=== PATIENT | female | born 1935 | race Caucasian/White ===

== ENCOUNTER 2019-05-20 05:32 | Outpatient (RCR) | payer MEDICARE, SELFPAY | END 2019-05-25 00:01 | LOC: ONCMED 05:32 | PROVIDERS: Family Provider Family Medicine; Visit Provider Nurse Practitioner | DX: Z51.12 Encounter for antineoplastic immunotherapy (principal); C50.411 Malignant neoplasm of upper-outer quadrant of right female breast; C77.3 Secondary and unspecified malignant neoplasm of axilla and upper limb lymph nodes; Z23 Encounter for immunization; I10 Essential (primary) hypertension; E78.5 Hyperlipidemia, unspecified; K21.9 Gastro-esophageal reflux disease without esophagitis; M45.9 Ankylosing spondylitis of unspecified sites in spine; M19.90 Unspecified osteoarthritis, unspecified site; M81.0 Age-related osteoporosis without current pathological fracture; M10.9 Gout, unspecified; F41.8 Other specified anxiety disorders; Z79.01 Long term (current) use of anticoagulants; Z79.891 Long term (current) use of opiate analgesic; Z79.899 Other long term (current) drug therapy; Z87.01 Personal history of pneumonia (recurrent); Z92.3 Personal history of irradiation; Z87.11 Personal history of peptic ulcer disease; Z92.23 Personal history of estrogen therapy; Z92.21 Personal history of antineoplastic chemotherapy | CPT/HCPCS: 99214 ==

== ENCOUNTER → 2019-05-31 09:45 | Outpatient (BNVA) | payer MEDICARE, SELFPAY | PROVIDERS: Family Provider Family Medicine; PCP Family Medicine; Visit Provider Internal Medicine Cardiovascular Disease | DX: E87.6 Hypokalemia (principal); I10 Essential (primary) hypertension; I48.20 Chronic atrial fibrillation, unspecified; E78.2 Mixed hyperlipidemia; R00.2 Palpitations | CPT/HCPCS: 80048 ==

== ENCOUNTER 2019-06-09 13:50 | Emergency (ER) | payer MEDICARE, SELFPAY ==
[2019-06-09 14:19] VITALS: BP 155/95; PULSE 90; RESP 16; TEMP 36.4; O2SAT 95; BMI 26.9
--- NOTE | 2019-06-09 14:28 | XRR_ITS ---
PROCEDURE INFORMATION: Exam: XR Right Shoulder Exam date and time: 06/09/2019 3:18 PM Age: 83 years old Clinical indication: Pain and injury or trauma; Fall; Initial encounter; Blunt trauma (contusions or hematomas; Shoulder; Right; Additional info: Fall, R shoulder pain TECHNIQUE: Imaging protocol: XR Right shoulder. Views: 2 or more views. COMPARISON: No relevant prior studies available. FINDINGS: Bones/joints: There is a transverse displaced retracted fracture of the proximal shaft of the right humerus. The glenohumeral joint is in place. Soft tissues: Widening of the acromial humeral space is seen corresponding to joint fluid collection. XR/XR shoulder RT min 2V* [id number] IMPRESSION: Displaced retracted fracture proximal shaft of the right humerus. Negative for right glenohumeral joint dislocation. Joint space effusion
--- NOTE | 2019-06-09 15:35 | ED_ITS ---
Entered by El Gallagher, acting as scribe for Jonathan Ritter DO Jun 09, 2019 13:50 HPI - Extremity Problem General: Chief complaint: Extremity Injury, Upper Stated complaint: Fell hurt R arm Time Seen by Provider: 06/09/19 16:00 History of Present Illness: HPI Narrative: 83 yo female presents with right shoulder pain. Pt states that she slipped in the shower and hit her shoulder. Pt states that she has swelling of her shoulder. Pt denies hitting her head. MD Complaint: extremity pain and extremity swelling Pain Consistency: constant Location: right and upper extremity Quality: sharp and constant Associated symptoms: Deny chest pain, fever(s) or rash Review of Systems Const: Denies: fever, chills, body aches, fatigue, malaise or night sweats Eyes: Denies: change in vision or blurry vision ENMT: Denies: enlarged tonsils Card: Denies: chest pain, palpitations, irregular heart rhythm, edema, syncope, shortness of breath on exertion, shortness of breath when lying down or leg pain with exertion Resp: Denies: shortness of breath, productive cough, non-productive cough or wheezing GI: Denies: abdominal pain, nausea, vomiting, vomiting blood, coffee grounds in vomit, difficulty swallowing, heartburn/indigestion, diarrhea, constipation, cramping, blood in stool or black tarry stool : Denies: flank pain, painful urination, urinary frequency, urinary urgency, urinary incontinence or blood in urine Musc: Reports: extremity pain, extremity swelling and deformity; Denies: neck pain, back pain, joint pain or joint swelling Skin/Breast: Denies: rash, itching or redness Neuro: Denies: headache, numbness in extremities, weakness in extremities, changes in sensation, lack of coordination, difficulty walking, frequent falls, dizziness, vertigo or confusion Psych: Denies: anxiety, depression, loss of interest, visual hallucinations, auditory hallucinations, suicidal ideation or homicidal ideation Endo: Denies: excessive urination, excessive thirst, tired all the time or cold intolerance Cresencio/Lymph: Denies: easy bruising, easy bleeding, petechiae, enlarged lymph nodes or tender lymph nodes PFSH ED PFSH: Statuses (acute, chronic, etc) shown below reflect problem list status as previously entered and may not be historically accurate Medical History Ankylosing spondylitis of cervicothoracic region (Acute) Atrial fibrillation (Acute) Breast cancer, right (Acute) Chest pain (Acute) Essential hypertension (Acute) Gout (Acute) Hypothyroidism (Acute) Mixed hyperlipidemia (Acute) Osteoarthritis (Acute) Osteopenia (Acute) Palpitation (Acute) Peptic ulcer (Acute) Sinus bradycardia (Acute) SVT (supraventricular tachycardia) (Acute) Vitamin D deficiency (Acute) Surgical History H/O mastectomy (Acute) History of abdominal surgery (Acute) History of parathyroidectomy (Acute) Family History Family/Other Hypertension Mother Stroke Father Stroke Other CAD (coronary artery disease) Cancer Diabetes Hyperlipidemia Social History Smoking and tobacco status: never smoked Alcohol intake: never Marital status: / History of recent travel: No Physical Exam Const: COMMON NORMALS: average body habitus, oriented x3 and alert GENERAL APPEARANCE: cooperative, comfortable, well kempt and well developed NUTRITIONAL APPEARANCE: obese ORIENTATION/CONSCIOUSNESS: Yes awake, Yes oriented to person and Yes oriented to place HENMT: COMMON NORMALS: normocephalic, head/scalp atraumatic, EAC's normal, TM's normal bilaterally, external nose normal, moist oral mucous membranes and oropharynx normal HEAD & SCALP: normocephalic and atraumatic NOSE: external nose normal EXTERNAL AUDITORY CANAL: EAC's normal TYMPANIC MEMBRANE: TM's normal bilaterally MOUTH: oral and palatal mucosa normal, lip normal and tongue normal THROAT: posterior oropharynx normal and tonsils normal Eye: COMMON NORMALS: PERRL, EOMs intact bilaterally, conjunctivae normal and no scleral icterus CONJUNCTIVA: Yes conjunctivae normal PUPIL: Yes PERRL Neck/C-Spine: COMMON NORMALS: full ROM, no lymphadenopathy, supple, no meningeal signs and thyroid normal THYROID: thyroid normal and asymmetrical Lymph: LYMPHATIC: no lymphadenopathy noted Resp: COMMON NORMALS: normal respiratory effort, no retractions, no use of accessory muscles and clear to auscultation bilaterally AUSCULTATION: clear to auscultation bilaterally Cardio: COMMON NORMALS: regular rate and regular rhythm RATE: regular rate RHYTHM: regular rhythm HEART SOUNDS: no murmurs GI: COMMON NORMALS: normal to inspection, nondistended, normoactive bowel sounds, soft to palpation and no hepatosplenomegaly PALPATION: Yes soft and Yes no hepatosplenomegaly : COMMON NORMALS: Yes no CVA tenderness BLADDER/KIDNEY EXAM: Yes no CVA tenderness Back/Pelvis: COMMON NORMALS: no CVA tenderness LUMBAR SPINE/LOWER BACK: Yes normal to inspection Extremity: RIGHT UPPER EXTREMITY: Yes shoulder joint and Yes upper arm Neuro: COMMON NORMALS: oriented x3 SENSORIUM/ORIENTATION: Yes alert, Yes oriented to person and Yes oriented to place MENINGEAL SIGNS: Yes no meningeal signs Psych: APPEARANCE: Yes well kempt Skin: COMMON NORMALS: no rashes or lesions noted and skin turgor normal GENERAL SKIN EXAM: no rashes or lesions noted and turgor normal Course ED course: On the plain film she appears to have a dislocated shoulder in addition to the fracture. CT done to confirm CT does not show dislocation I discussed Dr. Harris she reviewed the films as well she concurred. We will treat as a proximal humerus fracture with shoulder immobilizer and pain medications early orthopedic follow-up. Pain medications given. Consultations: Time: 16:00 Consultation #2: Called Dr. Mckeon, she was in with a pt. Dr. Mckeon's nurse stated that she would call us back after she was finished with the pt. Time: 16:41 Consultation #3: Called Dr. Mckeon back. Consulted her about pt. Vital Signs: Vital signs: Vital Signs Temperature 97.5 F L 06/09/19 14:19 Pulse Rate 89 06/09/19 18:39 Respiratory Rate 131 H 06/09/19 18:39 Blood Pressure 131/89 06/09/19 18:39 Pulse Oximetry 96 06/09/19 18:39 MDM - Extremity (Nontraumatic) Imaging Data^: shoulder xray: My impression: Patient: Alyson Sandoval Unit #: [id number] : 1935 Age/Sex: 83 / F ADM Date: 06/09/19 Loc: ER Room/Bed: Attending Dr: Ordering Provider/Ordering MD: Jonathan Ritter DO Date of Service: 06/09/19 Procedure(s): XR shoulder RT min 2V* [id number] Accession Number(s): [id number] Report Number: [id number] PROCEDURE INFORMATION: Exam: XR Right Shoulder Exam date and time: 06/09/2019 3:18 PM Age: 83 years old Clinical indication: Pain and injury or trauma; Fall; Initial encounter; Blunt trauma (contusions or hematomas; Shoulder; Right; Additional info: Fall, R shoulder pain TECHNIQUE: Imaging protocol: XR Right shoulder. Views: 2 or more views. COMPARISON: No relevant prior studies available. FINDINGS: Bones/joints: There is a transverse displaced retracted fracture of the proximal shaft of the right humerus. The glenohumeral joint is in place. Soft tissues: Widening of the acromial humeral space is seen corresponding to joint fluid collection. XR/XR shoulder RT min 2V* [id number] IMPRESSION: Displaced retracted fracture proximal shaft of the right humerus. Negative for right glenohumeral joint dislocation. Joint space effusion Dictated By: Philip Spann Signed By: Philip Spann Signed Date/Time: 06/09/191627 DD/ 27 Discharge Plan Discharge Patient Disposition: Home, Self-Care Clinical Impression: Fracture of proximal end of humerus Qualifiers: Encounter type: initial encounter Fracture type: closed Fracture alignment: displaced Laterality: right Condition: Stable Prescriptions: No Action potassium chloride 20 mEq tablet extended release 20 meq PO BID RF: 0 pravastatin 20 mg tablet 20 mg PO DAILY RF: 0 carvedilol 3.125 mg tablet 3.125 mg PO BID RF: 0 flecainide 50 mg tablet 50 mg PO Q12H RF: 0 folic acid 1 mg tablet 1 mg PO DAILY RF: 0 nitroglycerin [Nitrostat] 0.4 mg tablet, sublingual 0.4 mg SUBLINGUAL Q5M PRNRF: 0 hydrocodone-acetaminophen 5-325 mg tablet 1 tab PO Q8H PRNRF: 0 Adult Probiotic 3 billion cell capsule 3,000 mmu cells PO DAILY RF: 0 oxybutynin chloride 5 mg tablet 5 mg PO DAILY RF: 0 pantoprazole 40 mg tablet,delayed release (DR/EC) 40 mg PO QAM RF: 0 sertraline 25 mg tablet 25 mg PO DAILY RF: 0 lorazepam 0.5 mg tablet 0.5 mg PO BID PRNRF: 0 diphenoxylate-atropine [Lomotil] 2.5-0.025 mg tablet 2 tab PO BID PRNRF: 0 ondansetron HCl [Zofran] 4 mg tablet 4 mg PO Q8H PRN (Reason: nausea and vomiting) RF: 0 loratadine [Claritin] 10 mg tablet 10 mg PO DAILY PRNRF: 0 furosemide 20 mg tablet 20 mg PO QAM PRNRF: 0 Eliquis 5 mg tablet 5 mg PO BID RF: 0 metronidazole [Flagyl] 500 mg tablet 500 mg PO DAILY RF: 0 Discharge Orders: Discharge Order (Routine); Ordered 06/09/19 Ordered By: Jonathan Ritter Referrals: Sung Buckley MD [Primary Care Provider] - Activity Restrictions/Additional Instructions: This management will call for referral to orthopedics for your right proximal humerus fracture (upper arm). Use pain medicine previously prescribed for pain wear shoulder immobilizer until released by Ortho Discharge Date/Time: 06/09/19 18:41 Coding Level of Care Code ED Automatic Lathe Setter for Chg Fwd Exam Problem Focused The documentation recorded by the Elliott kessler Kialy, accurately reflects the service I personally performed and the decisions made by Riya lloyd Curtis L, DO Jun 09, 2019 13:50
--- NOTE | 2019-06-09 16:01 | CTR_ITS ---
PROCEDURE INFORMATION: Exam: CT Right Upper Extremity Without Contrast, Shoulder Exam date and time: 06/09/2019 4:45 PM Age: 83 years old Clinical indication: Injury or trauma; Fall; Initial encounter; Blunt trauma (contusions or hematomas; Shoulder; Right; Injury details: Prox RT humerus FX; Additional info: Prox humerus FX, dislocation TECHNIQUE: Imaging protocol: CT of the Right upper extremity without contrast was performed. Exam focused on the shoulder. Total DLP: 1038.92 mGy-cm Radiation optimization: All CT scans at this facility use at least one of these dose optimization techniques: automated exposure control; mA and/or kV adjustment per patient size (includes targeted exams where dose is matched to clinical indication); or iterative reconstruction. COMPARISON: CR XR shoulder RT min 2V* [id number] 06/09/2019 3:05 PM FINDINGS: Bones/joints: There is a fracture of the surgical neck of the humerus with over riding of the fracture fragments. There is rotation of the humeral head. The fracture does not involve the articular surface of the humeral head. Multiple bone fragments are noted adjacent to the fracture. The fracture also involves the greater tuberosity humerus. Coronal images best demonstrate that there is also a thin fracture fragment directly beneath the lateral acromion that appears to be arising from the greater tuberosity humerus. This is concerning for avulsion of the insertion site of the rotator cuff with medial retraction measuring up to 2 cm. Smaller bone fragment is also noted along the posterior greater tuberosity probably involving the infraspinatus with less medial retraction measuring about 5 mm. No dislocation. No acute fracture of the glenoid articular surface or remainder of the scapula. The acromioclavicular joint has an appropriate appearance. Soft tissues: Partially included on this exam is a 3.6 by 2.9 cm fluid density cyst along the right lower lateral chest wall image 76 series 4 that may reflect a hematoma or seroma along the lateral aspect of the pectoralis muscle. Pleural space: There is a small right pleural effusion. Focal airspace opacity and air bronchograms are noted in the right upper lobe concerning for infiltrate or contusion. CT/CT shoulder RT wo con* [id number] IMPRESSION: 1. Comminuted fracture of the surgical neck of the humerus with foreshortening of the bone and fracture of the greater tuberosity humerus. 2. Medial displacement of greater tuberosity fracture fragments are concerning for involvement the rotator cuff insertion and medial retraction. 3. Right pleural effusion and airspace opacity right upper lobe concerning for pneumonitis and volume loss. 4. Partially included on this exam is a 3.6 by 2.9 cm fluid density cyst along the right lower lateral chest wall image 76 series 4 that may reflect a hematoma or seroma along the lateral aspect of the pectoralis muscle. Radiation Dose CTDIVOL = (mGy): DLP = 1038.92 (mGy-cm)
[2019-06-09] MEDS: ondansetron 2 mg/ML SDV 2 mL 4 MG IVP (16:44)
[2019-06-09 16:45] VITALS: RESP 16
[2019-06-09] MEDS: morphine 4 mg/mL SDV 1 mL IVP (16:45)
--- NOTE | 2019-06-09 17:37 | XR_ITS ---
WS: [id number] PORTABLE CHEST HISTORY: incidental abnormal lung finding on CT shoulder COMPARISON: 08/24/2018, PET/CT 06/09/2019 LEFT subclavian Port-A-Cath with tip in distal SVC. Hyperexpanded lungs with emphysema and prior granulomatous disease. Soft tissue mass at the RIGHT ape x measures 5.9 x 3.5 cm. PET/CT performed on 06/09/2019 was negative for recurrence of neoplastic dise ase. On the CT this is probably a combination of atelectasis and bronchiectasis and pleural thickenin g. No pleural effusion or pneumothorax. Cardiac size: Mildly enlarged cardiac silhouette. Mediastinum/Aorta: Normal mediastinum. Comminuted fracture involving the RIGHT humeral head and neck. XR/XR chest 1V portable [id number] IMPRESSION: 1. Chronic emphysema. 2. RIGHT apical mass was recently described as PET/CT negative on 06/09/2019. T hought to be related to postsurgical radiation.
[2019-06-09 18:39] VITALS: BP 131/89; PULSE 89; RESP 131; O2SAT 96
--- NOTE | 2019-06-11 09:24 | DCPLANNER ---
self storage manager had message to schedule a follow up appointment for patient with ortho. self storage manager called the ortho clinic, spoke with Renea, gave clinic patients information. self storage manager was told that patients information would be printed and reviewed. Clinic will call lead case manager and patient with appointment information.
--- NOTE | 2019-06-15 12:09 | DCPLANNER ---
Patient has a follow up appointment scheduled for Tuesday, June 18, 2019 at 12:[address] Aguilera. Clinic will call patient with appointment information.
--- NOTE | 2019-06-23 15:41 | DCPLANNER ---
Patient did attend appointment scheduled for 06.18.19 with ortho.
== END 2019-06-09 18:41 | disposition home or self-care (01) ==
PROVIDERS: Emergency Provider Family Medicine; Family Provider Family Medicine; PCP Family Medicine
DX: S42.201A Unspecified fracture of upper end of right humerus, initial encounter for closed fracture (principal); W18.2XXA Fall in (into) shower or empty bathtub, initial encounter; Z79.01 Long term (current) use of anticoagulants; I48.91 Unspecified atrial fibrillation; Z85.3 Personal history of malignant neoplasm of breast; I10 Essential (primary) hypertension; E78.2 Mixed hyperlipidemia
CPT/HCPCS: 71045; 73030; 73200; 96374; 99281; J2270; J2405

== ENCOUNTER → 2019-06-22 13:48 | Outpatient (BNVA) | payer MEDICARE, SELFPAY | PROVIDERS: Family Provider Family Medicine; PCP Family Medicine; Visit Provider Orthopaedic Surgery | DX: S42.401A Unspecified fracture of lower end of right humerus, initial encounter for closed fracture (principal); X58.XXXA Exposure to other specified factors, initial encounter | CPT/HCPCS: 73030; 73080 ==

== ENCOUNTER 2019-06-24 10:15 | Outpatient (RCR) | payer MEDICARE, SELFPAY ==
[2019-06-10] MEDS: sodium chloride 0.9% 500 ML 999 ML IV (16:00)
[2019-06-10 17:03] LABS: Basophils % 0.1 %; Hematocrit 32.1 % (37.0-47.0); Lymphocytes # 0.5 10^3/uL (0.8-4.8); Lymphocytes % 6.4 %; Mean Corpuscular HGB Conc 31.2 g/dL (30.0-36.0); Mean Platelet Volume 9.4 fL (7.4-10.4); Monocytes # 0.6 10^3/uL (0.2-0.9); Monocytes % 8.2 %; Neutrophils # 6.6 10^3/uL (1.8-7.7); Nucleated Red Blood Cells % 0 %; Platelet Count 191 10^3/cmm (130-400); Red Blood Count 3.45 10^6/uL (4.1-5.3); Red Cell Distribution Width 15.5 % (12.1-15.1); White Blood Count 7.8 10^3/uL (4.0-10.0)
[2019-06-10 17:09] LABS: Alanine Aminotransferase 6 U/L (0-33); Alkaline Phosphatase 60 IU/L (35-105); Anion Gap 17.3 (5-19); Aspartate Amino Transferase 15 U/L (0-32); Blood Urea Nitrogen 22 mg/dL (8-23); Calcium 9.5 mg/Dl (8.8-10.2); Carbon Dioxide 24 mmol/L (22-29); Chloride 101 mmol/L (98-107); Glucose 166 mg/dL (74-106); Potassium 5.3 mmol/L (3.5-5.1); Sodium 137 mmol/L (136-145); Total Bilirubin 0.6 mg/dL (0.15-1.2)
--- NOTE | 2019-06-14 06:18 | ONC FU_ITS ---
Dr. Esquivel Patient Follow-Up Note Patient: Alyson Sandoval Unit #: [id number]: 1935 Dicatated By: Francisco Esquivel M.D.Date of Visit:Jun 10, 2019 Onc Med Follow-up/Prog Note Chief Complaint: Breast cancer. History of Present Illness: This is an 83 year-old woman with grade 2 infiltrating ductal carcinoma of the right breast, by clinical evaluation stage IIB (T2, N1, M0), ER/CT positive and HER-2/he positive. She had presented with a palpable mass in the right breast. Diagnostic mammogram and right breast ultrasound at [facility] on 03/26/2018 was BI-RADS 5, highly suggestive of malignancy. The mammogram showed a nodular density in the upper outer right breast at the 10:00 position with interval enlargement of some lymph nodes in the right axilla. Ultrasound showed a lobulated mass measuring 2.6 x 1.7 x 2.1 cm. The appearance was highly suspicious for malignancy. It also showed enlarged lymph nodes measuring up to 2.6 cm, suspicious for metastatic disease. She was referred to Dr. Ruiz. Ultrasound-guided biopsy of the breast mass on 04/24/2018 showed grade 2 infiltrating ductal carcinoma involving virtually 100% of 5 of 5 core fragments submitted. The breast prognostic profile showed ER positive at 98% and CT positive at 75%. HER-2/he was positive, 3+ by IHC and amplification ratio by FISH of 1.0 with 5.6 HER-2 copies/cell. The Ki-67 was unfavorable at 40%. I had seen her initially on 05/22/2018. As her disease appeared to be at least locally advanced, I had recommended a staging PET/CT. That study was done on 05/30/2018. It showed a primary right breast lesion measuring 2.7 x 2.1 cm with SUV 12.8. Multiple right axillary and retropectoral lymph nodes were FDG positive, indicative of metastatic disease. An index right axillary lymph node measured 2.7 x 1.9 cm with SUV 8.1. There were no other areas of abnormal uptake on that study. A multinodular goiter appear to be most likely physiologic. Given those findings, I recommended that she undergo neoadjuvant chemotherapy with paclitaxel in combination with Herceptin, as I felt that she would not tolerate a Taxotere/carboplatin regimen. Her other medical illnesses include hypertension, hyperlipidemia, and GERD. She has a history of pericarditis and history of cardiac arrhythmia. Her other medical illnesses include ankylosing spondylitis, degenerative arthritis, osteoporosis, and gout. She has a history of Clostridium difficile colitis and she has anxiety/depression. She is a nonsmoker. INTERIM HISTORY: She began neoadjuvant chemotherapy with weekly paclitaxel in combination with Herceptin beginning 06/22/2018. She tolerated the initial treatment without significant toxicity, and she was able to continue with week 2 treatment on 06/29/2018. Her week 3 treatment was delayed 1 week due to neutropenia, and with subsequent treatment she has been getting Neupogen prophylactically for 2 days. As of 08/17/2018 she received her 8th infusion of paclitaxel/Herceptin. Restaging mammogram/ultrasound of the right breast on 08/20/2018 showed improvement in the upper outer quadrant breast mass. A right axillary lymph node which was incompletely included appeared similar to the prior study. Other enlarged right axillary lymph nodes on the prior exam are no longer evident. A benign-appearing intramammary lymph node in the right axillary tail appeared stable. She became very weak following the chemotherapy treatment on 08/17/2017. Despite several days of IV hydration, she ended being admitted to the hospital on 08/23/2018. Her main complaint was weakness, but she also was having diarrhea. She was found to have evidence of right lower lobe pneumonia. Her management included IV antibiotic coverage and supportive measures. She was discharged to the assisted on 08/27/2018 for rehabilitation. I opted not to attempt any further chemotherapy, but I did have her continue Herceptin infusions at the 3-week interval dosing. On 09/17/2017 she underwent right breast lumpectomy and right axillary lymph node dissection. Pathology showed residual grade 2 infiltrating ductal carcinoma measuring 1.0 cm in combined aggregate dimension. There were tumor nests noted within 0.3 cm of inked superior and inferior margins. There was metastatic tumor in 7/11 axillary lymph nodes. She developed seroma postoperatively, but she otherwise tolerated the procedure well. She then continued single agent Herceptin at 3-week intervals. As of her follow-up visit on 09/30/2017, she began adjuvant hormonal therapy with anastrozole 1 mg daily. It was subsequently discontinued, though, due to side effects, mainly nausea. She then underwent radiation to the right breast. She completed treatment on 02/03/2019 to a total dose of 6000 cGy. Restaging PET/CT on 03/27/2019 showed post radiation therapy edema in the right breast with an FDG negative right axillary seroma. Mildly FDG positive right upper lobe lung infiltrate appear to be most consistent with postradiation therapy sequelae. New right middle lobe scarring was FDG negative. As of 05/20/2019 she received cycle 13 of single agent Herceptin. She is seen for a scheduled visit. Yesterday she was seen in the emergency room after she had fallen in the shower and injured her right arm. X-ray showed a displaced retracted fracture involving the proximal shaft of the right humerus. CT confirmed a comminuted fracture of the surgical neck of the humerus with foreshortening of the bone and fracture of the greater tuberosity humerus. There was also possible involvement of the rotator cuff insertion. A 3.6 x 2.9 cm fluid density cyst along the right lower lateral chest wall was partially included and was thought to be suspicious for hematoma or seroma along the lateral aspect of the pectoralis muscle. It is being managed by Dr. Mckeon. She had been feeling pretty good prior to that injury. Her activity now is very limited. She says she has not had much appetite, but her weight is stable. She has not had fever or night sweats. She has no shortness of breath, cough, or chest pain. She still has nausea occasionally. She also has occasional heartburn, which she manages with Tums. Bowel function has been okay. She has been having urinary frequency and urgency. In addition to the right shoulder and arm pain, she continues to have pain in her knees and she also has some back pain. She has no focal neurologic symptoms. Medications: Acetaminophen 2 Tablet (of 500 mg) Oral four times a day PRN, Ambien 1 Tablet (of 5 mg) Oral at bedtime, Carvedilol 1 Tablet (of 3.125 mg) Oral b.i.d., Claritin 1 Tablet (of 10 mg) Oral daily PRN, Culturelle 1 Capsule Oral daily, Ditropan XL 1 Tablet (of 5 mg) Tablet SR 24 HR Oral at bedtime, Eliquis 1 Tablet (of 5 mg) Oral b.i.d., Flecainide Acetate 0.5 Tablet (of 100 mg) Oral b.i.d., Fleet Enema 1 (7-19 gm/118mL) Enema Rectal PRN, Folic Acid 1 Tablet (of 1 mg) Oral daily, HYDROcodone-Acetaminophen 1 - 2 Tablet (of 5-325 mg) Oral q 6 hours PRN, Imdur 1 Tablet (of 30 mg) Tablet SR 24 HR Oral daily, Lasix 1 Tablet (of 20 mg) Oral daily on Every Other Day, Lidocaine-Prilocaine Cream Topical PRN, Lomotil 1 Tablet (of 2.5-0.025 mg) Oral four times a day PRN, LORazepam 1 - 2 Tablet (of 0.5 mg) Oral q 4 hours PRN, Magnesium Hydroxide 400 (400 mg/5mL) Suspension Oral PRN, metroNIDAZOLE 1 Tablet (of 500 mg) Oral daily for 10 days, Nitroglycerin 1 Tablet (of 0.4 mg) Tablet, sublingual Sublingual PRN, Phenylephrine-Acetaminophen 1 - 2 Tablet (of 5-325 mg) Oral q 4 hours, Potassium Chloride ER 1 Tablet (of 20 meq) Capsule, controlled release Oral b.i.d., Pravachol 1 Tablet (of 20 mg) Oral at bedtime, Protonix 1 Tablet (of 40 mg) Tablet, enteric coated Oral daily, Zofran 1 - 2 Tablet (of 4 mg) Oral q 8 hours, Zoloft 1 Tablet (of 25 mg) Oral daily Allergies: No Known Allergies. Review of Systems: Constitutional - Her energy had been pretty good, but her activity has been limited following her recent injury. She does not have much appetite, but her weight is stable. No fever, or night sweats. ECOG score is 3, ENMT - Her sinus drainage is somewhat better. No mouth sores. No sore throat or difficulty swallowing, Hematologic/Lymphatic - She bruises easily, Respiratory - No shortness of breath. No cough. No pleuritic pain or hemoptysis, Cardiovascular - No angina pain. No palpitations, Gastrointestinal - No nausea or vomiting. She has occasional heartburn which she manages with Tums. No diarrhea or constipation. No blood in the stool or black stools, Genitourinary (F) - No dysuria or hematuria. She has urinary frequency and urgency. She has some bladder incontinence, Musculoskeletal - She has pain in her right shoulder and arm. She also has pain in her knees and back, Integumentary - No skin complications, Neurologic - No headache or dizziness. No numbness/paresthesias or other focal neurologic symptoms, Psychiatric - No anxiety or depression. She has been sleeping better at night. Vital Signs: Performed on Jun 10, 2019 16:16 Height - 65.00 in Temperature - 97.7 F (LOW) Pulse - 98 /min Respiration - 18 /min BP - 109/57 mm(hg) O2 Sat - 98 % Pain - 0 Fatigue - 0 Performed on Jun 10, 2019 15:20 Height - 65.00 in Weight - 155.0 lbs (HIGH) BSA - 1.78 sq.m BMI - 25.79 Temperature - 97.5 F (LOW) Pulse - 84 /min Respiration - 24 /min BP - 106/63 mm(hg) O2 Sat - 95 % (LOW) Pain - 4 Physical Examination: Constitutional - She appears somewhat weak generally, Eyes - Sclerae nonicteric. Conjunctivae clear, ENMT - There are no lesions noted in the oral cavity, Hematologic/Lymphatic - No cervical or clavicular adenopathy, Respiratory - Lungs are clear, Cardiovascular - Heart rhythm is irregular. There is a I/ systolic murmur. There is no gallop or rub noted, Breasts - There is induration in the right breast. There is no mass palpalbe. There is no axillary adenopathy noted, Abdomen - Soft. Liver and spleen are not enlarged. There is no abdominal mass or ascites noted and there is no inguinal adenopathy, Extremities - There is soft tissue swelling and there is associated ecchymosis in the right shoulder and upper arm. There is no lower extremity edema, Neurologic - No focal neurologic deficits noted. Lab/Imaging: Test performed on Jun 10, 2019 15:55 Glucose 166 mg/dL BUN 22 mg/dL Creatinine 1.9 mg/dL Cr Clearance (Est) 26.31 mL/min Sodium 137 mmol/L Potassium 5.3 mmol/L Chloride 101 mmol/L CO2 24 mmol/L Calcium 9.5 mg/dL Protein, Total 7.0 g/dL Albumin 4.0 g/dL Bilirubin, Total 0.6 mg/dL Alkaline Phosphatase 60 IU/L AST (SGOT) 15 IU/L ALT (SGPT) 6 IU/L WBC 7.8 10^9/L RBC 3.45 10^12/L HGB 10.0 g/dL HCT 32.1 % MCV 93.0 fl MCH 29.0 pg MCHC 31.2 g/dL RDW 15.5 % Platelet Count 191 10^9/L MPV 9.4 fL Neutrophils (Gran) 6.6 10^9/L Lymphocytes 0.5 10^9/L Monocytes 0.6 10^9/L Eosinophils 0.0 10^9/L Basophils 0.0 10^9/L Manual Lymphocytes 6.4 % Manual Monocytes 8.2 % Manual Eosinophils 0.0 % Manual Basophils 0.1 % NRBCs 0.0 /100 WBC Impression: 1. Patient with grade 2 infiltrating ductal carcinoma of the right breast, by clinical evaluation stage IIB (T2, N1, M0), ER/CT positive and HER-2/he positive. 2. She underwent ultrasound-guided needle biopsy of the right breast on 04/24/2018. Her other medical illnesses include: 3. Hypertension. 4. Hyperlipidemia. 5. She has a history of cardiac arrhythmia and history of pericarditis. 6. Hiatal hernia/GERD. 7. Ankylosing spondylitis. 8. Degenerative arthritis. 9. Osteoporosis. 10. History of gout. 11. She has a history of Clostridium difficile colitis. 12. Anxiety/depression. She began neoadjuvant chemotherapy with weekly paclitaxel/Herceptin on 06/22/2018. Her treatment had been complicated by neutropenia, requiring growth factor support with Neupogen. Other side effects had included moderately severe fatigue, anorexia/weight loss. As of 08/17/2018 she completed her 8th weekly infusion of paclitaxel/Herceptin. That treatment was complicated by increased weakness and by diarrhea. On 08/23/2018 she was admitted to the hospital with pneumonia. She was discharged to the assisted on 08/27/2018. She is beginning to show some recovery now, but she still has very limited activity. She also has low potassium. Her restaging mammogram/ultrasound of the right breast on 08/20/2018 did show significant response, but there was residual disease. On 09/17/2017 showed underwent right breast lumpectomy and right axillary lymph node dissection. Pathology showed only a small residual tumor in the right breast, measuring 1.0 cm in combined aggregate. There was involvement, though, in 7/11 lymph nodes. Postoperatively she had developed seromas at the lumpectomy site and the axillary incision site, but those have gradually resolved. She continued treatment with Herceptin at the 3-week dosing interval. Following her visit on 09/30/2018 she began adjuvant hormonal therapy with anastrozole 1 mg daily. It was discontinued, though, due to side effects, mainly nausea. She had improvement in the nausea since stopping the anastrozole, and she had been showing gradual improvement in her energy and activity tolerance following completion of the chemotherapy. She underwent radiation to the right breast, which she completed on 02/03/2019 to a total dose of 6000 cGy. During this time she also continued single agent Herceptin at a 3-week dosing schedule. Restaging PET/CT on 03/27/2019 showed post radiation therapy edema in the right breast with an FDG negative right axillary seroma. Mildly FDG positive right upper lobe lung infiltrate appear to be most consistent with postradiation therapy sequelae. As of 05/20/2019 she completed her 13th cycle of treatment . At that point she continued to have some weakness/fatigue, but it had been gradually improving. Yesterday she suffered a traumatic fracture of the proximal right humerus. Following that injury, she has been feeling somewhat weak generally, and she has been having some nausea. Her blood pressure is on the low side. Plan: Due to the recent injury she will be given IV hydration today and her treatment will be delayed. She will then return in 1 week for her final dose of single agent Herceptin at 6 mg/kg by IV infusion. In the meantime, as she does appear to have significant hematoma, I also will put her a apixaban on temporary hold. Following completion of her Herceptin therapy, she will need to restart adjuvant hormonal therapy, but with something other than anastrozole. Signed By: Francisco Esquivel M.D. <<Signature on File>>
== END 2019-06-25 23:59 | disposition home or self-care (01) ==
LOC: RAD 10:15
PROVIDERS: Family Provider Family Medicine; PCP Family Medicine; Visit Provider Internal Medicine Medical Oncology
DX: C50.411 Malignant neoplasm of upper-outer quadrant of right female breast (principal); C77.3 Secondary and unspecified malignant neoplasm of axilla and upper limb lymph nodes; Z17.0 Estrogen receptor positive status [ER+]; E04.2 Nontoxic multinodular goiter; I10 Essential (primary) hypertension; E78.5 Hyperlipidemia, unspecified; K21.9 Gastro-esophageal reflux disease without esophagitis; M45.9 Ankylosing spondylitis of unspecified sites in spine; M19.90 Unspecified osteoarthritis, unspecified site; M81.0 Age-related osteoporosis without current pathological fracture; M10.9 Gout, unspecified; F41.8 Other specified anxiety disorders; K44.9 Diaphragmatic hernia without obstruction or gangrene; S42.211A Unspecified displaced fracture of surgical neck of right humerus, initial encounter for closed fracture; W18.2XXA Fall in (into) shower or empty bathtub, initial encounter; Z79.891 Long term (current) use of opiate analgesic; Z87.01 Personal history of pneumonia (recurrent); Z92.21 Personal history of antineoplastic chemotherapy; Z92.3 Personal history of irradiation
CPT/HCPCS: 80053; 85025; 96360; 99214; J7040

== ENCOUNTER 2019-07-12 05:57 | Outpatient (RCR) | payer MEDICARE, SELFPAY ==
--- NOTE | 2019-07-12 13:40 | US_ITS ---
WS: [id number] ULTRASOUND RIGHT BREAST HISTORY: Abnormal physical findings. Prior RIGHT lumpectomy, radiation chemotherapy. Recent trauma. COMPARISON: 10/02/2018 TECHNIQUE: 2-D and Doppler. Complex fluid collection is well-rounded measuring 3.9 x 3.4 x 2.4 cm near the junction of the RIGHT axillary tail with the axilla. No soft tissue mass or lymph nodes identified. Beneath the surface of the scar is an infiltrating area of decreased echogenicity which is probably edema. No increased vasc ularity. US/US breast RT limited* [id number] IMPRESSION: BI-RADS: 3-Probably Benign FOLLOW-UP: 3 Month Follow-up Recommend 3 month follow-up of the RIGHT breast ultrasound findings. Favor all of these changes noted in the RIGHT breast are related to post surgery and radi ation and trauma.
== END 2019-07-24 23:59 | disposition home or self-care (01) ==
LOC: RAD 05:57
PROVIDERS: Family Provider Family Medicine; PCP Family Medicine; Visit Provider Internal Medicine Medical Oncology
DX: C77.3 Secondary and unspecified malignant neoplasm of axilla and upper limb lymph nodes (principal); C50.411 Malignant neoplasm of upper-outer quadrant of right female breast
CPT/HCPCS: 76642

== ENCOUNTER → 2019-07-22 13:19 | Outpatient (BNVA) | payer MEDICARE, SELFPAY | PROVIDERS: Family Provider Family Medicine; PCP Family Medicine; Visit Provider Orthopaedic Surgery | DX: S42.201A Unspecified fracture of upper end of right humerus, initial encounter for closed fracture (principal); X58.XXXA Exposure to other specified factors, initial encounter; M25.521 Pain in right elbow | CPT/HCPCS: 73030 ==

== ENCOUNTER 2019-08-09 13:25 | Outpatient (CLI) | payer MEDICARE, SELFPAY ==
--- NOTE | 2019-08-09 | XR_ITS ---
WS: [id number] KNEE LEFT TECHNIQUE: 3 views of the left knee CLINICAL INFORMATION: knee pain left COMPARISON: March 30, 2018 FINDINGS: Osteopenia. Moderate to advanced degenerative arthritis left knee worse in the lateral joint compartm ent. Hypertrophic changes along the joint line. Hypertrophic patella. Soft tissue edema. Small suprap atellar effusion. XR/XR knee LT 3V* [id number] IMPRESSION: 1. Moderate tricompartmental arthritis. 2. Soft tissue edema with Small suprapatellar effusion.
== END 2019-08-09 13:26 | disposition home or self-care (01) ==
LOC: RADOUTREAD 08-10 08:21
PROVIDERS: Family Provider Family Medicine; PCP Family Medicine; Visit Provider Nurse Practitioner Family
DX: Z76.89 Persons encountering health services in other specified circumstances (principal)

== ENCOUNTER 2019-08-16 16:36 | Outpatient (CLI) | payer MEDICARE, SELFPAY ==
--- NOTE | 2019-08-16 | USCV_ITS ---
Jaime Alyson Age: 84 Gender: F : 1935 Exam Date: 08/16/2019 16:34 Ordering Phys: Pablito Bacon DO Technologist: Andreia Garcia Exam Location[place] [facility] [place] Indication: EDEMA HISTORY: Lower extremity edema. PROCEDURES: Venous duplex imaging was performed in only the left lower extremity. The following venous structures were evaluated: common femoral vein, profunda vein, proximal portion of the greater saphenous vein, superficial femoral vein, and the popliteal vein. In addition, the posterior tibial and peroneal trunk were evaluated. Serial compression, augmentation maneuvers, and spectral Doppler flow evaluation were performed. FINDINGS: No evidence of DVT seen in any vessel visualized at this time. There does appear to be a large hematoma located in the left popliteal fossa, No communication with the deep system is seen at this time. At 2.8 x 1.4 cm hypoechoic area in the popliteal region CONCLUSIONS No evidence of DVT in the above-mentioned identifiable veins. A 2.8 x 1.0 cm hypoechoic area in the left popliteal fossa may suggest resolving hematoma versus other soft tissue mass Dr Yosvany Solares MD FAC (Electronically Signed) Final Date: 16 August 2019 17:39 S
== END 2019-08-16 16:37 | disposition home or self-care (01) ==
LOC: RAD 16:41
PROVIDERS: Family Provider Family Medicine; PCP Family Medicine; Visit Provider Electrodiagnostic Medicine
DX: R60.0 Localized edema (principal); M79.605 Pain in left leg; M25.562 Pain in left knee
CPT/HCPCS: 93971

== ENCOUNTER → 2019-10-28 09:04 | Outpatient (BNVA) | payer MEDICARE, SELFPAY | PROVIDERS: Family Provider Family Medicine; PCP Family Medicine; Visit Provider Internal Medicine Rheumatology | DX: M12.80 Other specific arthropathies, not elsewhere classified, unspecified site (principal); C50.911 Malignant neoplasm of unspecified site of right female breast; Z17.0 Estrogen receptor positive status [ER+]; S42.294 Other nondisplaced fracture of upper end of right humerus; M80.00XK Age-related osteoporosis with current pathological fracture, unspecified site, subsequent encounter for fracture with nonunion; Z79.899 Other long term (current) drug therapy; X58.XXXD Exposure to other specified factors, subsequent encounter | CPT/HCPCS: G0463 ==

== ENCOUNTER 2019-12-11 13:37 | Emergency (ER) | payer MEDICARE, SELFPAY ==
[2019-12-11 13:38] VITALS: BMI 24.7
[2019-12-11 13:42] VITALS: BP 171/98; PULSE 73; RESP 20; TEMP 37.1; O2SAT 96
--- NOTE | 2019-12-11 13:44 | ED_ITS ---
HPI - Extremity Problem General: Chief complaint: Extremity Problem,Nontraumatic Stated complaint: RIGHT ARM PAIN Time Seen by Provider: 12/11/19 13:44 History of Present Illness: HPI Narrative: Patient is a 4-year-old female comes to the ED with chronic right shoulder pain with erythema around shoulder. Patient fell back in May and fractured humerus. She was then put in a sling for several months and followed by Dr. Schmid. Patient's right shoulder did not heal up correctly and it was decided due to 2 other health risks to not perform surgery to fix shoulder. Patient has chronic right shoulder pain and limited mobility in the right arm. She has no acute change in pain or mobility in right arm. Patient denies any acute injury, fall or accident. She was sent here to the ED because the med tech noticed some redness on skin the right shoulder and wanted to get it evaluated. Associated symptoms: Deny chest pain, fever(s) or rash Review of Systems Const: Denies: fever(s), chills or fatigue Eyes: Denies: change in vision or eye discomfort ENMT: Denies: throat pain, odynophagia, nasal discharge or nasal congestion Card: Denies: chest pain, palpitations, edema, swelling of feet/ankles, dyspnea on exertion or orthopnea Resp: Denies: dyspnea, productive cough or non-productive cough GI: Denies: abdominal pain, nausea, vomiting, diarrhea, constipation or hematochezia : Denies: flank pain, dysuria or hematuria Musc: Reports: extremity pain (right shoulder) and joint pain (right shoulder); Denies: neck pain, back pain or extremity swelling Skin/Breast: Denies: rash or new lesions Neuro: Denies: headache(s), numbness in extremities or weakness in extremities PFS ED PFSH: Medical History Atrial fibrillation Breast cancer Breast cancer, right Chest pain Essential hypertension Gout HLA-B27 positive arthropathy Humerus fracture Hypothyroidism Immunization counseling Mixed hyperlipidemia Osteoarthritis Osteopenia Osteoporosis Palpitation Peptic ulcer Sinus bradycardia SVT (supraventricular tachycardia) Vitamin D deficiency Surgical History H/O mastectomy History of abdominal surgery History of parathyroidectomy Family History Family/Other Hypertension Mother Stroke Father Stroke Other CAD (coronary artery disease) Cancer Diabetes Hyperlipidemia Rheumatoid arthritis Denies family history of Lupus Social History Smoking and tobacco status: never smoked Alcohol intake: never Marital status: / History of recent travel: No Physical Exam Const: COMMON NORMALS: no acute distress, patient oriented x3 and alert GENERAL APPEARANCE: cooperative and comfortable HENMT: COMMON NORMALS: normocephalic HEAD & SCALP: normocephalic MOUTH: Normal oral and palatal mucosa present THROAT: posterior oropharynx normal and uvula midline Neck/C-Spine: COMMON NORMALS: supple GENERAL: Yes normal visual inspection Resp: COMMON NORMALS: normal respiratory effort, No retractions, No use of accessory muscles and clear to auscultation bilaterally AUSCULTATION: clear to auscultation bilaterally Cardio: COMMON NORMALS: regular rate, regular rhythm, S1 normal heart sound present, S2 normal heart sound present, No gallops present (Cardio), No clicks present (Cardio), No murmurs present (Cardio) and Peripheral pulses 2+ throughout RATE: regular rate RHYTHM: regular rhythm HEART SOUNDS: S1 normal heart sound present and S2 normal heart sound present PERIPHERAL PULSES: Peripheral pulses 2+ throughout GI: COMMON NORMALS: Normal to inspection, nondistended, normoactive bowel sounds present, Soft to palpation, non-tender and no masses PALPATION: Yes Soft to palpation : COMMON NORMALS: Yes no CVA tenderness BLADDER/KIDNEY EXAM: Yes no CVA tenderness Back/Pelvis: COMMON NORMALS: no CVA tenderness Extremity: NARRATIVE EXTREMITY EXAM: Patient appears to have some mild ecchymosis around right shoulder. No erythema or warmth and no tenderness. GENERAL: Yes normal exam except as noted Neuro: COMMON NORMALS: patient oriented x3 and moves all extremities SENSORIUM/ORIENTATION: Yes alert Skin: GENERAL SKIN EXAM: ecchymosis (On right shoulder.) Course Vital Signs: Vital signs: Vital Signs Temperature 98.8 F 12/11/19 13:42 Pulse Rate 67 12/11/19 14:25 Respiratory Rate 18 12/11/19 14:25 Blood Pressure 124/66 12/11/19 14:25 Pulse Oximetry 96 12/11/19 14:25 MDM - Extremity (Nontraumatic) MDM Narrative: Medical decision making narrative: Patient is an 84-year-old female who comes to the ED via ambulance for erythema and pain on right shoulder. Patient has chronic right shoulder pain due to proximal humerus fracture that did not heal properly. Patient denies any re-injury, fall or trauma. She was sent over here by [facility] to be evaluated for possible cellulitis. Physical exam showed some mild ecchymosis on right shoulder but no erythema, warmth or tenderness. Patient diagnosed with ecchymosis right shoulder and told to follow-up with PCP in 7 to 10 days for reevaluation. Patient understood and agreed with plan. Discharge Plan Discharge Patient Disposition: Home, Self-Care Clinical Impression: Ecchymosis Condition: Stable Prescriptions: No Action potassium chloride 20 mEq tablet extended release 20 meq PO BID RF: 0 pravastatin 20 mg tablet 20 mg PO DAILY RF: 0 carvedilol 3.125 mg tablet 3.125 mg PO BID RF: 0 flecainide 50 mg tablet 50 mg PO Q12H RF: 0 folic acid 1 mg tablet 1 mg PO DAILY RF: 0 nitroglycerin [Nitrostat] 0.4 mg tablet, sublingual 0.4 mg SUBLINGUAL Q5M PRN (Reason: Chest Pain) RF: 0 Adult Probiotic 3 billion cell capsule 3,000 mmu cells PO DAILY RF: 0 pantoprazole 40 mg tablet,delayed release (DR/EC) 40 mg PO QAM RF: 0 sertraline 25 mg tablet 25 mg PO DAILY RF: 0 lorazepam 0.5 mg tablet 0.5 mg PO Q4H PRN (Reason: Anxiety) RF: 0 ondansetron HCl [Zofran] 4 mg tablet 4 mg PO Q8H PRN (Reason: nausea and vomiting) RF: 0 loratadine [Claritin] 10 mg tablet 10 mg PO DAILY PRN (Reason: Allergy Symptoms) RF: 0 furosemide 20 mg tablet 20 mg PO QAM RF: 0 acetaminophen 500 mg tablet 500 mg PO Q6H PRN (Reason: Pain) RF: 0 aspirin 325 mg Tablet 325 mg PO DAILY RF: 0 isosorbide mononitrate 30 mg Tablet Extended Release 24 Hr 30 mg PO DAILY RF: 0 Lomotil 2.5-0.025 mg Tablet 1 tab PO QID PRN (Reason: Diarrhea) RF: 0 lidocaine-prilocaine 2.5-2.5 % Cream 1 applic topical DAILY PRN (Reason: Port/Catheter Care) RF: 0 Milk of Magnesia 400 mg/5 mL Suspension 30 ml PO DAILY PRN (Reason: Constipation) RF: 0 hydrocodone-acetaminophen 7.5-325 mg Tablet 0.5 tab PO QID PRN (Reason: Pain) RF: 0 Fleet Enema 19-7 gram/118 mL Enema 118 ml ID DAILY PRN (Reason: Constipation) RF: 0 Ditropan XL 5 mg Tablet Extended Release 24hr 5 mg PO DAILY RF: 0 Ambien 5 mg Tablet 5 mg PO BEDTIME RF: 0 Vitamin D3 125 mcg (5,000 unit) Tablet 125 mcg PO DAILY RF: 0 Discharge Orders: Discharge Order (Routine); Ordered 12/11/19 Ordered By: Pablo Hendricks Referrals: Sung Buckley MD [Primary Care Provider] - Discharge Diet: Regular Discharge Activity: Increase activity as tolerated Activity Restrictions/Additional Instructions: Follow-up with medical provider as directed. Continue taking all home medications as prescribed. Return to the ER or your medical provider if condition worsens. Please read and understand discharge instructions. If any questions, please ask. Discharge Date/Time: 12/11/19 14:25 Coding Level of Care Code ED [employer] for [place] [employer] Exam Comprehensive
[2019-12-11 14:25] VITALS: BP 124/66; PULSE 67; RESP 18; O2SAT 96
== END 2019-12-11 14:25 | disposition home or self-care (01) ==
PROVIDERS: Emergency Provider Physician Assistant; PCP Family Medicine
DX: R58 Hemorrhage, not elsewhere classified (principal); Z79.82 Long term (current) use of aspirin; I48.91 Unspecified atrial fibrillation; Z85.3 Personal history of malignant neoplasm of breast; I10 Essential (primary) hypertension
CPT/HCPCS: 12345; 99281; 99282

== ENCOUNTER → 2020-02-01 13:47 | Outpatient (BNVA) | payer MEDICARE, SELFPAY | PROVIDERS: PCP Family Medicine; Visit Provider Internal Medicine Rheumatology | DX: M80.021 Age-related osteoporosis with current pathological fracture, right humerus (principal); Z15.89 Genetic susceptibility to other disease; Z79.899 Other long term (current) drug therapy; E78.5 Hyperlipidemia, unspecified; M17.0 Bilateral primary osteoarthritis of knee | CPT/HCPCS: 36415; 80076; 82565; 85025; 85651; 86140; 99214 ==

== ENCOUNTER 2020-02-07 10:33 | Outpatient (CLI) | payer MEDICARE, SELFPAY ==
[2020-02-07 12:11] LABS: Basophils % 1.2 %; Eosinophils # 0.1 10^3/uL (0.0-0.8); Hematocrit 38.6 % (37.0-47.0); Hemoglobin 11.9 g/dL (11.5-15.3); Lymphocytes # 0.7 10^3/uL (0.8-4.8); Lymphocytes % 21.4 %; Mean Corpuscular HGB Conc 30.8 g/dL (30.0-36.0); Mean Corpuscular Hemoglobin 28.4 pg (28.0-34.0); Mean Corpuscular Volume 92.1 fL (81-99); Mean Platelet Volume 9.4 fL (7.4-10.4); Monocytes # 0.4 10^3/uL (0.2-0.9); Monocytes % 11.3 %; Neutrophils # 2.18 10^3/uL (1.8-7.7); Neutrophils % 62.9 %; Nucleated Red Blood Cells % 0 %; Platelet Count 149 10^3/cmm (130-400); Red Blood Count 4.19 10^6/uL (4.1-5.3); Red Cell Distribution Width 15.4 % (12.1-15.1); White Blood Count 3.5 10^3/uL (4.0-10.0)
[2020-02-07 14:21] LABS: Alanine Aminotransferase < 5 U/L (0-33); Albumin Level 4.1 g/dL (3.5-5.2); Alkaline Phosphatase 79 IU/L (35-105); Anion Gap 15.5 (5-19); Aspartate Amino Transferase 15 U/L (0-32); Blood Urea Nitrogen 11 mg/dL (8-23); Carbon Dioxide 25 mmol/L (22-29); Chloride 102 mmol/L (98-107); Glucose 106 mg/dL (65-115); Osmolality Calculated 282 mOsm/kg (285-295); Potassium 4.5 mmol/L (3.5-5.1); Sodium 138 mmol/L (136-145); Total Bilirubin 0.6 mg/dL (0.15-1.2); Total Protein 7.1 g/dL (6.6-8.7)
--- NOTE | 2020-02-12 21:42 | ONC FU_ITS ---
[facility] Patient Note Patient: Alyson Sandoval Unit #: [id number]: [id number] Dictated By: Roslyn EastmanDate of Visit: Feb 07, 2020 Onc MED Follow-Up/Prog Note Chief Complaint: Breast cancer. History of Present Illness: Ms Sandoval is an 83 year-old woman with grade 2 infiltrating ductal carcinoma of the right breast, by clinical evaluation stage IIB (T2, N1, M0), ER/AK positive and HER-2/he positive. She had presented with a palpable mass in the right breast. Diagnostic mammogram and right breast ultrasound at [facility] on 03/26/2018 was BI-RADS 5, highly suggestive of malignancy. The mammogram showed a nodular density in the upper outer right breast at the 10:00 position with interval enlargement of some lymph nodes in the right axilla. Ultrasound showed a lobulated mass measuring 2.6 x 1.7 x 2.1 cm. The appearance was highly suspicious for malignancy. It also showed enlarged lymph nodes measuring up to 2.6 cm, suspicious for metastatic disease. She was referred to Dr. Ruiz. Ultrasound-guided biopsy of the breast mass on 04/24/2018 showed grade 2 infiltrating ductal carcinoma involving virtually 100% of 5 of 5 core fragments submitted. The breast prognostic profile showed ER positive at 98% and AK positive at 75%. HER-2/he was positive, 3+ by IHC and amplification ratio by FISH of 1.0 with 5.6 HER-2 copies/cell. The Ki-67 was unfavorable at 40%. Dr Esquivel had seen her initially on 05/22/2018. As her disease appeared to be at least locally advanced, Dr Esquivel recommended a staging PET/CT. That study was done on 05/30/2018. It showed a primary right breast lesion measuring 2.7 x 2.1 cm with SUV 12.8. Multiple right axillary and retropectoral lymph nodes were FDG positive, indicative of metastatic disease. An index right axillary lymph node measured 2.7 x 1.9 cm with SUV 8.1. There were no other areas of abnormal uptake on that study. A multinodular goiter appear to be most likely physiologic. Given those findings, Dr Esquivel recommended that she undergo neoadjuvant chemotherapy with paclitaxel in combination with Herceptin, as it was felt that she would not tolerate a Taxotere/carboplatin regimen. Her other medical illnesses include hypertension, hyperlipidemia, and GERD. She has a history of pericarditis and history of cardiac arrhythmia. Her other medical illnesses include ankylosing spondylitis, degenerative arthritis, osteoporosis, and gout. She has a history of Clostridium difficile colitis and she has anxiety/depression. She is a nonsmoker. INTERIM HISTORY: She began neoadjuvant chemotherapy with weekly paclitaxel in combination with Herceptin beginning 06/22/2018. She tolerated the initial treatment without significant toxicity, and she was able to continue with week 2 treatment on 06/29/2018. Her week 3 treatment was delayed 1 week due to neutropenia, and with subsequent treatment she has been getting Neupogen prophylactically for 2 days. As of 08/17/2018 she received her 8th infusion of paclitaxel/Herceptin. Restaging mammogram/ultrasound of the right breast on 08/20/2018 showed improvement in the upper outer quadrant breast mass. A right axillary lymph node which was incompletely included appeared similar to the prior study. Other enlarged right axillary lymph nodes on the prior exam are no longer evident. A benign-appearing intramammary lymph node in the right axillary tail appeared stable. She became very weak following the chemotherapy treatment on 08/17/2017. Despite several days of IV hydration, she ended being admitted to the hospital on 08/23/2018. Her main complaint was weakness, but she also was having diarrhea. She was found to have evidence of right lower lobe pneumonia. Her management included IV antibiotic coverage and supportive measures. She was discharged to the longterm on 08/27/2018 for rehabilitation. I opted not to attempt any further chemotherapy, but I did have her continue Herceptin infusions at the 3-week interval dosing. On 09/17/2017 she underwent right breast lumpectomy and right axillary lymph node dissection. Pathology showed residual grade 2 infiltrating ductal carcinoma measuring 1.0 cm in combined aggregate dimension. There were tumor nests noted within 0.3 cm of inked superior and inferior margins. There was metastatic tumor in 7/11 axillary lymph nodes. She developed seroma postoperatively, but she otherwise tolerated the procedure well. She then continued single agent Herceptin at 3-week intervals. As of her follow-up visit on 09/30/2017, she began adjuvant hormonal therapy with anastrozole 1 mg daily. It was subsequently discontinued, though, due to side effects, mainly nausea. She then underwent radiation to the right breast. She completed treatment on 02/03/2019 to a total dose of 6000 cGy. Restaging PET/CT on 03/27/2019 showed post radiation therapy edema in the right breast with an FDG negative right axillary seroma. Mildly FDG positive right upper lobe lung infiltrate appear to be most consistent with postradiation therapy sequelae. New right middle lobe scarring was FDG negative. As of 05/20/2019 she received cycle 13 of single agent Herceptin. She was seen for a scheduled visit in May 2019 and the day before her followup, she was seen in the emergency room after she had fallen in the shower and injured her right arm. X-ray showed a displaced retracted fracture involving the proximal shaft of the right humerus. CT confirmed a comminuted fracture of the surgical neck of the humerus with foreshortening of the bone and fracture of the greater tuberosity humerus. There was also possible involvement of the rotator cuff insertion. A 3.6 x 2.9 cm fluid density cyst along the right lower lateral chest wall was partially included and was thought to be suspicious for hematoma or seroma along the lateral aspect of the pectoralis muscle. It is being managed by Dr. Mckeon. She had been feeling pretty good prior to that injury. Her activity now is very limited. She continues to reside in an assisted living facility. Ms. Sandoval is here today for an unscheduled follow-up visit. She called with concerns of fluid in her breast area. She is also past due for port flush. She states she is noticed the area being a little abnormal present for a while and was not sure if it was related to her shoulder injury or new concern. She states is been tender around the breast area but that is also on the same side as her shoulder injuries it is hard for her to tell the difference sometimes. She has limited mobility due to her shoulder injury as it has continued to limit her activity greatly. She denies any fever or chills. She denies any actual nausea or vomiting. She is had no diarrhea or constipation. She states she is not felt any particular lesion in the breast area but just feels that it is abnormally more swollen than what it has been. It also radiates around to the axilla. She states her appetite is good for her. She does tire easily but thinks that that may be related to the stress that shoulder. She states she thinks she gets tired because she just does not really do a whole lot anyway . Her ECOG is 1. Past Medical History: Ankylosing spondylitis Anxiety Degenerative arthritis Depression Gastroesophageal reflux disease Hiatal hernia History of cardiac arrhythmia and pericardial effusion History of Clostridium difficile colitis History of peptic ulcer disease Hyperlipidemia Hypertension Osteoporosis Right shoulder fracture-Dr Schmid in 2019 Past Surgical History: Colonoscopy Left subclavian venous access device-Dr Ruiz[place], [place] in 2018 Lumpectomy in [address] ruiz in 2018 Breast biopsy in 2017 Bilateral cataract excisions in 2016 Prevnar 13 in 2015 Pneumo vac in 2010 Parathyroidectomy in 2000 Allergies: No Known Allergies. Medications: Acetaminophen 2 Tablet (of 500 mg) Oral four times a day PRN Ambien 1 Tablet (of 5 mg) Oral at bedtime Aspirin 1 Tablet (of 325 mg) Oral daily Carvedilol 1 Tablet (of 3.125 mg) Oral b.i.d. Cholecalciferol 1 Tablet (of 125 mcg ) Oral daily Claritin 1 Tablet (of 10 mg) Oral daily PRN Culturelle 1 Capsule Oral daily Ditropan XL 1 Tablet (of 5 mg) Tablet SR 24 HR Oral at bedtime Eliquis 1 Tablet (of 5 mg) Oral b.i.d. Flecainide Acetate 0.5 Tablet (of 100 mg) Oral b.i.d. Fleet Enema 1 (7-19 gm/118mL) Enema Rectal PRN Folic Acid 1 Tablet (of 1 mg) Oral daily HYDROcodone-Acetaminophen 0.5 Tablet (of 7.5-325 mg) Oral four times a day PRN Imdur 1 Tablet (of 30 mg) Tablet SR 24 HR Oral daily Lasix 1 Tablet (of 20 mg) Oral daily Lidocaine-Prilocaine Cream Topical PRN Lomotil 1 Tablet (of 2.5-0.025 mg) Oral four times a day PRN LORazepam 1 - 2 Tablet (of 0.5 mg) Oral q 4 hours PRN Magnesium Hydroxide 400 (400 mg/5mL) Suspension Oral PRN metroNIDAZOLE 1 Tablet (of 500 mg) Oral daily for 10 days Nitroglycerin 1 Tablet (of 0.4 mg) Tablet, sublingual Sublingual PRN Phenylephrine-Acetaminophen 1 - 2 Tablet (of 5-325 mg) Oral q 4 hours Potassium Chloride ER 1 Tablet (of 20 meq) Capsule, controlled release Oral b.i.d. Pravachol 1 Tablet (of 20 mg) Oral at bedtime Protonix 1 Tablet (of 40 mg) Tablet, enteric coated Oral daily Zofran 1 - 2 Tablet (of 4 mg) Oral q 8 hours Zoloft 1 Tablet (of 25 mg) Oral daily Family History: Ms. Sandoval's mother at age 86: stroke, and uterine cancer. Ms. Sandoval's father at age 80: stroke. Both parents of stroke, father at age 80 and mother at age 86. Mother also had uterine cancer. Her son who is currently 48 years-old has also had a stroke. A sister had colon cancer. Another sister of cancer, but type unknown to the patient. A maternal aunt had breast cancer. Social History: Ms. Sandoval is and she is retired. Ms. Sandoval has never smoked. She has no history of drinking. She is a nonsmoker. She does not drink alcohol. Review Of Symptoms: Constitutional Denies fevers, chills, night sweats. Persistent dizziness. Allergic/Immunologic No reactions. Eyes Denies significant visual changes. No diplopia. No amaurosis. ENMT Denies changes in hearing, sore throat, mouth sores, difficulty or changes in swallowing ability. Recent sinus infection has resolved. Endocrine No diabetes, thyroid disease or hormone replacement. Denies hot flashes or night sweats. Hematologic/Lymphatic Denies easy bruising or bleeding. The patient denies any tender or palpable lymph nodes. Breasts Right breast tissue is swollen and is tender, warm and has been a little red. Respiratory Denies dyspnea on exertion, chest pain, cough or hemoptysis. Cardiovascular Denies anginal chest pain or orthopnea. Gastrointestinal Denies vomiting, diarrhea, GI bleeding, or constipation. Denies change in bowel habits and/or stool color, no heartburn or early satiety. Genitourinary (F) No hematuria, hesitancy, incontinence, vaginal bleeding, discharge or other problems with urination. Musculoskeletal Denies joint pain, swelling or redness. No decreased range of motion. No lower extremity edema. Right shoulder pain from fracture in May 2019. Integumentary Denies chronic rashes, inflammation, ulcerations or skin changes. Neurologic Denies headache, blurred vision, and no areas of focal weakness or numbness. Normal gait. No sensory problems. Psychiatric Denies insomnia, depression, leana or mood swings. Vital Signs: Performed on Feb 07, 2020 10:57 Height - 65.00 in Weight - 140.2 lbs (LOW) BSA - 1.70 sq.m BMI - 23.33 Temperature - 98.0 F (LOW) Pulse - 81 /min Respiration - 16 /min BP - 143/83 mm(hg) (HIGH) O2 Sat - 97 % Pain - 4,1 - No physically strenuous activity, but ambulatory and able to carry out light or sedentary work (e.g. office work, light house work). (ECOG) Physical Examination: Constitutional Alert, oriented, no acute distress. Skin pink, warm and dry. Head Normocephalic; atraumatic. Eyes Conjunctivae and sclerae are clear and without icterus. Pupils are reactive and equal. Neck Supple without masses or thyromegaly. No jugular venous distension. Hematologic/Lymphatic No petechiae or purpura. No tender or palpable lymph nodes in the cervical or supraclavicular areas. Chest Chest is symmetric without chest wall deformities. Left subclavian venous access site is unremarkable. Breasts Right breast is warm, semi-firm with moderate erythema. This is new from previous exams. Mild seroma in right axilla. Abdomen Non-tender, non-distended, no masses, ascites. Good bowel sounds noted in all quads. Back/Spine Non-tender to palpation. Extremities No visible deformities, no cyanosis, clubbing or edema. Musculoskeletal No tenderness or swelling, normal range of motion without obvious weakness. Integumentary No rashes or lesions. Neurologic No sensory or motor deficits, normal cerebellar function, normal gait. Psychiatric Alert and oriented times three. Coherent speech. Verbalizes understanding of our discussions today. Laboratory: Test performed on Feb 07, 2020 11:20 Sodium 138 mmol/L Potassium 4.5 mmol/L Chloride 102 mmol/L CO2 25 mmol/L Anion Gap 15.5 BUN 11 mg/dL Creatinine 0.7 mg/dL Cr Clearance (Est) 62.2100 mL/min Glucose 106 mg/dL Calcium 9.0 mg/dL Osmolality - Calculated 282 mOsm/kg Protein, Total 7.1 g/dL Albumin 4.1 g/dL Globulin 3.0 g/dL Bilirubin, Total 0.6 mg/dL ALT (SGPT) < 5 U/L AST (SGOT) 15 U/L Alkaline Phosphatase 79 IU/L WBC 3.5 10 3/uL RBC 4.19 10 6/uL HGB 11.9 g/dL HCT 38.6 % MCV 92.1 fL MCH 28.4 pg MCHC 30.8 g/dL RDW 15.4 % Platelet Count 149 10 3/cmm MPV 9.4 fL Neutrophils 2.18 10 3/uL Lymphocytes 0.7 10 3/uL Monocytes 0.4 10 3/uL Eosinophils 0.1 10 3/uL Basophils 0.0 10 3/uL Neutrophil % 62.9 % Lymphocyte % 21.4 % Monocyte % 11.3 % Eosinophil % 2.0 % Basophils % 1.2 % NRBC % 0 % Impression: 1. Patient with grade 2 infiltrating ductal carcinoma of the right breast, by clinical evaluation stage IIB (T2, N1, M0), ER/AK positive and HER-2/he positive. 2. She underwent ultrasound-guided needle biopsy of the right breast on 04/24/2018. Her other medical illnesses include: 3. Hypertension. 4. Hyperlipidemia. 5. She has a history of cardiac arrhythmia and history of pericarditis. 6. Hiatal hernia/GERD. 7. Ankylosing spondylitis. 8. Degenerative arthritis. 9. Osteoporosis. 10. History of gout. 11. She has a history of Clostridium difficile colitis. 12. Anxiety/depression. She began neoadjuvant chemotherapy with weekly paclitaxel/Herceptin on 06/22/2018. Her treatment had been complicated by neutropenia, requiring growth factor support with Neupogen. Other side effects had included moderately severe fatigue, anorexia/weight loss. As of 08/17/2018 she completed her 8th weekly infusion of paclitaxel/Herceptin. That treatment was complicated by increased weakness and by diarrhea. On 08/23/2018 she was admitted to the hospital with pneumonia. She was discharged to the longterm on 08/27/2018. She is beginning to show some recovery now, but she still has very limited activity. She also has low potassium. Her restaging mammogram/ultrasound of the right breast on 08/20/2018 did show significant response, but there was residual disease. On 09/17/2017 showed underwent right breast lumpectomy and right axillary lymph node dissection. Pathology showed only a small residual tumor in the right breast, measuring 1.0 cm in combined aggregate. There was involvement, though, in 7/11 lymph nodes. Postoperatively she had developed seromas at the lumpectomy site and the axillary incision site, but those have gradually resolved. She continued treatment with Herceptin at the 3-week dosing interval. Following her visit on 09/30/2018 she began adjuvant hormonal therapy with anastrozole 1 mg daily. It was discontinued, though, due to side effects, mainly nausea. She had improvement in the nausea since stopping the anastrozole, and she had been showing gradual improvement in her energy and activity tolerance following completion of the chemotherapy. She underwent radiation to the right breast, which she completed on 02/03/2019 to a total dose of 6000 cGy. During this time she also continued single agent Herceptin at a 3-week dosing schedule. Restaging PET/CT on 03/27/2019 showed post radiation therapy edema in the right breast with an FDG negative right axillary seroma. Mildly FDG positive right upper lobe lung infiltrate appear to be most consistent with postradiation therapy sequelae. As of 05/20/2019 she completed her 13th cycle of treatment . She was seen in 2019. She had had a right humeral fracture and has had slow recovery. She presents today with concerns of swelling in the right breast. Plan: 1. Repeat ultrasound right breast. 2. Return for followup after ultrasound to determine further plan of care. 3. She remains OFF any AI at this time. 4. She was due for a port flush today and I did request followup CBC, CMP. 5. She has not been seen here since May 2019. She has had right shoulder fracture and is being followed with Dr Schmid. She continues to have right shoulder mobility limitations and pain. Her pain is controlled with hydrocodone at this point. She is due for a refill on her hydrocodone today and a prescription was provided per Dr Esquivel's written script. Signed By: Roslyn Eastman-NADEGE, CNP Francisco Esquivel MD <<Signature on File>>
== END 2020-02-07 10:34 | disposition home or self-care (01) ==
LOC: ONCMED 10:37
PROVIDERS: PCP Family Medicine; Visit Provider Nurse Practitioner
DX: C50.411 Malignant neoplasm of upper-outer quadrant of right female breast (principal); Z17.0 Estrogen receptor positive status [ER+]; N63.10 Unspecified lump in the right breast, unspecified quadrant; Z45.2 Encounter for adjustment and management of vascular access device; S42.301G Unspecified fracture of shaft of humerus, right arm, subsequent encounter for fracture with delayed healing; W18.2XXD Fall in (into) shower or empty bathtub, subsequent encounter; I10 Essential (primary) hypertension; E78.5 Hyperlipidemia, unspecified; K21.9 Gastro-esophageal reflux disease without esophagitis; M81.0 Age-related osteoporosis without current pathological fracture; F41.8 Other specified anxiety disorders; M45.9 Ankylosing spondylitis of unspecified sites in spine; Z79.891 Long term (current) use of opiate analgesic
CPT/HCPCS: 36591; 80053; 85025; 99214

== ENCOUNTER 2020-02-22 07:34 | Outpatient (CLI) | payer MEDICARE, SELFPAY ==
--- NOTE | 2020-02-22 07:41 | US_ITS ---
WS: [id number] ULTRASOUND BREAST RIGHT TECHNIQUE: Ultrasound right breast focused area of concern. CLINICAL INFORMATION: RT BREAST TIGHTNESS;HX OF BREAST CA COMPARISON: Prior ultrasound July 12, 2027, 5 10,019, 3 ,019, 11 018. FINDINGS: Ultrasound right breast at the right axillary tail and 11:00 position in the area of concern. Pregnan cy is the complex fluid collection right axilla measuring 4.2 x 1.5 x 2.9 cm likely seroma based on h istory. This is similar in appearance to July 12, 2019 Ultrasound in the area of concern at the 11:00 position demonstrates a small amount of underlying todd ma. This is due to the scar. No pathologic mass or lesion. Findings are likely postoperative and sequ elae from treatment-related changes. Findings are probably benign and recommend 6 month follow-up US/US breast RT limited* [id number] IMPRESSION: BI-RADS 3 probably benign Follow up: 6 month follow-up right breast ultrasound at the time of annual bila teral diagnostic mammography
== END 2020-02-22 07:35 | disposition home or self-care (01) ==
LOC: RAD 07:36 → ONCMED 07:41
PROVIDERS: PCP Family Medicine; Visit Provider Nurse Practitioner
DX: C50.411 Malignant neoplasm of upper-outer quadrant of right female breast (principal); C77.3 Secondary and unspecified malignant neoplasm of axilla and upper limb lymph nodes; M81.0 Age-related osteoporosis without current pathological fracture
CPT/HCPCS: 76642

== ENCOUNTER 2020-02-25 05:31 | Outpatient (CLI) | payer MEDICARE, SELFPAY ==
--- NOTE | 2020-02-25 14:04 | ONC FU_ITS ---
Dr. Esquivel Patient Follow-Up Note Patient: Alyson Sandoval Unit #: [id number]: [id number] Dicatated By: Francisco Esquivel M.D.Date of Visit:Feb 25, 2020 Telehealth Progress Note The patient has been informed that the visit may not be secure and acknowledged the information. I have explained the option of participating in a telephone or video visit during the COVID-19 public health emergency to the patient. After being given an opportunity to ask questions about and discuss this type of visit, the patient verbally consented to proceeding with the telephone/video visit. the patient understands that this service replaces an office visit and they may be billed and /or responsible for any applicable copayments Chief Complaint: Breast cancer. History of Present Illness: This is an 84 year-old woman with grade 2 infiltrating ductal carcinoma of the right breast, by clinical evaluation stage IIB (T2, N1, M0), ER/WA positive and HER-2/he positive. She had presented with a palpable mass in the right breast. Diagnostic mammogram and right breast ultrasound at [facility] on 03/26/2018 was BI-RADS 5, highly suggestive of malignancy. The mammogram showed a nodular density in the upper outer right breast at the 10:00 position with interval enlargement of some lymph nodes in the right axilla. Ultrasound showed a lobulated mass measuring 2.6 x 1.7 x 2.1 cm. The appearance was highly suspicious for malignancy. It also showed enlarged lymph nodes measuring up to 2.6 cm, suspicious for metastatic disease. She was referred to Dr. Ruiz. Ultrasound-guided biopsy of the breast mass on 04/24/2018 showed grade 2 infiltrating ductal carcinoma involving virtually 100% of 5 of 5 core fragments submitted. The breast prognostic profile showed ER positive at 98% and WA positive at 75%. HER-2/he was positive, 3+ by IHC and amplification ratio by FISH of 1.0 with 5.6 HER-2 copies/cell. The Ki-67 was unfavorable at 40%. I had seen her initially on 05/22/2018. As her disease appeared to be at least locally advanced, I had recommended a staging PET/CT. That study was done on 05/30/2018. It showed a primary right breast lesion measuring 2.7 x 2.1 cm with SUV 12.8. Multiple right axillary and retropectoral lymph nodes were FDG positive, indicative of metastatic disease. An index right axillary lymph node measured 2.7 x 1.9 cm with SUV 8.1. There were no other areas of abnormal uptake on that study. A multinodular goiter appear to be most likely physiologic. Given those findings, I recommended that she undergo neoadjuvant chemotherapy with paclitaxel in combination with Herceptin, as I felt that she would not tolerate a Taxotere/carboplatin regimen. Her other medical illnesses include hypertension, hyperlipidemia, and GERD. She has a history of pericarditis and history of cardiac arrhythmia. Her other medical illnesses include ankylosing spondylitis, degenerative arthritis, osteoporosis, and gout. She has a history of Clostridium difficile colitis and she has anxiety/depression. She is a nonsmoker. INTERIM HISTORY: She began neoadjuvant chemotherapy with weekly paclitaxel in combination with Herceptin beginning 06/22/2018. She tolerated the initial treatment without significant toxicity, and she was able to continue with week 2 treatment on 06/29/2018. Her week 3 treatment was delayed 1 week due to neutropenia, and with subsequent treatment she has been getting Neupogen prophylactically for 2 days. As of 08/17/2018 she received her 8th infusion of paclitaxel/Herceptin. Restaging mammogram/ultrasound of the right breast on 08/20/2018 showed improvement in the upper outer quadrant breast mass. A right axillary lymph node which was incompletely included appeared similar to the prior study. Other enlarged right axillary lymph nodes on the prior exam are no longer evident. A benign-appearing intramammary lymph node in the right axillary tail appeared stable. She became very weak following the chemotherapy treatment on 08/17/2017. Despite several days of IV hydration, she ended being admitted to the hospital on 08/23/2018. Her main complaint was weakness, but she also was having diarrhea. She was found to have evidence of right lower lobe pneumonia. Her management included IV antibiotic coverage and supportive measures. She was discharged to the senior living on 08/27/2018 for rehabilitation. I opted not to attempt any further chemotherapy, but I did have her continue Herceptin infusions at the 3-week interval dosing. On 09/17/2017 she underwent right breast lumpectomy and right axillary lymph node dissection. Pathology showed residual grade 2 infiltrating ductal carcinoma measuring 1.0 cm in combined aggregate dimension. There were tumor nests noted within 0.3 cm of inked superior and inferior margins. There was metastatic tumor in 7/11 axillary lymph nodes. She developed seroma postoperatively, but she otherwise tolerated the procedure well. She then continued single agent Herceptin at 3-week intervals. As of her follow-up visit on 09/30/2017, she began adjuvant hormonal therapy with anastrozole 1 mg daily. It was subsequently discontinued, though, due to side effects, mainly nausea. She then underwent radiation to the right breast. She completed treatment on 02/03/2019 to a total dose of 6000 cGy. Restaging PET/CT on 03/27/2019 showed post radiation therapy edema in the right breast with an FDG negative right axillary seroma. Mildly FDG positive right upper lobe lung infiltrate appear to be most consistent with postradiation therapy sequelae. New right middle lobe scarring was FDG negative. As of 05/20/2019 she received cycle 13 of single agent Herceptin. On 06/09/2019 she had fallen at home and suffered a displaced retracted fracture of the proximal right humeral shaft. It was managed conservatively. However, due to the injury, her further treatment here was put on hold. Repeat right breast ultrasound on 02/22/2020 showed a complex fluid collection in the right axilla measuring 4.2 x 1.5 x 2.9 cm, felt to be most likely seroma. The findings were BI-RADS 3, probably benign. A six-month follow-up study was recommended to be done with annual diagnostic mammography. She is seen for a follow-up visit by Telehealth. She has been feeling pretty good generally, though she still does not have a lot of energy. She is up and around pretty well at the assisted living facility. Her ECOG score is 2. Her appetite is been pretty good. She has no fever, night sweats, or hot flashes. Her main complaint is that she has had ongoing problems with her right shoulder and arm, though she has continued to do exercises. She does not complain of shortness of breath, cough, or chest pain. She occasionally has nausea and she has a little bit of acid reflux. She has no problems with bowel or bladder function. She has pain in her knees quite a bit, and she also has back pain. She does not complain of headache. She has occasional orthostatic lightheadedness. 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 Medications: Acetaminophen 2 Tablet (of 500 mg) Oral four times a day PRN, Ambien 1 Tablet (of 5 mg) Oral at bedtime, Aspirin 1 Tablet (of 325 mg) Oral daily, Carvedilol 1 Tablet (of 3.125 mg) Oral b.i.d., Cholecalciferol 1 Tablet (of 125 mcg ) Oral daily, Claritin 1 Tablet (of 10 mg) Oral daily PRN, Culturelle 1 Capsule Oral daily, Ditropan XL 1 Tablet (of 5 mg) Tablet SR 24 HR Oral at bedtime, Eliquis 1 Tablet (of 5 mg) Oral b.i.d., Flecainide Acetate 0.5 Tablet (of 100 mg) Oral b.i.d., Fleet Enema 1 (7-19 gm/118mL) Enema Rectal PRN, Folic Acid 1 Tablet (of 1 mg) Oral daily, HYDROcodone-Acetaminophen 0.5 Tablet (of 7.5-325 mg) Oral four times a day PRN, Imdur 1 Tablet (of 30 mg) Tablet SR 24 HR Oral daily, Lasix 1 Tablet (of 20 mg) Oral daily, Lidocaine-Prilocaine Cream Topical PRN, Lomotil 1 Tablet (of 2.5-0.025 mg) Oral four times a day PRN, LORazepam 1 - 2 Tablet (of 0.5 mg) Oral q 4 hours PRN, Magnesium Hydroxide 400 (400 mg/5mL) Suspension Oral PRN, metroNIDAZOLE 1 Tablet (of 500 mg) Oral daily for 10 days, Nitroglycerin 1 Tablet (of 0.4 mg) Tablet, sublingual Sublingual PRN, Phenylephrine-Acetaminophen 1 - 2 Tablet (of 5-325 mg) Oral q 4 hours, Potassium Chloride ER 1 Tablet (of 20 meq) Capsule, controlled release Oral b.i.d., Pravachol 1 Tablet (of 20 mg) Oral at bedtime, Protonix 1 Tablet (of 40 mg) Tablet, enteric coated Oral daily, Zofran 1 - 2 Tablet (of 4 mg) Oral q 8 hours, Zoloft 1 Tablet (of 25 mg) Oral daily Allergies: No Known Allergies. Review of Systems: Constitutional - She has been feeling pretty good generally, though she does not have a lot of energy. She is up and around pretty well. She has pretty good appetite. She has not had fever, night sweats, or hot flashes. ECOG score is 2, ENMT - No sinus congestion/drainage. No mouth sores. No sore throat or difficulty swallowing, Hematologic/Lymphatic - She recently had bruising and swelling in her left leg, but that has resolved, Respiratory - No shortness of breath. No cough. No pleuritic pain or hemoptysis, Cardiovascular - No angina pain. No palpitations, Gastrointestinal - She occasionally has nausea. She has a little bit of acid reflux. No heartburn or acid reflux. No diarrhea or constipation. No blood in the stool or black stools, Genitourinary (F) - No dysuria or hematuria. No urinary frequency. No urgency or incontinence, Musculoskeletal - She continues to have pain in her right shoulder and arm. Her knees hurt quite a bit, and she also has back pain, Integumentary - No skin rash, Neurologic - No headache. She has occasional orthostatic lightheadedness. She has some residual neuropathy in her feet, left worse than right. No other focal neurologic symptoms, Psychiatric - No anxiety or depression. She is sleeping okay with medication. Physical Examination: Constitutional - She looks pretty good generally. Lab/Imaging: Test performed on Feb 07, 2020 11:20 Sodium 138 mmol/L Potassium 4.5 mmol/L Chloride 102 mmol/L CO2 25 mmol/L Anion Gap 15.5 BUN 11 mg/dL Creatinine 0.7 mg/dL Cr Clearance (Est) 62.2100 mL/min Glucose 106 mg/dL Calcium 9.0 mg/dL Osmolality - Calculated 282 mOsm/kg Protein, Total 7.1 g/dL Albumin 4.1 g/dL Globulin 3.0 g/dL Bilirubin, Total 0.6 mg/dL ALT (SGPT) < 5 U/L AST (SGOT) 15 U/L Alkaline Phosphatase 79 IU/L WBC 3.5 10 3/uL RBC 4.19 10 6/uL HGB 11.9 g/dL HCT 38.6 % MCV 92.1 fL MCH 28.4 pg MCHC 30.8 g/dL RDW 15.4 % Platelet Count 149 10 3/cmm MPV 9.4 fL Neutrophils 2.18 10 3/uL Lymphocytes 0.7 10 3/uL Monocytes 0.4 10 3/uL Eosinophils 0.1 10 3/uL Basophils 0.0 10 3/uL Neutrophil % 62.9 % Lymphocyte % 21.4 % Monocyte % 11.3 % Eosinophil % 2.0 % Basophils % 1.2 % NRBC % 0 % Impression: 1. Patient with grade 2 infiltrating ductal carcinoma of the right breast, by clinical evaluation stage IIB (T2, N1, M0), ER/WA positive and HER-2/he positive. 2. She underwent ultrasound-guided needle biopsy of the right breast on 04/24/2018. Her other medical illnesses include: 3. Hypertension. 4. Hyperlipidemia. 5. She has a history of cardiac arrhythmia and history of pericarditis. 6. Hiatal hernia/GERD. 7. Ankylosing spondylitis. 8. Degenerative arthritis. 9. Osteoporosis. 10. History of gout. 11. She has a history of Clostridium difficile colitis. 12. Anxiety/depression. She began neoadjuvant chemotherapy with weekly paclitaxel/Herceptin on 06/22/2018. Her treatment had been complicated by neutropenia, requiring growth factor support with Neupogen. Other side effects had included moderately severe fatigue, anorexia/weight loss. As of 08/17/2018 she completed her 8th weekly infusion of paclitaxel/Herceptin. That treatment was complicated by increased weakness and by diarrhea. On 08/23/2018 she was admitted to the hospital with pneumonia. She was discharged to the senior living on 08/27/2018. She is beginning to show some recovery now, but she still has very limited activity. She also has low potassium. Her restaging mammogram/ultrasound of the right breast on 08/20/2018 did show significant response, but there was residual disease. On 09/17/2017 showed underwent right breast lumpectomy and right axillary lymph node dissection. Pathology showed only a small residual tumor in the right breast, measuring 1.0 cm in combined aggregate. There was involvement, though, in 7/11 lymph nodes. Postoperatively she had developed seromas at the lumpectomy site and the axillary incision site, but those have gradually resolved. She continued treatment with Herceptin at the 3-week dosing interval. Following her visit on 09/30/2018 she began adjuvant hormonal therapy with anastrozole 1 mg daily. It was discontinued, though, due to side effects, mainly nausea. She had improvement in the nausea since stopping the anastrozole, and she had been showing gradual improvement in her energy and activity tolerance following completion of the chemotherapy. She underwent radiation to the right breast, which she completed on 02/03/2019 to a total dose of 6000 cGy. During this time she also continued single agent Herceptin at a 3-week dosing schedule. Restaging PET/CT on 03/27/2019 showed post radiation therapy edema in the right breast with an FDG negative right axillary seroma. Mildly FDG positive right upper lobe lung infiltrate appear to be most consistent with postradiation therapy sequelae. As of 05/20/2019 she completed her 13th cycle of treatment. Her further treatment was then put on hold due to traumatic fracture of the right proximal humerus. The fracture has been managed conservatively. During follow-up she has had residual seroma in the lateral chest wall/axilla and she has continued to have somewhat limited activity. Overall, she has been doing pretty well clinically. Thus far there has been no evidence of recurrence of the breast cancer. Plan: With ER/WA positive disease, she does need to have further adjuvant hormonal therapy, and she will now start exemestane 25 mg daily, subject to verification of insurance coverage. Her medications otherwise remain the same. She will be scheduled for a follow-up visit in 3 months. Signed By: Francisco Esquivel M.D. <<Signature on File>>
== END 2020-02-25 05:32 | disposition home or self-care (01) ==
LOC: ONCMED 05:31
PROVIDERS: PCP Family Medicine; Visit Provider Internal Medicine Medical Oncology
DX: C50.411 Malignant neoplasm of upper-outer quadrant of right female breast (principal); Z17.0 Estrogen receptor positive status [ER+]; Z92.21 Personal history of antineoplastic chemotherapy; Z92.3 Personal history of irradiation

== ENCOUNTER → 2020-04-25 12:48 | Outpatient (BNVA) | payer MEDICARE, SELFPAY | PROVIDERS: PCP Family Medicine; Visit Provider Internal Medicine Rheumatology | DX: M17.0 Bilateral primary osteoarthritis of knee (principal); M80.00XK Age-related osteoporosis with current pathological fracture, unspecified site, subsequent encounter for fracture with nonunion; Z79.899 Other long term (current) drug therapy; Z15.89 Genetic susceptibility to other disease; C50.911 Malignant neoplasm of unspecified site of right female breast; Z17.0 Estrogen receptor positive status [ER+] | CPT/HCPCS: 99214 ==

== ENCOUNTER 2020-05-02 14:39 | Outpatient (CLI) | payer MEDICARE, SELFPAY ==
--- NOTE | 2020-05-02 15:15 | XR_ITS ---
WS: [id number] SCREENING DEXA SCAN [employer] [facility] CLINICAL INFORMATION: M80.00XK - Age-related osteoporosis with current pathological fracture, unspeci fied site, subsequent encounter for fracture with nonunion COMPARISON: December 24, 2016 FINDINGS: The L1-L4 bone mineral density measures 0.829 g/cm2. This corresponds to a T score score of -2.9 and Z score of -1.1. Left femoral neck bone mineral density measures 0.606 g/cm2. This corresponds to a T score of -3.2 an d Z score of -1.0. Right femoral neck bone mineral density measures 0.641 g/cm2. This corresponds to a T score -2.9of an d Z score of -0.8. Mean femoral neck bone mineral density measures 0.624 g/cm2. This corresponds to a T score of -3.0 an d Z score of -0.9. XR/XR DEXA axial skeleton* [id number] IMPRESSION: Osteoporosis Patient's FRAX calculated 10 year probability for major osteoporotic fracture i s 52.4 % and osteoporotic hip fracture is 39.3%.
== END 2020-05-02 14:40 | disposition home or self-care (01) ==
LOC: RADWPI 14:43
PROVIDERS: PCP Family Medicine; Visit Provider Internal Medicine Rheumatology
DX: M80.00XK Age-related osteoporosis with current pathological fracture, unspecified site, subsequent encounter for fracture with nonunion (principal)
CPT/HCPCS: 77080

== ENCOUNTER 2020-06-20 14:05 | Outpatient (CLI) | payer MEDICARE, SELFPAY ==
[2020-06-20] MEDS: alteplase 1 mg/mL SDV 2 mL 2 MG INTRACATH (14:35)
[2020-06-20 14:51] LABS: Basophils # 0.1 10^3/uL (0.0-0.1); Basophils % 1.3 %; Eosinophils # 0.1 10^3/uL (0.0-0.8); Eosinophils % 2.8 %; Hematocrit 38.4 % (37.0-47.0); Hemoglobin 12.3 g/dL (11.5-15.3); Lymphocytes # 0.9 10^3/uL (0.8-4.8); Lymphocytes % 22.1 %; Mean Corpuscular Hemoglobin 30.3 pg (28.0-34.0); Mean Corpuscular Volume 94.6 fL (81-99); Mean Platelet Volume 9.5 fL (7.4-10.4); Monocytes # 0.4 10^3/uL (0.2-0.9); Monocytes % 9.5 %; Neutrophils % 64.3 %; Nucleated Red Blood Cells % 0 %; Platelet Count 154 10^3/cmm (130-400); Red Blood Count 4.06 10^6/uL (4.1-5.3); Red Cell Distribution Width 14.6 % (12.1-15.1); White Blood Count 3.9 10^3/uL (4.0-10.0)
[2020-06-20 15:19] LABS: Alanine Aminotransferase 6 U/L (0-33); Albumin Level 4.1 g/dL (3.5-5.2); Alkaline Phosphatase 97 IU/L (35-105); Anion Gap 12.2 (5-19); Aspartate Amino Transferase 12 U/L (0-32); Blood Urea Nitrogen 11 mg/dL (8-23); Calcium 9.3 mg/dL (8.5-10.5); Carbon Dioxide 28 mmol/L (22-29); Chloride 102 mmol/L (98-107); Glucose 97 mg/dL (65-115); Osmolality Calculated 285 mOsm/kg (285-295); Potassium 4.2 mmol/L (3.5-5.1); Sodium 138 mmol/L (136-145); Total Bilirubin 0.6 mg/dL (0.15-1.2); Total Protein 7.1 g/dL (6.6-8.7)
[2020-06-22 05:44] LABS: CA 27.29 12 U/mL (<38)
--- NOTE | 2020-06-24 13:46 | ONC FU_ITS ---
Dr. Esquivel Patient Follow-Up Note Patient: Alyson Sandoval Unit #: [id number]: [id number] Dicatated By: Francisco Esquivel M.D.Date of Visit:Jun 20, 2020 Onc Med Follow-up/Prog Note Chief Complaint: Breast cancer. History of Present Illness: This is an 84 year-old woman with grade 2 infiltrating ductal carcinoma of the right breast, by clinical evaluation stage IIB (T2, N1, M0), ER/WV positive and HER-2/he positive. She had presented with a palpable mass in the right breast. Diagnostic mammogram and right breast ultrasound at [facility] on 03/26/2018 was BI-RADS 5, highly suggestive of malignancy. The mammogram showed a nodular density in the upper outer right breast at the 10:00 position with interval enlargement of some lymph nodes in the right axilla. Ultrasound showed a lobulated mass measuring 2.6 x 1.7 x 2.1 cm. The appearance was highly suspicious for malignancy. It also showed enlarged lymph nodes measuring up to 2.6 cm, suspicious for metastatic disease. She was referred to Dr. Ruiz. Ultrasound-guided biopsy of the breast mass on 04/24/2018 showed grade 2 infiltrating ductal carcinoma involving virtually 100% of 5 of 5 core fragments submitted. The breast prognostic profile showed ER positive at 98% and WV positive at 75%. HER-2/he was positive, 3+ by IHC and amplification ratio by FISH of 1.0 with 5.6 HER-2 copies/cell. The Ki-67 was unfavorable at 40%. I had seen her initially on 05/22/2018. As her disease appeared to be at least locally advanced, I had recommended a staging PET/CT. That study was done on 05/30/2018. It showed a primary right breast lesion measuring 2.7 x 2.1 cm with SUV 12.8. Multiple right axillary and retropectoral lymph nodes were FDG positive, indicative of metastatic disease. An index right axillary lymph node measured 2.7 x 1.9 cm with SUV 8.1. There were no other areas of abnormal uptake on that study. A multinodular goiter appear to be most likely physiologic. Given those findings, I recommended that she undergo neoadjuvant chemotherapy with paclitaxel in combination with Herceptin, as I felt that she would not tolerate a Taxotere/carboplatin regimen. She began neoadjuvant chemotherapy with weekly paclitaxel in combination with Herceptin beginning 06/22/2018. She tolerated the initial treatment without significant toxicity, and she was able to continue with week 2 treatment on 06/29/2018. Her week 3 treatment was delayed 1 week due to neutropenia, and with subsequent treatment she has been getting Neupogen prophylactically for 2 days. As of 08/17/2018 she received her 8th infusion of paclitaxel/Herceptin. Restaging mammogram/ultrasound of the right breast on 08/20/2018 showed improvement in the upper outer quadrant breast mass. A right axillary lymph node which was incompletely included appeared similar to the prior study. Other enlarged right axillary lymph nodes on the prior exam are no longer evident. A benign-appearing intramammary lymph node in the right axillary tail appeared stable. She became very weak following the chemotherapy treatment on 08/17/2017. Despite several days of IV hydration, she ended being admitted to the hospital on 08/23/2018. Her main complaint was weakness, but she also was having diarrhea. She was found to have evidence of right lower lobe pneumonia. Her management included IV antibiotic coverage and supportive measures. She was discharged to the senior living on 08/27/2018 for rehabilitation. I opted not to attempt any further chemotherapy, but I did have her continue Herceptin infusions at the 3-week interval dosing. On 09/17/2017 she underwent right breast lumpectomy and right axillary lymph node dissection. Pathology showed residual grade 2 infiltrating ductal carcinoma measuring 1.0 cm in combined aggregate dimension. There were tumor nests noted within 0.3 cm of inked superior and inferior margins. There was metastatic tumor in 7/11 axillary lymph nodes. She developed seroma postoperatively, but she otherwise tolerated the procedure well. She then continued single agent Herceptin at 3-week intervals. As of her follow-up visit on 09/30/2017, she began adjuvant hormonal therapy with anastrozole 1 mg daily. It was subsequently discontinued, though, due to side effects, mainly nausea. She then underwent radiation to the right breast. She completed treatment on 02/03/2019 to a total dose of 6000 cGy. Restaging PET/CT on 03/27/2019 showed post radiation therapy edema in the right breast with an FDG negative right axillary seroma. Mildly FDG positive right upper lobe lung infiltrate appear to be most consistent with postradiation therapy sequelae. New right middle lobe scarring was FDG negative. As of 05/20/2019 she received cycle 13 of single agent Herceptin. On 06/09/2019 she had fallen at home and suffered a displaced retracted fracture of the proximal right humeral shaft. It was managed conservatively. However, due to the injury, her further treatment here was put on hold. Her other medical illnesses include hypertension, hyperlipidemia, and GERD. She has a history of pericarditis and history of cardiac arrhythmia. Her other medical illnesses include ankylosing spondylitis, degenerative arthritis, osteoporosis, and gout. She has a history of Clostridium difficile colitis and she has anxiety/depression. She is a nonsmoker. INTERIM HISTORY: Repeat right breast ultrasound on 02/22/2020 showed a complex fluid collection in the right axilla measuring 4.2 x 1.5 x 2.9 cm, felt to be most likely seroma. The findings were BI-RADS 3, probably benign. A six-month follow-up study was recommended to be done with annual diagnostic mammography. As of her follow-up visit on 02/25/2020, she began further adjuvant hormonal therapy with exemestane 25 mg daily. She is seen for a follow-up visit. She still does not have very good energy and her activity remains limited. She is able to ambulate with a walker. ECOG score is 2. She has pretty good appetite. She does not have fever, night sweats, or hot flashes. Her main complaint is that she has been having swelling in her right axillary area and soreness in her right arm. She does not complain of shortness of breath, cough, or chest pain. She still has a little bit of nausea occasionally. She also has occasional acid reflux, adequately managed with Tums. Bowel and bladder function have been okay. She also is having pain in her back and knees. She has seen a route service manager. She does not complain of headache. She does have some difficulty with balance. She continues to have numbness/tingling in her legs and feet. She stopped taking apixaban because of excessive bruising. Her anticoagulation now is limited to aspirin. Medications: Acetaminophen 2 Tablet (of 500 mg) Oral four times a day PRN, Ambien 1 Tablet (of 5 mg) Oral at bedtime, Aspirin 1 Tablet (of 325 mg) Oral daily, Carvedilol 1 Tablet (of 3.125 mg) Oral b.i.d., Cholecalciferol 1 Tablet (of 125 mcg ) Oral daily, Claritin 1 Tablet (of 10 mg) Oral daily PRN, Culturelle 1 Capsule Oral daily, Ditropan XL 1 Tablet (of 5 mg) Tablet SR 24 HR Oral at bedtime, Exemestane 1 (25 mg) Tablet Oral daily, Flecainide Acetate 0.5 Tablet (of 100 mg) Oral b.i.d., Fleet Enema 1 (7-19 gm/118mL) Enema Rectal PRN, Folic Acid 1 Tablet (of 1 mg) Oral daily, HYDROcodone-Acetaminophen 0.5 Tablet (of 7.5-325 mg) Oral four times a day PRN, Lasix 1 Tablet (of 20 mg) Oral daily, Lidocaine-Prilocaine Cream Topical PRN, Lomotil 1 Tablet (of 2.5-0.025 mg) Oral four times a day PRN, LORazepam 1 - 2 Tablet (of 0.5 mg) Oral q 4 hours PRN, Magnesium Hydroxide 400 (400 mg/5mL) Suspension Oral PRN, Nitroglycerin 1 Tablet (of 0.4 mg) Tablet, sublingual Sublingual PRN, Phenylephrine-Acetaminophen 1 - 2 Tablet (of 5-325 mg) Oral q 4 hours, Potassium Chloride ER 1 Tablet (of 20 meq) Capsule, controlled release Oral b.i.d., Pravachol 1 Tablet (of 20 mg) Oral at bedtime, Protonix 1 Tablet (of 40 mg) Tablet, enteric coated Oral daily, Zofran 1 - 2 Tablet (of 4 mg) Oral q 8 hours Allergies: No Known Allergies. Vital Signs: Performed on Jun 20, 2020 15:53 Height - 65.00 in Weight - 150.6 lbs (HIGH) BSA - 1.75 sq.m BMI - 25.06 Temperature - 98.7 F Pulse - 64 /min Respiration - 16 /min BP - 146/83 mm(hg) (HIGH) O2 Sat - 97 % Pain - 7 Physical Examination: Constitutional - She appears somewhat weak generally, Eyes - Sclerae nonicteric. Conjunctivae clear, ENMT - No lesions noted in the oral cavity, Hematologic/Lymphatic - No cervical or clavicular adenopathy, Respiratory - Lungs are clear, Cardiovascular - Heart rhythm appears regular. There is no murmur, gallop, or rub noted, Breasts - There is swelling and induration involving the entire right breast and extending into the right axilla. There is no mass palpable and there is no axillary adenopathy noted, Abdomen - Soft. Liver and spleen are not enlarged. There is no abdominal mass or ascites noted and there is no inguinal adenopathy, Extremities - There is no lower extremity edema. There is slight lymphedema of the right arm, Neurologic - No focal neurologic deficits noted. Lab/Imaging: Test performed on Jun 20, 2020 14:35 Sodium 138 mmol/L Potassium 4.2 mmol/L Chloride 102 mmol/L CO2 28 mmol/L Anion Gap 12.2 BUN 11 mg/dL Creatinine 0.8 mg/dL Cr Clearance (Est) 58.47 mL/min Glucose 97 mg/dL Osmolality - Calculated 285 mOsm/kg Calcium 9.3 mg/dL Protein, Total 7.1 g/dL Albumin 4.1 g/dL Globulin 3.0 g/dL Bilirubin, Total 0.6 mg/dL ALT (SGPT) 6 U/L AST (SGOT) 12 U/L Alkaline Phosphatase 97 IU/L WBC 3.9 10 3/uL RBC 4.06 10 6/uL HGB 12.3 g/dL HCT 38.4 % MCV 94.6 fL MCH 30.3 pg MCHC 32.0 g/dL RDW 14.6 % Platelet Count 154 10 3/cmm MPV 9.5 fL Neutrophils 2.50 10 3/uL Lymphocytes 0.9 10 3/uL Monocytes 0.4 10 3/uL Eosinophils 0.1 10 3/uL Basophils 0.1 10 3/uL Neutrophil % 64.3 % Lymphocyte % 22.1 % Monocyte % 9.5 % Eosinophil % 2.8 % Basophils % 1.3 % NRBC % 0 % CA 27.29 12 U/mL Problem List: 1. Grade 2 infiltrating ductal carcinoma of the right breast, by clinical evaluation stage IIB (T2, N1, M0), ER/WV positive and HER-2/he positive. She underwent ultrasound-guided needle biopsy of the right breast on 04/24/2018. 2. Hypertension. 3. Hyperlipidemia. 4. She has a history of cardiac arrhythmia and history of pericarditis. 5. Hiatal hernia/GERD. 6. Ankylosing spondylitis. 7. Degenerative arthritis. 8. Osteoporosis. 9. History of gout. 10. She has a history of Clostridium difficile colitis. 11. Anxiety/depression. Problems Addressed with this Encounter and Plan: Grade 2 infiltrating ductal carcinoma of the right breast, by clinical evaluation stage IIB (T2, N1, M0), ER/WV positive and HER-2/he positive. She underwent ultrasound-guided needle biopsy of the right breast on 04/24/2018. She began neoadjuvant chemotherapy with weekly paclitaxel/Herceptin on 06/22/2018. Her treatment related side effects included neutropenia, fatigue, and anorexia/weight loss. As of 08/17/2018 she completed her 8th weekly infusion of paclitaxel/Herceptin. She was then hospitalized with pneumonia and at that point she required senior living placement. Her restaging mammogram/ultrasound of the right breast on 08/20/2018 did show significant response, but there was residual disease. On 09/17/2018 she underwent right breast lumpectomy and right axillary lymph node dissection. Pathology showed only a small residual tumor in the right breast, measuring 1.0 cm in combined aggregate. There was involvement, though, in 7/11 lymph nodes. Postoperatively she had developed seromas at the lumpectomy site and the axillary incision site, but those gradually resolved. She continued treatment with Herceptin at the 3-week dosing interval. Following her visit on 09/30/2018 she began adjuvant hormonal therapy with anastrozole 1 mg daily. It was discontinued, though, due to side effects, mainly nausea. She then underwent radiation to the right breast, completed on 02/03/2019 to a total dose of 6000 cGy. Restaging PET/CT on 03/27/2019 showed post radiation therapy edema in the right breast with an FDG negative right axillary seroma. As of 05/20/2019 she completed her 13th cycle of Herceptin. Her treatment was then put on hold due to traumatic fracture of the right proximal humerus. As of her follow-up visit in February 2020 she began further adjuvant hormonal therapy with exemestane 25 mg daily. She comes in now with increased swelling and induration in the right breast wall/axillary area. She is having some discomfort associated with it. The findings appear to be most consistent with post radiation changes, though local recurrence is not excluded. She continues to have fairly marginal performance status. She will need reassessment of the breast/axilla with mammogram/ultrasound. Ultimately she may require a repeat PET/CT. At least for now she will continue the exemestane at 25 mg daily. Signed By: Francisco Esquivel M.D. <<Signature on File>>
== END 2020-06-20 14:06 | disposition home or self-care (01) ==
LOC: ONCMED 14:08
PROVIDERS: PCP Family Medicine; Visit Provider Internal Medicine Medical Oncology
DX: C50.411 Malignant neoplasm of upper-outer quadrant of right female breast (principal); Z17.0 Estrogen receptor positive status [ER+]; C77.3 Secondary and unspecified malignant neoplasm of axilla and upper limb lymph nodes; D70.2 Other drug-induced agranulocytosis; M81.0 Age-related osteoporosis without current pathological fracture; I10 Essential (primary) hypertension; E78.5 Hyperlipidemia, unspecified; I49.9 Cardiac arrhythmia, unspecified; I31.9 Disease of pericardium, unspecified; K44.9 Diaphragmatic hernia without obstruction or gangrene; K21.9 Gastro-esophageal reflux disease without esophagitis; M45.9 Ankylosing spondylitis of unspecified sites in spine; M10.9 Gout, unspecified; F41.9 Anxiety disorder, unspecified; F32.9 Major depressive disorder, single episode, unspecified; Z86.19 Personal history of other infectious and parasitic diseases; Z79.899 Other long term (current) drug therapy
CPT/HCPCS: 36415; 36593; 80053; 85025; 86300; 96374; 99214; J2997

== ENCOUNTER 2020-07-21 10:02 | Outpatient (CLI) | payer MEDICARE, SELFPAY ==
[2020-07-21] MEDS: alteplase 1 mg/mL SDV 2 mL 2 MG IV ×2 (10:50→11:55)
== END 2020-07-21 10:03 | disposition home or self-care (01) ==
LOC: ONCMED 10:04
PROVIDERS: PCP Family Medicine; Visit Provider Internal Medicine Medical Oncology
DX: Z45.2 Encounter for adjustment and management of vascular access device (principal); C50.411 Malignant neoplasm of upper-outer quadrant of right female breast; C77.3 Secondary and unspecified malignant neoplasm of axilla and upper limb lymph nodes; D70.2 Other drug-induced agranulocytosis; M81.0 Age-related osteoporosis without current pathological fracture
CPT/HCPCS: 36593; 96374; 96376; J2997

== ENCOUNTER 2020-08-18 10:12 | Outpatient (CLI) | payer MEDICARE, SELFPAY ==
[2020-08-18] MEDS: alteplase 1 mg/mL SDV 2 mL 2 MG IV ×2 (10:30→11:36)
== END 2020-08-18 10:13 | disposition home or self-care (01) ==
LOC: ONCMED 10:14
PROVIDERS: PCP Family Medicine; Visit Provider Internal Medicine Medical Oncology
DX: Z45.2 Encounter for adjustment and management of vascular access device (principal); C50.411 Malignant neoplasm of upper-outer quadrant of right female breast; C77.3 Secondary and unspecified malignant neoplasm of axilla and upper limb lymph nodes; D70.2 Other drug-induced agranulocytosis; M81.0 Age-related osteoporosis without current pathological fracture
CPT/HCPCS: 36593; 96374; 96376; J2997

== ENCOUNTER → 2020-09-06 14:05 | Outpatient (BNVA) | payer MEDICARE, SELFPAY | PROVIDERS: PCP Family Medicine; Visit Provider Internal Medicine Rheumatology | DX: M80.021 Age-related osteoporosis with current pathological fracture, right humerus (principal); Z15.89 Genetic susceptibility to other disease; Z79.899 Other long term (current) drug therapy; M17.0 Bilateral primary osteoarthritis of knee; C50.911 Malignant neoplasm of unspecified site of right female breast; Z17.0 Estrogen receptor positive status [ER+] | CPT/HCPCS: 99214 ==

== ENCOUNTER 2020-09-19 11:47 | Outpatient (CLI) | payer MEDICARE, SELFPAY ==
[2020-09-19] MEDS: alteplase 1 mg/mL SDV 2 mL 2 MG IV (12:30)
[2020-09-19 13:17] LABS: Basophils % 0.8 %; Eosinophils # 0.1 10^3/uL (0.0-0.8); Eosinophils % 2.5 %; Hematocrit 40.7 % (37.0-47.0); Hemoglobin 12.8 g/dL (11.5-15.3); Lymphocytes # 0.7 10^3/uL (0.8-4.8); Lymphocytes % 18.7 %; Mean Corpuscular HGB Conc 31.4 g/dL (30.0-36.0); Mean Corpuscular Hemoglobin 30.9 pg (28.0-34.0); Mean Corpuscular Volume 98.3 fL (81-99); Mean Platelet Volume 9.2 fL (7.4-10.4); Monocytes # 0.4 10^3/uL (0.2-0.9); Monocytes % 9.1 %; Neutrophils # 2.71 10^3/uL (1.8-7.7); Neutrophils % 68.6 %; Nucleated Red Blood Cells % 0 %; Platelet Count 165 10^3/cmm (130-400); Red Blood Count 4.14 10^6/uL (4.1-5.3); Red Cell Distribution Width 14.6 % (12.1-15.1)
[2020-09-19 15:11] LABS: Alanine Aminotransferase 6 U/L (0-33); Albumin Level 4.2 g/dL (3.5-5.2); Alkaline Phosphatase 75 IU/L (35-105); Anion Gap 12.7 (5-19); Aspartate Amino Transferase 13 U/L (0-32); Blood Urea Nitrogen 14 mg/dL (8-23); Calcium 8.8 mg/dL (8.5-10.5); Carbon Dioxide 29 mmol/L (22-29); Chloride 103 mmol/L (98-107); Globulin 2.3 g/dL (1.3-4.6); Glucose 100 mg/dL (65-115); Osmolality Calculated 291 mOsm/kg (285-295); Potassium 4.7 mmol/L (3.5-5.1); Sodium 140 mmol/L (136-145); Total Bilirubin 0.8 mg/dL (0.15-1.2); Total Protein 6.5 g/dL (6.6-8.7)
[2020-09-20 07:28] LABS: CA 27.29 18 U/mL (<38)
--- NOTE | 2020-10-02 23:05 | ONC FU_ITS ---
[facility] Patient Note Patient: Alyson Sandoval Unit #: [id number]: [id number] Dictated By: Roslyn EastmanDate of Visit: Sep 19, 2020 Onc MED Follow-Up/Prog Note Chief Complaint: Breast cancer. History of Present Illness: Mrs Sandoval an 85 year-old woman with grade 2 infiltrating ductal carcinoma of the right breast, by clinical evaluation stage IIB (T2, N1, M0), ER/AL positive and HER-2/he positive. She had presented with a palpable mass in the right breast. Diagnostic mammogram and right breast ultrasound at [facility] on 03/26/2018 was BI-RADS 5, highly suggestive of malignancy. The mammogram showed a nodular density in the upper outer right breast at the 10:00 position with interval enlargement of some lymph nodes in the right axilla. Ultrasound showed a lobulated mass measuring 2.6 x 1.7 x 2.1 cm. The appearance was highly suspicious for malignancy. It also showed enlarged lymph nodes measuring up to 2.6 cm, suspicious for metastatic disease. She was referred to Dr. Ruiz. Ultrasound-guided biopsy of the breast mass on 04/24/2018 showed grade 2 infiltrating ductal carcinoma involving virtually 100% of 5 of 5 core fragments submitted. The breast prognostic profile showed ER positive at 98% and AL positive at 75%. HER-2/he was positive, 3+ by IHC and amplification ratio by FISH of 1.0 with 5.6 HER-2 copies/cell. The Ki-67 was unfavorable at 40%. Dr Esquivel had seen her initially on 05/22/2018. As her disease appeared to be at least locally advanced, he had recommended a staging PET/CT. That study was done on 05/30/2018. It showed a primary right breast lesion measuring 2.7 x 2.1 cm with SUV 12.8. Multiple right axillary and retropectoral lymph nodes were FDG positive, indicative of metastatic disease. An index right axillary lymph node measured 2.7 x 1.9 cm with SUV 8.1. There were no other areas of abnormal uptake on that study. A multinodular goiter appear to be most likely physiologic. Given those findings, I recommended that she undergo neoadjuvant chemotherapy with paclitaxel in combination with Herceptin, as it was felt that she would not tolerate a Taxotere/carboplatin regimen. She began neoadjuvant chemotherapy with weekly paclitaxel in combination with Herceptin beginning 06/22/2018. She tolerated the initial treatment without significant toxicity, and she was able to continue with week 2 treatment on 06/29/2018. Her week 3 treatment was delayed 1 week due to neutropenia, and with subsequent treatment she has been getting Neupogen prophylactically for 2 days. As of 08/17/2018 she received her 8th infusion of paclitaxel/Herceptin. Restaging mammogram/ultrasound of the right breast on 08/20/2018 showed improvement in the upper outer quadrant breast mass. A right axillary lymph node which was incompletely included appeared similar to the prior study. Other enlarged right axillary lymph nodes on the prior exam are no longer evident. A benign-appearing intramammary lymph node in the right axillary tail appeared stable. She became very weak following the chemotherapy treatment on 08/17/2017. Despite several days of IV hydration, she ended being admitted to the hospital on 08/23/2018. Her main complaint was weakness, but she also was having diarrhea. She was found to have evidence of right lower lobe pneumonia. Her management included IV antibiotic coverage and supportive measures. [facility] was [facility] 08[facility]2018 for rehabilitation. It was opted not to attempt any further chemotherapy, but Dr Esquivel did have her continue Herceptin infusions at the 3-week interval dosing. On 09/17/2017 she underwent right breast lumpectomy and right axillary lymph node dissection. Pathology showed residual grade 2 infiltrating ductal carcinoma measuring 1.0 cm in combined aggregate dimension. There were tumor nests noted within 0.3 cm of inked superior and inferior margins. There was metastatic tumor in 7/11 axillary lymph nodes. She developed seroma postoperatively, but she otherwise tolerated the procedure well. She then continued single agent Herceptin at 3-week intervals. As of her follow-up visit on 09/30/2017, she began adjuvant hormonal therapy with anastrozole 1 mg daily. It was subsequently discontinued, though, due to side effects, mainly nausea. She then underwent radiation to the right breast. She completed treatment on 02/03/2019 to a total dose of 6000 cGy. Restaging PET/CT on 03/27/2019 showed post radiation therapy edema in the right breast with an FDG negative right axillary seroma. Mildly FDG positive right upper lobe lung infiltrate appear to be most consistent with postradiation therapy sequelae. New right middle lobe scarring was FDG negative. As of 05/20/2019 she received cycle 13 of single agent Herceptin. On 06/09/2019 she had fallen at home and suffered a displaced retracted fracture of the proximal right humeral shaft. It was managed conservatively. However, due to the injury, her further treatment here was put on hold. Her other medical illnesses include hypertension, hyperlipidemia, and GERD. She has a history of pericarditis and history of cardiac arrhythmia. Her other medical illnesses include ankylosing spondylitis, degenerative arthritis, osteoporosis, and gout. She has a history of Clostridium difficile colitis and she has anxiety/depression. She is a nonsmoker. INTERIM HISTORY: Repeat right breast ultrasound on 02/22/2020 showed a complex fluid collection in the right axilla measuring 4.2 x 1.5 x 2.9 cm, felt to be most likely seroma. The findings were BI-RADS 3, probably benign. A six-month follow-up study was recommended to be done with annual diagnostic mammography. As of her follow-up visit on 02/25/2020, she began further adjuvant hormonal therapy with exemestane 25 mg daily. Ms. Sandoval is here today for follow-up. She states she is doing well overall. She states that the axillary edema she had at her last visit is much better. She has been seen rheumatology and Dr. hCeng has recommended Prolia for treatment of osteoporosis. She was wondering how he felt about that. I did encourage her to pursue the Prolia and informed her that we used it frequently here with her patients and felt that that would be of benefit for her as she is on adjuvant hormonal therapy with exemestane and high risk for osteoporosis events. She denies any fever or chills. She states that she has had no hot flashes. Her appetite is good her energy is fair. She continues to live in assisted living and tolerates this well. She denies any new pain. She denies any shortness of breath orthopnea. She states she does not do much so therefore she does not have much chance to get short of breath. She denies any chest pain or palpitations. She denies nausea or vomiting. She denies any diarrhea or constipation. She has intermittent lower extremity edema but states it generally goes away without any problems. She stopped taking apixaban because of excessive bruising. Her anticoagulation now is limited to aspirin. Her ECOG is 2. Past Medical History: Ankylosing spondylitis Anxiety Degenerative arthritis Depression Gastroesophageal reflux disease Hiatal hernia History of cardiac arrhythmia and pericardial effusion History of Clostridium difficile colitis History of peptic ulcer disease Hyperlipidemia Hypertension Osteoporosis Right shoulder fracture-Dr Schmid in 2019 Past Surgical History: Colonoscopy Left subclavian venous access device-Dr Ruiz[place], [place] in 2018 Lumpectomy in [address] ruiz in 2018 Breast biopsy in 2017 Bilateral cataract excisions in 2016 Prevnar 13 in 2015 Pneumo vac in 2010 Parathyroidectomy in 2000 Allergies: No Known Allergies. Medications: Acetaminophen 2 Tablet (of 500 mg) Oral four times a day PRN Ambien 1 Tablet (of 5 mg) Oral at bedtime Aspirin 1 Tablet (of 325 mg) Oral daily Carvedilol 1 Tablet (of 3.125 mg) Oral b.i.d. Cholecalciferol 1 Tablet (of 125 mcg ) Oral daily Claritin 1 Tablet (of 10 mg) Oral daily PRN Culturelle 1 Capsule Oral daily Ditropan XL 1 Tablet (of 5 mg) Tablet SR 24 HR Oral at bedtime Exemestane 1 (25 mg) Tablet Oral daily Flecainide Acetate 0.5 Tablet (of 100 mg) Oral b.i.d. Fleet Enema 1 (7-19 gm/118mL) Enema Rectal PRN Folic Acid 1 Tablet (of 1 mg) Oral daily HYDROcodone-Acetaminophen 0.5 Tablet (of 7.5-325 mg) Oral four times a day PRN Lasix 1 Tablet (of 20 mg) Oral daily Lidocaine-Prilocaine Cream Topical PRN Lomotil 1 Tablet (of 2.5-0.025 mg) Oral four times a day PRN LORazepam 1 - 2 Tablet (of 0.5 mg) Oral q 4 hours PRN Magnesium Hydroxide 400 (400 mg/5mL) Suspension Oral PRN Nitroglycerin 1 Tablet (of 0.4 mg) Tablet, sublingual Sublingual PRN Phenylephrine-Acetaminophen 1 - 2 Tablet (of 5-325 mg) Oral q 4 hours Potassium Chloride ER 1 Tablet (of 20 meq) Capsule, controlled release Oral b.i.d. Pravachol 1 Tablet (of 20 mg) Oral at bedtime Protonix 1 Tablet (of 40 mg) Tablet, enteric coated Oral daily Zofran 1 - 2 Tablet (of 4 mg) Oral q 8 hours Family History: Ms. Sandoval's mother at age 86: stroke, and uterine cancer. Ms. Sandoval's father at age 80: stroke. Both parents of stroke, father at age 80 and mother at age 86. Mother also had uterine cancer. Her son who is currently 48 years-old has also had a stroke. A sister had colon cancer. Another sister of cancer, but type unknown to the patient. A maternal aunt had breast cancer. Social History: Ms. Sandoval is and she is retired. Ms. Sandoval has never smoked. She has no history of drinking. She is a nonsmoker. She does not drink alcohol. Review Of Symptoms: <See Above> Vital Signs: Performed on Sep 19, 2020 14:14 Height - 65.00 in Weight - 149.6 lbs (LOW) BSA - 1.75 sq.m BMI - 24.89 Temperature - 98.5 F Pulse - 77 /min Respiration - 18 /min BP - 130/74 mm(hg) O2 Sat - 96 % Pain - 0,2 - Ambulatory/capable of all self-care, unable to perform any work activities. Up and about more than 50% of waking hours. (ECOG) Physical Examination: Constitutional Alert, oriented, no acute distress. Skin pink, warm and dry. Head Normocephalic; atraumatic. Eyes Conjunctivae and sclerae are clear and without icterus. Pupils are reactive and equal. Neck Supple without masses or thyromegaly. No jugular venous distension. Hematologic/Lymphatic No petechiae or purpura. No tender or palpable lymph nodes in the cervical or supraclavicular areas. Respiratory Lungs are clear to auscultation bilaterally. Cardiovascular Regular rate and rhythm of heart without murmurs,clicks, gallops or rubs. Chest Chest is symmetric without chest wall deformities. Left subclavian venous access site is unremarkable. Breasts Very mild seroma in the right axilla without warmth or tenderness. Abdomen Non-tender, non-distended, no masses, ascites. Good bowel sounds noted in all quads. Back/Spine Non-tender to palpation. Extremities No visible deformities, no cyanosis, clubbing or edema. Musculoskeletal No tenderness or swelling, normal range of motion without obvious weakness. Integumentary No rashes or lesions. Neurologic No sensory or motor deficits, normal cerebellar function, normal gait. Psychiatric Alert and oriented times three. Coherent speech. Verbalizes understanding of our discussions today. Laboratory:Test performed on Sep 19, 2020 12:45 WBC 4.0 10 3/uL RBC 4.14 10 6/uL HGB 12.8 g/dL HCT 40.7 % MCV 98.3 fL MCH 30.9 pg MCHC 31.4 g/dL RDW 14.6 % Platelet Count 165 10 3/cmm MPV 9.2 fL Neutrophils 2.71 10 3/uL Lymphocytes 0.7 10 3/uL Monocytes 0.4 10 3/uL Eosinophils 0.1 10 3/uL Basophils 0.0 10 3/uL Neutrophil % 68.6 % Lymphocyte % 18.7 % Monocyte % 9.1 % Eosinophil % 2.5 % Basophils % 0.8 % NRBC % 0 % Test performed on Sep 19, 2020 12:30 Sodium 140 mmol/L Potassium 4.7 mmol/L Chloride 103 mmol/L CO2 29 mmol/L Anion Gap 12.7 BUN 14 mg/dL Creatinine 0.8 mg/dL Cr Clearance (Est) 57.0800 mL/min Glucose 100 mg/dL Osmolality - Calculated 291 mOsm/kg Calcium 8.8 mg/dL Protein, Total 6.5 g/dL Albumin 4.2 g/dL Globulin 2.3 g/dL Bilirubin, Total 0.8 mg/dL ALT (SGPT) 6 U/L AST (SGOT) 13 U/L Alkaline Phosphatase 75 IU/L CA 27.29 18 U/mL Impression: 1. Grade 2 infiltrating ductal carcinoma of the right breast, by clinical evaluation stage IIB (T2, N1, M0), ER/AL positive and HER-2/he positive. She underwent ultrasound-guided needle biopsy of the right breast on 04/24/2018. 2. Hypertension. 3. Hyperlipidemia. 4. She has a history of cardiac arrhythmia and history of pericarditis. 5. Hiatal hernia/GERD. 6. Ankylosing spondylitis. 7. Degenerative arthritis. 8. Osteoporosis. 9. History of gout. 10. She has a history of Clostridium difficile colitis. 11. Anxiety/depression. Plan/Problems Addressed at this Visit: Grade 2 infiltrating ductal carcinoma of the right breast, by clinical evaluation stage IIB (T2, N1, M0), ER/AL positive and HER-2/he positive. She underwent ultrasound-guided needle biopsy of the right breast on 04/24/2018. She began neoadjuvant chemotherapy with weekly paclitaxel/Herceptin on 06/22/2018. Her treatment related side effects included neutropenia, fatigue, and anorexia/weight loss. As of 08/17/2018 she completed her 8th weekly infusion of paclitaxel/Herceptin. She was then hospitalized with pneumonia and at that point she required fdc placement. Her restaging mammogram/ultrasound of the right breast on 08/20/2018 did show significant response, but there was residual disease. On 09/17/2018 she underwent right breast lumpectomy and right axillary lymph node dissection. Pathology showed only a small residual tumor in the right breast, measuring 1.0 cm in combined aggregate. There was involvement, though, in 7/11 lymph nodes. Postoperatively she had developed seromas at the lumpectomy site and the axillary incision site, but those gradually resolved. She continued treatment with Herceptin at the 3-week dosing interval. Following her visit on 09/30/2018 she began adjuvant hormonal therapy with anastrozole 1 mg daily. It was discontinued, though, due to side effects, mainly nausea. She then underwent radiation to the right breast, completed on 02/03/2019 to a total dose of 6000 cGy. Restaging PET/CT on 03/27/2019 showed post radiation therapy edema in the right breast with an FDG negative right axillary seroma. As of 05/20/2019 she completed her 13th cycle of Herceptin. Her treatment was then put on hold due to traumatic fracture of the right proximal humerus. As of her follow-up visit in February 2020 she began further adjuvant hormonal therapy with exemestane 25 mg daily. She was seen by Dr. Esquivel in May 2020 for increased swelling and induration in the right breast wall/axillary area. She was having some discomfort associated with it. The findings appear to be most consistent with post radiation changes, though local recurrence was not excluded. She continues to have fairly marginal performance status. Dr. Esquivel had felt she needed reassessment of the breast axilla with mammogram /ultrasound although I can find no record this is been done. She has continued with the exemestane 25 mg daily. She reports today that she thinks that the axillary swelling is better overall. It is no longer bothersome to her. A. Proceed with exemestane 25 mg daily. B. Labs from today were reviewed in detail discussed with Mrs. Sandoval and a copy was given to her. WBC 4.0, hemoglobin 12.8, platelets 265,000, ANC is 2710. Potassium 4.7 random glucose was 100 creatinine 0.8 LFTs are normal. Her CA 27-29 was 18. C. Her last breast ultrasound was February 22, 2020 according to [facility]. Her last reported mammogram in [facility] was August 21, 2018. Her last pet imaging was March 27, 2019. D. We will continue monitoring Mrs. Sandoval for now. She has been encouraged to let us know if the swelling in the axillary returns or the tenderness returns. She may need follow-up with PET CT imaging if that should happen. E. We will plan to see her back in 3 months with CBC CMP and CA 27-29. F. Mrs. Sandoval was instructed to contact us in interim should questions or problems arise. 2. Osteoporosis and aromatase inhibitor therapy A. In review of [employer] and a bone density ordered by Dr. May, the L1-L4 bone mineral density measured with a T score of -2.9. The mean femoral neck bone mineral density T score was -3.0. Left femoral neck bone mineral density measured T score -3.2 and right femoral neck bone mineral density measured T score -2.9. The patient's FRAX calculated 10-year probability for major osteoporotic fracture was 52.4% and osteoporotic hip fracture was 39.3%. Dr. Cheng has recommended she pursue treatment with Prolia. I have discussed this with Mrs. Sandoval and have encouraged her to do so as she has high risk due to the exemestane as well. Signed By: Roslyn Eastman-NADEGE, AOP Francisco Esquivel MD <<Signature on File>>
== END 2020-09-19 11:48 | disposition home or self-care (01) ==
LOC: ONCMED 11:49
PROVIDERS: Internal Medicine Medical Oncology; PCP Family Medicine; Visit Provider Nurse Practitioner
DX: C50.411 Malignant neoplasm of upper-outer quadrant of right female breast (principal); Z17.0 Estrogen receptor positive status [ER+]; C77.3 Secondary and unspecified malignant neoplasm of axilla and upper limb lymph nodes; D70.1 Agranulocytosis secondary to cancer chemotherapy; T45.1X5A Adverse effect of antineoplastic and immunosuppressive drugs, initial encounter; M81.0 Age-related osteoporosis without current pathological fracture; F41.9 Anxiety disorder, unspecified; F32.9 Major depressive disorder, single episode, unspecified; K21.9 Gastro-esophageal reflux disease without esophagitis; E78.5 Hyperlipidemia, unspecified; I10 Essential (primary) hypertension; Z79.811 Long term (current) use of aromatase inhibitors; Z79.899 Other long term (current) drug therapy
CPT/HCPCS: 36415; 36593; 80053; 85025; 86300; 96374; 96375; 99214; J1642; J2997

== ENCOUNTER 2020-10-17 12:52 | Outpatient (CLI) | payer MEDICARE, SELFPAY | END 2020-10-17 12:53 | disposition home or self-care (01) | LOC: ONCMED 12:54 | PROVIDERS: PCP Family Medicine; Visit Provider Nurse Practitioner | DX: Z45.2 Encounter for adjustment and management of vascular access device (principal) | CPT/HCPCS: 96523 ==

== ENCOUNTER 2020-11-14 13:04 | Outpatient (CLI) | payer MEDICARE, SELFPAY | END 2020-11-14 13:05 | disposition home or self-care (01) | LOC: ONCMED 13:06 | PROVIDERS: PCP Family Medicine; Visit Provider Nurse Practitioner | DX: Z45.2 Encounter for adjustment and management of vascular access device (principal) | CPT/HCPCS: 96523 ==

== ENCOUNTER 2020-12-13 14:15 | Outpatient (CLI) | payer MEDICARE, SELFPAY ==
[2020-12-13] MEDS: alteplase 1 mg/mL SDV 2 mL 2 MG IV ×2 (15:30→16:30)
[2020-12-13 15:50] LABS: Basophils % 0.8 %; Eosinophils # 0.2 10^3/uL (0.0-0.8); Eosinophils % 2.8 %; Hemoglobin 13.2 g/dL (11.5-15.3); Lymphocytes % 19.5 %; Mean Corpuscular HGB Conc 32.2 g/dL (30.0-36.0); Mean Corpuscular Hemoglobin 31.4 pg (28.0-34.0); Mean Corpuscular Volume 97.4 fL (81-99); Mean Platelet Volume 9.5 fL (7.4-10.4); Monocytes # 0.4 10^3/uL (0.2-0.9); Monocytes % 8.3 %; Neutrophils # 3.65 10^3/uL (1.8-7.7); Neutrophils % 68.4 %; Nucleated Red Blood Cells % 0 %; Platelet Count 185 10^3/cmm (130-400); Red Blood Count 4.21 10^6/uL (4.1-5.3); Red Cell Distribution Width 13.7 % (12.1-15.1); White Blood Count 5.3 10^3/uL (4.0-10.0)
[2020-12-13 16:19] LABS: Alanine Aminotransferase 6 U/L (0-33); Albumin Level 4.2 g/dL (3.5-5.2); Alkaline Phosphatase 102 IU/L (35-105); Anion Gap 15.1 (5-19); Aspartate Amino Transferase 13 U/L (0-32); Blood Urea Nitrogen 12 mg/dL (8-23); Calcium 8.7 mg/dL (8.5-10.5); Carbon Dioxide 25 mmol/L (22-29); Chloride 103 mmol/L (98-107); Globulin 2.6 g/dL (1.3-4.6); Glucose 119 mg/dL (65-115); Osmolality Calculated 289 mOsm/kg (285-295); Potassium 4.1 mmol/L (3.5-5.1); Sodium 139 mmol/L (136-145); Total Bilirubin 0.5 mg/dL (0.15-1.2); Total Protein 6.8 g/dL (6.6-8.7)
--- NOTE | 2020-12-13 17:39 | ONC FU_ITS ---
Dr. Esquivel Patient Follow-Up Note Patient: Alyson Sandoval Unit #: [id number]: [id number] Dicatated By: Francisco Esquivel M.D.Date of Visit:Dec 13, 2020 Onc Med Follow-up/Prog Note Chief Complaint: Breast cancer. History of Present Illness: This is an 85 year-old woman with grade 2 infiltrating ductal carcinoma of the right breast, by clinical evaluation stage IB (T2, N1, M0), ER/CT positive and HER-2/he positive. She had presented with a palpable mass in the right breast. Diagnostic mammogram and right breast ultrasound at [facility] on 03/26/2018 was BI-RADS 5, highly suggestive of malignancy. The mammogram showed a nodular density in the upper outer right breast at the 10:00 position with interval enlargement of some lymph nodes in the right axilla. Ultrasound showed a lobulated mass measuring 2.6 x 1.7 x 2.1 cm. The appearance was highly suspicious for malignancy. It also showed enlarged lymph nodes measuring up to 2.6 cm, suspicious for metastatic disease. She was referred to Dr. Ruiz. Ultrasound-guided biopsy of the breast mass on 04/24/2018 showed grade 2 infiltrating ductal carcinoma involving virtually 100% of 5 of 5 core fragments submitted. The breast prognostic profile showed ER positive at 98% and CT positive at 75%. HER-2/he was positive, 3+ by IHC and amplification ratio by FISH of 1.0 with 5.6 HER-2 copies/cell. The Ki-67 was unfavorable at 40%. I had seen her initially on 05/22/2018. As her disease appeared to be at least locally advanced, I had recommended a staging PET/CT. That study was done on 05/30/2018. It showed a primary right breast lesion measuring 2.7 x 2.1 cm with SUV 12.8. Multiple right axillary and retropectoral lymph nodes were FDG positive, indicative of metastatic disease. An index right axillary lymph node measured 2.7 x 1.9 cm with SUV 8.1. There were no other areas of abnormal uptake on that study. A multinodular goiter appear to be most likely physiologic. Given those findings, I recommended that she undergo neoadjuvant chemotherapy with paclitaxel in combination with Herceptin, as I felt that she would not tolerate a Taxotere/carboplatin regimen. She began neoadjuvant chemotherapy with weekly paclitaxel in combination with Herceptin beginning 06/22/2018. She tolerated the initial treatment without significant toxicity, and she was able to continue with week 2 treatment on 06/29/2018. Her week 3 treatment was delayed 1 week due to neutropenia, and with subsequent treatment she has been getting Neupogen prophylactically for 2 days. As of 08/17/2018 she received her 8th infusion of paclitaxel/Herceptin. Restaging mammogram/ultrasound of the right breast on 08/20/2018 showed improvement in the upper outer quadrant breast mass. A right axillary lymph node which was incompletely included appeared similar to the prior study. Other enlarged right axillary lymph nodes on the prior exam are no longer evident. A benign-appearing intramammary lymph node in the right axillary tail appeared stable. She became very weak following the chemotherapy treatment on 08/17/2017. Despite several days of IV hydration, she ended being admitted to the hospital on 08/23/2018. Her main complaint was weakness, but she also was having diarrhea. She was found to have evidence of right lower lobe pneumonia. Her management included IV antibiotic coverage and supportive measures. She was discharged to the group home on 08/27/2018 for rehabilitation. I opted not to attempt any further chemotherapy, but I did have her continue Herceptin infusions at the 3-week interval dosing. On 09/17/2017 she underwent right breast lumpectomy and right axillary lymph node dissection. Pathology showed residual grade 2 infiltrating ductal carcinoma measuring 1.0 cm in combined aggregate dimension. There were tumor nests noted within 0.3 cm of inked superior and inferior margins. There was metastatic tumor in 7/11 axillary lymph nodes. She developed seroma postoperatively, but she otherwise tolerated the procedure well. She then continued single agent Herceptin at 3-week intervals. As of her follow-up visit on 09/30/2017, she began adjuvant hormonal therapy with anastrozole 1 mg daily. It was subsequently discontinued, though, due to side effects, mainly nausea. She then underwent radiation to the right breast. She completed treatment on 02/03/2019 to a total dose of 6000 cGy. Restaging PET/CT on 03/27/2019 showed post radiation therapy edema in the right breast with an FDG negative right axillary seroma. Mildly FDG positive right upper lobe lung infiltrate appear to be most consistent with postradiation therapy sequelae. New right middle lobe scarring was FDG negative. As of 05/20/2019 she received cycle 13 of single agent Herceptin. On 06/09/2019 she had fallen at home and suffered a displaced retracted fracture of the proximal right humeral shaft. It was managed conservatively. However, due to the injury, her further treatment here was put on hold. Her other medical illnesses include hypertension, hyperlipidemia, and GERD. She has a history of pericarditis and history of cardiac arrhythmia. Her other medical illnesses include ankylosing spondylitis, degenerative arthritis, osteoporosis, and gout. She has a history of Clostridium difficile colitis and she has anxiety/depression. She is a nonsmoker. INTERIM HISTORY: Repeat right breast ultrasound on 02/22/2020 showed a complex fluid collection in the right axilla measuring 4.2 x 1.5 x 2.9 cm, felt to be most likely seroma. The findings were BI-RADS 3, probably benign. A six-month follow-up study was recommended to be done with annual diagnostic mammography. As of her follow-up visit on 02/25/2020, she began further adjuvant hormonal therapy with exemestane 25 mg daily. As of her follow-up visit on 06/20/2020 she had ongoing problems with pain and swelling in the right breast following the radiation. She appeared to be tolerating the exemestane with acceptable toxicity. She is seen for a follow-up visit. She has been feeling okay, though she says her energy is still not very good. She has been doing exercises and she is able ambulate with a walker. ECOG score is 2. She has pretty good appetite. She has not had fever. She has a little bit of hot flushing. She has not had sore mouth or throat, but she has noticed a discoloration on her tongue. Her breathing is pretty good. She does not complain of cough and she has not been having chest pain. She still occasionally has nausea and she occasionally has acid reflux. Bowel function is pretty good and her bladder function remains adequate with oxybutynin. She has some back pain, and she also has joint pain. She has been seen by Dr. Frazier, and she is on treatment with methotrexate for rheumatoid arthritis. She does not complain of headache. She sometimes has dizziness. 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 She says it is not real bad. She still has pain in her right shoulder and right arm following the fracture last year. She has seen Dr. Millard about that, and she was to have been scheduled for an MRI. Medications: Acetaminophen 2 Tablet (of 500 mg) Oral four times a day PRN, Ambien 1 Tablet (of 5 mg) Oral at bedtime, Aspirin 1 Tablet (of 325 mg) Oral daily, Carvedilol 1 Tablet (of 3.125 mg) Oral b.i.d., Cholecalciferol 1 Tablet (of 125 mcg ) Oral daily, Claritin 1 Tablet (of 10 mg) Oral daily PRN, Culturelle 1 Capsule Oral daily, Ditropan XL 1 Tablet (of 5 mg) Tablet SR 24 HR Oral at bedtime, Exemestane 1 (25 mg) Tablet Oral daily, Flecainide Acetate 0.5 Tablet (of 100 mg) Oral b.i.d., Fleet Enema 1 (7-19 gm/118mL) Enema Rectal PRN, Folic Acid 1 Tablet (of 1 mg) Oral daily, HYDROcodone-Acetaminophen 0.5 Tablet (of 7.5-325 mg) Oral four times a day PRN, Lasix 1 Tablet (of 20 mg) Oral daily, Lidocaine-Prilocaine Cream Topical PRN, Lomotil 1 Tablet (of 2.5-0.025 mg) Oral four times a day PRN, LORazepam 1 - 2 Tablet (of 0.5 mg) Oral q 4 hours PRN, Magnesium Hydroxide 400 (400 mg/5mL) Suspension Oral PRN, Nitroglycerin 1 Tablet (of 0.4 mg) Tablet, sublingual Sublingual PRN, Phenylephrine-Acetaminophen 1 - 2 Tablet (of 5-325 mg) Oral q 4 hours, Potassium Chloride ER 1 Tablet (of 20 meq) Capsule, controlled release Oral b.i.d., Pravachol 1 Tablet (of 20 mg) Oral at bedtime, Protonix 1 Tablet (of 40 mg) Tablet, enteric coated Oral daily, Zofran 1 - 2 Tablet (of 4 mg) Oral q 8 hours Allergies: No Known Allergies. Vital Signs: Performed on Dec 13, 2020 16:21 Height - 65.00 in Weight - 153 lbs (HIGH) BSA - 1.77 sq.m BMI - 25.46 Temperature - 98.3 F (LOW) Pulse - 91 /min Respiration - 18 /min BP - 165/91 mm(hg) (HIGH) O2 Sat - 97 % Pain - 0 Fatigue - 8 Physical Examination: Constitutional - She looks pretty good generally, Eyes - Sclerae nonicteric. Conjunctivae clear, ENMT - There is a brownish colored coating on the tongue. There are no other lesions noted in the oral cavity, Hematologic/Lymphatic - No cervical or clavicular adenopathy, Respiratory - Lungs are clear, Cardiovascular - Heart rhythm is irregular. There is no murmur, gallop, or rub noted, Breasts - There is just mild residual induration involving the upper outer quadrant right breast and axilla. There is no mass palpable and there is no axillary adenopathy noted, Abdomen - Soft. Liver and spleen are not enlarged. There is no abdominal mass or ascites noted and there is no inguinal adenopathy, Extremities - Trace edema. There are some scattered small purpuric lesions on both arms, Neurologic - No focal neurologic deficits noted. Lab/Imaging: Test performed on Dec 13, 2020 15:01 Sodium 139 mmol/L Potassium 4.1 mmol/L Chloride 103 mmol/L CO2 25 mmol/L Anion Gap 15.1 BUN 12 mg/dL Creatinine 0.7 mg/dL Cr Clearance (Est) 66.72 mL/min Glucose 119 mg/dL Osmolality - Calculated 289 mOsm/kg Calcium 8.7 mg/dL Protein, Total 6.8 g/dL Albumin 4.2 g/dL Globulin 2.6 g/dL Bilirubin, Total 0.5 mg/dL ALT (SGPT) 6 U/L AST (SGOT) 13 U/L Alkaline Phosphatase 102 IU/L WBC 5.3 10 3/uL RBC 4.21 10 6/uL HGB 13.2 g/dL HCT 41.0 % MCV 97.4 fL MCH 31.4 pg MCHC 32.2 g/dL RDW 13.7 % Platelet Count 185 10 3/cmm MPV 9.5 fL Neutrophils 3.65 10 3/uL Lymphocytes 1.0 10 3/uL Monocytes 0.4 10 3/uL Eosinophils 0.2 10 3/uL Basophils 0.0 10 3/uL Neutrophil % 68.4 % Lymphocyte % 19.5 % Monocyte % 8.3 % Eosinophil % 2.8 % Basophils % 0.8 % NRBC % 0 % Problem List: 1. Grade 2 infiltrating ductal carcinoma of the right breast, by clinical evaluation stage IB (T2, N1, M0), ER/CT positive and HER-2/he positive. She underwent ultrasound-guided needle biopsy of the right breast on 04/24/2018. 2. Hypertension. 3. Hyperlipidemia. 4. She has a history of cardiac arrhythmia and history of pericarditis. 5. Hiatal hernia/GERD. 6. Ankylosing spondylitis. 7. Degenerative arthritis. 8. Osteoporosis. 9. History of gout. 10. She has a history of Clostridium difficile colitis. 11. Anxiety/depression. Problems Addressed with this Encounter and Plan: 1. Grade 2 infiltrating ductal carcinoma of the right breast, by clinical evaluation stage IB (T2, N1, M0), ER/CT positive and HER-2/he positive. She underwent ultrasound-guided needle biopsy of the right breast on 04/24/2018. She began neoadjuvant chemotherapy with weekly paclitaxel/Herceptin on 06/22/2018. Her treatment related side effects included neutropenia, fatigue, and anorexia/weight loss. As of 08/17/2018 she completed her 8th weekly infusion of paclitaxel/Herceptin. She was then hospitalized with pneumonia and at that point she required group home placement. Her restaging mammogram/ultrasound of the right breast on 08/20/2018 did show significant response, but there was residual disease. On 09/17/2018 she underwent right breast lumpectomy and right axillary lymph node dissection. Pathology showed only a small residual tumor in the right breast, measuring 1.0 cm in combined aggregate. There was involvement, though, in 7/11 lymph nodes. Postoperatively she had developed seromas at the lumpectomy site and the axillary incision site, but those gradually resolved. She continued treatment with Herceptin at the 3-week dosing interval. Following her visit on 09/30/2018 she began adjuvant hormonal therapy with anastrozole 1 mg daily. It was discontinued, though, due to side effects, mainly nausea. She then underwent radiation to the right breast, completed on 02/03/2019 to a total dose of 6000 cGy. Restaging PET/CT on 03/27/2019 showed post radiation therapy edema in the right breast with an FDG negative right axillary seroma. As of 05/20/2019 she completed her 13th cycle of Herceptin. Her treatment was then put on hold due to traumatic fracture of the right proximal humerus in May 2019. As of her follow-up visit in February 2020 she began further adjuvant hormonal therapy with exemestane 25 mg daily. During follow-up she has continued to have somewhat marginal performance status, but she has shown gradual improvement. She seems to tolerate the exemestane without significant toxicity. She has some residual induration and soreness in the right breast and she continues to have some pain in the right shoulder and right arm. Overall, she appears to be doing pretty well clinically with no evidence of recurrence of the breast cancer. She will continue adjuvant hormonal therapy with exemestane 25 mg daily. I will see her again in 6 months, or sooner as needed. 2. She has osteoporosis and she does need to be on treatment with Prolia. However, for the time being that will be deferred pending decision on need for surgery on her right arm. Signed By: Francisco Esquivel M.D. <<Signature on File>>
[2020-12-14 10:29] LABS: CA 27.29 12 U/mL (<38)
== END 2020-12-13 14:16 | disposition home or self-care (01) ==
LOC: ONCMED 14:17
PROVIDERS: PCP Family Medicine; Visit Provider Internal Medicine Medical Oncology
DX: C50.812 Malignant neoplasm of overlapping sites of left female breast (principal); Z17.0 Estrogen receptor positive status [ER+]; Z90.11 Acquired absence of right breast and nipple; I10 Essential (primary) hypertension; E78.5 Hyperlipidemia, unspecified; K21.9 Gastro-esophageal reflux disease without esophagitis; M45.9 Ankylosing spondylitis of unspecified sites in spine; M19.90 Unspecified osteoarthritis, unspecified site; M81.0 Age-related osteoporosis without current pathological fracture; F41.9 Anxiety disorder, unspecified; F32.9 Major depressive disorder, single episode, unspecified; Z79.811 Long term (current) use of aromatase inhibitors; Z92.21 Personal history of antineoplastic chemotherapy
CPT/HCPCS: 36415; 36593; 80053; 85025; 86300; 96374; 96376; 99214; J2997

== ENCOUNTER → 2021-04-11 13:07 | Outpatient (BNVA) | payer MEDICARE, SELFPAY | PROVIDERS: PCP Family Medicine; Visit Provider Internal Medicine Rheumatology | DX: M12.80 Other specific arthropathies, not elsewhere classified, unspecified site (principal); Z79.899 Other long term (current) drug therapy; M47.899 Other spondylosis, site unspecified; M81.0 Age-related osteoporosis without current pathological fracture; C50.911 Malignant neoplasm of unspecified site of right female breast; Z71.89 Other specified counseling | CPT/HCPCS: 99214 ==

== ENCOUNTER → 2021-08-08 13:06 | Outpatient (BNVA) | payer MEDICARE, SELFPAY | PROVIDERS: PCP Family Medicine; Visit Provider Internal Medicine Rheumatology | DX: M80.021 Age-related osteoporosis with current pathological fracture, right humerus (principal); Z15.89 Genetic susceptibility to other disease; Z79.899 Other long term (current) drug therapy; M17.0 Bilateral primary osteoarthritis of knee; Z92.3 Personal history of irradiation; Z92.21 Personal history of antineoplastic chemotherapy; C50.911 Malignant neoplasm of unspecified site of right female breast; Z71.89 Other specified counseling | CPT/HCPCS: 99214 ==

== ENCOUNTER 2021-08-27 08:51 | Outpatient (CLI) | payer MEDICARE, SELFPAY ==
[2021-08-27 09:53] LABS: Eosinophils # 0.1 10^3/uL (0.0-0.8); Eosinophils % 3.1 %; Hemoglobin 12.7 g/dL (11.5-15.3); Lymphocytes # 0.7 10^3/uL (0.8-4.8); Lymphocytes % 16.9 %; Mean Corpuscular HGB Conc 31.8 g/dL (30.0-36.0); Mean Corpuscular Volume 97.6 fl (81-99); Mean Platelet Volume 9.1 fL (7.4-10.4); Monocytes # 0.4 10^3/uL (0.2-0.9); Monocytes % 8.7 %; Neutrophils % 70.1 %; Nucleated Red Blood Cells % 0 %; Platelet Count 189 10^3/cmm (130-400); Red Cell Distribution Width 14.6 % (12.1-15.1); White Blood Count 4.1 10^3/uL (4.0-10.0)
[2021-08-27 10:22] LABS: Alanine Aminotransferase 7 U/L (0-33); Albumin Level 4.5 g/dL (3.5-5.2); Alkaline Phosphatase 103 IU/L (35-105); Anion Gap 13.2 (5-19); Aspartate Amino Transferase 13 U/L (0-32); Blood Urea Nitrogen 11 mg/dL (8-23); Calcium 9.5 mg/dL (8.5-10.5); Carbon Dioxide 27 mmol/L (22-29); Chloride 104 mmol/L (98-107); Glucose 110 mg/dL (65-115); Osmolality Calculated 290 mOsm/kg (285-295); Potassium 4.2 mmol/L (3.5-5.1); Sodium 140 mmol/L (136-145); Total Bilirubin 0.8 mg/dL (0.15-1.2); Total Protein 6.5 g/dL (6.6-8.7)
--- NOTE | 2021-08-30 10:44 | ONC FU_ITS ---
Dr. Esquivel Patient Follow-Up Note Patient: Alyson Sandoval Unit #: [id number]: [id number] Dicatated By: Francisco Esquivel M.D.Date of Visit:Aug 27, 2021 Onc Med Follow-up/Prog Note Chief Complaint: Breast cancer. History of Present Illness: This is an 86 year-old woman with grade 2 infiltrating ductal carcinoma of the right breast, by clinical evaluation stage IB (T2, N1, M0), ER/TX positive and HER-2/he positive. She had presented with a palpable mass in the right breast. Diagnostic mammogram and right breast ultrasound at [facility] on 03/26/2018 was BI-RADS 5, highly suggestive of malignancy. The mammogram showed a nodular density in the upper outer right breast at the 10:00 position with interval enlargement of some lymph nodes in the right axilla. Ultrasound showed a lobulated mass measuring 2.6 x 1.7 x 2.1 cm. The appearance was highly suspicious for malignancy. It also showed enlarged lymph nodes measuring up to 2.6 cm, suspicious for metastatic disease. She was referred to Dr. Ruiz. Ultrasound-guided biopsy of the breast mass on 04/24/2018 showed grade 2 infiltrating ductal carcinoma involving virtually 100% of 5 of 5 core fragments submitted. The breast prognostic profile showed ER positive at 98% and TX positive at 75%. HER-2/he was positive, 3+ by IHC and amplification ratio by FISH of 1.0 with 5.6 HER-2 copies/cell. The Ki-67 was unfavorable at 40%. I had seen her initially on 05/22/2018. As her disease appeared to be at least locally advanced, I had recommended a staging PET/CT. That study was done on 05/30/2018. It showed a primary right breast lesion measuring 2.7 x 2.1 cm with SUV 12.8. Multiple right axillary and retropectoral lymph nodes were FDG positive, indicative of metastatic disease. An index right axillary lymph node measured 2.7 x 1.9 cm with SUV 8.1. There were no other areas of abnormal uptake on that study. A multinodular goiter appear to be most likely physiologic. Given those findings, I recommended that she undergo neoadjuvant chemotherapy with paclitaxel in combination with Herceptin, as I felt that she would not tolerate a Taxotere/carboplatin regimen. She began neoadjuvant chemotherapy with weekly paclitaxel in combination with Herceptin beginning 06/22/2018. She tolerated the initial treatment without significant toxicity, and she was able to continue with week 2 treatment on 06/29/2018. Her week 3 treatment was delayed 1 week due to neutropenia, and with subsequent treatment she has been getting Neupogen prophylactically for 2 days. As of 08/17/2018 she received her 8th infusion of paclitaxel/Herceptin. Restaging mammogram/ultrasound of the right breast on 08/20/2018 showed improvement in the upper outer quadrant breast mass. A right axillary lymph node which was incompletely included appeared similar to the prior study. Other enlarged right axillary lymph nodes on the prior exam are no longer evident. A benign-appearing intramammary lymph node in the right axillary tail appeared stable. She became very weak following the chemotherapy treatment on 08/17/2017. Despite several days of IV hydration, she ended being admitted to the hospital on 08/23/2018. Her main complaint was weakness, but she also was having diarrhea. She was found to have evidence of right lower lobe pneumonia. Her management included IV antibiotic coverage and supportive measures. She was discharged to the custodial on 08/27/2018 for rehabilitation. I opted not to attempt any further chemotherapy, but I did have her continue Herceptin infusions at the 3-week interval dosing. On 09/17/2017 she underwent right breast lumpectomy and right axillary lymph node dissection. Pathology showed residual grade 2 infiltrating ductal carcinoma measuring 1.0 cm in combined aggregate dimension. There were tumor nests noted within 0.3 cm of inked superior and inferior margins. There was metastatic tumor in 7/11 axillary lymph nodes. She developed seroma postoperatively, but she otherwise tolerated the procedure well. She then continued single agent Herceptin at 3-week intervals. As of her follow-up visit on 09/30/2017, she began adjuvant hormonal therapy with anastrozole 1 mg daily. It was subsequently discontinued, though, due to side effects, mainly nausea. She then underwent radiation to the right breast. She completed treatment on 02/03/2019 to a total dose of 6000 cGy. Restaging PET/CT on 03/27/2019 showed post radiation therapy edema in the right breast with an FDG negative right axillary seroma. Mildly FDG positive right upper lobe lung infiltrate appear to be most consistent with postradiation therapy sequelae. New right middle lobe scarring was FDG negative. As of 05/20/2019 she received cycle 13 of single agent Herceptin. On 06/09/2019 she had fallen at home and suffered a displaced retracted fracture of the proximal right humeral shaft. It was managed conservatively. However, due to the injury, her further treatment here was put on hold. Repeat right breast ultrasound on 02/22/2020 showed a complex fluid collection in the right axilla measuring 4.2 x 1.5 x 2.9 cm, felt to be most likely seroma. The findings were BI-RADS 3, probably benign. A six-month follow-up study was recommended to be done with annual diagnostic mammography. As of her follow-up visit on 02/25/2020, she began further adjuvant hormonal therapy with exemestane 25 mg daily. As of her follow-up visit in November 2020 she appeared to be tolerating the exemestane with acceptable toxicity, and there was no evidence of recurrence/progression of the breast cancer. Her other medical illnesses include hypertension, hyperlipidemia, and GERD. She has a history of pericarditis and history of cardiac arrhythmia. Her other medical illnesses include ankylosing spondylitis, degenerative arthritis, osteoporosis, and gout. She has a history of Clostridium difficile colitis and she has anxiety/depression. She is a nonsmoker. INTERIM HISTORY: She is seen for a follow-up visit. She has been feeling pretty good, though she complains that she still has no energy. Her activity is limited. ECOG score is 2. Her appetite is not real good but her weight is stable. She does not have fever, night sweats, or hot flashes. She still has soreness and a coating on her tongue. She does not complain of cough, and she has not been having shortness of breath or chest pain. She still has nausea at times. Her acid reflux is adequately managed. She has some chronic constipation. Bladder function has been okay. She still has quite a bit of pain, mainly in her back and knees. Right arm also still hurts at times. She does not complain of headache. She occasionally has lightheadedness. She has some numbness/paresthesia in her feet. Medications: Acetaminophen 2 Tablet (of 500 mg) Oral four times a day PRN, Ambien 1 Tablet (of 5 mg) Oral at bedtime, Aspirin 1 Tablet (of 325 mg) Oral daily, Carvedilol 1 Tablet (of 3.125 mg) Oral b.i.d., Cholecalciferol 1 Tablet (of 125 mcg ) Oral daily, Culturelle 1 Capsule Oral daily, Diclofenac Sodium Cream Topical PRN, Ditropan XL 1 Tablet (of 5 mg) Tablet SR 24 HR Oral at bedtime, Exemestane 1 (25 mg) Tablet Oral daily, Flecainide Acetate 0.5 Tablet (of 100 mg) Oral b.i.d., Fleet Enema 1 (7-19 gm/118mL) Enema Rectal PRN, Folic Acid 1 Tablet (of 1 mg) Oral daily, HYDROcodone-Acetaminophen 0.5 Tablet (of 7.5-325 mg) Oral four times a day PRN, Lasix 1 Tablet (of 20 mg) Oral daily, Lidocaine-Prilocaine Cream Topical PRN, Magnesium Hydroxide 400 (400 mg/5mL) Suspension Oral PRN, Nitroglycerin 1 Tablet (of 0.4 mg) Tablet, sublingual Sublingual PRN, Potassium Chloride ER 1 Tablet (of 20 meq) Capsule, controlled release Oral b.i.d., Pravachol 1 Tablet (of 20 mg) Oral at bedtime, predniSONE Tablet Oral PRN, Protonix 1 Tablet (of 40 mg) Tablet, enteric coated Oral daily, Zofran 1 - 2 Tablet (of 4 mg) Oral q 8 hours, Zoloft 1 Tablet (of 25 mg) Oral daily Allergies: No Known Allergies. Vital Signs: Performed on Aug 27, 2021 11:18 Height - 65.00 in Weight - 155.2 lbs (HIGH) BSA - 1.78 sq.m BMI - 25.83 Temperature - 97.2 F (LOW) Pulse - 77 /min Respiration - 18 /min BP - 151/77 mm(hg) (HIGH) O2 Sat - 97 % Pain - 0 Fatigue - 7 Physical Examination: Constitutional - She looks pretty good generally, Eyes - Sclerae nonicteric. Conjunctivae clear, ENMT - There is a persistent brown coating on the tongue. There are no other lesions noted in the oral cavity, Hematologic/Lymphatic - No cervical or clavicular adenopathy, Respiratory - Lungs sound clear, Cardiovascular - Heart rhythm is irregular. There is no murmur, gallop, or rub noted, Breasts - There is mild induration involving the upper outer quadrant of the right breast extending into the axilla. There is no mass palpable and there is no axillary adenopathy noted, Abdomen - Soft. Liver and spleen are not enlarged. There is no abdominal mass or ascites noted and there is no inguinal adenopathy, Back/Spine - She has significant kyphosis, Extremities - No edema, Neurologic - No focal neurologic deficits noted. Lab/Imaging: Test performed on Aug 27, 2021 09:20 Sodium 140 mmol/L Potassium 4.2 mmol/L Chloride 104 mmol/L CO2 27 mmol/L Anion Gap 13.2 BUN 11 mg/dL Creatinine 0.8 mg/dL Cr Clearance (Est) 58.18 mL/min Glucose 110 mg/dL Osmolality - Calculated 290 mOsm/kg Calcium 9.5 mg/dL Protein, Total 6.5 g/dL Albumin 4.5 g/dL Globulin 2.0 g/dL Bilirubin, Total 0.8 mg/dL ALT (SGPT) 7 U/L AST (SGOT) 13 U/L Alkaline Phosphatase 103 IU/L WBC 4.1 10 3/uL RBC 4.10 10 6/uL HGB 12.7 g/dL HCT 40.0 % MCV 97.6 fl MCH 31.0 pg MCHC 31.8 g/dL RDW 14.6 % Platelet Count 189 10 3/cmm MPV 9.1 fL Neutrophils 2.90 10 3/uL Lymphocytes 0.7 10 3/uL Monocytes 0.4 10 3/uL Eosinophils 0.1 10 3/uL Basophils 0.0 10 3/uL Neutrophil % 70.1 % Lymphocyte % 16.9 % Monocyte % 8.7 % Eosinophil % 3.1 % Basophils % 1.0 % NRBC % 0 % Problem List: 1. Grade 2 infiltrating ductal carcinoma of the right breast, by clinical evaluation stage IB (T2, N1, M0), ER/TX positive and HER-2/eh positive. She underwent ultrasound-guided needle biopsy of the right breast on 04/24/2018. 2. Hypertension. 3. Hyperlipidemia. 4. She has a history of cardiac arrhythmia and history of pericarditis. 5. Hiatal hernia/GERD. 6. Ankylosing spondylitis. 7. Degenerative arthritis. 8. Osteoporosis. 9. History of gout. 10. She has a history of Clostridium difficile colitis. 11. Anxiety/depression. Problems Addressed with this Encounter and Plan: 1. Grade 2 infiltrating ductal carcinoma of the right breast, by clinical evaluation stage IB (T2, N1, M0), ER/TX positive and HER-2/he positive. She underwent ultrasound-guided needle biopsy of the right breast on 04/24/2018. She began neoadjuvant chemotherapy with weekly paclitaxel/Herceptin on 06/22/2018. Her treatment related side effects included neutropenia, fatigue, and anorexia/weight loss. As of 08/17/2018 she completed her 8th weekly infusion of paclitaxel/Herceptin. She was then hospitalized with pneumonia and at that point she required custodial placement. Her restaging mammogram/ultrasound of the right breast on 08/20/2018 did show significant response, but there was residual disease. On 09/17/2018 she underwent right breast lumpectomy and right axillary lymph node dissection. Pathology showed only a small residual tumor in the right breast, measuring 1.0 cm in combined aggregate. There was involvement, though, in 7/11 lymph nodes. Postoperatively she had developed seromas at the lumpectomy site and the axillary incision site, but those gradually resolved. She continued treatment with Herceptin at the 3-week dosing interval. Following her visit on 09/30/2018 she began adjuvant hormonal therapy with anastrozole 1 mg daily. It was discontinued, though, due to side effects, mainly nausea. She then underwent radiation to the right breast, completed on 02/03/2019 to a total dose of 6000 cGy. Restaging PET/CT on 03/27/2019 showed post radiation therapy edema in the right breast with an FDG negative right axillary seroma. As of 05/20/2019 she completed her 13th cycle of Herceptin. Her treatment was then put on hold due to traumatic fracture of the right proximal humerus in May 2019. As of her follow-up visit in February 2020 she began further adjuvant hormonal therapy with exemestane 25 mg daily. During follow-up she has continued to have somewhat marginal performance status, but she has shown gradual improvement. She seems to tolerate the exemestane without significant toxicity. She has some residual induration and soreness in the right breast and she continues to have some pain in the right shoulder and right arm. During follow-up she has continued to have limited activity and somewhat marginal performance status, but she has been tolerating the exemestane with acceptable toxicity, and thus far there has been no evidence of recurrence of the breast cancer. She will continue adjuvant hormonal therapy with exemestane 25 mg daily. She will be scheduled for a follow-up visit in 6 months. In the meantime, I will request a 4-wheeled walker for her, as she does feel that it will allow her to increase her activities. 2. She has osteoporosis. Her Prolia had been put on hold after the right arm fracture, but that will need to be restarted now. 3. She has a persistent brown coating on the tongue. I am going to give her a trial of therapy with fluconazole for 1 month. Signed By: Francisco Esquivel M.D. <<Signature on File>>
== END 2021-08-27 08:52 | disposition home or self-care (01) ==
PROVIDERS: PCP Family Medicine; Visit Provider Internal Medicine Medical Oncology
DX: C50.811 Malignant neoplasm of overlapping sites of right female breast (principal); Z17.0 Estrogen receptor positive status [ER+]; I10 Essential (primary) hypertension; E78.5 Hyperlipidemia, unspecified; K44.9 Diaphragmatic hernia without obstruction or gangrene; K21.9 Gastro-esophageal reflux disease without esophagitis; M45.9 Ankylosing spondylitis of unspecified sites in spine; M19.90 Unspecified osteoarthritis, unspecified site; M81.0 Age-related osteoporosis without current pathological fracture; F41.9 Anxiety disorder, unspecified; F32.A Depression, unspecified; Z79.818 Long term (current) use of other agents affecting estrogen receptors and estrogen levels; Z79.52 Long term (current) use of systemic steroids; Z79.899 Other long term (current) drug therapy; Z86.79 Personal history of other diseases of the circulatory system; Z86.19 Personal history of other infectious and parasitic diseases; Z87.39 Personal history of other diseases of the musculoskeletal system and connective tissue
CPT/HCPCS: 80053; 85025; 96523; 99214

== ENCOUNTER 2021-09-28 09:28 | Oncology outpatient (recurring) (ONCR) | payer MEDICARE, SELFPAY | END 2021-10-23 23:59 | disposition home or self-care (01) | LOC: ONCMED 09:29 | PROVIDERS: PCP Family Medicine; Visit Provider Internal Medicine Medical Oncology | DX: C50.911 Malignant neoplasm of unspecified site of right female breast (principal); Z17.0 Estrogen receptor positive status [ER+] | CPT/HCPCS: 96523 ==

== ENCOUNTER → 2021-10-16 13:54 | Outpatient (BNVA) | payer MEDICARE, SELFPAY | PROVIDERS: PCP Family Medicine; Visit Provider Internal Medicine Cardiovascular Disease | DX: I48.20 Chronic atrial fibrillation, unspecified (principal); Z79.899 Other long term (current) drug therapy; I10 Essential (primary) hypertension; E03.9 Hypothyroidism, unspecified; E78.5 Hyperlipidemia, unspecified | CPT/HCPCS: 99214 ==

== ENCOUNTER 2021-10-29 13:35 | Oncology outpatient (recurring) (ONCR) | payer MEDICARE, SELFPAY | END 2021-11-22 23:59 | disposition home or self-care (01) | PROVIDERS: PCP Family Medicine; Visit Provider Internal Medicine Medical Oncology | DX: C50.911 Malignant neoplasm of unspecified site of right female breast (principal) | CPT/HCPCS: 96523 ==

== ENCOUNTER 2021-11-28 13:51 | Oncology outpatient (recurring) (ONCR) | payer MEDICARE, SELFPAY | END 2021-12-23 23:59 | disposition home or self-care (01) | PROVIDERS: PCP Family Medicine; Visit Provider Internal Medicine Medical Oncology | DX: Z45.2 Encounter for adjustment and management of vascular access device (principal); Z95.828 Presence of other vascular implants and grafts | CPT/HCPCS: 96523 ==

== ENCOUNTER → 2021-12-12 12:57 | Outpatient (BNVA) | payer MEDICARE, SELFPAY | PROVIDERS: PCP Family Medicine; Visit Provider Internal Medicine Rheumatology | DX: M12.80 Other specific arthropathies, not elsewhere classified, unspecified site (principal); M17.12 Unilateral primary osteoarthritis, left knee; Z79.899 Other long term (current) drug therapy; M80.821A Other osteoporosis with current pathological fracture, right humerus, initial encounter for fracture; C50.911 Malignant neoplasm of unspecified site of right female breast; Z17.0 Estrogen receptor positive status [ER+]; Z71.89 Other specified counseling | CPT/HCPCS: 99214 ==

== ENCOUNTER 2021-12-28 09:33 | Oncology outpatient (recurring) (ONCR) | payer MEDICARE, SELFPAY | END 2022-01-23 23:59 | disposition home or self-care (01) | PROVIDERS: PCP Family Medicine; Visit Provider Internal Medicine Medical Oncology | DX: Z45.2 Encounter for adjustment and management of vascular access device (principal); Z95.828 Presence of other vascular implants and grafts; C50.911 Malignant neoplasm of unspecified site of right female breast | CPT/HCPCS: 96523 ==

== ENCOUNTER 2022-01-29 09:24 | Oncology outpatient (recurring) (ONCR) | payer MEDICARE, SELFPAY ==
[2022-01-29 16:40] VITALS: BP 126/71; PULSE 78; RESP 18; TEMP 36.1; O2SAT 98
== END 2022-02-22 23:59 | disposition home or self-care (01) ==
PROVIDERS: PCP Family Medicine; Visit Provider Internal Medicine Medical Oncology
DX: Z45.2 Encounter for adjustment and management of vascular access device (principal)
CPT/HCPCS: 96523

== ENCOUNTER 2022-02-18 09:23 | Outpatient (CLI) | payer MEDICARE, SELFPAY ==
--- NOTE | 2022-02-18 09:28 | MM_ITS ---
WS: [id number] DIAGNOSTIC BILATERAL DIGITAL BREAST TOMOSYNTHESIS MAMMOGRAPHY WITH CAD HISTORY: HX OF BREAST CA COMPARISON: 08/20/2018 and 03/26/2018 TECHNIQUE: Bilateral craniocaudad, mediolateral oblique, and mediolateral views are submitted with to mosbeatriz and SM. Computer aided detection utilized. Breast composition: There are scattered areas of fibroglandular density. Volume loss in the RIGHT elen ast from prior lumpectomy. Trabecular thickening from prior radiation and skin thickening throughout the breast. No suspicious mass or area of distortion. There is a dystrophic calcification in the medi al RIGHT breast which is stable. No abnormality LEFT breast. Stable calcifications are present upper outer quadrant. MM/[place] [id number] IMPRESSION: BI-RADS: 2-Benign FOLLOW UP: 1 Year Follow-up
== END 2022-02-18 09:24 | disposition home or self-care (01) ==
PROVIDERS: PCP Family Medicine; Visit Provider Internal Medicine Medical Oncology
DX: Z85.3 Personal history of malignant neoplasm of breast (principal)
CPT/HCPCS: 77062

== ENCOUNTER 2022-03-08 08:41 | Oncology outpatient (recurring) (ONCR) | payer MEDICARE, SELFPAY ==
[2022-03-08 09:19] LABS: Basophils % 0.9 %; Eosinophils # 0.1 10^3/uL (0.0-0.8); Hematocrit 40.5 % (37.0-47.0); Hemoglobin 13.1 g/dL (11.5-15.3); Lymphocytes # 0.7 10^3/uL (0.8-4.8); Lymphocytes % 14.4 %; Mean Corpuscular HGB Conc 32.3 g/dL (30.0-36.0); Mean Corpuscular Hemoglobin 31.5 pg (28.0-34.0); Mean Corpuscular Volume 97.4 fl (81-99); Mean Platelet Volume 8.6 fL (7.4-10.4); Monocytes # 0.5 10^3/uL (0.2-0.9); Monocytes % 11.3 %; Neutrophils # 3.22 10^3/uL (1.8-7.7); Neutrophils % 71.2 %; Nucleated Red Blood Cells % 0 %; Platelet Count 167 10^3/cmm (130-400); Red Blood Count 4.16 10^6/uL (4.1-5.3); Red Cell Distribution Width 15.1 % (12.1-15.1); White Blood Count 4.5 10^3/uL (4.0-10.0)
[2022-03-08 09:48] LABS: Alanine Aminotransferase < 5 U/L (0-33); Albumin Level 4.3 g/dL (3.5-5.2); Alkaline Phosphatase 98 U/L (35-105); Anion Gap 14.6 (5-19); Aspartate Amino Transferase 15 U/L (0-32); Blood Urea Nitrogen 10 mg/dL (8-23); Calcium 9.6 mg/dL (8.5-10.5); Carbon Dioxide 30 mmol/L (22-29); Chloride 102 mmol/L (98-107); Globulin 2.7 g/dL (1.3-4.6); Glucose 109 mg/dL (65-115); Osmolality Calculated 294 mOsm/kg (285-295); Potassium 4.6 mmol/L (3.5-5.1); Sodium 142 mmol/L (136-145); Total Bilirubin 0.8 mg/dL (0.15-1.2)
== END 2022-03-25 23:59 | disposition home or self-care (01) ==
PROVIDERS: PCP Family Medicine; Visit Provider Internal Medicine Medical Oncology
DX: Z45.2 Encounter for adjustment and management of vascular access device (principal); C50.411 Malignant neoplasm of upper-outer quadrant of right female breast; C77.3 Secondary and unspecified malignant neoplasm of axilla and upper limb lymph nodes; Z17.0 Estrogen receptor positive status [ER+]; Z92.3 Personal history of irradiation; Z92.21 Personal history of antineoplastic chemotherapy; Z79.811 Long term (current) use of aromatase inhibitors
CPT/HCPCS: 36415; 80053; 85025; 96523; 99214

== ENCOUNTER 2022-04-11 13:05 | Oncology outpatient (recurring) (ONCR) | payer MEDICARE, SELFPAY | END 2022-04-24 23:59 | disposition home or self-care (01) | PROVIDERS: PCP Family Medicine; Visit Provider Internal Medicine Medical Oncology | DX: Z45.2 Encounter for adjustment and management of vascular access device (principal) | CPT/HCPCS: 96523 ==

== ENCOUNTER → 2022-04-23 14:07 | Outpatient (BNVA) | payer MEDICARE, SELFPAY | PROVIDERS: PCP Family Medicine; Visit Provider Internal Medicine Cardiovascular Disease | DX: I48.20 Chronic atrial fibrillation, unspecified (principal); Z79.899 Other long term (current) drug therapy; E78.5 Hyperlipidemia, unspecified; I10 Essential (primary) hypertension; R58 Hemorrhage, not elsewhere classified | CPT/HCPCS: 99214 ==

== ENCOUNTER 2022-05-24 10:42 | Oncology outpatient (recurring) (ONCR) | payer MEDICARE, SELFPAY | END 2022-05-25 23:59 | disposition home or self-care (01) | LOC: ONCMED 10:43 | PROVIDERS: PCP Family Medicine; Visit Provider Internal Medicine Medical Oncology | DX: Z45.2 Encounter for adjustment and management of vascular access device (principal); Z95.828 Presence of other vascular implants and grafts | CPT/HCPCS: 96523 ==

== ENCOUNTER 2022-06-06 12:51 | Oncology outpatient (recurring) (ONCR) | payer MEDICARE, SELFPAY | END 2022-06-25 23:59 | disposition home or self-care (01) | PROVIDERS: PCP Family Medicine; Visit Provider Internal Medicine Medical Oncology | DX: Z45.2 Encounter for adjustment and management of vascular access device; Z95.828 Presence of other vascular implants and grafts | CPT/HCPCS: 96523 ==

== ENCOUNTER 2022-07-04 12:37 | Oncology outpatient (recurring) (ONCR) | payer MEDICARE, SELFPAY | END 2022-07-23 23:59 | disposition home or self-care (01) | LOC: ONCMED 12:38 | PROVIDERS: PCP Family Medicine; Visit Provider Internal Medicine Medical Oncology | DX: C50.411 Malignant neoplasm of upper-outer quadrant of right female breast (principal); Z17.0 Estrogen receptor positive status [ER+]; Z45.2 Encounter for adjustment and management of vascular access device; Z95.828 Presence of other vascular implants and grafts | CPT/HCPCS: 96523 ==

== ENCOUNTER → 2022-07-25 09:19 | Outpatient (BNVA) | payer MEDICARE, SELFPAY | PROVIDERS: PCP Family Medicine; Visit Provider Internal Medicine Rheumatology | DX: M12.80 Other specific arthropathies, not elsewhere classified, unspecified site (principal); Z79.899 Other long term (current) drug therapy; Z71.89 Other specified counseling; D05.11 Intraductal carcinoma in situ of right breast; Z86.19 Personal history of other infectious and parasitic diseases | CPT/HCPCS: 36415; 72072; 80076; 82565; 85025; 86140; 99214 ==

== ENCOUNTER 2022-07-29 21:34 | Inpatient (IN) | payer MEDICARE, SELFPAY ==
[2022-07-29 21:36] VITALS: BP 158/82; PULSE 81; RESP 14; O2SAT 92
--- NOTE | 2022-07-29 21:38 | XRR_ITS ---
PROCEDURE INFORMATION: Exam: XR Left Knee Exam date and time: 07/29/2022 9:59 PM Age: 87 years old Clinical indication: Injury or trauma; Fall; Additional info: Injury, fell getting out of the shower TECHNIQUE: Imaging protocol: Radiologic exam of the left knee. Views: 3 views. COMPARISON: CR XR knee LT 3V* [id number] 08/09/2019 1:25 PM FINDINGS: Bones/joints: Comminuted intra-articular fracture of the left proximal tibia is present. Fracture line involves the lateral tibial plateau with approximately 6 mm of articular surface depression. The fracture extends to the medial metadiaphysis of the tibia. Nondisplaced fracture of the proximal fibula is also present. Soft tissues: Normal. XR/XR knee LT 3V* [id number] IMPRESSION: 1. Left tibia comminuted lateral plateau fracture extending to the medial diametaphysis. 2. Nondisplaced proximal fibula fracture.
--- NOTE | 2022-07-29 21:39 | W.ED.LOWEXIN ---
HPI - Extremity Injury (Lower) General: Chief Complaint: Extremity Injury, Lower Stated Complaint: fall, left knee pain Time Seen by Provider: 07/29/22 21:35 Source: patient and EMS Mode of arrival: EMS Limitations: no limitations History of Present Illness: 87-year-old female who states that she got out of the shower today and then fell on landed on her left knee and hit her left knee she has pain over her left knee denies any other pain elsewhere denies any hip pain denies hitting her head or neck. She rates her pain a 6 out of 10 states is worse with movement improved with rest. Review of Systems Const: Denies: fever(s), chills, body aches or change in appetite Eyes: Denies: blurry vision or eye discomfort ENMT: Denies: throat pain or dental pain Card: Denies: chest pain Resp: Denies: dyspnea GI: Denies: abdominal pain, nausea, vomiting or diarrhea : Denies: dysuria Musc: Reports: extremity pain Skin/Breast: Denies: rash Neuro: Denies: headache(s) Psych: Denies: depression Cresencio/Lymph: Denies: easy bruising All/Imm: Denies: urticaria PFSH ED PFSH: Medical History Atrial fibrillation Breast cancer Chest pain Dyslipidemia Essential hypertension Gout High risk medications (not anticoagulants) long-term use History of Clostridioides difficile infection History of peptic ulcer disease HLA-B27 positive arthropathy Humerus fracture Proximal right humeral shaft Hypothyroidism Mixed hyperlipidemia Osteoarthritis Osteoporosis Sinus bradycardia SVT (supraventricular tachycardia) Vitamin D deficiency Surgical History H/O bilateral cataract extraction History of abdominal surgery History of lumpectomy of right breast (09/17/17) Right breast lumpectomy with axillary sentinel lymph node biopsy History of parathyroidectomy Family History Family/Other Hypertension Mother Stroke Cancer Diabetes Father Stroke Son Stroke Daughter Cancer Sister Cancer Brother Chronic kidney disease (CKD) Other CAD (coronary artery disease) Hyperlipidemia Rheumatoid arthritis Denies family history of Lupus Clotting disorder Dementia Suicide Anesthesia complication Bleeding disorder Lung disease Social History Smoking and tobacco status: never smoked Alcohol intake: never Marital status: / Physical Exam Const: COMMON NORMALS: no acute distress, patient oriented x3 and healthy appearing HENMT: COMMON NORMALS: normocephalic and atraumatic HEAD & SCALP: normocephalic and atraumatic Eye: COMMON NORMALS: Equal, round and reactive pupils present and EOMs intact bilaterally PUPIL: Yes Equal, round and reactive pupils present Neck/C-Spine: COMMON NORMALS: full ROM and supple Chest: COMMONS NORMALS: normal inspection of the chest and normal palpation of entire chest wall Resp: COMMON NORMALS: normal respiratory effort, No retractions, No use of accessory muscles and clear to auscultation bilaterally AUSCULTATION: clear to auscultation bilaterally Cardio: COMMON NORMALS: regular rate, regular rhythm and No murmurs present (Cardio) RATE: regular rate RHYTHM: regular rhythm GI: COMMON NORMALS: Normal to inspection, nondistended, normoactive bowel sounds present, Soft to palpation, non-tender and no masses PALPATION: Yes Soft to palpation Extremity: NARRATIVE EXTREMITY EXAM: Tenderness over left knee distal pulses sensation intact has some range of motion pain as well. Neuro: COMMON NORMALS: patient oriented x3, moves all extremities and no focal motor deficits Psych: COMMON NORMALS: mental status grossly normal, Normal thought process present and cooperative THOUGHT PROCESS: Normal thought process present Skin: COMMON NORMALS: no rashes or lesions noted and no wounds GENERAL SKIN EXAM: no rashes or lesions noted Course Vital Signs: Vital signs: Vital Signs Pulse Rate 81 07/29/22 21:36 Respiratory Rate 14 07/29/22 21:36 Blood Pressure 158/82 07/29/22 21:36 Pulse Oximetry 92 07/29/22 21:36 Oxygen Delivery Me thod 07/29/22 21:36 MDM - Extremity Injury (Lower) Medical Decision Making Patient presents here with tibial plateau fracture from a fall she actually lives in an assisted living and does most of her daily activities on her own will admit at this time as she will be able to care for self at the assisted living will likely place in the nursing home orthopedics is been consulted as well. 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
[2022-07-29 22:58] LABS: Basophils # 0.1 10^3/uL (0.0-0.1); Basophils % 0.5 %; Eosinophils % 0.4 %; Hematocrit 36.2 % (37.0-47.0); Hemoglobin 11.3 g/dL (11.5-15.3); Lymphocytes # 0.7 10^3/uL (0.8-4.8); Lymphocytes % 6.8 %; Mean Corpuscular HGB Conc 31.2 g/dL (30.0-36.0); Mean Corpuscular Hemoglobin 30.1 pg (28.0-34.0); Mean Corpuscular Volume 96.5 fl (81-99); Mean Platelet Volume 8.7 fL (7.4-10.4); Monocytes # 0.6 10^3/uL (0.2-0.9); Monocytes % 5.9 %; Neutrophils # 8.68 10^3/uL (1.8-7.7); Neutrophils % 85.8 %; Nucleated Red Blood Cells % 0 %; Platelet Count 188 10^3/cmm (130-400); Red Blood Count 3.75 10^6/uL (4.1-5.3); Red Cell Distribution Width 14.9 % (12.1-15.1); White Blood Count 10.1 10^3/uL (4.0-10.0)
[2022-07-29 23:18] LABS: Alanine Aminotransferase 11 U/L (0-33); Albumin Level 3.9 g/dL (3.5-5.2); Alkaline Phosphatase 107 U/L (35-105); Anion Gap 13.4 (5-19); Aspartate Amino Transferase 18 U/L (0-32); Blood Urea Nitrogen 18 mg/dL (8-23); Carbon Dioxide 28 mmol/L (22-29); Chloride 102 mmol/L (98-107); Globulin 2.7 g/dL (1.3-4.6); Glucose 140 mg/dL (65-115); Osmolality Calculated 292 mOsm/kg (285-295); Potassium 4.4 mmol/L (3.5-5.1); Sodium 139 mmol/L (136-145); Total Bilirubin 0.6 mg/dL (0.15-1.2); Total Protein 6.6 g/dL (6.6-8.7)
[2022-07-29] MEDS: ondansetron 2 mg/ML SDV 2 mL 4 MG IVP (23:37)
[2022-07-29 23:38] VITALS: RESP 15
[2022-07-29] MEDS: morphine 4 mg/mL SDV 1 mL IVP (23:38)
[2022-07-30] VITALS (8 sets, daily range): BP systolic 81–149; BP diastolic 54–76; PULSE 68–95; RESP 16–17; TEMP 36.4–36.8; O2SAT 91–96
--- NOTE | 2022-07-30 00:11 | PM.HP ---
Providers/Chief Complaint Admitting Physician: Kathie Siddiqi MD Primary Care Provider: Sung Buckley MD Chief Complaint: fall, left knee pain History of Present Illness Alyson Sandoval is a 87 year old female with multiple medical comorbidities who is presenting today with a fall in her bathtub at assisted living facility. She slipped and fell. This was a mechanical fall. No syncope chest pain dyspnea or palpitations. She has a fracture of her tibia and fibula on the left leg. Currently in a limb immobilizer. Review of Systems General: Reports: 10 or more systems reviewed and unremarkable except in HPI and below Const: Denies: fever(s), chills or body aches Eyes: Denies: change in vision, blurry vision or photophobia ENMT: Reports: hoarseness; Denies: throat pain, enlarged tonsils, odynophagia or nasal congestion Card: Denies: chest pain, palpitations, irregular heart rhythm, edema, swelling of feet/ankles, lightheadedness, pre-syncope, dyspnea on exertion or orthopnea Resp: Denies: dyspnea, productive cough, non-productive cough, wheezing, stridor, pain on inspiration, change in phlegm color, hemoptysis or chest congestion GI: Denies: abdominal pain, nausea, vomiting, hematemesis, coffee ground emesis, dysphagia, heartburn, diarrhea, constipation, GI cramping, change in stool character, hematochezia or melena : Denies: flank pain, difficulty voiding, dysuria, urinary frequency, urinary urgency, urinary hesitancy or hematuria Musc: Denies: neck pain, back pain, extremity pain, joint swelling, joint warmth or deformity Neuro: Denies: headache(s), numbness in extremities, weakness in extremities, sensory changes, difficulty walking, frequent falls, dizziness, vertigo, behavioral changes, Slurred speech present or seizure-like activity Psych: Denies: anxiety, depression, suicidal ideation or homicidal ideation Endo: Denies: polyuria, polydipsia, tired all the time, cold intolerance or hot flashes Cresencio/Lymph: Denies: easy bruising or easy bleeding Medications/Allergies Home Medications Medication Instructions Recorded Confirmed Last Taken Type carvedilol 3.125 mg tablet 3.125 mg PO BID 05/25/19 07/25/22 Unknown History lactobacillus combination no.8 3 3,000 mmu cells PO DAILY 05/25/19 07/25/22 Unknown History billion cell capsule (Adult Probiotic) nitroglycerin 0.4 mg sublingual 0.4 mg sublingual Q5M PRN Chest 05/25/19 07/25/22 Unknown History tablet (Nitrostat) Pain ondansetron HCl 4 mg tablet 4 mg PO Q8H PRN nausea and vomiting 05/25/19 07/25/22 Unknown History (Zofran) pantoprazole 40 mg tablet,delayed 40 mg PO QAM 05/25/19 07/25/22 Unknown History release furosemide 20 mg tablet 20 mg PO QAM 05/31/19 07/25/22 Unknown History acetaminophen 500 mg tablet 500 mg PO Q6H PRN Pain 10/28/19 07/25/22 Unknown History aspirin 325 mg tablet 325 mg PO DAILY 12/11/19 07/25/22 Unknown History cholecalciferol (vitamin D3) 125 125 mcg PO DAILY 12/11/19 07/25/22 Unknown History mcg (5,000 unit) tablet (Vitamin D3) magnesium hydroxide 400 mg/5 mL 30 ml PO DAILY PRN Constipation 12/11/19 07/25/22 Unknown History oral suspension (Milk of Magnesia) sodium phosphates 19 gram-7 118 ml ND DAILY PRN Constipation 12/11/19 07/25/22 Unknown History gram/118 mL enema (Fleet Enema) diclofenac sodium 1 % topical gel 2 g topical QID #200 grams 08/08/21 07/25/22 Unknown Rx folic acid 1 mg tablet 1 mg PO DAILY #90 tabs 12/12/21 07/25/22 Unknown Rx prednisone 10 mg tablet See Rx Instructions PO .COMPLEX 04/11/22 07/25/22 Unknown Rx PRN joint pain #30 tabs flecainide 50 mg tablet 50 mg PO Q12H 04/23/22 07/25/22 Unknown History fluticasone propionate 50 2 spray intranasal DAILY 04/23/22 07/25/22 Unknown History mcg/actuation nasal spray,suspension isosorbide mononitrate 60 mg 60 mg PO DAILY #90 tabs 04/23/22 07/25/22 Unknown Rx tablet,extended release 24 hr sertraline 25 mg tablet 25 mg PO DAILY #90 tabs 04/23/22 07/25/22 Unknown Rx lidocaine-prilocaine 2.5 %-2.5 % 1 applic topical DAILY PRN 05/24/22 07/25/22 Unknown Rx topical cream Port/Catheter Care #30 grams pravastatin 20 mg tablet 20 mg PO DAILY #30 tabs 06/10/22 07/25/22 Unknown Rx hydrocodone 7.5 mg-acetaminophen 0.5 - 1 tab PO QID PRN Pain 30 06/24/22 07/25/22 Unknown Rx 325 mg tablet days #120 tabs potassium chloride 20 mEq 20 meq PO BID #60 tabs 07/02/22 07/25/22 Unknown Rx tablet,extended release exemestane 25 mg tablet 25 mg PO DAILY #30 tabs 07/19/22 07/25/22 Unknown Rx methotrexate sodium 2.5 mg tablet See Rx Instructions PO .Q7days #20 07/25/22 07/25/22 Unknown Rx tabs hydrocodone 5 mg-acetaminophen 325 1 tab PO Q6H PRN pain #14 tabs 07/29/22 Unknown Rx mg tablet Allergies Allergy/AdvReac Type Severity Reaction Status Date / Time No Known Allergies Allergy Verified 07/25/22 09:37 PFSH Acute PFSH: Medical History Atrial fibrillation Breast cancer Chest pain Dyslipidemia Essential hypertension Gout High risk medications (not anticoagulants) long-term use History of Clostridioides difficile infection History of peptic ulcer disease HLA-B27 positive arthropathy Humerus fracture Proximal right humeral shaft Hypothyroidism Mixed hyperlipidemia Osteoarthritis Osteoporosis Sinus bradycardia SVT (supraventricular tachycardia) Vitamin D deficiency Surgical History H/O bilateral cataract extraction History of abdominal surgery History of lumpectomy of right breast (09/17/17) Right breast lumpectomy with axillary sentinel lymph node biopsy History of parathyroidectomy Family History Family/Other Hypertension Mother Stroke Cancer Diabetes Father Stroke Son Stroke Daughter Cancer Sister Cancer Brother Chronic kidney disease (CKD) Other CAD (coronary artery disease) Hyperlipidemia Rheumatoid arthritis Denies family history of Lupus Clotting disorder Dementia Suicide Anesthesia complication Bleeding disorder Lung disease Social History Smoking and tobacco status: never smoked Alcohol intake: never Marital status: / Vitals/I&O/Wt Last Vital Signs Pulse 81 07/29/22 21:36 Resp 15 07/29/22 23:38 BP 158/82 07/29/22 21:36 Pulse Ox 92 07/29/22 21:36 O2 Del Method 07/29/22 21:36 Weight last 48 hrs Weight 70.307 kg Physical Exam Narrative: General: No acute distress, AO x3 HEENT: PERRLA, pupils bilaterally equal and reactive, pallors not present Chest: Normal vesicular breath sounds, no added sounds, equal good air entry bilaterally CVS: S1-S2 regular, no murmurs, no tachycardia, no gallops, no rubs Abdomen: Soft, nontender, no organomegaly, bowel sounds present Neuro: No focal deficits, no facial deformity, AO x3, power 5/5 in all limbs ext: LLE in immobilizer Data 07/29/22 22:54 07/29/22 22:54 Other Labs: Radiology Impressions Knee X-Ray 07/29/22 21:38 IMPRESSION: 1. Left tibia comminuted lateral plateau fracture extending to the medial diametaphysis. 2. Nondisplaced proximal fibula fracture. Laboratory Results WBC 10.1 10^3/uL (4.0-10.0) H 07/29/22 22:54 RBC 3.75 10^6/uL (4.1-5.3) L 07/29/22 22:54 Hgb 9.8 g/dL (11.5-15.3) L 07/30/22 04:00 Hct 31.3 % (37.0-47.0) L 07/30/22 04:00 MCV 96.5 fl (81-99) 07/29/22 22:54 MCH 30.1 pg (28.0-34.0) 07/29/22 22:54 MCHC 31.2 g/dL (30.0-36.0) 07/29/22 22:54 RDW 14.9 % (12.1-15.1) 07/29/22 22:54 Plt Count 188 10^3/cmm (130-400) 07/29/22 22:54 MPV 8.7 fL (7.4-10.4) 07/29/22 22:54 Neut % (Auto) 85.8 % 07/29/22 22:54 Lymph % (Auto) 6.8 % 07/29/22 22:54 [place] % (Auto) 5.9 % 07/29/22 22:54 Eos % (Auto) 0.4 % 07/29/22 22:54 Baso % (Auto) 0.5 % 07/29/22 22:54 Neut # (Auto) 8.68 10^3/uL (1.8-7.7) H 07/29/22 22:54 Lymph # (Auto) 0.7 10^3/uL (0.8-4.8) L 07/29/22 22:54 [place] # (Auto) 0.6 10^3/uL (0.2-0.9) 07/29/22 22:54 Eos # (Auto) 0.0 10^3/uL (0.0-0.8) 07/29/22 22:54 Baso # (Auto) 0.1 10^3/uL (0.0-0.1) 07/29/22 22:54 Nucleated RBC % (auto) 0 % 07/29/22 22:54 Nucleated RBCs # 0.0 /100WBC 07/29/22 22:54 Sodium 139 mmol/L (136-145) 07/29/22 22:54 Potassium 4.4 mmol/L (3.5-5.1) 07/29/22 22:54 Chloride 102 mmol/L (98-107) 07/29/22 22:54 Carbon Dioxide 28 mmol/L (22-29) 07/29/22 22:54 Anion Gap 13.4 (5-19) 07/29/22 22:54 BUN 18 mg/dL (8-23) 07/29/22 22:54 Creatinine 0.9 mg/dL (0.5-0.9) 07/29/22 22:54 GFR Calculation Not Reportable 07/29/22 22:54 Glucose 140 mg/dL (65-115) H 07/29/22 22:54 Calculated Osmolality 292 mOsm/kg (285-295) 07/29/22 22:54 Calcium 9.0 mg/dL (8.5-10.5) 07/29/22 22:54 Total Bilirubin 0.6 mg/dL (0.15-1.2) 07/29/22 22:54 AST 18 U/L (0-32) 07/29/22 22:54 ALT 11 U/L (0-33) 07/29/22 22:54 Alkaline Phosphatase 107 U/L (35-105) H 07/29/22 22:54 Total Protein 6.6 g/dL (6.6-8.7) 07/29/22 22:54 Albumin 3.9 g/dL (3.5-5.2) 07/29/22 22:54 Globulin 2.7 g/dL (1.3-4.6) 07/29/22 22:54 A&P Assessment and plan (1) Closed fracture of tibial plateau: Left tibia comminuted lateral plateau fracture extending to the medial diametaphysis and Nondisplaced proximal fibula fracture sustained after slipping in the bathtub from a mechanical fall. No history of head or spine injury. Orthopedics has been consulted Knee has been placed in an immobilizer in the ER. Pain control with as needed morphine and [place] 1 tab every 6 hours as needed. Qualifiers: Encounter type: initial encounter Laterality: left Qualified Code(s): S82.142A - Displaced bicondylar fracture of left tibia, initial encounter for closed fracture (2) Atrial fibrillation: Currently rate controlled. Patient does not typically on anticoagulation due to history of recurrent falls and high risk of bleeding. Typically she takes aspirin 325 mg p.o. daily Continue carvedilol, flecainide, Lasix, statin and Imdur at home dosing. Qualifiers: Atrial fibrillation type: unspecified chronic Qualified Code(s): I48.20 - Chronic atrial fibrillation, unspecified Plan History of inflammatory arthritis: Typically takes methotrexate once a week. Will confirm dose prior to ordering. Home medication list needs to be updated. Disposition: Patient typically lives in an assisted living facility. May have some increased therapy needs for which she may not be able to return to assisted living. Will discuss with case management regarding appropriate disposition planning. Attestations Medical Necessity Statement*: Greater than 2 midnight admission is anticipated for above defined care Coding Level of Care Code Acute Code for Chg Fwd Moderate MDM includes number and complexity of problems actively addressed during encounter, amount and/or complexity of data reviewed/ordered and described risk of complication, morbidity or mortality of management as documented Diagnoses Closed fracture of tibial plateau S82.142A Encounter type: initial encounter Laterality: left Atrial fibrillation I48.20 Atrial fibrillation type: unspecified chronic
[2022-07-30] MEDS: flecainide 100 mg Tablet 50 MG PO ×2 (01:44→23:24)
[2022-07-30] MEDS: enoxaparin 40 mg/0.4 mL Syringe SUBCUT ×2 (01:44→23:25)
[2022-07-30] MEDS: metoclopramide 5 mg/mL SDV 2 mL IVP (03:43)
[2022-07-30] MEDS: sodium chloride 0.9% 500 ML 999 ML IV (03:44)
[2022-07-30 04:13] LABS: Hematocrit 31.3 % (37.0-47.0); Hemoglobin 9.8 g/dL (11.5-15.3)
[2022-07-30] MEDS: acetaminophen 325 mg Tablet 650 MG PO (04:23)
--- NOTE | 2022-07-30 04:36 | PC.NURSE ---
Patient came in with a left tibial plateau fracture. No swelling of the left lower extremity was found upon initial assessment. Patient's initial blood pressure was 97/62 upon arrival to the [facility] floor. Blood pressure was rechecked at 0325 and found to be 81/54. Dr. Siddiqi was notified and orders were received to give a 500mL NS bolus and to have a STAT H&H drawn to rule out bleeding. Bolus was started and H&H was drawn by lab. Reassessed patient's lower left extremity and found +2 pitting edema with +3 normal popliteal and dorsalis pedis pulses. Attempted to reach Dr. Siddiqi to follow up with results of H&H, assessment, and blood pressure at 0450.
--- NOTE | 2022-07-30 04:52 | PC.NURSE ---
Patient was admitted to [facility] for left tibial plateau fracture. Upon arrival the patient had a blood pressure of 97/62 and no edema on the left lower extremity. Patient's vitals were rechecked at 0325 and her blood pressure was 81/54. Dr. Siddiqi was contacted and she ordered a 500mL NS bolus and a STAT hemaglobin and hematocrit. Bolus was restarted and the left lower extremity was reassessed. +2 pitting edema was found up to the patient's knee, popliteal and dorsalis pedis pulses were still +3 normal upon palpation. Blood pressure improved to 149/76 after fluid bolus and results of the H&H were called to Dr. Siddiqi at 0455.
[2022-07-30] MEDS: HYDROcodone-acetaminophen 7.5-325 mg Tablet 1 TAB PO (08:51)
[2022-07-30] MEDS: isosorbide mononitrate ER 60 mg Tablet PO (08:53)
[2022-07-30] MEDS: carvedilol 3.125 mg Tablet PO ×2 (08:53→18:15)
[2022-07-30] MEDS: pantoprazole DR 40 mg Tablet PO (08:53)
[2022-07-30] MEDS: sertraline 50 mg Tablet 25 MG PO (08:53)
--- NOTE | 2022-07-30 08:55 | PM.CONSULT ---
Providers/Reason For Consult Consulting Physician/Specialty*: Russell Schmid MD; orthopedic surgeon Reason for Consult*: Left tibial plateau fracture Attending Physician: Norm Loya MD Primary Care Provider: Sung Buckley MD History of Present Illness History of Present Illness Alyson Sandoval is a 87 year old female, resident of assisted living, who describes a fall in her bathtub yesterday. She had immediate pain in her left leg. She was seen in our emergency room with a fracture of her left proximal tibia. She is admitted admitted by medicine for pain control and likely placement Medications/Allergies Home Medications Medication Instructions Recorded Confirmed Last Taken Type carvedilol 3.125 mg tablet 3.125 mg PO BID 05/25/19 07/25/22 Unknown History lactobacillus combination no.8 3 3,000 mmu cells PO DAILY 05/25/19 07/25/22 Unknown History billion cell capsule (Adult Probiotic) nitroglycerin 0.4 mg sublingual 0.4 mg sublingual Q5M PRN Chest 05/25/19 07/25/22 Unknown History tablet (Nitrostat) Pain ondansetron HCl 4 mg tablet 4 mg PO Q8H PRN nausea and vomiting 05/25/19 07/25/22 Unknown History (Zofran) pantoprazole 40 mg tablet,delayed 40 mg PO QAM 05/25/19 07/25/22 Unknown History release furosemide 20 mg tablet 20 mg PO QAM 05/31/19 07/25/22 Unknown History acetaminophen 500 mg tablet 500 mg PO Q6H PRN Pain 10/28/19 07/25/22 Unknown History aspirin 325 mg tablet 325 mg PO DAILY 12/11/19 07/25/22 Unknown History cholecalciferol (vitamin D3) 125 125 mcg PO DAILY 12/11/19 07/25/22 Unknown History mcg (5,000 unit) tablet (Vitamin D3) magnesium hydroxide 400 mg/5 mL 30 ml PO DAILY PRN Constipation 12/11/19 07/25/22 Unknown History oral suspension (Milk of Magnesia) sodium phosphates 19 gram-7 118 ml VT DAILY PRN Constipation 12/11/19 07/25/22 Unknown History gram/118 mL enema (Fleet Enema) diclofenac sodium 1 % topical gel 2 g topical QID #200 grams 08/08/21 07/25/22 Unknown Rx folic acid 1 mg tablet 1 mg PO DAILY #90 tabs 12/12/21 07/25/22 Unknown Rx prednisone 10 mg tablet See Rx Instructions PO .COMPLEX 04/11/22 07/25/22 Unknown Rx PRN joint pain #30 tabs flecainide 50 mg tablet 50 mg PO Q12H 04/23/22 07/25/22 Unknown History fluticasone propionate 50 2 spray intranasal DAILY 04/23/22 07/25/22 Unknown History mcg/actuation nasal spray,suspension isosorbide mononitrate 60 mg 60 mg PO DAILY #90 tabs 04/23/22 07/25/22 Unknown Rx tablet,extended release 24 hr sertraline 25 mg tablet 25 mg PO DAILY #90 tabs 04/23/22 07/25/22 Unknown Rx lidocaine-prilocaine 2.5 %-2.5 % 1 applic topical DAILY PRN 05/24/22 07/25/22 Unknown Rx topical cream Port/Catheter Care #30 grams pravastatin 20 mg tablet 20 mg PO DAILY #30 tabs 06/10/22 07/25/22 Unknown Rx hydrocodone 7.5 mg-acetaminophen 0.5 - 1 tab PO QID PRN Pain 30 06/24/22 07/25/22 Unknown Rx 325 mg tablet days #120 tabs potassium chloride 20 mEq 20 meq PO BID #60 tabs 07/02/22 07/25/22 Unknown Rx tablet,extended release exemestane 25 mg tablet 25 mg PO DAILY #30 tabs 07/19/22 07/25/22 Unknown Rx methotrexate sodium 2.5 mg tablet See Rx Instructions PO .Q7days #20 07/25/22 07/25/22 Unknown Rx tabs hydrocodone 5 mg-acetaminophen 325 1 tab PO Q6H PRN pain #14 tabs 07/29/22 Unknown Rx mg tablet propylene glycol 1 %-glycerin 0.3 1 drp ophthalmic (eye) DAILY PRN 07/30/22 07/30/22 Unknown History % eye drops (Artificial Tears redness (glycerin-peg)) vit C 250 mg-vit E 90 mg-zinc 40 1 tab PO BID 07/30/22 07/30/22 Unknown History mg-copper 1 pm-tagrnh-pylteq capsule (PreserVision AREDS-2) Allergies Allergy/AdvReac Type Severity Reaction Status Date / Time No Known Allergies Allergy Verified 07/25/22 09:37 Current Medications Generic Name Dose Route Start Last Admin Trade Name Danialq PRN Reason Stop Dose Admin Acetaminophen 650 mg 07/30/22 00:05 07/30/22 04:23 Acetaminophen 325 Mg Tablet PO 650 mg Q6H PRN Administration Mild/Mod Pain Or Temp >/= 101 Hydrocodone Bitart/Acetaminophen 1 tab 07/30/22 00:09 07/30/22 08:51 Hydrocodone-Acetaminophen 7.5-325 Mg Tablet PO 1 tab Q4H PRN Administration MODERATE PAIN Carvedilol 3.125 mg 07/30/22 09:00 07/30/22 08:53 Carvedilol 3.125 Mg Tablet PO 3.125 mg BID FORREST Administration Enoxaparin Sodium 40 mg 07/30/22 00:15 07/30/22 01:44 Enoxaparin 40 Mg/0.4 Ml Syringe SUBCUT 40 mg Q24H FORREST Administration Flecainide Acetate 50 mg 07/30/22 00:15 07/30/22 01:44 Flecainide 100 Mg Tablet PO 50 mg Q12H FORREST Administration Isosorbide Mononitrate 60 mg 07/30/22 09:00 07/30/22 08:53 Isosorbide Mononitrate Er 60 Mg Tablet PO 60 mg DAILY FORREST Administration Metoclopramide HCl 5 mg 07/30/22 03:33 07/30/22 03:43 Metoclopramide 5 Mg/Ml Sdv 2 Ml IVP 5 mg Q8H PRN Administration NAUSEA AND VOMITING Pantoprazole Sodium 40 mg 07/30/22 09:00 07/30/22 08:[address] 40 Mg Tablet PO 40 mg DAILY FORREST Administration Sertraline HCl 25 mg 07/30/22 09:00 07/30/22 08:53 Sertraline 50 Mg Tablet PO 25 mg DAILY FORREST Administration PFSH Acute PFSH: Medical History Atrial fibrillation Breast cancer Chest pain Dyslipidemia Essential hypertension Gout High risk medications (not anticoagulants) long-term use History of Clostridioides difficile infection History of peptic ulcer disease HLA-B27 positive arthropathy Humerus fracture Proximal right humeral shaft Hypothyroidism Mixed hyperlipidemia Osteoarthritis Osteoporosis Sinus bradycardia SVT (supraventricular tachycardia) Vitamin D deficiency Surgical History H/O bilateral cataract extraction History of abdominal surgery History of lumpectomy of right breast (09/17/17) Right breast lumpectomy with axillary sentinel lymph node biopsy History of parathyroidectomy Family History Family/Other Hypertension Mother Stroke Cancer Diabetes Father Stroke Son Stroke Daughter Cancer Sister Cancer Brother Chronic kidney disease (CKD) Other CAD (coronary artery disease) Hyperlipidemia Rheumatoid arthritis Denies family history of Lupus Clotting disorder Dementia Suicide Anesthesia complication Bleeding disorder Lung disease Social History Smoking and tobacco status: never smoked Alcohol intake: never Marital status: / Vitals/I&O/Wt Last Vital Signs Temp 97.5 F L 07/30/22 03:25 Pulse 92 07/30/22 03:25 Resp 17 07/30/22 03:25 BP 149/76 07/30/22 04:57 Pulse Ox 92 07/30/22 03:25 O2 Del Method 07/30/22 00:33 07/29/22 07/30/22 07/30/22 22:59 06:59 14:59 Intake Total 500 / 500 Balance 500 / 500 Weight last 48 hrs Weight 155 lb Physical Exam Narrative: Swelling about her left knee and proximal tibia. Swelling extends down to her foot. Her skin is intact. She has pain with any motion of the left knee. She can flex and extend her toes and her ankle with some pain at extremes of motion Sensation is intact in the left foot. She has a strong left dorsalis pedis pulse Data 07/30/22 04:00 07/29/22 22:54 Other data: 3 views of the left knee are reviewed from the emergency room yesterday evening. The patient appears to have a bicondylar tibial plateau fracture with some lateral joint depression. A&P Assessment and plan (1) Closed fracture of tibial plateau: The patient has a comminuted proximal left tibial fracture. 87 years of age bone soft tissue is a great concern with consideration of open reduction and internal fixation. The most reliable option for reconstruction may very well be a total knee replacement with a tumor prosthesis which would have to be done elsewhere. I would like to get a CT scan today to evaluate the extent of bone destruction Qualifiers: Encounter type: initial encounter Laterality: left Qualified Code(s): S82.142A - Displaced bicondylar fracture of left tibia, initial encounter for closed fracture Coding Level of Care Code Acute Code for Chg Fwd Diagnoses Closed fracture of tibial plateau S82.142A Encounter type: initial encounter Laterality: left
--- NOTE | 2022-07-30 09:06 | CT_ITS ---
WS: [id number] NONCONTRAST CT LEFT KNEE TECHNIQUE: Noncontrast CT LEFT knee with coronal and sagittal reformatted images. CLINICAL INFORMATION: Left tibial plateau fracture COMPARISON: None. DLP: 661.[address] scans at [facility] use at least one of these dose optimization techniques: automated e xposure control; mA and/or kV adjustment per patient size (includes targeted exams where dose is matc hed to clinical indication); or iterative reconstruction. FINDINGS: Minimal widening of the comminuted fibular head fracture. No significant displacement. Moderate supra patellar effusion with hemarthrosis. Hypertrophic patella. Comminuted lateral tibial plateau fracture with depression measuring approximately 13 mm. Comminuted fracture extends the tibial spines and medial tibia diametaphysis. Additional nondisplaced fracture involving the medial tibial plateau. Hypertrophic changes along the joint line. Chondrocalc inosis. Subchondral cystic change along the femoral condyles. CT/CT knee LT wo con* [id number] IMPRESSION: 1. Comminuted fibular head fracture described above. 2. Comminuted lateral tibial plateau fracture with 13 mm of depression. This e xtends to the medial tibia diametaphysis. 3. Additional nondisplaced fracture involving the medial tibial plateau.
--- NOTE | 2022-07-30 09:59 | CT_ITS ---
WS: [id number] TECHNIQUE: with coronal and sagittal reformatted images. CLINICAL INFORMATION: fall,fx COMPARISON: None. DLP: 661.[address] scans at [facility] use at least one of these dose optimization techniques: automated e xposure control; mA and/or kV adjustment per patient size (includes targeted exams where dose is matc hed to clinical indication); or iterative reconstruction. FINDINGS: Normal anatomic alignment LEFT hip. No acute fractures. Normal inferior and superior visualized pubic rami. Degenerative arthritis of the pubic symphysis. Scans edema LEFT lateral hip soft tissues. Fole y catheter. CT/CT hip LT wo con* [id number] IMPRESSION: No acute LEFT hip fractures
--- NOTE | 2022-07-30 10:00 | PC.NURSE ---
Patient stated she has not voided since 9 pm yesterday. Bladder scan completed and she has 240mls of urine in her bladder. Patient is A&Ox4. Olivia catheter placed. Urine is dark in color. Verbal order to sent a urine sample received from Dr. Loya. Urine sent to lab. Patient tolerated Olivia placement well.
--- NOTE | 2022-07-30 10:03 | DCPLANNER ---
Addendum entered by Daisha Diaz 08/07/22 08:14: this appointment was rescheduled Addendum entered by Daisha Diaz 08/02/22 08:11: Patient has a follow up appointment scheduled for Saturday, August 06, [address]22 at 3:[address] Schmid at ortho. Clinic will call patient with appointment information. Original Note: [employer]fuels product manager had message to schedule a follow up appointment for patient with ortho. biofuels product manager sent patients information to the front office staff at ortho. Patients information will be printed and reviewed. Clinic will call patient with appointment information.
--- NOTE | 2022-07-30 10:05 | PC.PHAR ---
pt is from [facility]-medications entered are meds from the pts mar
--- NOTE | 2022-07-30 10:33 | PC.CHAP ---
Pastoral Care Encounter/Spiritual Assessment Type of Contact [] Declined straw hat washer operator visit [] Patient/Family/Request visit [] Outpatient visit [] Follow-up visit [] Physician referral [] Code/Alert [x] Routine visit [] Staff referral [] Actively dying [] Patient sleeping [] Family support [] [] Out of room [] Palliative care [] [] Receiving care in room [] Pre-surgical visit [] Trauma [] Long length of stay [] ICU visit [] Other: Relational/Emotional Strength [x] Patient feels connected with others/family/visitors/staff [] Distress [] Loneliness/isolation [] Abandonment Spirituality of Patient [x] Person of Shruti [] Attends Tenriism of their Shruti [x] Believes in Prayer [] Reads Bible or Anabaptism materials [] There are Spiritual issues to be addressed [employer] Interventions [x] Prayer [x] Active listening [] Non-anxious presence [x] Spiritual/emotional support [] Crisis/trauma care [] Spiritual counseling [] Bereavement support [] Provided bereavement packet [] Provided Bible/devotional materials [] Provided toy/stuffed animal, coloring book to patient or family member [] Provided Communion [] Anointing/[place] [] Salvation [x] Completed spiritual assessment [] Other: Impact on Illness or Injury [] Angry [] Fearful [] Anxious [] Often cries [] Exhaustion [] Unable to work [] Unable to attend baptism [] Unable to walk/stand [] Unable to read [] Unable to drive [] Unable to eat/drink [] Unable to sleep [] Unable to be with family [] Patient intubated [] Other: Summary Time spent with patient 5 min
[2022-07-30 11:11] LABS: Glucose Urine UA Norm (Normal); Ketones Urine Negative (Negative); Protein Urine Neg (Negative); Urine Appearance Hazy (CLEAR); Urine Color Dark Yellow (Yellow); pH Urine 5 (5-7)
[2022-07-30 11:12] LABS: Add Urine Microscopic? YES; Bilirubin Urine Neg (Negative); Blood Urine 2+ (Negative); Leukocyte Esterase Urine Trace (Negative); Nitrate Urine Negative (Negative); Urobilinogen Urine 1 mg/dL (Negative)
[2022-07-30 11:56] LABS: Add Urine Culture? No; Bacteria Urine 2+ /hpf; Calcium Oxalate Crystals Urine 55-80 /hpf; RBC Urine 0-4 /hpf (0-2); Squamous Epithelial Cell Urine 0-4 /hpf (0-5)
--- NOTE | 2022-07-30 14:38 | P.PN_ITS ---
Subjective Subjective: Patient was seen this morning, she tells me that her left hip is bruised, but it does not really hurt her, she saw [facility] this morning, they told her that they do not plan on doing surgery as of yet, they will review her CAT scan, she does live at an assisted living facility and she will need to go to care home as she is nonweightbearing Vitals/I&O/Wt Last Vital Signs Temp 97.5 F L 07/30/22 03:25 Pulse 68 07/30/22 12:00 Resp 16 07/30/22 12:00 BP 90/60 07/30/22 12:00 Pulse Ox 96 07/30/22 12:00 O2 Del Method 07/30/22 00:33 07/29/22 07/30/22 07/30/22 22:59 06:59 14:59 Intake Total 500 / 500 100 / 100 Balance 500 / 500 100 / 100 Weight last 48 hrs Weight 70.307 kg Physical Exam Const: COMMON NORMALS: no acute distress and patient oriented x3 Resp: COMMON NORMALS: normal respiratory effort, No retractions, No use of accessory muscles and clear to auscultation bilaterally AUSCULTATION: clear to auscultation bilaterally Cardio: COMMON NORMALS: regular rate, regular rhythm, S1 normal heart sound present and S2 normal heart sound present RATE: regular rate RHYTHM: regular rhythm HEART SOUNDS: S1 normal heart sound present and S2 normal heart sound present GI: COMMON NORMALS: Normal to inspection, nondistended, normoactive bowel sounds present and non-tender Extremity: COMMON NORMALS: no pedal edema Neuro: COMMON NORMALS: patient oriented x3 Psych: COMMON NORMALS: mental status grossly normal Urinary Catheter Management: Olivia: Cath Placed During This Visit: yes Urinary Catheter Date of Insertion: 07/30/22 Urinary Catheter Time of Insertion: 10:00 Data 07/30/22 04:00 07/29/22 22:54 A&P Assessment and plan (1) Closed fracture of tibial plateau: Left tibia comminuted lateral plateau fracture extending to the medial diametaphysis and Nondisplaced proximal fibula fracture sustained after slipping in the bathtub from a mechanical fall. No history of head or spine injury. Orthopedics has been consulted Currently in mobilizer Pain control with as needed hydrocodone 09/25/2024 every 6 as needed stop morphine Qualifiers: Encounter type: initial encounter Laterality: left Qualified Code(s): S82.142A - Displaced bicondylar fracture of left tibia, initial encounter for closed fracture (2) Atrial fibrillation: Currently rate controlled. Patient does not typically on anticoagulation due to history of recurrent falls and high risk of bleeding. Typically she takes aspirin 325 mg p.o. daily Continue carvedilol, flecainide, Lasix, statin and Imdur at home dosing. Qualifiers: Atrial fibrillation type: unspecified chronic Qualified Code(s): I48.20 - Chronic atrial fibrillation, unspecified Plan Urinary tract infection continue Rocephin History of inflammatory arthritis: Typically takes methotrexate once a week. Will confirm dose prior to ordering. Home medication list needs to be updated. Disposition: Patient typically lives in an assisted living facility. May have some increased therapy needs for which she may not be able to return to assisted living. Will discuss with case management regarding appropriate disposition planning. Attestations Medical Necessity Statement*: Patient requires hospitalization for closed fracture of tibial plateau, UTI Diagnoses Closed fracture of tibial plateau S82.142A Encounter type: initial encounter Laterality: left Atrial fibrillation I48.20 Atrial fibrillation type: unspecified chronic
[2022-07-30] MEDS: cefTRIAXone 1,000 MG in sodium chloride 0.9% (plus) 50 ML 100 MG IV (15:44)
[2022-07-30] MEDS: HYDROcodone-acetaminophen 5-325 mg Tablet 1 TAB PO (15:57)
--- NOTE | 2022-07-30 16:35 | P.PN_ITS ---
Subjective Subjective: Pain better in right leg. Vitals/I&O/Wt Last Vital Signs Temp 97.6 F 07/30/22 16:00 Pulse 90 07/30/22 16:00 Resp 16 07/30/22 16:00 BP 101/58 07/30/22 16:00 Pulse Ox 91 07/30/22 16:00 O2 Del Method 07/30/22 00:33 07/30/22 07/30/22 07/30/22 06:59 14:59 22:59 Intake Total 500 / 500 300 / 300 Balance 500 / 500 300 / 300 Weight last 48 hrs Weight 155 lb Physical Exam Narrative: Persistent swelling right knee and calf. Flexes and extends right toes. Sensation intact to light touch Urinary Catheter Management: Olivia: Cath Placed During This Visit: yes Urinary Catheter Date of Insertion: 07/30/22 Urinary Catheter Time of Insertion: 10:00 Data 07/30/22 04:00 07/29/22 22:[address]: My impression: I reviewed the CT scan of the left proximal tibia. Again the patient has a comminuted bicondylar tibial plateau fracture. There is a prominent lateral split fragment with some lateral displacement. There is significant intra- articular comminution. An additional fibular head fracture is identified A&P Assessment and plan (1) Closed fracture of tibial plateau: I discussed treatment options with Alyson. I told her with her bone quality and degree of comminution I am doubtful this would do well with open reduction internal fixation. I think her options would include nonoperative treatment versus a total knee with proximal tibial augments. There is some joint depression but overall alignment is reasonable. I told her she is not interested in surgery I think this could be treated nonoperatively and she chose to proceed with that option. I will put her in a hinged knee brace. We will begin the immobilizer and work on range of motion. We will follow her up with clinical radiographs to be sure reasonable alignment of the joint is maintained. Total knee reconstruction could be considered at a later date once fragments have consolidated. Qualifiers: Encounter type: initial encounter Laterality: left Qualified Code(s): S82.142A - Displaced bicondylar fracture of left tibia, initial encounter for closed fracture Attestations Medical Necessity Statement*: Waiting residential placement Coding Level of Care Code Acute Code for Chg Fwd Diagnoses Closed fracture of tibial plateau S82.142A Encounter type: initial encounter Laterality: left
[2022-07-30] MEDS: FUROsemide 20 mg Tablet PO (18:15)
[2022-07-31] VITALS (13 sets, daily range): BP systolic 115–163; BP diastolic 64–90; PULSE 98–109; RESP 16–18; TEMP 36.4–37.2; O2SAT 91–98
[2022-07-31] MEDS: HYDROcodone-acetaminophen 5-325 mg Tablet 1 TAB PO ×3 (03:19→16:28)
[2022-07-31 05:28] LABS: Basophils % 0.2 %; Eosinophils % 0.1 %; Hematocrit 24.3 % (37.0-47.0); Hemoglobin 7.6 g/dL (11.5-15.3); Lymphocytes # 1.5 10^3/uL (0.8-4.8); Lymphocytes % 9.2 %; Mean Corpuscular HGB Conc 31.3 g/dL (30.0-36.0); Mean Corpuscular Hemoglobin 30.5 pg (28.0-34.0); Mean Corpuscular Volume 97.6 fl (81-99); Mean Platelet Volume 9.2 fL (7.4-10.4); Monocytes # 1.9 10^3/uL (0.2-0.9); Monocytes % 11.5 %; Neutrophils # 12.97 10^3/uL (1.8-7.7); Nucleated Red Blood Cells % 0 %; Platelet Count 167 10^3/cmm (130-400); Red Blood Count 2.49 10^6/uL (4.1-5.3); Red Cell Distribution Width 15.5 % (12.1-15.1); White Blood Count 16.6 10^3/uL (4.0-10.0)
[2022-07-31 05:47] LABS: Anion Gap 20.5 (5-19); Blood Urea Nitrogen 47 mg/dL (8-23); Calcium 8.3 mg/dL (8.5-10.5); Carbon Dioxide 23 mmol/L (22-29); Chloride 99 mmol/L (98-107); Glucose 152 mg/dL (65-115); Osmolality Calculated 301 mOsm/kg (285-295); Potassium 4.5 mmol/L (3.5-5.1); Sodium 138 mmol/L (136-145)
[2022-07-31] MEDS: carvedilol 3.125 mg Tablet PO ×2 (08:30→17:42)
[2022-07-31] MEDS: pantoprazole DR 40 mg Tablet PO (08:30)
[2022-07-31] MEDS: isosorbide mononitrate ER 60 mg Tablet PO (08:30)
[2022-07-31] MEDS: sertraline 50 mg Tablet 25 MG PO (08:30)
--- NOTE | 2022-07-31 08:31 | PM.PN ---
Subjective Subjective: Left leg pain better. Vitals/I&O/Wt Last Vital Signs Temp 98.0 F 07/31/22 04:00 Pulse 105 H 07/31/22 04:00 Resp 16 07/31/22 04:00 BP 115/68 07/31/22 04:00 Pulse Ox 93 07/31/22 04:00 O2 Del Method 07/31/22 04:00 07/30/22 07/31/22 07/31/22 22:59 06:59 14:59 Intake Total 170 / 470 Output Total 350 / 350 Balance 170 / 470 -350 / 120 Weight last 48 hrs Weight 155 lb Physical Exam Narrative: Swelling left knee. Flexes extends left toes Urinary Catheter Management: Olivia: Cath Placed During This Visit: yes Reason for Continuing Indwelling Catheter: Other Urinary Catheter Date of Insertion: 07/30/22 Urinary Catheter Time of Insertion: 10:00 Data 07/31/22 05:22 07/31/22 05:22 A&P Assessment and plan (1) Closed fracture of tibial plateau: Awaiting hinged knee brace. We will mobilize with therapy. Needs care home placement. Qualifiers: Encounter type: initial encounter Laterality: left Qualified Code(s): S82.142A - Displaced bicondylar fracture of left tibia, initial encounter for closed fracture Attestations Medical Necessity Statement*: Awaiting care home. Coding Level of Care Code Acute Code for Chg Fwd Diagnoses Closed fracture of tibial plateau S82.142A Encounter type: initial encounter Laterality: left
--- NOTE | 2022-07-31 09:36 | US_ITS ---
WS: [id number] RENAL ULTRASOUND HISTORY: wing COMPARISON: 03/24/2017 and 07/31/2022 TECHNIQUE: 2-D and color Doppler imaging of the kidney submitted. Right kidney: 11.1 cm x 5.3 cm x 3.8 cm. Normal echogenicity with no hydronephrosis or mass. Left kidney: Not identified. Aorta: Not visualized. Urinary Bladder: Nondistended, Olivia catheter. US/US renal BI* [id number] IMPRESSION: 1. Technically very difficult evaluation of the kidneys due to patient's immob ility and body habitus. 2. Negative RIGHT kidney. No hydronephrosis. 3. LEFT kidney is not visualized.
[2022-07-31] MEDS: sodium chloride 0.9% 1,000 ML 125 ML IV ×2 (09:47→17:43)
[2022-07-31 10:00] LABS: Creatine Phosphokinase 132 U/L (26-192); Ferritin 95 ng/mL (15-150); Iron 12 ug/dL (37-145); Percent Saturation 4.2 % (20-50); Total Iron Binding Capacity 285 mcg/dl; Unsaturated Iron Binding 273 ug/dL (112-347)
[2022-07-31 10:14] LABS: Vitamin B12 414 pg/mL (232-1245)
[2022-07-31 10:23] LABS: Folate Level 14.6 ng/mL (4.8-37.3)
[2022-07-31] MEDS: flecainide 100 mg Tablet 50 MG PO (12:22)
[2022-07-31 14:01] LABS: Hematocrit 21.1 % (37.0-47.0); Hemoglobin 6.6 g/dL (11.5-15.3)
--- NOTE | 2022-07-31 14:20 | CT_ITS ---
WS: [id number] CT ABDOMEN PELVIS TECHNIQUE: Noncontrast CT of the abdomen and pelvis with coronal and sagittal reformatted images. CLINICAL INFORMATION: anemia r/o retroperitneal bleed COMPARISON: CT head July 30, 2022 DLP: 664.[address] scans at [facility] use at least one of these dose optimization techniques: automated e xposure control; mA and/or kV adjustment per patient size (includes targeted exams where dose is matc hed to clinical indication); or iterative reconstruction. FINDINGS: LEFT nondisplaced LEFT 12th rib fracture with trace LEFT pleural fluid. Acute appearing LEF T L1, L2, L3, and L4 transverse process fractures. No evidence of intra-abdominal or retroperitoneal hematoma. No free fluid in the pelvis. Subcutaneous hematoma overlying the LEFT upper gluteus musculature measuring 10.2 x 6.4 x 10.9 cm has an acute ap pearance. This was not included on the hip CT from yesterday. Persistent edema within the LEFT gluteu s subcutaneous soft tissues and soft tissues overlying the LEFT hip. Interstitial thickening in the lung bases. Trace LEFT pleural fluid. Noncontrast liver is normal. Nor mal gallbladder. Normal GE junction. Splenic granulomas. Adrenal glands are normal. Bilateral renal c ortical atrophy LEFT greater than RIGHT. Fatty atrophy of the pancreas. Normal caliber abdominal aort a. Aortic calcification. Olivia catheter. Normal sigmoid colon. No evidence of high-grade small or lar ge bowel obstruction. Degenerative arthritis both sacroiliac joints. CT/CT abdomen pelvis wo con [id number] IMPRESSION: 1. No evidence of intra-abdominal or retroperitoneal hematoma. 2. Soft tissue hematoma overlying the LEFT upper gluteus musculature at the le daniel of the LEFT iliac wing posteriorly and laterally. Hematoma [id number] x 6 .4 x 10.9 cm with an acute appearance. 3. In addition, acute appearing nondisplaced LEFT lumbar transverse process fr actures at L1, L2 L3 L4. 4. In addition LEFT posterior minimally displaced 12th rib fracture. Trace LEF T pleural fluid. Notified Norm Loya MD at 07/31/2022 4:14 PM.
[2022-07-31] MEDS: pantoprazole 40 mg SDV IVP (14:22)
[2022-07-31] MEDS: sucralfate 1 gm Tablet PO (14:22)
[2022-07-31] MEDS: cefTRIAXone 1,000 MG in sodium chloride 0.9% (plus) 50 ML 100 MG IV (15:37)
[2022-07-31] MEDS: iron sucrose 200 MG in sodium chloride 0.9% (100 ml) 100 ML 220 MG IV (15:37)
--- NOTE | 2022-07-31 15:40 | PM.PN ---
Subjective Subjective: Patient was seen this morning, she denies any bloody or black stools, no lightheadedness, no dizziness, she does report a history of gastric ulcers, denies any hemoptysis currently, denies history of kidney disease, no lightheadedness, no dizziness Vitals/I&O/Wt Last Vital Signs Temp 98.4 F 07/31/22 11:44 Pulse 98 07/31/22 14:00 Resp 16 07/31/22 11:44 BP 125/72 07/31/22 11:44 Pulse Ox 92 07/31/22 11:44 O2 Del Method 07/31/22 11:44 07/31/22 07/31/22 07/31/22 06:59 14:59 22:59 Intake Total 240 / 240 Output Total 350 / 350 Balance -350 / 120 240 / 240 Weight last 48 hrs Weight 70.307 kg Physical Exam Const: COMMON NORMALS: no acute distress and patient oriented x3 Resp: COMMON NORMALS: normal respiratory effort, No retractions, No use of accessory muscles and clear to auscultation bilaterally AUSCULTATION: clear to auscultation bilaterally Cardio: COMMON NORMALS: regular rate, regular rhythm, S1 normal heart sound present and S2 normal heart sound present RATE: regular rate RHYTHM: regular rhythm HEART SOUNDS: S1 normal heart sound present and S2 normal heart sound present GI: COMMON NORMALS: Normal to inspection, nondistended, normoactive bowel sounds present, non-tender, no masses and no bruits Extremity: COMMON NORMALS: no pedal edema NARRATIVE EXTREMITY EXAM: Left leg in an hinged knee brace Neuro: COMMON NORMALS: patient oriented x3 Psych: COMMON NORMALS: mental status grossly normal Skin: NARRATIVE SKIN EXAM: Left hip, bruising, extending down anterior thigh Urinary Catheter Management: Olivia: Cath Placed During This Visit: yes Reason for Continuing Indwelling Catheter: Other Urinary Catheter Date of Insertion: 07/30/22 Urinary Catheter Time of Insertion: 10:00 Data 07/31/22 13:42 07/31/22 05:22 A&P Assessment and plan (1) Acute kidney injury: - Possibly secondary to anemia, dehydration, hypotensive episodes -CPK within normal limits -UA does have evidence of UTI, on Rocephin -IV hydration -Monitor urine output, Place Olivia catheter -CT to evaluate for nephrolithiasis (2) Acute anemia: - Patient has developed acute anemia, hemoglobin down to 6.6, did have hypotensive episodes yesterday, currently not hypotensive -No complaints of bloody or black stools but has a history of GI bleeds and gastric ulcer -For now hold all blood thinners, -We will transfuse 1 unit PRBC, 1 dose of IV Venofer -CT scan abdomen pelvis to rule out retroperitoneal bleed -Protonix, Carafate -Monitor hemodynamics monitor hemoglobin -Clear liquids for now -N.p.o. midnight just in case she needs an EGD (3) GI bleed: - Concerns for GI bleed as above (4) Closed fracture of tibial plateau: Left tibia comminuted lateral plateau fracture extending to the medial diametaphysis and Nondisplaced proximal fibula fracture sustained after slipping in the bathtub from a mechanical fall. No history of head or spine injury. Orthopedics has been consulted, to comanagement Currently in mobilizer Pain control with as needed hydrocodone 5-325 every 4 as needed, tramadol 50 mg every 8 hours for breakthrough pain Qualifiers: Encounter type: initial encounter Laterality: left Qualified Code(s): S82.142A - Displaced bicondylar fracture of left tibia, initial encounter for closed fracture (5) Atrial fibrillation: Currently rate controlled. Patient does not typically on anticoagulation due to history of recurrent falls and high risk of bleeding. Typically she takes aspirin 325 mg p.o. daily, currently on hold Continue carvedilol, flecainide, Lasix, statin and Imdur at home dosing. Qualifiers: Atrial fibrillation type: unspecified chronic Qualified Code(s): I48.20 - Chronic atrial fibrillation, unspecified (6) Iron deficiency anemia: Has evidence of iron deficiency anemia -1 dose IV Venofer here -Iron and 12, ferritin low normal 95 -Hemoccult stool pending -As above (7) Urinary tract infection: Plan Urinary tract infection continue Rocephin History of inflammatory arthritis: Typically takes methotrexate once a week. Will confirm dose prior to ordering. Home medication list needs to be updated. Disposition: Patient typically lives in an assisted living facility. May have some increased therapy needs for which she may not be able to return to assisted living. Will discuss with case management regarding appropriate disposition planning. Attestations Medical Necessity Statement*: Patient requires hospitalization, for iron deficiency anemia, GI bleed, acute kidney injury, Diagnoses Acute kidney injury N17.9 Acute anemia D64.9 GI bleed K92.2 Closed fracture of tibial plateau S82.142A Encounter type: initial encounter Laterality: left Atrial fibrillation I48.20 Atrial fibrillation type: unspecified chronic Iron deficiency anemia D50.9 Urinary tract infection N39.0
[2022-07-31 16:50] LABS: INR 1.15 (0.8-1.2)
[2022-07-31] MEDS: TRAMadol 50 mg Tablet PO (17:31)
[2022-07-31] MEDS: sodium chloride 0.9% 1,000 ML 50 ML IV (18:00)
[2022-07-31 23:19] LABS: Hemoglobin 7.4 g/dL (11.5-15.3)
[2022-08-01] VITALS (12 sets, daily range): BP systolic 127–179; BP diastolic 68–91; PULSE 74–108; RESP 16–18; TEMP 36.5–36.9; O2SAT 91–99
[2022-08-01] MEDS: flecainide 100 mg Tablet 50 MG PO ×2 (01:00→13:25)
[2022-08-01] MEDS: sucralfate 1 gm Tablet PO ×2 (01:01→13:25)
[2022-08-01] MEDS: HYDROcodone-acetaminophen 5-325 mg Tablet 1 TAB PO ×3 (01:07→18:36)
[2022-08-01] MEDS: metoclopramide 5 mg/mL SDV 2 mL IVP ×2 (01:14→13:25)
[2022-08-01] MEDS: pantoprazole 40 mg SDV IVP ×2 (01:14→13:25)
[2022-08-01] MEDS: TRAMadol 50 mg Tablet PO ×2 (04:02→13:24)
[2022-08-01 05:16] LABS: Basophils % 0.1 %; Hematocrit 23.1 % (37.0-47.0); Hemoglobin 7.5 g/dL (11.5-15.3); Lymphocytes # 0.9 10^3/uL (0.8-4.8); Lymphocytes % 6.3 %; Mean Corpuscular HGB Conc 32.5 g/dL (30.0-36.0); Mean Corpuscular Hemoglobin 30.6 pg (28.0-34.0); Mean Corpuscular Volume 94.3 fl (81-99); Monocytes # 1.5 10^3/uL (0.2-0.9); Monocytes % 9.9 %; Neutrophils # 12.14 10^3/uL (1.8-7.7); Nucleated Red Blood Cells # 0.2 /100WBC; Platelet Count 109 10^3/cmm (130-400); Red Blood Count 2.45 10^6/uL (4.1-5.3); Red Cell Distribution Width 15.3 % (12.1-15.1); White Blood Count 14.8 10^3/uL (4.0-10.0)
[2022-08-01 05:31] LABS: Blood Urea Nitrogen 42 mg/dL (8-23); Calcium 8.2 mg/dL (8.5-10.5); Carbon Dioxide 22 mmol/L (22-29); Chloride 104 mmol/L (98-107); Glucose 132 mg/dL (65-115); Osmolality Calculated 298 mOsm/kg (285-295); Sodium 138 mmol/L (136-145)
[2022-08-01] MEDS: sertraline 50 mg Tablet 25 MG PO (09:47)
[2022-08-01] MEDS: carvedilol 3.125 mg Tablet PO ×2 (09:47→18:36)
[2022-08-01] MEDS: isosorbide mononitrate ER 60 mg Tablet PO (09:47)
[2022-08-01] MEDS: ondansetron 2 mg/ML SDV 2 mL 4 MG IVP (09:47)
--- NOTE | 2022-08-01 10:41 | PC.CHAP ---
Pastoral Care Encounter/Spiritual Assessment Type of Contact [] Declined dive supervisor visit [] Patient/Family/Request visit [] Outpatient visit [x] Follow-up visit [] Physician referral [] Code/Alert [] Routine visit [] Staff referral [] Actively dying [] Patient sleeping [] Family support [] [] Out of room [] Palliative care [] [] Receiving care in room [] Pre-surgical visit [] Trauma [] Long length of stay [] ICU visit [] Other: Relational/Emotional Strength [] Patient feels connected with others/family/visitors/staff [] Distress [] Loneliness/isolation [] Abandonment Spirituality of Patient [] Person of Shruti [] Attends Methodist of their Shruti [] Believes in Prayer [] Reads Bible or Episcopalian materials [] There are Spiritual issues to be addressed [employer] Manufacturer Interventions [] Prayer [] Active listening [] Non-anxious presence [] Spiritual/emotional support [] Crisis/trauma care [] Spiritual counseling [] Bereavement support [] Provided bereavement packet [] Provided Bible/devotional materials [] Provided toy/stuffed animal, coloring book to patient or family member [] Provided Communion [] Anointing/[place] [] Salvation [] Completed spiritual assessment [] Other: Impact on Illness or Injury [] Angry [] Fearful [] Anxious [] Often cries [] Exhaustion [] Unable to work [] Unable to attend orthodoxy [] Unable to walk/stand [] Unable to read [] Unable to drive [] Unable to eat/drink [] Unable to sleep [] Unable to be with family [] Patient intubated [] Other: Summary Follow-up visit Time spent with patient 5 mins
--- NOTE | 2022-08-01 11:08 | PC.SOCIAL ---
Pg 2 IMM Explained to pt Pg 2 IMM. No questions voiced. Copy provided to pt. Initialed, dated, & timed a copy & placed in chart.
[2022-08-01 13:53] LABS: Hematocrit 22.7 % (37.0-47.0)
--- NOTE | 2022-08-01 14:08 | P.PN_ITS ---
Subjective Subjective: Patient was seen this morning no bloody or black stools, no fevers, no chills, she tells me that the bruising of her left hip has worsened, spreading to her buttocks, down the leg, but is not really painful, she is a bit nauseous this morning, -IN detail discussed her CT scan findings, especially of her rib fracture, and her transverse process fractures -She also has a large hematoma, of her left hip, 10 x 10 cm, likely the source of her acute anemia, and her swelling, she is required 1 unit PRBC, her hemoglobin down to 6.6 requiring 1 unit PRBC, currently hemoglobin down to 7, will give another unit PRBC, hemodynamically she is stable Vitals/I&O/Wt Last Vital Signs Temp 97.7 F 08/01/22 12:00 Pulse 92 08/01/22 12:00 Resp 18 08/01/22 12:00 BP 148/82 08/01/22 12:00 Pulse Ox 93 08/01/22 12:00 O2 Del Method 08/01/22 04:00 07/31/22 08/01/22 08/01/22 22:59 06:59 14:59 Intake Total 1679.167 / 1919.167 120 / 120 Output Total 700 / 700 Balance 1679.167 / 1919.167 -700 / 1219.167 120 / 120 Physical Exam Const: COMMON NORMALS: no acute distress and patient oriented x3 Resp: COMMON NORMALS: normal respiratory effort, No retractions, No use of accessory muscles and clear to auscultation bilaterally AUSCULTATION: clear to auscultation bilaterally Cardio: COMMON NORMALS: regular rate, regular rhythm, S1 normal heart sound present and S2 normal heart sound present RATE: regular rate RHYTHM: regular rhythm HEART SOUNDS: S1 normal heart sound present and S2 normal heart sound present GI: COMMON NORMALS: Normal to inspection, nondistended, normoactive bowel s ounds present and non-tender Back/Pelvis: OTHER: Left buttocks, left thigh, left flank, left hip, large hematoma with marked borders superficial bruising, purple, black discoloration Extremity: COMMON NORMALS: no pedal edema Neuro: COMMON NORMALS: patient oriented x3 Psych: COMMON NORMALS: mental status grossly normal Urinary Catheter Management: Olivia: Cath Placed During This Visit: yes Reason for Continuing Indwelling Catheter: Other Urinary Catheter Date of Insertion: 07/30/22 Urinary Catheter Time of Insertion: 10:00 Data 08/01/22 13:35 08/01/22 04:25 A&P Assessment and plan (1) Acute kidney injury: - Likely secondary to anemia, dehydration, hypotensive episodes -CPK within normal limits -UA does have evidence of UTI, on Rocephin -IV hydration decreased to 50 cc -Monitor urine output, Place Olivia catheter (2) Acute anemia: -Likely secondary to soft tissue hematoma CT scan shows Soft tissue hematoma overlying the LEFT upper gluteus musculature at the level of the LEFT iliac wing posteriorly and laterally. Hematoma [id number] x 6.4 x 10.9 cm with an acute appearance. - Patient has developed acute anemia, hemoglobin down to 6.6, status post 1 unit PRBC did have hypotensive episodes yesterday, currently not hypotensive -Hemoglobin down to 7, no hemodynamic compromise we will give 1 unit PRBC, with 1 unit FFP -Monitor hip hematoma -No complaints of bloody or black stools but has a history of GI bleeds and g astric ulcer -For now hold all blood thinners, -Protonix, Carafate -Monitor hemodynamic, smonitor hemoglobin (3) GI bleed: - History of GI bleeds in the past, continue to monitor (4) Closed fracture of tibial plateau: Left tibia comminuted lateral plateau fracture extending to the medial diametaphysis and Nondisplaced proximal fibula fracture sustained after slipping in the bathtub from a mechanical fall. No history of head or spine injury. Orthopedics has been consulted, to comanagement Currently in mobilizer Pain control with as needed hydrocodone 5-325 every 4 as needed, tramadol 50 mg every 8 hours for breakthrough pain Qualifiers: Encounter type: initial encounter Laterality: left Qualified Code(s): S82.142A - Displaced bicondylar fracture of left tibia, initial encounter for closed fracture (5) Atrial fibrillation: Currently rate controlled. Patient does not typically on anticoagulation due to history of recurrent falls and high risk of bleeding. Typically she takes aspirin 325 mg p.o. daily, currently on hold Continue carvedilol, flecainide, Lasix, statin and Imdur at home dosing. Qualifiers: Atrial fibrillation type: unspecified chronic Qualified Code(s): I48.20 - Chronic atrial fibrillation, unspecified (6) Iron deficiency anemia: Has evidence of iron deficiency anemia -1 dose IV Venofer received -Iron and 12, ferritin low normal 95 -Hemoccult stool pending -As above (7) Urinary tract infection: -On Rocephin (8) Hip hematoma, left: CT scan shows Soft tissue hematoma overlying the LEFT upper gluteus musculature at the level of the LEFT iliac wing posteriorly and laterally. Hematoma [id number] x 6.4 x 10.9 cm with an acute appearance. -All blood thinners on hold -Continue to clinically monitor -Status post 1 unit PRBC -Receiving 1 unit PRBC with 1 unit FFP -Continue to clinically monitor -At risk of infected hematoma given large pocket of blood we will monitor is on Rocephin as above (9) Lumbar transverse process fracture: - PT OT -Pain control (10) Left rib fracture: - PT OT, pain control Plan Urinary tract infection continue Rocephin History of inflammatory arthritis: Typically takes methotrexate once a week. Will confirm dose prior to ordering. Home medication list needs to be updated. Disposition: Patient typically lives in an assisted living facility. May have some increased therapy needs for which she may not be able to return to assisted living. Will discuss with case management regarding appropriate disposition planning. Attestations Medical Necessity Statement*: Patient requires hospitalization due to acute anemia, hip hematoma, TERRELL, UTI Diagnoses Acute kidney injury N17.9 Acute anemia D64.9 GI bleed K92.2 Closed fracture of tibial plateau S82.142A Encounter type: initial encounter Laterality: left Atrial fibrillation I48.20 Atrial fibrillation type: unspecified chronic Iron deficiency anemia D50.9 Urinary tract infection N39.0 Hip hematoma, left S70.02XA Lumbar transverse process fracture S32.009A Left rib fracture S22.32XA
--- NOTE | 2022-08-01 15:13 | PM.PN ---
Subjective Subjective: Patient appears more comfortable. Does not complain of a great deal of pain. Vitals/I&O/Wt Last Vital Signs Temp 97.7 F 08/01/22 12:00 Pulse 92 08/01/22 12:00 Resp 18 08/01/22 12:00 BP 148/82 08/01/22 12:00 Pulse Ox 93 08/01/22 12:00 O2 Del Method 08/01/22 04:00 08/01/22 08/01/22 08/01/22 06:59 14:59 22:59 Intake Total 120 / 120 Output Total 700 / 700 Balance -700 / 1219.167 120 / 120 Physical Exam Narrative: Skin intact left lower extremity Swelling left knee but less swelling in the left calf Better active motion toes and ankle Sensation intact to light touch Urinary Catheter Management: Olivia: Cath Placed During This Visit: yes Reason for Continuing Indwelling Catheter: Other Urinary Catheter Date of Insertion: 07/30/22 Urinary Catheter Time of Insertion: 10:00 Data 08/01/22 13:35 08/01/22 04:25 A&P Assessment and plan (1) Closed fracture of tibial plateau: Patient in a hinged knee brace. We will encourage range of motion as tolerated. May mobilize with therapy with touchdown weightbearing. Will need nursing home placement. Swelling looks better and I would expect hemoglobin should stabilize Qualifiers: Encounter type: initial encounter Laterality: left Qualified Code(s): S82.142A - Displaced bicondylar fracture of left tibia, initial encounter for closed fracture Attestations Medical Necessity Statement*: Awaiting placement. Coding Level of Care Code Acute Code for Chg Fwd Diagnoses Closed fracture of tibial plateau S82.142A Encounter type: initial encounter Laterality: left
[2022-08-01] MEDS: sodium chloride 0.9% 1,000 ML 50 ML IV (16:45)
[2022-08-01] MEDS: cefTRIAXone 1,000 MG in sodium chloride 0.9% (plus) 50 ML 100 MG IV (16:46)
--- NOTE | 2022-08-01 22:10 | PC.NURSE ---
1 unit PRBC infusion initiated, blood product verified with charge nurse LIZ Solomon.
[2022-08-01] MEDS: sodium chloride 0.9% 100 mL Bag 50 ML IV (22:48)
[2022-08-02] VITALS (12 sets, daily range): BP systolic 129–189; BP diastolic 74–97; PULSE 81–93; RESP 16–18; TEMP 36.4–37.2; O2SAT 92–98
[2022-08-02] MEDS: flecainide 100 mg Tablet 50 MG PO ×2 (00:11→12:24)
[2022-08-02] MEDS: TRAMadol 50 mg Tablet PO ×2 (00:11→10:09)
[2022-08-02] MEDS: sucralfate 1 gm Tablet PO (01:00)
[2022-08-02] MEDS: pantoprazole 40 mg SDV IVP (01:45)
[2022-08-02] MEDS: HYDROcodone-acetaminophen 5-325 mg Tablet 1 TAB PO ×3 (02:37→12:23)
[2022-08-02 02:54] LABS: Basophils % 0.1 %; Eosinophils % 0.1 %; Hematocrit 26.7 % (37.0-47.0); Hemoglobin 8.2 g/dL (11.5-15.3); Lymphocytes # 0.7 10^3/uL (0.8-4.8); Lymphocytes % 6.1 %; Mean Corpuscular HGB Conc 30.7 g/dL (30.0-36.0); Mean Corpuscular Hemoglobin 29.9 pg (28.0-34.0); Mean Corpuscular Volume 97.4 fl (81-99); Mean Platelet Volume 9.7 fL (7.4-10.4); Monocytes # 1.3 10^3/uL (0.2-0.9); Monocytes % 10.7 %; Neutrophils # 9.69 10^3/uL (1.8-7.7); Nucleated Red Blood Cells # 0.1 /100WBC; Nucleated Red Blood Cells % 0.8 %; Platelet Count 106 10^3/cmm (130-400); Red Blood Count 2.74 10^6/uL (4.1-5.3); Red Cell Distribution Width 16.3 % (12.1-15.1); White Blood Count 11.8 10^3/uL (4.0-10.0)
[2022-08-02 03:12] LABS: Anion Gap 14.8 (5-19); Blood Urea Nitrogen 24 mg/dL (8-23); Calcium 8.1 mg/dL (8.5-10.5); Carbon Dioxide 22 mmol/L (22-29); Chloride 105 mmol/L (98-107); Glucose 118 mg/dL (65-115); Osmolality Calculated 291 mOsm/kg (285-295); Potassium 3.8 mmol/L (3.5-5.1); Sodium 138 mmol/L (136-145)
[2022-08-02] MEDS: sodium chloride 0.9% 100 mL Bag 50 ML IV (06:37)
[2022-08-02] MEDS: sertraline 50 mg Tablet 25 MG PO (08:25)
[2022-08-02] MEDS: isosorbide mononitrate ER 60 mg Tablet PO (08:25)
[2022-08-02] MEDS: carvedilol 3.125 mg Tablet PO (08:26)
[2022-08-02] MEDS: metoclopramide 5 mg/mL SDV 2 mL IVP (10:10)
--- NOTE | 2022-08-02 11:02 | P.DS_ITS ---
Discharge Providers Date of Admission: 07/29/22 23:29 Date of Discharge: August 02, 2022 Attending Provider at Admission: Kathie Siddiqi MD Attending Provider at Discharge: Norm Loya MD Primary Care Provider: Sung Buckley MD Diagnoses at Discharge Discharge Diagnosis (1) Closed fracture of tibial plateau: Status: Acute Qualifiers: Encounter type: initial encounter Laterality: left Qualified Code(s): S82.142A - Displaced bicondylar fracture of left tibia, initial encounter for closed fracture Reason for Visit Reason for Visit: fall, left knee pain Hospital Course Hospital Course Alyson Sandoval is a 87 year old female with multiple medical comorbidities who is presenting today with a fall in her bathtub at assisted living facility.? She slipped and fell.? This was a mechanical fall.? No syncope chest pain dyspnea or palpitations.? She has a fracture of her tibia and fibula on the left leg.? Currently in a limb immobilizer. Patient was admitted to [facility] for a closed fracture tibial plateau, orthopedic service was consulted, recommended medical management, based in a knee hinged brace, PT OT, pain control. Discharged to alf facility, for skilled rehab During hospitalization patient developed acute anemia secondary to left hip/left buttocks/left thigh hematoma, CT scan showed Soft tissue hematoma overlying the LEFT upper gluteus musculature at the level of the LEFT iliac wing posteriorly and laterally. Hematoma .2 x 6.4 x 10.9 cm with an acute appearance. her aspirin, and an anticoagulation were stopped. She required 2 units PRBC hemoglobin on discharge was 8.2. Hematoma was monitored as inpatient, borders are marked, will have to monitor as outpatient. On discharge monitor hematoma, monitor for signs of infected hematoma if so go back to emergency room. Anticoagulation has been discontinued on discharge, however she has a significant risk of DVT given her relative immobility, I have discharged her on low-dose aspirin 81 mg once daily. Discussed risks and benefits of antiplatelet therapy, risk of recurrent bleeding, but the rationale behind using it is due to immobility she has a high risk of being a DVT, she voiced understanding, all questions answered, agreed to proceed with low-dose aspirin. [facility]heck her hemoglobin in 24 hours. She had evidence of iron deficiency anemia during hospitalization received 1 dose of IV Venofer during hospitalization She had evidence of UTI during hospitalization received Rocephin, discharged on cefdinir There was concerns for GI bleed during hospitalization, however no bloody or black stools, her anemia was likely secondary to her soft tissue hematoma. However we will need to monitor as outpatient, continue her home Protonix For atrial fibrillation, she is not on anticoagulation due to history of GI bleeds, she was on high-dose aspirin which I decreased aspirin 81 mg given her soft tissue hematoma, continue Coreg, continue flecainide She had TERRELL during hospitalization likely sec to anemia, dehydration, improved on discharge. Resume Lasix with potassium replacement therapy in 48 hours Physical Exam Const: COMMON NORMALS: no acute distress and patient oriented x3 HENMT: COMMON NORMALS: normocephalic HEAD & SCALP: normocephalic Resp: COMMON NORMALS: normal respiratory effort, No retractions, No use of accessory muscles and clear to auscultation bilaterally AUSCULTATION: clear to auscultation bilaterally Cardio: COMMON NORMALS: regular rate, regular rhythm, S1 normal heart sound present and S2 normal heart sound present RATE: regular rate RHYTHM: regular rhythm HEART SOUNDS: S1 normal heart sound present and S2 normal heart sound present GI: COMMON NORMALS: Normal to inspection, nondistended, normoactive bowel sounds present and non-tender Back/Pelvis: OTHER: On examination, has a hematoma, left flank, spreading to left thigh, left buttocks, irregular borders, longus with measuring 12 x 12 cm Extremity: COMMON NORMALS: no pedal edema Neuro: COMMON NORMALS: patient oriented x3 Psych: COMMON NORMALS: mental status grossly normal Urinary Catheter Management: Olivia: Cath Placed During This Visit: yes Reason for Continuing Indwelling Catheter: Required Immobilization for Trauma or Surgery or Anesthesia Urinary Catheter Date of Insertion: 07/30/22 Urinary Catheter Time of Insertion: 10:00 Discharge Data Studies Completed and Pending Completed Studies During Hospitalization Category Date Time Status CT abdomen pelvis wo con [id number] Stat Cat Scan 07/31/22 14:[address] hip LT wo con* [id number] Routine Cat Scan 07/30/22 09:[address] knee LT wo con* [id number] Routine Cat Scan 07/30/22 09:06 Completed XR knee LT 3V* [id number] Stat Exams 07/29/22 21:38 Completed US renal BI* [id number] Routine Ultrasound 07/31/22 09:36 Completed Pending at discharge Category Date Time Status Occult Blood Stool [Immunochemical Fecal OCB] Routine Lab 07/31/22 09:35 Uncollected SARS Covid-2 Antigen Stat Lab 08/02/22 10:22 Received Radiology Impressions Knee X-Ray 07/29/22 21:38 IMPRESSION: 1. Left tibia comminuted lateral plateau fracture extending to the medial diametaphysis. 2. Nondisplaced proximal fibula fracture. Knee CT 07/30/22 09:06 IMPRESSION: 1. Comminuted fibular head fracture described above. 2. Comminuted lateral tibial plateau fracture with 13 mm of depression. This extends to the medial tibia diametaphysis. 3. Additional nondisplaced fracture involving the medial tibial plateau. Hip CT 07/30/22 09:59 IMPRESSION: No acute LEFT hip fractures Renal Ultrasound 07/31/22 09:36 IMPRESSION: 1. Technically very difficult evaluation of the kidneys due to patient's immobility and body habitus. 2. Negative RIGHT kidney. No hydronephrosis. 3. LEFT kidney is not visualized. Abdomen/Pelvis CT 07/31/22 14:20 IMPRESSION: 1. No evidence of intra-abdominal or retroperitoneal hematoma. 2. Soft tissue hematoma overlying the LEFT upper gluteus musculature at the level of the LEFT iliac wing posteriorly and laterally. Hematoma [id number] x 6.4 x 10.9 cm with an acute appearance. 3. In addition, acute appearing nondisplaced LEFT lumbar transverse process fractures at L1, L2 L3 L4. 4. In addition LEFT posterior minimally displaced 12th rib fracture. Trace LEFT pleural fluid. Notified Norm Loya MD at 07/31/2022 4:14 PM. Laboratory Results WBC 11.8 10^3/uL (4.0-10.0) H 08/02/22 02:23 RBC 2.74 10^6/uL (4.1-5.3) L 08/02/22 02:23 Hgb 8.2 g/dL (11.5-15.3) L 08/02/22 02:23 Hct 26.7 % (37.0-47.0) L 08/02/22 02:23 MCV 97.4 fl (81-99) 08/02/22 02:23 MCH 29.9 pg (28.0-34.0) 08/02/22 02:23 MCHC 30.7 g/dL (30.0-36.0) D 08/02/22 02: RDW 16.3 % (12.1-15.1) H 08/02/22 02:23 Plt Count 106 10^3/cmm (130-400) L 08/02/22 02: MPV 9.7 fL (7.4-10.4) 08/02/22 02: Neut % (Auto) 82.0 % 08/02/22 02: Lymph % (Auto) 6.1 % 08/02/22 02: Miller % (Auto) 10.7 % 08/02/22 02: Eos % (Auto) 0.1 % 08/02/22 02: Baso % (Auto) 0.1 % 08/02/22 02: Neut # (Auto) 9.69 10^3/uL (1.8-7.7) H 08/02/22 02: Lymph # (Auto) 0.7 10^3/uL (0.8-4.8) L 08/02/22 02:23 Miller # (Auto) 1.3 10^3/uL (0.2-0.9) H 08/02/22: Eos # (Auto) 0.0 10^3/uL (0.0-0.8) 08/02/22 02: Baso # (Auto) 0.0 10^3/uL (0.0-0.1) 08/02/22: Nucleated RBC % (auto) 0.8 % 08/02/22: Nucleated RBCs # 0.1 /100WBC 08/02/22: PT 15.10 SECONDS (12.1-14.9) H 07/31/22 16:22 INR 1.15 (0.8-1.2) 07/31/22 16:22 Sodium 138 mmol/L (136-145) 08/02/22 02:23 Potassium 3.8 mmol/L (3.5-5.1) 08/02/22 02:23 Chloride 105 mmol/L (98-107) 08/02/22 02:23 Carbon Dioxide 22 mmol/L (22-29) 03/10/23 02:23 Anion Gap 14.8 (5-19) 08/02/22 02:23 BUN 24 mg/dL (8-23) H 08/02/22 02:23 Creatinine 0.7 mg/dL (0.5-0.9) 08/02/22 02:23 GFR Calculation Not Reportable 08/02/22 02:23 Glucose 118 mg/dL (65-115) H 08/02/22 02:23 Calculated Osmolality 291 mOsm/kg (285-295) 08/02/22 02:23 Calcium 8.1 mg/dL (8.5-10.5) L 08/02/22 02:23 Iron 12 ug/dL (37-145) L 07/31/22 05:22 TIBC 285 mcg/dl 07/31/22 05:22 % Saturation 4.2 % (20-50) L 07/31/22 05:22 Unsat Iron Binding 273 ug/dL (112-347) 07/31/22 05:22 Ferritin 95 ng/mL (15-150) 07/31/22 05:22 Total Bilirubin 0.6 mg/dL (0.15-1.2) 07/29/22 22:54 AST 18 U/L (0-32) 07/29/22 22:54 ALT 11 U/L (0-33) 07/29/22 22:54 Alkaline Phosphatase 107 U/L (35-105) H 07/29/22 22:54 Creatine Kinase 132 U/L (26-192) 07/31/22 05:22 Total Protein 6.6 g/dL (6.6-8.7) 07/29/22 22:54 Albumin 3.9 g/dL (3.5-5.2) 07/29/22 22:54 Globulin 2.7 g/dL (1.3-4.6) 07/29/22 22:54 Vitamin B12 414 pg/mL (232-1245) 07/31/22 05:22 Folate 14.6 ng/mL (4.8-37.3) 07/31/22 05:22 Urine Color Dark yellow (Yellow) 07/30/22 10:40 Urine Appearance Hazy (CLEAR) A 07/30/22 10:40 Urine pH 5 (5-7) 07/30/22 10:40 Ur Specific [place]away 1.020 (1.005-1.030) 07/30/22 10:40 Urine Protein Neg (Negative) 07/30/22 10:40 Urine Glucose (UA) Norm (Normal) 07/30/22 10:40 Urine Ketones Negative (Negative) 07/30/22 10:40 Urine Blood 2+ (Negative) H 07/30/22 10:40 Urine Nitrate Negative (Negative) 07/30/22 10:40 Urine Bilirubin Neg (Negative) 07/30/22 10:40 Urine Urobilinogen 1 mg/dL (Negative) H 07/30/22 10:40 Ur Leukocyte Esterase Trace (Negative) H 07/30/22 10:40 Urine RBC 0-4 /hpf (0-2) H 07/30/22 10:40 Urine WBC 5-10 /hpf (0-5) H 07/30/22 10:40 Ur Squamous Epith Cells 0-4 /hpf (0-5) H 07/30/22 10:40 Calcium Oxalate Crystal 55-80 /hpf H 07/30/22 10:40 Amorphous Sediment Not Reportable 07/30/22 10:40 Urine Bacteria 2+ /hpf (NONE) H 07/30/22 10:40 Blood Type O Positive 07/31/22 14:43 Rho(D) Type Positive 07/31/22 14:43 Antibody Screen TNP 07/31/22 14:43 PEG Antibody Screen Negative 07/31/22 14:43 Crossmatch See Detail 07/31/22 14:43 Vitals Last Vital Signs Temp 97.7 F 08/02/22 06:42 Pulse 81 08/02/22 08:00 Resp 16 08/02/22 08:00 BP 155/79 08/02/22 08:00 Pulse Ox 95 08/02/22 08:00 O2 Del Method 08/02/22 08:00 O2 Flow Rate 1 08/02/22 08:00 Discharge Plan Discharge Patient Disposition: Home Condition: Stable Prescriptions: New hydrocodone-acetaminophen 5-325 mg Tablet 1 tab PO Q4H PRN (Reason: Moderate Pain) 7 Days Qty: 42 0RF aspirin 81 mg capsule 81 mg PO DAILY 30 Days Qty: 30 0RF cefdinir 300 mg capsule 300 mg PO BID 5 Days Qty: 10 0RF Continued carvedilol 3.125 mg tablet 3.125 mg PO BID nitroglycerin [Nitrostat] 0.4 mg tablet, sublingual 0.4 mg SUBLINGUAL Q5M PRN (Reason: Chest Pain) pantoprazole 40 mg tablet,delayed release (DR/EC) 40 mg PO QAM flecainide 50 mg tablet 50 mg PO Q12H folic acid 1 mg tablet 1 mg PO DAILY Qty: 90 3RF isosorbide mononitrate 60 mg tablet extended release 24 hr 60 mg PO DAILY Qty: 90 3RF methotrexate sodium 2.5 mg tablet See Rx Instructions PO .Q7days Qty: 20 3RF Rx Instructions: take 4 tabs once a week on same day. 2 tabs in am and 2 tabs in pm on fridays prednisone 10 mg tablet See Rx Instructions PO .COMPLEX PRN (Reason: joint pain) Qty: 30 1RF Rx Instructions: Take 4 tabs po daily for 3-5 days as needed for arthritis flare up sertraline 25 mg tablet 25 mg PO DAILY Qty: 90 3RF pravastatin 20 mg tablet 20 mg PO DAILY Qty: 30 11RF exemestane 25 mg tablet 25 mg PO DAILY Qty: 30 4RF Rx Instructions: must administer after a meal magnesium hydroxide [Milk of Magnesia] 400 mg/5 mL Suspension 30 ml PO DAILY PRN (Reason: Constipation) Fleet Enema 19-7 gram/118 mL Enema 118 ml VA DAILY PRN (Reason: Constipation) cholecalciferol (vitamin D3) [Vitamin D3] 125 mcg (5,000 unit) Tablet 125 mcg PO DAILY lidocaine-prilocaine 2.5-2.5 % Cream 1 applic topical DAILY PRN (Reason: Port/Catheter Care) Qty: 30 2RF Artificial Tears(glycerin-peg) 1-0.3 % Drops 1 drp OPHTHALMIC (EYE) DAILY PRN (Reason: redness) PreserVision AREDS-2 250-90-40-1 mg Capsule 1 tab PO BID Vyzulta 0.024 % drops 1 drp ophthalmic (eye) BEDTIME Rx Instructions: both eyes Culturelle 10 billion cell Capsule 1 cap PO DAILY Held furosemide 20 mg tablet 20 mg PO QAM Hold Instructions: Resume on 08/05/22. potassium chloride 20 mEq tablet extended release 20 meq PO BID Qty: 60 11RF Hold Instructions: Resume on 08/05/22. Discontinued acetaminophen 500 mg tablet 1,000 mg PO QID PRN (Reason: Pain) hydrocodone-acetaminophen 7.5-325 mg tablet 0.5 - 1 tab PO QID PRN (Reason: Pain) 30 Days Qty: 120 0RF aspirin 325 mg Tablet 325 mg PO DAILY diclofenac sodium 1 % Gel See Rx Instructions .ROUTE .COMPLEX Rx Instructions: apply topically three to four times a day as needed ondansetron HCl [Zofran] 4 mg Tablet 4 - 8 mg PO Q8H PRN (Reason: Nausea) Discharge Orders: Discharge Order (Routine); Ordered 08/02/22 Ordered By: Norm Loya Referrals: Yosvany Solares MD [Physician] - 2 weeks (Message sent to Clinic.) Russell Schmid MD [Physician] - 08/06/22 3:00 pm Sung Buckley MD [Primary Care Provider] - 08/12/22 12:50 pm Discharge Diet: Advance as tolerated Discharge Activity: Limit activity as instructed Patient Instructions: Hydrocodone/Acetaminophen (By mouth), Aspirin (By mouth), Cefdinir (By mouth), Leg Fracture (ED), Opioid Safety Activity Restrictions/Additional Instructions: - For your left hip, left buttock, left thigh hematoma continue to monitor -Avoid blood thinners -Continue range of motion exercises -Monitor for risk of infection -Repeat hemoglobin tomorrow, hemoglobin discharge 8.2 -Left knee hinged knee brace, range of motion as tolerated, mobilize with therapy, with touchdown weightbearing, -Continue to hydrate well Discharge Attestations Time Spent in Discharge Care*: greater than 30 min Quality Metrics Clinical Quality Measures [ No reported AMI, CVA or VTE this stay] Coding Level of Care Code 71353 Total time (in minutes) for Discharge: 40 Diagnoses Closed fracture of tibial plateau S82.142A Encounter type: initial encounter Laterality: left
[2022-08-02 11:03] LABS: SARS Covid-2 Antigen negative (Negative)
== END 2022-08-02 13:00 | disposition skilled nursing facility (03) | DRG 563 ==
LOC: ER 23:25 → MEDSURG 23:30
PROVIDERS: Admitting Provider Student in an Organized Health Care Education/Training Program; Emergency Provider Emergency Medicine; PCP Family Medicine; Visit Provider Family Medicine
DX: S82.142A Displaced bicondylar fracture of left tibia, initial encounter for closed fracture (principal); S22.32XA Fracture of one rib, left side, initial encounter for closed fracture; S32.019A Unspecified fracture of first lumbar vertebra, initial encounter for closed fracture; S32.029A Unspecified fracture of second lumbar vertebra, initial encounter for closed fracture; S32.039A Unspecified fracture of third lumbar vertebra, initial encounter for closed fracture; S32.049A Unspecified fracture of fourth lumbar vertebra, initial encounter for closed fracture; I48.20 Chronic atrial fibrillation, unspecified; N39.0 Urinary tract infection, site not specified; N17.9 Acute kidney failure, unspecified; D62 Acute posthemorrhagic anemia; K92.2 Gastrointestinal hemorrhage, unspecified; S82.832A Other fracture of upper and lower end of left fibula, initial encounter for closed fracture; S70.02XA Contusion of left hip, initial encounter; Y93.E1 Activity, personal bathing and showering; Y92.091 Bathroom in other non-institutional residence as the place of occurrence of the external cause; W18.2XXA Fall in (into) shower or empty bathtub, initial encounter; I10 Essential (primary) hypertension; D50.9 Iron deficiency anemia, unspecified; I95.9 Hypotension, unspecified; E86.0 Dehydration; E78.2 Mixed hyperlipidemia; M19.90 Unspecified osteoarthritis, unspecified site; Z79.891 Long term (current) use of opiate analgesic; Z85.3 Personal history of malignant neoplasm of breast; Z79.899 Other long term (current) drug therapy
CPT/HCPCS: 36415; 36430; 36591; 51702; 73562; 73700; 74176; 76770; 80048; 80053; 81001; 82550; 82607; 82728; 82746; 83540; 83550; 85014; 85018; 85025; 85610; 86850; 86900; 86920; 86927; 87426; 96372; 96374; 96375; 97110; 97161; 97167; 97530; 97535; 99285; C9113; J0696; J1650; J1756; J2270; J2405; J2765; J7030; J7040; L1832; P9016; P9017

== ENCOUNTER → 2022-08-12 13:36 | Outpatient (BNVA) | payer MEDICARE, SELFPAY | PROVIDERS: PCP Family Medicine; Visit Provider Family Medicine | DX: D64.9 Anemia, unspecified (principal); S82.142A Displaced bicondylar fracture of left tibia, initial encounter for closed fracture; S70.02XA Contusion of left hip, initial encounter; S32.009A Unspecified fracture of unspecified lumbar vertebra, initial encounter for closed fracture; S22.32XA Fracture of one rib, left side, initial encounter for closed fracture; Z09 Encounter for follow-up examination after completed treatment for conditions other than malignant neoplasm; X58.XXXA Exposure to other specified factors, initial encounter | CPT/HCPCS: 80053; 85025 ==

== ENCOUNTER → 2022-08-20 14:00 | Outpatient (BNVA) | payer OTHER, MEDICARE, SELFPAY | PROVIDERS: PCP Family Medicine; Visit Provider Orthopaedic Surgery | DX: S82.252D Displaced comminuted fracture of shaft of left tibia, subsequent encounter for closed fracture with routine healing (principal); W18.2XXD Fall in (into) shower or empty bathtub, subsequent encounter | CPT/HCPCS: 73560; 99024 ==

== ENCOUNTER → 2022-08-22 15:12 | Outpatient (BNVA) | payer MEDICARE, SELFPAY | PROVIDERS: PCP Family Medicine; Visit Provider Nurse Practitioner Family | DX: I48.20 Chronic atrial fibrillation, unspecified (principal); I10 Essential (primary) hypertension; Z79.82 Long term (current) use of aspirin | CPT/HCPCS: 99214 ==

== ENCOUNTER 2022-09-17 14:28 | Oncology outpatient (recurring) (ONCR) | payer MEDICARE, SELFPAY | END 2022-09-22 23:59 | disposition home or self-care (01) | PROVIDERS: PCP Family Medicine; Visit Provider Internal Medicine Medical Oncology | DX: C50.411 Malignant neoplasm of upper-outer quadrant of right female breast; Z17.0 Estrogen receptor positive status [ER+]; Z90.11 Acquired absence of right breast and nipple; Z79.811 Long term (current) use of aromatase inhibitors; Z79.899 Other long term (current) drug therapy; Z92.21 Personal history of antineoplastic chemotherapy; Z92.3 Personal history of irradiation | CPT/HCPCS: 99214 ==

== ENCOUNTER → 2022-09-18 13:08 | Outpatient (BNVA) | payer MEDICARE, SELFPAY | PROVIDERS: PCP Family Medicine; Visit Provider Orthopaedic Surgery | DX: S82.142D Displaced bicondylar fracture of left tibia, subsequent encounter for closed fracture with routine healing (principal); W18.2XXD Fall in (into) shower or empty bathtub, subsequent encounter | CPT/HCPCS: 73560; 99024 ==

== ENCOUNTER 2022-09-18 13:48 | Emergency (ER) | payer MEDICARE, SELFPAY ==
[2022-09-18] VITALS (9 sets, daily range): BP systolic 100–154; BP diastolic 62–79; PULSE 87–99; RESP 15–18; TEMP 36.6; O2SAT 95–97; BMI 23.8
[2022-09-18 15:29] LABS: Blood Urine 3+ (Negative); Glucose Urine UA Norm (Normal); Protein Urine 2+ (Negative); Specific Gravity, Urine 1.015 (1.005-1.030); Urine Appearance Cloudy (CLEAR); Urine Color Red (Yellow); pH Urine 9 (5-7)
[2022-09-18 15:30] LABS: Add Urine Microscopic? YES; Bilirubin Urine 1+ (Negative); Ketones Urine 1+ (Negative); Leukocyte Esterase Urine 2+ (Negative); Nitrate Urine Positive (Negative); RBC Urine TOO NUMEROUS TO CNT /hpf (0-2); Urobilinogen Urine 1 mg/dL (Negative)
[2022-09-18 15:31] LABS: Add Urine Culture? Yes; Bacteria Urine 1+ /hpf; Squamous Epithelial Cell Urine 0-4 /hpf (0-5)
[2022-09-18 15:36] LABS: Basophils # 0.1 10^3/uL (0.0-0.1); Basophils % 0.4 %; Eosinophils # 0.2 10^3/uL (0.0-0.8); Eosinophils % 1.9 %; Hematocrit 44.1 % (37.0-47.0); Hemoglobin 13.9 g/dL (11.5-15.3); Lymphocytes # 0.5 10^3/uL (0.8-4.8); Lymphocytes % 4.6 %; Mean Corpuscular HGB Conc 31.5 g/dL (30.0-36.0); Mean Corpuscular Hemoglobin 29.9 pg (28.0-34.0); Mean Corpuscular Volume 94.8 fl (81-99); Mean Platelet Volume 8.7 fL (7.4-10.4); Monocytes # 0.7 10^3/uL (0.2-0.9); Monocytes % 5.6 %; Neutrophils # 10.12 10^3/uL (1.8-7.7); Neutrophils % 86.3 %; Nucleated Red Blood Cells % 0 %; Platelet Count 396 10^3/cmm (130-400); Red Blood Count 4.65 10^6/uL (4.1-5.3); Red Cell Distribution Width 15.9 % (12.1-15.1); White Blood Count 11.7 10^3/uL (4.0-10.0)
[2022-09-18 15:52] LABS: Alanine Aminotransferase 14 U/L (0-33); Albumin Level 3.8 g/dL (3.5-5.2); Alkaline Phosphatase 174 U/L (35-105); Anion Gap 18.2 (5-19); Aspartate Amino Transferase 17 U/L (0-32); Blood Urea Nitrogen 20 mg/dL (8-23); Calcium 9.5 mg/dL (8.5-10.5); Carbon Dioxide 22 mmol/L (22-29); Chloride 99 mmol/L (98-107); Globulin 3.6 g/dL (1.3-4.6); Glucose 110 mg/dL (65-115); Osmolality Calculated 281 mOsm/kg (285-295); Potassium 5.2 mmol/L (3.5-5.1); Sodium 134 mmol/L (136-145); Total Bilirubin 0.5 mg/dL (0.15-1.2); Total Protein 7.4 g/dL (6.6-8.7)
--- NOTE | 2022-09-18 16:13 | W.ED.FEMALGU ---
HPI - Female Genitourinary General: Chief complaint: Urogenital-Female Stated complaint: urogenital Time Seen by Provider: 09/18/22 16:12 Source: patient and family Limitations: no limitations History of Present Illness: This patient was brought to the emergency department by her daughters. She was at the orthopedic surgeon office for a follow-up visit and she has been having some urinary tract symptoms over the past several days and daughters thought that she should be evaluated. She recently had a hip fracture and is now in the long-term care facility for postoperative rehab. She developed urinary frequency urgency bladder discomfort and some hematuria over the past few days. No known fevers. She has had a history of frequent urinary tract infections in the past. According to daughters she does not drink enough fluids and because of her hip fracture and the need for assistance to toilet she is reluctant to drink fluids and that likely contributes to her current presentation. She has a history of multiple medical problems including atrial fibrillation etc. She is not had any nausea vomiting or fevers that they are aware. Allegedly she was started on Augmentin yesterday evening. Is also taken a dose of Pyridium earlier today. MD elicited complaint: dysuria and UTI Associated symptoms: Deny abdominal pain, headache(s), nausea or syncope Review of Systems Const: Denies: fever(s), chills or body aches ENMT: Denies: throat pain or odynophagia Card: Denies: chest pain, palpitations, syncope or pre-syncope Resp: Denies: dyspnea, productive cough or non-productive cough GI: Denies: abdominal pain, nausea, vomiting or diarrhea : Reports: urinary frequency, urinary urgency and hematuria Musc: Denies: neck pain, extremity pain or extremity swelling Skin/Breast: Denies: rash Neuro: Denies: headache(s), numbness in extremities or weakness in extremities PFSH ED PFSH: Medical History Atrial fibrillation Breast cancer Chest pain Dyslipidemia Essential hypertension Gout High risk medications (not anticoagulants) long-term use History of Clostridioides difficile infection History of peptic ulcer disease HLA-B27 positive arthropathy Humerus fracture Proximal right humeral shaft Hypothyroidism Mixed hyperlipidemia Osteoarthritis Osteoporosis Sinus bradycardia SVT (supraventricular tachycardia) Vitamin D deficiency Surgical History H/O bilateral cataract extraction History of abdominal surgery History of lumpectomy of right breast (09/17/17) Right breast lumpectomy with axillary sentinel lymph node biopsy History of parathyroidectomy Family History Family/Other Hypertension Mother Stroke Cancer Diabetes Father Stroke Son Stroke Daughter Cancer Sister Cancer Brother Chronic kidney disease (CKD) Other CAD (coronary artery disease) Hyperlipidemia Rheumatoid arthritis Denies family history of Lupus Clotting disorder Dementia Suicide Anesthesia complication Bleeding disorder Lung disease Social History Smoking and tobacco status: never smoked Alcohol intake: never Substance/Drug Use: never Marital status: / Physical Exam Narrative: EXAM NARRATIVE: Is a pleasant elderly female who answers questions appropriately and is up fluent and goal-directed in her speech. She makes good eye contact. Appears comfortable. Const: COMMON NORMALS: no acute distress, average body habitus and patient oriented x3 GENERAL APPEARANCE: cooperative and comfortable ORIENTATION/CONSCIOUSNESS: Yes awake HENMT: COMMON NORMALS: normocephalic, Normal nasal mucous membranes and turbinates present, moist oral mucous membranes and oropharynx normal HEAD & SCALP: normocephalic NOSE: Normal nasal mucous membranes and turbinates present Eye: COMMON NORMALS: Equal, round and reactive pupils present, EOMs intact bilaterally and conjunctivae normal CONJUNCTIVA: Yes conjunctivae normal PUPIL: Yes Equal, round and reactive pupils present Neck/C-Spine: COMMON NORMALS: full ROM, no lymphadenopathy and no JVD Chest: COMMONS NORMALS: normal inspection of the chest Resp: COMMON NORMALS: normal respiratory effort, No retractions, No use of accessory muscles and clear to auscultation bilaterally AUSCULTATION: clear to auscultation bilaterally Cardio: COMMON NORMALS: no JVD, regular rhythm, No murmurs present (Cardio) and Peripheral pulses 2+ throughout RHYTHM: regular rhythm and abnormal rhythm irregularly irregular PERIPHERAL PULSES: Peripheral pulses 2+ throughout GI: COMMON NORMALS: Normal to inspection, nondistended, normoactive bowel sounds present, Soft to palpation and no masses PALPATION: Yes Soft to palpation OTHER: Mild subjective guarding with palpation over the suprapubic and the bladder region. No peritoneal signs. : COMMON NORMALS: Yes no CVA tenderness BLADDER/KIDNEY EXAM: Yes no CVA tenderness Back/Pelvis: COMMON NORMALS: no CVA tenderness, thoracic and lumbar spine normal to inspection, no thoracic nor lumbar tenderness and thoraco-lumbar ROM normal Extremity: COMMON NORMALS: normal to inspection, capillary refill normal, no joint enlargement, no calf tenderness and no pedal edema Neuro: COMMON NORMALS: patient oriented x3, moves all extremities and no focal motor deficits CRANIAL NERVES: Yes CN normal except as noted Psych: COMMON NORMALS: mental status grossly normal Skin: COMMON NORMALS: no rashes or lesions noted, no wounds and no jaundice GENERAL SKIN EXAM: no rashes or lesions noted Course Reevaluation(s): Reevaluation #1: Patient remains clinically stable. She is drinking fluids without difficulty. Laboratories are reassuring with exception of urinalysis which does show evidence that suggest a significant lower urinary tract infection. Being because of the family's concerns and the patient's concerns about her symptoms we will go ahead and give her a dose of Rocephin in the emergency department and have her continue the Augmentin pending final culture. Certainly clinically stable at this time without any evidence of sepsis significant volume depletion etc. Family voiced understanding and were appreciative of care. Time: 19:04 Vital Signs: Vital signs: Vital Signs Temperature 97.8 F 09/18/22 13:53 Pulse Rate 90 09/18/22 18:33 Respiratory Rate 17 09/18/22 18:33 Blood Pressure 133/71 09/18/22 18:33 Pulse Oximetry 96 09/18/22 18:33 Oxygen Delivery Me thod Room Air 09/18/22 18:33 MDM - Female Medical Decision Making 87-year-old lady who had a recent hip fracture who was subsequently treated at this facility and then transferred to a rehab facility for continued rehabilitation to return back to her normal domicile. She has had a number of days of symptoms of dysuria urinary frequency, hematuria without any evidence of significant sepsis, other unstable medical or ongoing emergency medical condition at this time. She was given the benefit of IV hydration, IV antibiotics and reevaluation during her emergency department stay. She was stable and amenable to return back to her rehab facility for continued treatment with the previously prescribed antibiotic which she had only taken 1 or 2 doses of. Medical Records I reviewed the patient's medical records. Lab Data I reviewed the patient's lab results. 09/18/22 15:22 09/18/22 16:13 Laboratory Results WBC 11.7 10^3/uL (4.0-10.0) H 09/18/22 15:22 RBC 4.65 10^6/uL (4.1-5.3) 09/18/22 15:22 Hgb 13.9 g/dL (11.5-15.3) 09/18/22 15:22 Hct 44.1 % (37.0-47.0) 09/18/22 15:22 MCV 94.8 fl (81-99) 09/18/22 15:22 MCH 29.9 pg (28.0-34.0) 09/18/22 15: MCHC 31.5 g/dL (30.0-36.0) 09/18/22 15:22 RDW 15.9 % (12.1-15.1) H 09/18/22 15:22 Plt Count 396 10^3/cmm (130-400) 09/18/22 15:22 MPV 8.7 fL (7.4-10.4) 09/18/22 15:22 Neut % (Auto) 86.3 % 09/18/22 15:22 Lymph % (Auto) 4.6 % 09/18/22 15:22 [place] % (Auto) 5.6 % 09/18/22 15:22 Eos % (Auto) 1.9 % 09/18/22: Baso % (Auto) 0.4 % 09/18/22: Neut # (Auto) 10.12 10^3/uL (1.8-7.7) H 09/18/22 15:22 Lymph # (Auto) 0.5 10^3/uL (0.8-4.8) L 09/18/22 15:22 [place] # (Auto) 0.7 10^3/uL (0.2-0.9) 09/18/22: Eos # (Auto) 0.2 10^3/uL (0.0-0.8) 09/18/22 15:22 Baso # (Auto) 0.1 10^3/uL (0.0-0.1) 09/18/22 15: Nucleated RBC % (auto) 0 % 04/26/23 15:22 Nucleated RBCs # 0.0 /100WBC 09/18/22 15:22 Sodium 134 mmol/L (136-145) L 09/18/22 16:13 Potassium 5.7 mmol/L (3.5-5.1) H 09/18/22 16:13 Chloride 99 mmol/L (98-107) 09/18/22 16:13 Carbon Dioxide 25 mmol/L (22-29) 09/18/22 16:13 Anion Gap 15.7 (5-19) 09/18/22 16:13 BUN 22 mg/dL (8-23) 09/18/22 16:13 Creatinine 0.9 mg/dL (0.5-0.9) 09/18/22 16:13 GFR Calculation Not Reportable 09/18/22 16:13 Glucose 106 mg/dL (65-115) 09/18/22 16:13 Calculated Osmolality 282 mOsm/kg (285-295) L 09/18/22 16:13 Calcium 8.9 mg/dL (8.5-10.5) 09/18/22 16:13 Total Bilirubin 0.5 mg/dL (0.15-1.2) 09/18/22 15:22 AST 17 U/L (0-32) 09/18/22 15:22 ALT 14 U/L (0-33) 09/18/22 15:22 Alkaline Phosphatase 174 U/L (35-105) H 09/18/22 15:22 Total Protein 7.4 g/dL (6.6-8.7) 09/18/22 15:22 Albumin 3.8 g/dL (3.5-5.2) 09/18/22 15:22 Globulin 3.6 g/dL (1.3-4.6) 09/18/22 15:22 Urine Color Red (Yellow) 09/18/22 14:40 Urine Appearance Cloudy (CLEAR) A 09/18/22 14:40 Urine pH 9 (5-7) H 09/18/22 14:40 Ur Specific [place] 1.015 (1.005-1.030) 09/18/22 14:40 Urine Protein 2+ (Negative) H 09/18/22 14:40 Urine Glucose (UA) Norm (Normal) 09/18/22 14:40 Urine Ketones 1+ (Negative) H 09/18/22 14:40 Urine Blood 3+ (Negative) H 09/18/22 14:40 Urine Nitrate Positive (Negative) H 09/18/22 14:40 Urine Bilirubin 1+ (Negative) H 09/18/22 14:40 Urine Urobilinogen 1 mg/dL (Negative) H 09/18/22 14:40 Ur Leukocyte Esterase 2+ (Negative) H 09/18/22 14:40 Urine RBC Too numerous to cnt /hpf (0-2) H 09/18/22 14:40 Urine WBC 5-10 /hpf (0-5) H 09/18/22 14:40 Ur Squamous Epith Cells 0-4 /hpf (0-5) H 09/18/22 14:40 Amorphous Sediment Not Reportable 09/18/22 14:40 Urine Bacteria 1+ /hpf (NONE) H 09/18/22 14:40 Discharge Plan Discharge Patient Disposition: Rehab Fac w Plan Readm Clinical Impression: Urinary tract infection Condition: Stable Prescriptions: No Action carvedilol 3.125 mg tablet 3.125 mg PO BID nitroglycerin [Nitrostat] 0.4 mg tablet, sublingual 0.4 mg SUBLINGUAL Q5M PRN (Reason: Chest Pain) pantoprazole 40 mg tablet,delayed release (DR/EC) 40 mg PO QAM furosemide 20 mg tablet 20 mg PO QAM Hold Instructions: Resume on 08/05/22. flecainide 50 mg tablet 50 mg PO Q12H folic acid 1 mg tablet 1 mg PO DAILY Qty: 90 3RF isosorbide mononitrate 60 mg tablet extended release 24 hr 60 mg PO DAILY Qty: 90 3RF aspirin 81 mg tablet,chewable 81 mg PO DAILY ondansetron HCl 4 mg tablet 4 mg PO Q6H PRN acetaminophen [Tylenol] 325 mg tablet 650 mg PO Q4H PRN polyethylene glycol 3350 [Miralax] 17 gram/dose powder 4 g PO DAILY hydrocodone-acetaminophen 5-325 mg tablet 1 tab PO Q4H PRN methotrexate sodium 2.5 mg tablet See Rx Instructions PO .Q7days Qty: 20 3RF Rx Instructions: take 4 tabs once a week on same day. 2 tabs in am and 2 tabs in pm on fridays prednisone 10 mg tablet See Rx Instructions PO .COMPLEX PRN (Reason: joint pain) Qty: 30 1RF Rx Instructions: Take 4 tabs po daily for 3-5 days as needed for arthritis flare up sertraline 25 mg tablet 25 mg PO DAILY Qty: 90 3RF pravastatin 20 mg tablet 20 mg PO DAILY Qty: 30 11RF potassium chloride 20 mEq tablet extended release 20 meq PO BID Qty: 60 11RF Hold Instructions: Resume on 08/05/22. exemestane 25 mg tablet 25 mg PO DAILY Qty: 30 4RF Rx Instructions: must administer after a meal Fleet Enema 19-7 gram/118 mL Enema 118 ml NM DAILY PRN (Reason: Constipation) cholecalciferol (vitamin D3) [Vitamin D3] 125 mcg (5,000 unit) Tablet 125 mcg PO DAILY lidocaine-prilocaine 2.5-2.5 % Cream 1 applic topical DAILY PRN (Reason: Port/Catheter Care) Qty: 30 2RF Artificial Tears(glycerin-peg) 1-0.3 % Drops 1 drp OPHTHALMIC (EYE) DAILY PRN (Reason: redness) PreserVision AREDS-2 250-90-40-1 mg Capsule 1 tab PO BID Vyzulta 0.024 % drops 1 drp ophthalmic (eye) BEDTIME Rx Instructions: both eyes Culturelle 10 billion cell Capsule 1 cap PO DAILY Referrals: Francisco Guzman DO [Primary Care Provider] - 7-10 days Discharge Diet: Usual diet Discharge Activity: As per PT/OT instructions Activity Restrictions/Additional Instructions: As we discussed while you are in the emergency department you certainly have evidence that suggest and supports your lower urinary tract infection. We have given a dose of antibiotics in the emergency department to help improve your chances of resolving this infection more quickly. We recommend resuming and continuing the Augmentin as previously prescribed yesterday until this course is completed. If your culture indicates you need an additional or different type of antibiotic the staff at the long-term care, rehab facility should make that change in consort with your attending physician. If you have any new or persistent or worsening or concerning symptoms you are welcome to return to the emergency department at any time. Coding Level of Care Code ED Cutter Hot Knife for Jacob Arreola
[2022-09-18] MEDS: lactated ringers 1,000 ML 999 ML IV (17:29)
[2022-09-18] MEDS: hyoscyamine ODT 0.125 mg Tablet PO (17:29)
[2022-09-18 17:49] LABS: Anion Gap 15.7 (5-19); Blood Urea Nitrogen 22 mg/dL (8-23); Calcium 8.9 mg/dL (8.5-10.5); Carbon Dioxide 25 mmol/L (22-29); Chloride 99 mmol/L (98-107); Glucose 106 mg/dL (65-115); Osmolality Calculated 282 mOsm/kg (285-295); Potassium 5.7 mmol/L (3.5-5.1); Sodium 134 mmol/L (136-145)
[2022-09-18] MEDS: cefTRIAXone 1,000 MG in sodium chloride 0.9% (plus) 50 ML 100 MG IV (19:05)
== END 2022-09-18 19:51 ==
PROVIDERS: Physician Assistant; Emergency Provider Emergency Medicine; PCP Internal Medicine
DX: N39.0 Urinary tract infection, site not specified (principal); R31.9 Hematuria, unspecified; Z79.82 Long term (current) use of aspirin; Z85.3 Personal history of malignant neoplasm of breast; I10 Essential (primary) hypertension; E78.2 Mixed hyperlipidemia
CPT/HCPCS: 36415; 80048; 80053; 81001; 85025; 87077; 87086; 87186; 96374; 99284; J0696; J7120

== ENCOUNTER 2022-10-05 17:57 | Inpatient (IN) | payer MEDICARE, SELFPAY ==
[2022-10-05] VITALS (8 sets, daily range): BP systolic 121–151; BP diastolic 74–128; PULSE 96–122; RESP 16–22; TEMP 36.5–36.6; O2SAT 88–93; BMI 25.0
--- NOTE | 2022-10-05 18:20 | XRR_ITS ---
PROCEDURE INFORMATION: Exam: XR Complete Acute Abdomen Series Including Chest Exam date and time: 10/05/2022 6:28 PM Age: 87 years old Clinical indication: Nausea and vomiting; Additional info: N/v/ SOB TECHNIQUE: Imaging protocol: Radiologic exam. Complete acute abdomen series, including 2 or more views of the abdomen and a single view chest. COMPARISON: CR XR chest 1V portable [id number] 06/09/2019 5:39 PM FINDINGS: Tubes, catheters and devices: There is a left subclavian port with tip in the superior vena cava. Lungs: Unchanged nodular density right lung apex and enlargement of the right hilum. Lungs are hyperinflated compatible with COPD. There is some subtle increased density in the lateral right lung base concerning for atelectasis or early pneumonic infiltrate. Pleural spaces: Normal. No pleural effusions. No pneumothorax. Heart/Mediastinum: The heart is enlarged. Gastrointestinal tract: Normal. No bowel dilation. No ileus or obstruction. No significant colonic stool. No calculi. Intraperitoneal space: Normal. No free air. Bones/joints: Osteopenia and diffuse moderate to severe degenerative changes. No acute fracture. Old proximal right humerus fracture. Soft tissues: Normal. XR/XR acute abdomen series [id number] IMPRESSION: 1. Nonspecific bowel gas pattern. 2. There is some subtle increased density in the lateral right lung base concerning for atelectasis or early pneumonic infiltrate. 3. Unchanged nodular density/mass right lung apex and enlargement of the right hilum. 4. Old proximal right humerus fracture deformity.
--- NOTE | 2022-10-05 18:20 | ECG_ITS ---
[facility] [place] [facility] Date: 2022-10-05 Pat Name: Alyson Sandoval Department: Room: Gender: Female Gas Maker: : [id number] Requested By: Javan Bettencourt Order Number: [id number] Dav MD: Yosvany Solares M.D. Measurements Intervals [place] Rate: 103 P: 0 NH: 0 QRS: 21 QRSD: 96 T: 38 QT: 378 QTc: 495 Interpretive Statements ATRIAL FIBRILLATION WITH RAPID VENTRICULAR RESPONSE MINIMAL ST DEPRESSION [0.025+ mV ST DEPRESSION] ABNORMAL RHYTHM ECG Compared to ECG 08/23/2018 14:28:21 ST (T wave) deviation now present Sinus rhythm no longer present First degree AV block no longer present Myocardial infarct finding no longer present Electronically Signed On 10-05-2022 19:27:15 CDT by Yosvany Solares M.D. [id number]
[2022-10-05] MEDS: ipratropium-albuterol 3 mL Neb INHALATION (18:44)
--- NOTE | 2022-10-05 18:57 | W.ED.NAVMDI ---
HPI - Nausea/Vomiting/Diarrhea General: Chief complaint: Nausea/Vomiting/Diarrhea Stated complaint: N/V Time Seen by Provider: 10/05/22 17:59 History of Present Illness: 8 patient does endorse several episodes of 7-year-old female presents emergency department chief complaint of nausea and vomiting abdominal discomfort shortness of breath and a cough is been ongoing for last couple of days she presents from a intermediate facility she does report having a history of cardiac issues she is not including atrial fibrillation she does not recall any recent chest pain or palpitations associate with her shortness of breath. Patient does report a mild productive cough she does not recall any recent fevers or chills. Patient does endorse several episodes of nausea and vomiting reduced appetite. She also reports some upper abdominal discomfort does not recall any recent constipation or diarrhea. Associated nausea: Yes Associated symtoms: Reports nausea; Denies anxiety, change in vision, chest pain, headache(s) or palpitations Review of Systems General: Reports: 10 or more systems reviewed and unremarkable except in HPI and below Const: Denies: fever(s) or chills Eyes: Denies: change in vision or blurry vision Card: Denies: chest pain or palpitations Resp: Reports: dyspnea, productive cough and wheezing GI: Reports: abdominal pain, nausea and vomiting : Denies: flank pain Musc: Denies: extremity pain or extremity swelling Skin/Breast: Denies: rash or pruritus Neuro: Denies: headache(s) Psych: Denies: anxiety or depression Cresencio/Lymph: Denies: easy bleeding All/Imm: Denies: urticaria, throat swelling or facial swelling PFSH ED PFSH: Medical History Atrial fibrillation Breast cancer Chest pain Dyslipidemia Essential hypertension Gout High risk medications (not anticoagulants) long-term use History of Clostridioides difficile infection History of peptic ulcer disease HLA-B27 positive arthropathy Humerus fracture Proximal right humeral shaft Hypothyroidism Mixed hyperlipidemia Osteoarthritis Osteoporosis Sinus bradycardia SVT (supraventricular tachycardia) Vitamin D deficiency Surgical History H/O bilateral cataract extraction History of abdominal surgery History of lumpectomy of right breast (09/17/17) Right breast lumpectomy with axillary sentinel lymph node biopsy History of parathyroidectomy Family History Family/Other Hypertension Mother Stroke Cancer Diabetes Father Stroke Son Stroke Daughter Cancer Sister Cancer Brother Chronic kidney disease (CKD) Other CAD (coronary artery disease) Hyperlipidemia Rheumatoid arthritis Denies family history of Lupus Clotting disorder Dementia Suicide Anesthesia complication Bleeding disorder Lung disease Social History Smoking and tobacco status: never smoked Alcohol intake: never Substance/Drug Use: never Marital status: / Physical Exam Const: COMMON NORMALS: no acute distress, patient oriented x3 and healthy appearing HENMT: COMMON NORMALS: normocephalic and atraumatic HEAD & SCALP: normocephalic and atraumatic Eye: COMMON NORMALS: Equal, round and reactive pupils present and EOMs intact bilaterally PUPIL: Yes Equal, round and reactive pupils present Neck/C-Spine: COMMON NORMALS: full ROM, supple and no JVD Lymph: LYMPHATIC: no lymphadenopathy noted Chest: COMMONS NORMALS: normal inspection of the chest and normal palpation of entire chest wall Resp: COMMON NORMALS: normal respiratory effort, No retractions and clear to auscultation bilaterally EFFORT & INSPECTION: Yes able to speak in complete sentences and Yes symmetric chest movement AUSCULTATION: clear to auscultation bilaterally OTHER: Diminished breath sounds in the bases bilaterally mild skin expiratory wheeze appreciated oxygenation 91% on nasal cannula 3 L via nasal cannula Cardio: COMMON NORMALS: no JVD, regular rate and regular rhythm RATE: regular rate RHYTHM: regular rhythm GI: COMMON NORMALS: Normal to inspection, nondistended, normoactive bowel sounds present and Soft to palpation; negative for non-tender (Moderate tenderness appreciated epigastrium otherwise soft nontender) INSPECTION: Yes normal to inspection PALPATION: Yes Soft to palpation : COMMON NORMALS: Yes no CVA tenderness BLADDER/KIDNEY EXAM: Yes no CVA tenderness Back/Pelvis: COMMON NORMALS: no CVA tenderness Extremity: COMMON NORMALS: normal to inspection and full ROM Neuro: COMMON NORMALS: patient oriented x3, CN's II-XII intact bilaterally, moves all extremities and no focal motor deficits Psych: COMMON NORMALS: mental status grossly normal, Normal thought process present, cooperative and normal affect THOUGHT PROCESS: Normal thought process present Skin: COMMON NORMALS: no rashes or lesions noted GENERAL SKIN EXAM: no rashes or lesions noted Course Vital Signs: Vital signs: Vital Signs Temperature 98 F 10/05/22 18:00 Pulse Rate 103 H 10/05/22 21:30 Respiratory Rate 22 H 10/05/22 21:30 Blood Pressure 139/90 10/05/22 21:30 Pulse Oximetry 93 10/05/22 21:30 Oxygen Delivery Me thod Nasal Cannula 10/05/22 19:00 Oxygen Flow Rate 3 10/05/22 19:00 MDM - Nausea/Vomiting/Diarrhea Medical Decision Making Due to patient symptom condition basic lab work imaging will be obtained underlying concerns of bronchitis pneumonia and as well as underlying abdominal issues prominent we will continue to follow patient was found to have pneumonia as well as mild heart failure her oxygenation is 3 L on nasal cannula maintaining saturations in the low 90s she also was found to have a nasty urinary tract infection that could be contributing to her current nausea vomiting symptoms discussed patient's case with Dr. Martines that has accepted admission to the [facility]. Lab Data 10/05/22 18:55 10/05/22 18:55 Radiology Impressions Chest/Abdomen X-ray 10/05/22 18:20 IMPRESSION: 1. Nonspecific bowel gas pattern. 2. There is some subtle increased density in the lateral right lung base concerning for atelectasis or early pneumonic infiltrate. 3. Unchanged nodular density/mass right lung apex and enlargement of the right hilum. 4. Old proximal right humerus fracture deformity. Chest/Abdomen/Pelvis CT 10/05/22 19:35 IMPRESSION: 1. Scattered areas of ground-glass opacification in the periphery of both lungs. Reticulonodular interstitial thickening in the right and left lower lobes and to a lesser extent the left upper lobe. Mucous plugging with more focal alveolar airspace disease in the left lower lobe. Findings are suspicious for pneumonia, including atypical organisms. Recommend followup chest imaging to insure resolution of these findings. 2. 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 3. Enlarged thyroid lobes with substernal extension, more pronounced on the right. Multiple complex thyroid nodules, the largest in the right lobe measures 1.8 x 2.0 cm (series 3, image 16). Findings are stable compared with 03/27/2019. Follow-up non-emergent thyroid ultrasound is recommended. IMPRESSION: 1. Diffuse, mild wall thickening of the bladder. In the correct clinical setting, this may suggest cystitis. Recommend correlation with laboratory findings. Alternatively, this may be secondary to chronic outlet obstruction. 2. Findings suggestive of pelvic congestion syndrome. Recommend clinical correlation. 3. Findings suggesting a resolving left gluteal subcutaneous hematoma with decreasing subcutaneous contusion. 4. Incidental/nonacute findings are listed in the report. COMMENTS: Consistent with the [employer]'s Incidental Findings Committee white paper (J Am Megan Radiol 2018): Any incidental renal lesion less than 1 cm or classified as too small to characterize, or any incidental cystic renal lesion characterized as simple-appearing, is likely benign. No follow-up imaging is recommended for these lesions per consensus recommendations based on imaging criteria. Laboratory Results WBC 5.6 10^3/uL (4.0-10.0) 10/05/22 18:55 RBC 4.01 10^6/uL (4.1-5.3) L 10/05/22 18:55 Hgb 12.0 g/dL (11.5-15.3) 10/05/22 18:55 Hct 38.4 % (37.0-47.0) 10/05/22 18:55 MCV 95.8 fl (81-99) 10/05/22 18:55 MCH 29.9 pg (28.0-34.0) 10/05/22 18:55 MCHC 31.3 g/dL (30.0-36.0) 10/05/22 18:55 RDW 17.0 % (12.1-15.1) H 10/05/22 18:55 Plt Count 260 10^3/cmm (130-400) 10/05/22 18:55 MPV 10.2 fL (7.4-10.4) 10/05/22 18:55 Lymph % (Auto) Not Reportable 10/05/22 18:55 [place] % (Auto) Not Reportable 10/05/22 18:55 Lymph # (Auto) Not Reportable 10/05/22 18:55 [place] # (Auto) Not Reportable 10/05/22 18:55 Total Counted 100 (0-100) 10/05/22 18:55 Atypical Lymphs % 0.0 % (0-5) 10/05/22 18:55 Absolute Neutrophils 4.8 10^3/cmm (1.4-6.5) 10/05/22 18:55 Segmented Neutrophils 86 % 10/05/22 18:55 Abs Segm Neuts (Man) 4.8 10/cmm (1.6-7.1) 10/05/22 18:55 Band Neutrophils 0.0 % 10/05/22 18:55 Abs Band Neuts (Man) 0.0 10^3/cmm (0.0-1.2) 10/05/22 18:55 Absolute Lymphocytes 0.3 10^3/cmm (1.2-3.4) L 10/05/22 18:55 Lymphocytes (Manual) 6 % 10/05/22 18:55 Monocytes (Manual) 6.0 % 10/05/22 18:55 Absolute Monocytes 0.3 10^3/cmm (0.1-0.6) 10/05/22 18:55 Eosinophils (Manual) 0 % 10/05/22 18:55 Absolute Eosinophils 0.0 10^3/cmm (0.0-0.7) 10/05/22 18:55 Basophils (Manual) 0.0 % 10/05/22 18:55 Absolute Basophils 0.0 10^3/cmm (0.0-0.2) 10/05/22 18:55 Metamyelocytes 2.0 % 10/05/22 18:55 Toxic Granulation 2+ H 10/05/22 18:55 Dohle Bodies 2+ H 10/05/22 18:55 Platelet Estimate Normal (Normal) 10/05/22 18:55 Polychromasia Trace 10/05/22 18:55 Hypochromasia Trace 10/05/22 18:55 Poikilocytosis 1+ H 10/05/22 18:55 Anisocytosis 1+ H 10/05/22 18:55 Macrocytosis 1+ H 10/05/22 18:55 Sodium 134 mmol/L (136-145) L 10/05/22 18:55 Potassium 4.9 mmol/L (3.5-5.1) 10/05/22 18:55 Chloride 99 mmol/L (98-107) 10/05/22 18:55 Carbon Dioxide 23 mmol/L (22-29) 10/05/22 18:55 Anion Gap 16.9 (5-19) 10/05/22 18:55 BUN 24 mg/dL (8-23) H 10/05/22 18:55 Creatinine 0.6 mg/dL (0.5-0.9) 10/05/22 18:55 GFR Calculation Not Reportable 10/05/22 18:55 Glucose 115 mg/dL (65-115) 10/05/22 18:55 Calculated Osmolality 283 mOsm/kg (285-295) L 10/05/22 18:55 Calcium 8.6 mg/dL (8.5-10.5) 10/05/22 18:55 Total Bilirubin 0.7 mg/dL (0.15-1.2) 10/05/22 18:55 AST 69 U/L (0-32) H 10/05/22 18:55 ALT 52 U/L (0-33) H 10/05/22 18:55 Alkaline Phosphatase 183 U/L (35-105) H 10/05/22 18:55 Troponin T Baseline 14 ng/L (0-10) H 10/05/22 18:55 Troponin T 120 Minute 13.12 ng/L (0-10) H 10/05/22 20:50 Delta Troponin T -0.88 ABS# (0-10) L 10/05/22 20:50 C-Reactive Protein 203.9 mg/L (0.0-4.9) H 10/05/22 18:55 NT-Pro-B Natriuret Pep 2829 pg/mL (0-450) H 10/05/22 18:55 Total Protein 6.6 g/dL (6.6-8.7) 10/05/22 18:55 Albumin 3.1 g/dL (3.5-5.2) L 10/05/22 18:55 Globulin 3.5 g/dL (1.3-4.6) 10/05/22 18:55 Urine Color Yellow (Yellow) 10/05/22 20:51 Urine Appearance Hazy (CLEAR) A 10/05/22 20:51 Urine pH 5 (5-7) 10/05/22 20:51 Ur Specific [place] 1.010 (1.005-1.030) 10/05/22 20:51 Urine Protein 1+ (Negative) H 10/05/22 20:51 Urine Glucose (UA) Norm (Normal) 10/05/22 20:51 Urine Ketones Negative (Negative) 10/05/22 20:51 Urine Blood 3+ (Negative) H 10/05/22 20:51 Urine Nitrate Positive (Negative) H 10/05/22 20:51 Urine Bilirubin Neg (Negative) 10/05/22 20:51 Urine Urobilinogen 4 mg/dL (Negative) H 10/05/22 20:51 Ur Leukocyte Esterase 1+ (Negative) H 10/05/22 20:51 Urine RBC 5-10 /hpf (0-2) H 10/05/22 20:51 Urine WBC 40-55 /hpf (0-5) H 10/05/22 20:51 Ur Squamous Epith Cells 0-4 /hpf (0-5) H 10/05/22 20:51 Amorphous Sediment Not Reportable 10/05/22 20:51 Urine Bacteria 3+ /hpf (NONE) H 10/05/22 20:51 Discharge Plan Discharge Patient Disposition: Admitted As Inpatient Clinical Impression: Pneumonia, Cystitis, Heart failure, Intractable nausea and vomiting Condition: Stable Coding Level of Care Code ED Operations Coordinator for Jacob Arreola
[2022-10-05 19:06] LABS: Hematocrit 38.4 % (37.0-47.0); Mean Corpuscular HGB Conc 31.3 g/dL (30.0-36.0); Mean Corpuscular Hemoglobin 29.9 pg (28.0-34.0); Mean Corpuscular Volume 95.8 fl (81-99); Mean Platelet Volume 10.2 fL (7.4-10.4); Platelet Count 260 10^3/cmm (130-400); Red Blood Count 4.01 10^6/uL (4.1-5.3); White Blood Count 5.6 10^3/uL (4.0-10.0)
[2022-10-05] MEDS: sodium chloride 0.9% 1,000 ML 999 ML IV (19:10)
[2022-10-05] MEDS: ondansetron 2 mg/ML SDV 2 mL 4 MG IVP (19:16)
[2022-10-05] MEDS: dexamethasone 10 mg/mL INJ IVP (19:16)
[2022-10-05 19:25] LABS: Troponin(5th) Baseline 14 ng/L (0-10)
[2022-10-05 19:33] LABS: Alanine Aminotransferase 52 U/L (0-33); Albumin Level 3.1 g/dL (3.5-5.2); Alkaline Phosphatase 183 U/L (35-105); Aspartate Amino Transferase 69 U/L (0-32); Blood Urea Nitrogen 24 mg/dL (8-23); C Reactive Protein 203.9 mg/L (0.0-4.9); Calcium 8.6 mg/dL (8.5-10.5); Carbon Dioxide 23 mmol/L (22-29); Chloride 99 mmol/L (98-107); Globulin 3.5 g/dL (1.3-4.6); Glucose 115 mg/dL (65-115); NT Pro B Type Natriuretic Pept 2829 pg/mL (0-450); Osmolality Calculated 283 mOsm/kg (285-295); Sodium 134 mmol/L (136-145); Total Bilirubin 0.7 mg/dL (0.15-1.2); Total Protein 6.6 g/dL (6.6-8.7)
--- NOTE | 2022-10-05 19:35 | CTR_ITS ---
PROCEDURE INFORMATION: Exam: CT Chest With Contrast; Diagnostic Exam date and time: 10/05/2022 7:45 PM Age: 87 years old Clinical indication: Nausea and vomiting; Abdominal pain; Generalized; Other: N/a; Prior surgery; Surgery date: 6+ months; Surgery type: Parathyroid. Breast lumpectomy; Patient HX: C/O abd pain with n/v. Infiltrate noted on cxr. History of breast cancer. ; Additional info: Pulmonary infiltrate on cxr. Abd pain with n/v. TECHNIQUE: Imaging protocol: Diagnostic computed tomography of the chest with contrast. Sagittal and coronal reformatted images were created and reviewed. Radiation optimization: All CT scans at this facility use at least one of these dose optimization techniques: automated exposure control; mA and/or kV adjustment per patient size (includes targeted exams where dose is matched to clinical indication); or iterative reconstruction. Contrast material: OMNI 350; Contrast volume: 100 ml; Contrast route: INTRAVENOUS (IV); REPORTING DATA: Count of CT and Cardiac NM exams in prior 12 months: This patient has received 3 known CTs and 0 known cardiac nuclear medicine studies in the 12 months prior to the current study. COMPARISON: 1. CR (ABDOMEN, ) 10/05/2022 6:28 PM 2. PT PET Scan 03/27/2019 9:23 AM RADIATION DOSE METRICS: Total DLP (mGy-cm): 915.11 FINDINGS: Trachea: Tracheobronchial structures are patent. Lungs: Stable linear soft tissue density associated scarring and cylindrical bronchiectasis extending from the right hilum to the right apex with superior retraction of the right hilum. Findings likely represent post radiation changes. Scattered areas of ground-glass opacification in the periphery of both lungs. Reticulonodular interstitial thickening in the right and left lower lobes and to a lesser extent the left upper lobe. Mucous plugging with more focal alveolar airspace disease in the left lower lobe. There is linear scarring in the right lower lobe. New 9. Calcified granulomas in the left lower lobe. Pleural spaces: No pneumothorax. No pleural effusion. Heart: Stable moderate enlargement of the heart. Esophagus: The esophagus is unremarkable. Mediastinal space: No mediastinal hematoma. No pneumomediastinum. Lymph nodes: No lymphadenopathy. No lymphadenopathy. Vasculature: Stable moderate atherosclerotic changes in the visualized arteries. No evidence for aortic aneurysm or aortic dissection. Pulmonary arteries are unremarkable. Pulmonary veins are unremarkable. Bones/joints: Enlarged thyroid lobes with substernal extension, more pronounced on the right. Multiple complex thyroid nodules, the largest in the right lobe measures 1.8 x 2.0 cm (series 3, image 16). Findings are stable compared with 03/27/2019. Bones are diffusely osteopenic. Degenerative changes in the spine and left shoulder. Deformity of the proximal right humerus consistent with an old ununited fracture is stable.. No lytic or sclerotic bony lesions. Kyphoscoliosis in the spine. Soft tissues: No acute abnormality in the extrathoracic soft tissues. COMMENTS: Consistent with the [employer]'s Incidental Findings Committee white paper (J Am Megan Radiol 2015): In patients aged 35 years and older with an incidental thyroid nodule equal to or greater than 1.[address], MRI or extrathyroidal US, further evaluation with dedicated thyroid US is recommended for patients with normal life expectancy and without comorbidities. For smaller nodules without suspicious features, no further evaluation or follow up is recommended. PROCEDURE INFORMATION: Exam: CT Abdomen And Pelvis With Contrast Exam date and time: 10/05/2022 7:45 PM Age: 87 years old Clinical indication: Nausea and vomiting; Abdominal pain; Generalized; Other: N/a; Prior surgery; Surgery date: 6+ months; Surgery type: Parathyroid. Breast lumpectomy; Patient HX: C/O abd pain with n/v. Infiltrate noted on cxr. History of breast cancer. ; Additional info: Pulmonary infiltrate on cxr. Abd pain with n/v. TECHNIQUE: Imaging protocol: Computed tomography of the abdomen and pelvis with contrast. Sagittal and coronal reformatted images were created and reviewed. Radiation optimization: All CT scans at this facility use at least one of these dose optimization techniques: automated exposure control; mA and/or kV adjustment per patient size (includes targeted exams where dose is matched to clinical indication); or iterative reconstruction. Contrast material: OMNI 350; Contrast volume: 100 ml; Contrast route: INTRAVENOUS (IV); REPORTING DATA: Count of CT and Cardiac NM exams in prior 12 months: This patient has received 3 known CTs and 0 known cardiac nuclear medicine studies in the 12 months prior to the current study. COMPARISON: CT abdomen pelvis wo con [id number] 07/31/2022 3:24 PM RADIATION DOSE METRICS: Total DLP (mGy-cm): 915.11 FINDINGS: Liver: The liver is unremarkable. Gallbladder and bile ducts: The gallbladder is unremarkable. No biliary ductal dilatation. Pancreas: Stable mild atrophy of the pancreatic parenchyma. No pancreatic ductal dilatation. Spleen: The spleen is unremarkable. Adrenal glands: The right and left adrenal glands are unremarkable. Kidneys and ureters: Simple cyst in the right kidney measuring 1.5 cm. Simple cyst in the left kidney measuring 3.1 cm. Subcentimeter hypodense foci in both right and left kidneys that are too small to characterize, however likely represent small cysts. The right and left ureters are unremarkable. Stomach and bowel: The stomach is collapsed, which can limit evaluation. No focal abnormality in the stomach otherwise. Appendix: The appendix is visualized and is unremarkable. No findings to suggest acute appendicitis. Intraperitoneal space: No free intraperitoneal air. No ascites. No loculated fluid collections to suggest an abscess. Vasculature: Stable mild atherosclerotic calcifications in the visualized arteries. No evidence for aortic aneurysm or aortic dissection. Lymph nodes: No lymphadenopathy. Urinary bladder: Diffuse, mild wall thickening of the bladder. Reproductive: The uterus, right ovary, and left ovary are unremarkable. Dilated, tortuous veins in the right and left adnexa, measuring up to 7.3 mm on the right and 6.0 mm on the left. Findings are suggestive of pelvic congestion syndrome. Bones/joints: No acute fracture. Soft tissues: Loculated subcutaneous fluid collection in the left posterior flank. This has decreased in size and now measures 5.6 x 4.0 x 7.5 cm, previously measured 10.6 x 5.6 x 10.5 cm (series 11, image 18 in series 5, image 50). There is also decreasing inflammation around the fluid collection. The findings suggest a resolving hematoma and surrounding subcutaneous contusion. CT/CT chest abdpel w/*[id number] IMPRESSION: 1. Scattered areas of ground-glass opacification in the periphery of both lungs. Reticulonodular interstitial thickening in the right and left lower lobes and to a lesser extent the left upper lobe. Mucous plugging with more focal alveolar airspace disease in the left lower lobe. Findings are suspicious for pneumonia, including atypical organisms. Recommend followup chest imaging to insure resolution of these findings. 2. 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 3. Enlarged thyroid lobes with substernal extension, more pronounced on the right. Multiple complex thyroid nodules, the largest in the right lobe measures 1.8 x 2.0 cm (series 3, image 16). Findings are stable compared with 03/27/2019. Follow-up non-emergent thyroid ultrasound is recommended. IMPRESSION: 1. Diffuse, mild wall thickening of the bladder. In the correct clinical setting, this may suggest cystitis. Recommend correlation with laboratory findings. Alternatively, this may be secondary to chronic outlet obstruction. 2. Findings suggestive of pelvic congestion syndrome. Recommend clinical correlation. 3. Findings suggesting a resolving left gluteal subcutaneous hematoma with decreasing subcutaneous contusion. 4. Incidental/nonacute findings are listed in the report. COMMENTS: Consistent with the [employer]'s Incidental Findings Committee white paper (J Am Megan Radiol 2018): Any incidental renal lesion less than 1 cm or classified as too small to characterize, or any incidental cystic renal lesion characterized as simple-appearing, is likely benign. No follow-up imaging is recommended for these lesions per consensus recommendations based on imaging criteria.
[2022-10-05 19:37] LABS: Anion Gap 16.9 (5-19); Potassium 4.9 mmol/L (3.5-5.1)
[2022-10-05 19:38] LABS: Total Cells Counted 100 (0-100)
[2022-10-05 19:39] LABS: Absolute Neutrophil 4.8 10^3/cmm (1.4-6.5); Absolute Segmented Neutrophil 4.8 10/cmm (1.6-7.1); Anisocytosis 1+; Eosinophils 0 %; Hypochromasia Trace; Lymphocytes 6 %; Lymphocytes Absolute 0.3 10^3/cmm (1.2-3.4); Monocytes Absolute 0.3 10^3/cmm (0.1-0.6); Platelet Estimate Normal (Normal); Polychromasia Trace; Segmented Neutrophils 86 %
[2022-10-05 19:40] LABS: Dohle Bodies 2+; Macrocytosis 1+; Poikilocytosis 1+; Toxic Granulation 2+
[2022-10-05] MEDS: iohexol 350 mg/mL 500 mL Btl (per mL) IV (20:11)
--- NOTE | 2022-10-05 20:20 | ECG_ITS ---
[facility] Test Date: 2022-10-05 Pat Name: Alysno Sandoval Department: Room: Gender: Female Hand Salter: : 1935 Requested By: Javan Bettencourt Order Number: [id number] Dav MD: Yosvany Solares M.D. Measurements Intervals [place] Rate: 102 P: 0 SD: 0 QRS: 22 QRSD: 99 T: 36 QT: 363 QTc: 474 Interpretive Statements ATRIAL FIBRILLATION WITH RAPID VENTRICULAR RESPONSE INDETERMINATE AXIS ABNORMAL RHYTHM ECG Compared to ECG 10/05/2022 18:47:12 Indeterminate axis now present ST (T wave) deviation no longer present Electronically Signed On 10-06-2022 21:16:56 CDT by Yosvany Solares M.D. [id number]
[2022-10-05] MEDS: cefTRIAXone 1,000 MG in sodium chloride 0.9% (plus) 50 ML 100 MG IV (20:51)
[2022-10-05 21:12] LABS: Add Urine Microscopic? YES; Bilirubin Urine Neg (Negative); Blood Urine 3+ (Negative); Glucose Urine UA Norm (Normal); Ketones Urine Negative (Negative); Leukocyte Esterase Urine 1+ (Negative); Nitrate Urine Positive (Negative); Protein Urine 1+ (Negative); Urine Appearance Hazy (CLEAR); Urine Color Yellow (Yellow); Urobilinogen Urine 4 mg/dL (Negative); pH Urine 5 (5-7)
[2022-10-05 21:13] LABS: Troponin 5 2HR 13.12 ng/L (0-10)
[2022-10-05 21:14] LABS: Squamous Epithelial Cell Urine 0-4 /hpf (0-5); WBC Urine 40-55 /hpf (0-5)
[2022-10-05 21:15] LABS: Add Urine Culture? Yes; Bacteria Urine 3+ /hpf
[2022-10-05 21:23] LABS: Troponin 5 2HR Delta -0.88 ABS# (0-10)
--- NOTE | 2022-10-05 22:38 | P.HP_ITS ---
Providers/Chief Complaint Admitting Physician: Bethany Martines MD Primary Care Provider: Francisco Guzman DO Chief Complaint: N/V History of Present Illness Alyson Sandoval is a 87 year old female with past medical history of atrial fibrillation, dyslipidemia, hypertension, gout, C. difficile infection, humerus fracture, hypothyroidism, osteoarthritis, osteoporosis, supraventricular t achycardia, bradycardia, vitamin D deficiency, breast cancer presented to the hospital today for complaint of patient's son is present at bedside. Patient and son state that she had a UTI 3 weeks ago and ever since then has been feeling sick. She had a decreased appetite for the last 9 to 10 days and feels nauseated. She has been bringing up clear phlegm and been coughing. Denies having a fever. Is currently not on IV chemotherapy but takes an oral medication called methotrexate. She cannot deny or confirm about the exam is seen at this time. She is a walker to walk around normally. Denies having any palpitations at this time. Denies fevers or chills. She has had a reduced appetite. Denies diarrhea, constipation. Denies any chest pain at this time. Is not oxygen dependent at home however requiring 3 L nasal cannula here in the hospital. On arrival blood pressure 139/90, respiratory 22, pulse 103, temperature 98, saturating 3 L 93%. Chest abdomen x-ray shows nonspecific bowel gas pattern. Some subtle increased density in right lung base concerning for atelectasis or early pneumonic infiltrate. Unchanged nodular density mass right lung apex and enlargement of right hilum. Old proximal right humerus fracture deformity present. Of note patient is not on anticoagulation due to a GI bleed and secondary significant soft tissue hematoma status post recent mechanical fall. Her aspirin that was full-strength 325 was dose reduced to 81 mg daily by cardiology on 22 August. Subsequently chest abdomen pelvis CT was done which showed 1. Scattered areas of ground-glass opacification in the periphery of both lungs. Reticulonodular interstitial thickening in the right and left lower lobes and to a lesser extent the left upper lobe. Mucous plugging with more focal alveolar airspace disease in the left lower lobe. Findings are suspicious for pneumonia, including atypical organisms. Recommend followup chest imaging to insure resolution of these findings. 2. 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 3. Enlarged thyroid lobes with substernal extension, more pronounced on the right. Multiple complex thyroid nodules, the largest in the right lobe measures 1.8 x 2.0 cm (series 3, image 16). Findings are stable compared with 03/27/2019. Follow-up non-emergent thyroid ultrasound is recommended. IMPRESSION: 1. Diffuse, mild wall thickening of the bladder. In the correct clinical setting, this may suggest cystitis. Recommend correlation with laboratory findings. Alternatively, this may be secondary to chronic outlet obstruction. 2. Findings suggestive of pelvic congestion syndrome. Recommend clinical correlation. 3. Findings suggesting a resolving left gluteal subcutaneous hematoma with decreasing subcutaneous contusion. 4. Incidental/nonacute findings are listed in the report. Medications/Allergies Home Medications Medication Instructions Recorded Confirmed Last Taken Type carvedilol 3.125 mg tablet 3.125 mg PO BID 05/25/19 09/18/22 Unknown History nitroglycerin 0.4 mg sublingual 0.4 mg sublingual Q5M PRN Chest 05/25/19 09/18/22 Unknown History tablet (Nitrostat) Pain pantoprazole 40 mg tablet,delayed 40 mg PO QAM 05/25/19 09/18/22 Unknown History release furosemide 20 mg tablet 20 mg PO QAM 05/31/19 09/18/22 Unknown History cholecalciferol (vitamin D3) 125 125 mcg PO DAILY 12/11/19 09/18/22 Unknown History mcg (5,000 unit) tablet (Vitamin D3) sodium phosphates 19 gram-7 118 ml AR DAILY PRN Constipation 12/11/19 09/18/22 Unknown History gram/118 mL enema (Fleet Enema) folic acid 1 mg tablet 1 mg PO DAILY #90 tabs 12/12/21 09/18/22 Unknown Rx prednisone 10 mg tablet See Rx Instructions PO .COMPLEX 04/11/22 09/18/22 Unknown Rx PRN joint pain #30 tabs flecainide 50 mg tablet 50 mg PO Q12H 04/23/22 09/18/22 Unknown History isosorbide mononitrate 60 mg 60 mg PO DAILY #90 tabs 04/23/22 09/18/22 Unknown Rx tablet,extended release 24 hr sertraline 25 mg tablet 25 mg PO DAILY #90 tabs 04/23/22 09/18/22 Unknown Rx lidocaine-prilocaine 2.5 %-2.5 % 1 applic topical DAILY PRN 05/24/22 09/18/22 Unknown Rx topical cream Port/Catheter Care #30 grams pravastatin 20 mg tablet 20 mg PO DAILY #30 tabs 06/10/22 09/18/22 Unknown Rx potassium chloride 20 mEq 20 meq PO BID #60 tabs 07/02/22 09/18/22 Unknown Rx tablet,extended release exemestane 25 mg tablet 25 mg PO DAILY #30 tabs 07/19/22 09/18/22 Unknown Rx methotrexate sodium 2.5 mg tablet See Rx Instructions PO .Q7days #20 07/25/22 09/18/22 Unknown Rx tabs Lactobacillus rhamnosus GG 10 1 cap PO DAILY 07/30/22 09/18/22 Unknown History billion cell capsule (Culturelle) latanoprostene bunod 0.024 % eye 1 drp ophthalmic (eye) BEDTIME 07/30/22 09/18/22 Unknown History drops (Vyzulta) propylene glycol 1 %-glycerin 0.3 1 drp ophthalmic (eye) DAILY PRN 07/30/22 09/18/22 Unknown History % eye drops (Artificial Tears redness (glycerin-peg)) vit C 250 mg-vit E 90 mg-zinc 40 1 tab PO BID 07/30/22 09/18/22 Unknown History mg-copper 1 [id number] capsule (PreserVision AREDS-2) acetaminophen 325 mg tablet 650 mg PO Q4H PRN 09/17/22 09/18/22 Unknown History (Tylenol) aspirin 81 mg chewable tablet 81 mg PO DAILY 09/17/22 09/18/22 Unknown History hydrocodone 5 mg-acetaminophen 325 1 tab PO Q4H PRN 09/17/22 09/18/22 Unknown History mg tablet ondansetron HCl 4 mg tablet 4 mg PO Q6H PRN 09/17/22 09/18/22 Unknown History polyethylene glycol 3350 17 4 g PO DAILY 09/17/22 09/18/22 Unknown History gram/dose oral powder (Miralax) Allergies Allergy/AdvReac Type Severity Reaction Status Date / Time No Known Allergies Allergy Verified 09/18/22 13:12 PFSH Acute PFSH: Medical History Atrial fibrillation Breast cancer Chest pain Dyslipidemia Essential hypertension Gout High risk medications (not anticoagulants) long-term use History of Clostridioides difficile infection History of peptic ulcer disease HLA-B27 positive arthropathy Humerus fracture Proximal right humeral shaft Hypothyroidism Mixed hyperlipidemia Osteoarthritis Osteoporosis Sinus bradycardia SVT (supraventricular tachycardia) Vitamin D deficiency Surgical History H/O bilateral cataract extraction History of abdominal surgery History of lumpectomy of right breast (09/17/17) Right breast lumpectomy with axillary sentinel lymph node biopsy History of parathyroidectomy Family History Family/Other Hypertension Mother Stroke Cancer Diabetes Father Stroke Son Stroke Daughter Cancer Sister Cancer Brother Chronic kidney disease (CKD) Other CAD (coronary artery disease) Hyperlipidemia Rheumatoid arthritis Denies family history of Lupus Clotting disorder Dementia Suicide Anesthesia complication Bleeding disorder Lung disease Social History Smoking and tobacco status: never smoked Alcohol intake: never Substance/Drug Use: never Marital status: / Vitals/I&O/Wt Last Vital Signs Temp 98 F 10/05/22 18:00 Pulse 103 H 10/05/22 21:30 Resp 22 H 10/05/22 21:30 BP 139/90 10/05/22 21:30 Pulse Ox 93 10/05/22 21:30 O2 Del Method Nasal Cannula 10/05/22 19:00 O2 Flow Rate 3 10/05/22 19:00 Weight last 48 hrs Weight 70.307 kg Physical Exam Narrative: General: Alert oriented x3, patient seen laying in bed at this time appearing comfortable. No acute distress. On 3 L nasal cannula saturating 95%. HEENT: Normocephalic, atraumatic, EOMI, breathing 3 L nasal cannula. Cardio: Regular rate rhythm, normal S1-S2, seems to be in sinus rhythm at this time. Respiratory: Crackles at right base, left base diminished, mild rhonchi present. GI: Abdomen soft, nontender, nondistended, bowel sounds + Extremities: Trace edema bilateral lower extremities Data 10/05/22 18:55 10/05/22 18:55 A&P Assessment and plan (1) Pneumonia: (2) Cystitis: (3) Intractable nausea and vomiting: (4) Malignant neoplasm of upper-outer quadrant of right female breast: (5) Inflammatory arthritis: (6) Osteoarthritis of knees, bilateral: (7) High risk medications (not anticoagulants) long-term use: (8) Humerus fracture: Qualifiers: Encounter type: subsequent encounter Fracture alignment: nondisplaced Fracture healing: with nonunion Fracture morphology: other fracture Fracture type: closed Humerus Location: proximal Laterality: right Qualified Code(s): S42.294K - Other nondisplaced fracture of upper end of right humerus, subsequent encounter for fracture with nonunion (9) Atrial fibrillation: Qualifiers: Atrial fibrillation type: unspecified chronic Qualified Code(s): I48.20 - Chronic atrial fibrillation, unspecified (10) Essential hypertension: (11) Hypothyroidism: Qualifiers: Hypothyroidism type: acquired Qualified Code(s): E03.9 - Hypothyroidism, unspecified (12) Oxygen dependent: Plan #Multifocal pneumonia, possibly atypical #UTI #Enlarged thyroid nodules #History of stable proximal right humerus fracture #Resolving left gluteal subcutaneous hematoma #History of GI bleed #History of breast cancer #Immunocompromise status #History of atrial fibrillation, currently rate controlled, not on anticoagulation due to above #Hyperlipidemia #Hypothyroidism #History of C. difficile #Hypertension #Gout #Possibility of new onset heart failure? ? BNP 2800. She denies a history of heart failure at this time. Although I do notice that she is on Lasix 20 daily. She is not able to tell me details regarding that. Cardiology note also does not mention having a history of heart failure. She states she takes Lasix for her atrial fibrillation. It may have been that she was placed on it for rate related heart failure in the past. I will check an echocardiogram at this time. Patient does have some crackles at the right lower base. Could be possibly secondary pneumonia versus fluid. I will place on normal saline at 60 cc/h for some IV hydration. ? Placed on thiamine, folic acid. Consult dietitian. Placed on clear liquids for now. ? Patient received a dose of ceftriaxone azithromycin in the ER. I will place on Vanco and Zosyn, azithromycin due to immunocompromise status. She is currently on adjuvant endocrine therapy with exemestane 25 mg daily?? Will need to confirm. Check procalcitonin and trend. Check bacterial antigen S treptococcus, Legionella pneumonia ? Check MRSA nares ? Procalcitonin is pending at this time. ? No significant troponin bump ? EKG did not show any acute ischemic changes. ? Patient apparently on flecainide for atrial fibrillation. We will need to confirm home medications before restarting. RN to do med rec from assisted paperwork. ? Patient is requiring oxygen here in the hospital. She will most likely require home oxygen evaluation at discharge ? Check sputum culture Gram stain ? Check urine culture, blood cultures ? Monitor for fever ? Tylenol 650 every 4 hours if needed for fever ? Check CBC, CMP in a.m. ? Antibiotic should cover for UTI as well. ? Possibility of chronic outlet obstruction. Will place Olivia catheter at this time ? It seems patient may be on prednisone 10 mg daily at home. Need to do accurate med rec before ordering medications. ? Currently hemodynamically stable but may require stress dose steroids if gets hypotensive. SCDs, I will hold off on DVT prophylaxis at this time due to history of GI bleed and stop cutaneous left gluteal hematoma which is currently resolving. . Son Pablo Sandoval present at bedside would like to be contacted with updates. [phone]. Son and patient both provided consent to be seen through telehealth today. Attestations Medical Necessity Statement*: Will cross mold than 2 midnight stay for management of UTI, pneumonia Coding Level of Care Code G0426 (50 min) TH Encounter Time (min): 55 Patient seen via Telehealth in the acute care setting (hospital or ED location) by agreement and consent of patient or patient school admissions representative. Telehealth janice hnology used during the visit includes video and audio. This patient encounter is appropriate and reasonable under the circumstances given the patient?s particular presentation at this time. The patient has been advised of the potential risks and limitations of this mode of treatment (including but not limited to the absence of in-person examination at this time) and has agreed to be treated by an off-site physician for this visit. If deemed clinically necessary from this telehealth visit, or if condition or consent for telehealth visit changes, an in-person visit will be arranged. For this encounter, total time for the origination of telehealth care on this date is as shown. Diagnoses Pneumonia J18.9 Cystitis N30.90 Intractable nausea and vomiting R11.2 Malignant neoplasm of upper-outer quadrant of right female breast C50.411 Inflammatory arthritis M19.90 Osteoarthritis of knees, bilateral M17.0 High risk medications (not anticoagulants) long-term use Z79.899 Humerus fracture S42.294K Encounter type: subsequent encounter Fracture alignment: nondisplaced Fracture healing: with nonunion Fracture morphology: other fracture Fracture type: closed Humerus Location: proximal Laterality: right Atrial fibrillation I48.20 Atrial fibrillation type: unspecified chronic Essential hypertension I10 Hypothyroidism E03.9 Hypothyroidism type: acquired Oxygen dependent Z99.81
--- NOTE | 2022-10-05 23:08 | PC.PHAR ---
Initial Vanc Dosing Goal Vanc Trough: 10-20 Plan: Initial dose of 750 mg Q24H Vanc trough to be scheduled for prior to 4th dose and will reassess
[2022-10-05 23:50] LABS: Procalcitonin 0.21 ng/mL (0-0.5)
[2022-10-06] VITALS (13 sets, daily range): BP systolic 138–164; BP diastolic 74–96; PULSE 62–114; RESP 16–18; TEMP 36.6–37.1; O2SAT 92–96
[2022-10-06] MEDS: vancomycin 750 MG in sodium chloride 0.9% 250 ML 250 MG IV (00:31)
[2022-10-06] MEDS: sodium chloride 0.9% 1,000 ML 75 ML IV (00:32)
[2022-10-06 01:22] LABS: Basophils % 0.2 %; Hematocrit 35.1 % (37.0-47.0); Hemoglobin 11.3 g/dL (11.5-15.3); Lymphocytes # 0.2 10^3/uL (0.8-4.8); Lymphocytes % 4.3 %; Mean Corpuscular HGB Conc 32.2 g/dL (30.0-36.0); Mean Corpuscular Hemoglobin 29.9 pg (28.0-34.0); Mean Corpuscular Volume 92.9 fl (81-99); Mean Platelet Volume 9.2 fL (7.4-10.4); Monocytes # 0.1 10^3/uL (0.2-0.9); Monocytes % 2.2 %; Neutrophils # 5.12 10^3/uL (1.8-7.7); Neutrophils % 91.9 %; Nucleated Red Blood Cells % 0 %; Platelet Count 248 10^3/cmm (130-400); Red Blood Count 3.78 10^6/uL (4.1-5.3); Red Cell Distribution Width 16.8 % (12.1-15.1); White Blood Count 5.6 10^3/uL (4.0-10.0)
[2022-10-06 01:30] LABS: Alanine Aminotransferase 46 U/L (0-33); Albumin Level 2.9 g/dL (3.5-5.2); Alkaline Phosphatase 174 U/L (35-105); Anion Gap 17.9 (5-19); Aspartate Amino Transferase 46 U/L (0-32); Blood Urea Nitrogen 19 mg/dL (8-23); Calcium 8.5 mg/dL (8.5-10.5); Carbon Dioxide 21 mmol/L (22-29); Chloride 101 mmol/L (98-107); Globulin 3.2 g/dL (1.3-4.6); Glucose 132 mg/dL (65-115); Magnesium 2.1 mg/dL (1.7-2.3); Osmolality Calculated 284 mOsm/kg (285-295); Potassium 4.9 mmol/L (3.5-5.1); Sodium 135 mmol/L (136-145); Total Bilirubin 0.6 mg/dL (0.15-1.2); Total Protein 6.1 g/dL (6.6-8.7)
--- NOTE | 2022-10-06 01:31 | ECG_ITS ---
[facility] Test Date: 2022-10-06 Pat Name: Alyson Sandoval Department: Room: 278 Gender: Female Freezer Person: : 1935 Requested By: Javan Bettencourt Order Number: [id number] Dav MD: Yosvany Solares M.D. Measurements Intervals [place] Rate: 95 P: 0 WA: 0 QRS: 34 QRSD: 97 T: 29 QT: 369 QTc: 465 Interpretive Statements ATRIAL FIBRILLATION ABNORMAL RHYTHM ECG Compared to ECG 10/05/2022 21:15:53 Indeterminate axis no longer present Electronically Signed On 10-06-2022 21:18:58 CDT by Yosvany Solares M.D. [id number]
[2022-10-06 01:58] LABS: Troponin 5 6HR 11.93 ng/L (0-10)
[2022-10-06] MEDS: piperacillin-tazobactam 3.375 GM in sodium chloride 0.9% (plus) 50 ML IV ×3 (02:01→17:26)
[2022-10-06 02:02] LABS: Troponin 5 6HR Delta -2.07 ng/L (0-12)
[2022-10-06] MEDS: ipratropium-albuterol 3 mL Neb INHALATION ×4 (08:10→22:22)
[2022-10-06] MEDS: pantoprazole DR 40 mg Tablet PO (09:06)
[2022-10-06] MEDS: carvedilol 3.125 mg Tablet PO ×2 (09:06→17:26)
[2022-10-06] MEDS: isosorbide mononitrate ER 60 mg Tablet PO (09:06)
[2022-10-06] MEDS: aspirin 81 mg Chew Tablet PO (09:06)
[2022-10-06] MEDS: folic acid 1 mg Tablet PO (09:06)
[2022-10-06] MEDS: flecainide 100 mg Tablet 50 MG PO ×2 (09:45→20:33)
[2022-10-06] MEDS: cholecalciferol (vitamin D3) 5,000 unit Tablet 5000 UNIT PO (09:46)
[2022-10-06] MEDS: polyethylene glycol 3350 Pkt 17 gm PO (09:46)
[2022-10-06] MEDS: guaiFENesin 600 mg Tablet 1200 MG PO ×2 (10:21→17:26)
[2022-10-06] MEDS: acetylcysteine 200 mg/mL SDV 4 mL INHALATION ×3 (11:37→22:22)
[2022-10-06] MEDS: ondansetron 2 mg/ML SDV 2 mL 4 MG IVP (12:34)
[2022-10-06] MEDS: acetaminophen 325 mg Tablet 650 MG PO (14:15)
--- NOTE | 2022-10-06 16:56 | PM.PN ---
Subjective Subjective: Patient was seen and examined this morning she was complaining of, nausea, she also felt sick to her stomach, was asking for Sprite. Has been afebrile overnight. Medications: Medication Review Details: Generic Name Dose Route Start Last Admin Trade Name Gus PRN Reason Stop Dose Admin Acetaminophen 650 mg 10/05/22 22:54 10/06/22 14:15 Acetaminophen 32 5 Mg Tablet PO 650 mg Q6H PRN Administration Mild/Mod Pain Or Temp >/= 101 Acetylcysteine 200 mg 10/06/22 15:59 10/06/22 16:04 Acetylcysteine 2 00 Mg/Ml Sdv 4 Ml INHALATION 200 mg QID.RESPIRATORY S CH Administration Albuterol/Ipratrop ium 3 ml 10/06/22 08:00 10/06/22 16:04 Ipratropium-Albu terol 3 Ml Neb INHALATION 3 ml QID.RESPIRATORY S CH Administration Aspirin 81 mg 10/06/22 09:00 10/06/22 09:06 Aspirin 81 Mg Ch ew Tablet PO 81 mg DAILY FORREST Administration Carvedilol 3.125 mg 10/06/22 09:00 10/06/22 09:06 Carvedilol 3.125 Mg Tablet PO 3.125 mg BID FORREST Administration Exemestane 25 mg 10/06/22 09:00 10/06/22 09:41 Exemestane 25 Mg Tablet PO Not Given DAILY FORREST Flecainide Acetate 50 mg 10/06/22 09:30 10/06/22 09:45 Flecainide 100 M g Tablet PO 50 mg Q12H FORREST Administration Folic Acid 1 mg 10/06/22 09:00 10/06/22 09:06 Folic Acid 1 Mg Tablet PO 1 mg DAILY FORREST Administration Guaifenesin 1,200 mg 10/06/22 09:55 10/06/22 10:21 Guaifenesin 600 Mg Tablet PO 1,200 mg BID FORREST Administration Vancomycin HCl 750 mg/ Sodium 250 mls @ 250 mls /hr 10/05/22 23:30 10/06/22 02:01 Chloride IV Infused Q24H FORREST Infusion Piperacillin Sod/T azobactam 50 mls @ 12.5 mls /hr 10/06/22 01:30 10/06/22 13:20 Sod 3.375 gm/ So dium Chloride IV Infused Q8H FORREST Infusion Isosorbide Mononit rate 60 mg 10/06/22 09:00 10/06/22 09:06 Isosorbide [place] itrate Er 60 Mg Ta blet PO 60 mg DAILY FORREST Administration Ondansetron HCl 4 mg 10/05/22 22:54 10/06/22 12:34 Ondansetron 2 Mg /Ml Sdv 2 Ml IVP 4 mg Q8H PRN Administration vomiting, or N/V if npo Pantoprazole Sodiu m 40 mg 10/06/22 09:00 10/06/22 09:[address] 40 Mg Tablet PO 40 mg DAILY FORREST Administration Polyethylene Glyco l 17 gm 10/06/22 09:30 10/06/22 09:46 Polyethylene Gly col 3350 Pkt 17 Gm PO 17 gm DAILY FORREST Administration Vitamin D 5,000 unit 10/06/22 09:00 10/06/22 09:46 Cholecalciferol (Vitamin D3) 5,000 Unit Tablet PO 5,000 unit DAILY FORREST Administration Vitals/I&O/Wt Last Vital Signs Temp 98.8 F 10/06/22 16:00 Pulse 74 10/06/22 16:09 Resp 16 10/06/22 16:05 BP 159/84 10/06/22 16:00 Pulse Ox 96 10/06/22 16:05 O2 Del Method Nasal Cannula 10/06/22 16:05 O2 Flow Rate 1 10/06/22 16:05 10/06/22 10/06/22 10/06/22 06:59 14:59 22:59 Intake Total 1350 / 1350 762.500 / 762.500 Output Total 600 / 600 Balance 750 / 750 762.500 / 762.500 Weight last 48 hrs Weight 70.307 kg Physical Exam Const: COMMON NORMALS: patient oriented x3 Resp: COMMON NORMALS: clear to auscultation bilaterally AUSCULTATION: clear to auscultation bilaterally Cardio: COMMON NORMALS: regular rate, regular rhythm, S1 normal heart sound present, S2 normal heart sound present, No gallops present (Cardio), No murmurs present (Cardio), No rub (Cardio) and Peripheral pulses 2+ throughout RATE: regular rate RHYTHM: regular rhythm HEART SOUNDS: S1 normal heart sound present and S2 normal heart sound present PERIPHERAL PULSES: Peripheral pulses 2+ throughout GI: COMMON NORMALS: Normal to inspection, nondistended, normoactive bowel sounds present, Soft to palpation, non-tender, No hepatosplenomegaly present and no masses AUSCULTATION: Yes normoactive bowel sounds PALPATION: Yes Soft to palpation and Yes No hepatosplenomegaly present RECTAL EXAM: deferred Extremity: COMMON NORMALS: no clubbing, cyanosis or edema and no pedal edema Neuro: COMMON NORMALS: patient oriented x3 Urinary Catheter Management: Olivia: Cath Placed During This Visit: yes Reason for Continuing Indwelling Catheter: Accurate Measurement of Urinary Output in Critically Ill Patients Urinary Catheter Date of Insertion: 10/06/22 Urinary Catheter Time of Insertion: 00:56 Data 10/06/22 01:00 10/06/22 01:00 Micro: Microbiology 10/05/22 20:51 Legionella Urinary Antigen - Final Urine Catheterized 10/05/22 20:51 Bacterial Antigens - Final Urine,Clean Catch 10/05/22 23:05 Blood Culture - Preliminary Blood SPECIMEN COLLECTED 10/05/22 23:10 Blood Culture - Preliminary Blood SPECIMEN COLLECTED A&P Assessment and plan (1) Pneumonia: (2) Cystitis: (3) Intractable nausea and vomiting: (4) Malignant neoplasm of upper-outer quadrant of right female breast: (5) Inflammatory arthritis: (6) Osteoarthritis of knees, bilateral: (7) High risk medications (not anticoagulants) long-term use: (8) Humerus fracture: Qualifiers: Encounter type: subsequent encounter Fracture alignment: nondisplaced Fracture healing: with nonunion Fracture morphology: other fracture Fracture type: closed Humerus Location: proximal Laterality: right Qualified Code(s): S42.294K - Other nondisplaced fracture of upper end of right humerus, subsequent encounter for fracture with nonunion (9) Atrial fibrillation: Qualifiers: Atrial fibrillation type: unspecified chronic Qualified Code(s): I48.20 - Chronic atrial fibrillation, unspecified (10) Essential hypertension: (11) Hypothyroidism: Qualifiers: Hypothyroidism type: acquired Qualified Code(s): E03.9 - Hypothyroidism, unspecified (12) Oxygen dependent: Plan 87-year-old female with past medical history of atrial fibrillation, not on anticoagulation due to GI bleed, history of CA breast, hypertension gout, hypothyroidism, resolving left gluteal subcutaneous hematoma, came in with chief complaint of worsening nausea poor appetite generalized weakness, cough with whitish sputum, currently requiring 3 L oxygen, not on any home oxygen,Patient recently had UTI since then she has not been feeling well. Currently she is being managed for: Assessment: Pneumonia: CT chest abdomen and pelvis has shown: Scattered areas of ground-glass opacification in the periphery of both lungs. Reticulonodular interstitial thickening in the right and left lower lobes and to a lesser extent the left upper lobe. Mucous plugging with more focal alveolar airspace disease in the left lower lobe. Findings are suspicious for pneumonia. Possibly atypical. Blood culture: Urine Legionella antigen negative Bacterial antigen panel negative Sputum Gram stain and culture MRSA PCR Currently she is empirically on broad-spectrum antibiotic Vanco Zosyn and azithromycin DuoNebs, Mucomyst inhalation, Mucinex History of atrial fibrillation: Continue flecainide, carvedilol Continue telemetry monitoring Not on anticoagulation due to history of GI bleed #UTI: Follow urine culture Currently on broad-spectrum antibiotic CODE STATUS: Full code DVT prophylaxis on SCDs Attestations Medical Necessity Statement*: Needs to be in hospital for IV antibiotics. Coding Level of Care Code Acute Code for [facility] Fwd Diagnoses Pneumonia J18.9 Cystitis N30.90 Intractable nausea and vomiting R11.2 Malignant neoplasm of upper-outer quadrant of right female breast C50.411 Inflammatory arthritis M19.90 Osteoarthritis of knees, bilateral M17.0 High risk medications (not anticoagulants) long-term use Z79.899 Humerus fracture S42.294K Encounter type: subsequent encounter Fracture alignment: nondisplaced Fracture healing: with nonunion Fracture morphology: other fracture Fracture type: closed Humerus Location: proximal Laterality: right Atrial fibrillation I48.20 Atrial fibrillation type: unspecified chronic Essential hypertension I10 Hypothyroidism E03.9 Hypothyroidism type: acquired Oxygen dependent Z99.81
[2022-10-06] MEDS: atorvastatin 40 mg Tablet 20 MG PO (20:34)
[2022-10-06] MEDS: azithromycin 500 MG in sodium chloride 0.9% 250 ML 250 MG IV (21:11)
[2022-10-07] VITALS (14 sets, daily range): BP systolic 119–179; BP diastolic 72–83; PULSE 56–85; RESP 16–18; TEMP 36.4–36.7; O2SAT 90–100
[2022-10-07] MEDS: vancomycin 750 MG in sodium chloride 0.9% 250 ML 250 MG IV (00:02)
[2022-10-07] MEDS: piperacillin-tazobactam 3.375 GM in sodium chloride 0.9% (plus) 50 ML IV ×2 (01:24→08:31)
[2022-10-07] MEDS: acetaminophen 325 mg Tablet 650 MG PO ×3 (03:01→19:59)
[2022-10-07 04:45] LABS: Basophils % 0.2 %; Eosinophils % 0.2 %; Hematocrit 34.3 % (37.0-47.0); Lymphocytes # 0.3 10^3/uL (0.8-4.8); Lymphocytes % 4.5 %; Mean Corpuscular HGB Conc 32.1 g/dL (30.0-36.0); Mean Corpuscular Hemoglobin 29.9 pg (28.0-34.0); Mean Corpuscular Volume 93.2 fl (81-99); Mean Platelet Volume 10.3 fL (7.4-10.4); Monocytes # 0.3 10^3/uL (0.2-0.9); Monocytes % 4.2 %; Neutrophils # 5.33 10^3/uL (1.8-7.7); Neutrophils % 85.1 %; Nucleated Red Blood Cells % 0 %; Platelet Count 340 10^3/cmm (130-400); Red Blood Count 3.68 10^6/uL (4.1-5.3); Red Cell Distribution Width 16.9 % (12.1-15.1); White Blood Count 6.3 10^3/uL (4.0-10.0)
[2022-10-07 05:09] LABS: Alanine Aminotransferase 46 U/L (0-33); Albumin Level 2.5 g/dL (3.5-5.2); Alkaline Phosphatase 178 U/L (35-105); Aspartate Amino Transferase 44 U/L (0-32); Blood Urea Nitrogen 20 mg/dL (8-23); Calcium 8.4 mg/dL (8.5-10.5); Carbon Dioxide 21 mmol/L (22-29); Chloride 100 mmol/L (98-107); Globulin 3.4 g/dL (1.3-4.6); Glucose 110 mg/dL (65-115); Osmolality Calculated 281 mOsm/kg (285-295); Slide Review Slide Review Perform; Sodium 134 mmol/L (136-145); Total Bilirubin 0.6 mg/dL (0.15-1.2); Total Protein 5.9 g/dL (6.6-8.7)
[2022-10-07 05:27] LABS: Anion Gap 17.5 (5-19); Potassium 4.5 mmol/L (3.5-5.1)
[2022-10-07] MEDS: acetylcysteine 200 mg/mL SDV 4 mL INHALATION ×4 (07:22→21:43)
[2022-10-07] MEDS: ipratropium-albuterol 3 mL Neb INHALATION ×4 (07:22→21:44)
[2022-10-07] MEDS: guaiFENesin 600 mg Tablet 1200 MG PO ×2 (08:29→17:25)
[2022-10-07] MEDS: folic acid 1 mg Tablet PO (08:29)
[2022-10-07] MEDS: polyethylene glycol 3350 Pkt 17 gm PO (08:30)
[2022-10-07] MEDS: pantoprazole DR 40 mg Tablet PO (08:30)
[2022-10-07] MEDS: carvedilol 3.125 mg Tablet PO ×2 (08:30→17:25)
[2022-10-07] MEDS: cholecalciferol (vitamin D3) 5,000 unit Tablet 5000 UNIT PO (08:30)
[2022-10-07] MEDS: sertraline 50 mg Tablet 25 MG PO (08:30)
[2022-10-07] MEDS: isosorbide mononitrate ER 60 mg Tablet PO (08:30)
[2022-10-07] MEDS: aspirin 81 mg Chew Tablet PO (08:30)
[2022-10-07] MEDS: flecainide 100 mg Tablet 50 MG PO ×2 (08:36→20:43)
[2022-10-07] MEDS: ondansetron 2 mg/ML SDV 2 mL 4 MG IVP (08:47)
--- NOTE | 2022-10-07 13:29 | P.PN_ITS ---
Subjective Subjective: This morning patient was on room air Willing to work with physical therapy Endorsing feeling slightly better Transaminases around 40s Afebrile Olivia catheter can be removed Nurse updated Pelvic congestion syndrome Hemangioma/hematoma gluteal cleft area resolving Patient was at the rehab status post intervention for left tibial plateau fracture Vitals/I&O/Wt Last Vital Signs Temp 97.8 F 10/07/22 03:07 Pulse 84 10/07/22 12:00 Resp 18 10/07/22 12:00 BP 138/79 10/07/22 12:00 Pulse Ox 93 10/07/22 12:00 O2 Del Method Room Air 10/07/22 12:00 O2 Flow Rate 3 10/07/22 08:00 10/06/22 10/07/22 10/07/22 22:59 06:59 14:59 Intake Total 480 / 1242.500 600 / 1842.500 170 / 170 Output Total 400 / 400 Balance 480 / 1242.500 200 / 1442.500 170 / 170 Weight last 48 hrs Weight 70.307 kg Physical Exam Narrative: Patient awake and alert Working with PT Currently on room air Olivia catheter will be removed GCS 15 Nonfocal neuro exam No audible stridor or wheezing Abdomen soft Urinary Catheter Management: Olivia: Cath Placed During This Visit: yes Reason for Continuing Indwelling Catheter: Other Urinary Catheter Date of Insertion: 10/06/22 Urinary Catheter Time of Insertion: 00:56 Data 10/07/22 04:30 10/07/22 04:30 Micro: Microbiology 10/06/22 10:21 MRSA Culture - Final Nose 10/05/22 20:51 Urine Culture - Preliminary Urine,Clean Catch Gram Negative Rods 10/05/22 23:05 Blood Culture - Preliminary Blood NEGATIVE TO DATE 10/05/22 23:10 Blood Culture - Preliminary Blood NEGATIVE TO DATE 10/05/22 20:51 Legionella Urinary Antigen - Final Urine Catheterized 10/05/22 20:51 Bacterial Antigens - Final Urine,Clean Catch A&P Assessment and plan (1) Pneumonia: (2) Cystitis: (3) Atrial fibrillation: Qualifiers: Atrial fibrillation type: unspecified chronic Qualified Code(s): I48.20 - Chronic atrial fibrillation, unspecified (4) Essential hypertension: (5) Hypothyroidism: Qualifiers: Hypothyroidism type: acquired Qualified Code(s): E03.9 - Hypothyroid ism, unspecified (6) Hip hematoma, left: Plan MRSA pneumonia Mucous plug We will request chest vest Hypertonic saline Mucomyst DuoNeb Wean off oxygen to room air Change antibiotics to p.o. Left gluteal hematoma: Gradually improving: Hemoglobin stable A-fib not a candidate for anticoagulation due to history of GI bleed Continue flecainide Coreg UTI: Preliminary report consistent with gram-negative tim previous culture positive for E. coli I will change her antibiotics to ceftriaxone, DC broad- spectrum antibiotic Full code Awaiting long-term placement Work with PT Attestations Medical Necessity Statement*: Awaiting placement Diagnoses Pneumonia J18.9 Cystitis N30.90 Atrial fibrillation I48.20 Atrial fibrillation type: unspecified chronic Essential hypertension I10 Hypothyroidism E03.9 Hypothyroidism type: acquired Hip hematoma, left S70.02XA
[2022-10-07] MEDS: doxycycline 100 mg Tablet PO (17:25)
[2022-10-07] MEDS: atorvastatin 40 mg Tablet 20 MG PO (20:43)
[2022-10-07] MEDS: sodium chloride 3.5% neb 4 mL Neb INHALATION (21:44)
[2022-10-08] VITALS (14 sets, daily range): BP systolic 112–163; BP diastolic 68–92; PULSE 65–90; RESP 15–20; TEMP 36.4–36.8; O2SAT 91–95
[2022-10-08 06:06] LABS: Hemoglobin 10.9 g/dL (11.5-15.3); Mean Corpuscular HGB Conc 32.1 g/dL (30.0-36.0); Mean Corpuscular Hemoglobin 29.4 pg (28.0-34.0); Mean Corpuscular Volume 91.6 fl (81-99); Mean Platelet Volume 9.5 fL (7.4-10.4); Platelet Count 317 10^3/cmm (130-400); Red Blood Count 3.71 10^6/uL (4.1-5.3); Red Cell Distribution Width 16.7 % (12.1-15.1); White Blood Count 6.5 10^3/uL (4.0-10.0)
[2022-10-08 06:47] LABS: Alanine Aminotransferase 55 U/L (0-33); Albumin Level 2.7 g/dL (3.5-5.2); Alkaline Phosphatase 168 U/L (35-105); Anion Gap 15.6 (5-19); Aspartate Amino Transferase 45 U/L (0-32); Blood Urea Nitrogen 17 mg/dL (8-23); Calcium 8.4 mg/dL (8.5-10.5); Carbon Dioxide 23 mmol/L (22-29); Chloride 98 mmol/L (98-107); Globulin 2.9 g/dL (1.3-4.6); Glucose 94 mg/dL (65-115); Osmolality Calculated 277 mOsm/kg (285-295); Potassium 3.6 mmol/L (3.5-5.1); Sodium 133 mmol/L (136-145); Total Bilirubin 0.5 mg/dL (0.15-1.2); Total Protein 5.6 g/dL (6.6-8.7)
[2022-10-08 06:57] LABS: Absolute Segmented Neutrophil 5.7 10/cmm (1.6-7.1); Band Neutrophils Absolute 0.1 10^3/cmm (0.0-1.2); Eosinophils 0 %; Lymphocytes 5 %; Monocytes Absolute 0.3 10^3/cmm (0.1-0.6); Segmented Neutrophils 88 %; Slide Review Slide Review Perform; Total Cells Counted 100 (0-100)
[2022-10-08 06:58] LABS: Absolute Neutrophil 5.8 10^3/cmm (1.4-6.5); Lymphocytes Absolute 0.3 10^3/cmm (1.2-3.4); Platelet Estimate Normal (Normal)
[2022-10-08 06:59] LABS: Anisocytosis Trace
[2022-10-08] MEDS: acetylcysteine 200 mg/mL SDV 4 mL INHALATION ×4 (08:24→19:38)
[2022-10-08] MEDS: sodium chloride 3.5% neb 4 mL Neb INHALATION ×2 (08:25→19:38)
[2022-10-08] MEDS: ipratropium-albuterol 3 mL Neb INHALATION ×4 (08:25→19:38)
[2022-10-08] MEDS: carvedilol 3.125 mg Tablet PO ×2 (09:22→17:29)
[2022-10-08] MEDS: flecainide 100 mg Tablet 50 MG PO ×2 (09:22→21:31)
[2022-10-08] MEDS: sertraline 50 mg Tablet 25 MG PO (09:22)
[2022-10-08] MEDS: folic acid 1 mg Tablet PO (09:22)
[2022-10-08] MEDS: isosorbide mononitrate ER 60 mg Tablet PO (09:23)
[2022-10-08] MEDS: acetaminophen 325 mg Tablet 650 MG PO ×2 (09:23→17:29)
[2022-10-08] MEDS: guaiFENesin 600 mg Tablet 1200 MG PO ×2 (09:23→17:29)
[2022-10-08] MEDS: pantoprazole DR 40 mg Tablet PO (09:23)
[2022-10-08] MEDS: aspirin 81 mg Chew Tablet PO (09:23)
[2022-10-08] MEDS: doxycycline 100 mg Tablet PO ×2 (09:23→17:29)
[2022-10-08] MEDS: cholecalciferol (vitamin D3) 5,000 unit Tablet 5000 UNIT PO (09:23)
--- NOTE | 2022-10-08 12:21 | P.PN_ITS ---
Subjective Subjective: Patient is on room air Endorsing chest congestion Vitals/I&O/Wt Last Vital Signs Temp 98.3 F 10/08/22 11:15 Pulse 69 10/08/22 12:00 Resp 20 H 10/08/22 12:00 BP 131/68 10/08/22 11:15 Pulse Ox 92 10/08/22 12:00 O2 Del Method Room Air 10/08/22 12:00 O2 Flow Rate 3 10/07/22 08:00 10/07/22 10/08/22 10/08/22 22:59 06:59 14:59 Intake Total 480 / 890 Balance 480 / 890 Physical Exam Urinary Catheter Management: Olivia: Cath Placed During This Visit: yes, but has since been removed by the nurse Reason for Continuing Indwelling Catheter: Decision to DC Catheter Urinary Catheter Date of Insertion: 10/06/22 Urinary Catheter Time of Insertion: 00:56 Date Urinary Catheter Removed: 10/07/22 Time Urinary Catheter Discontinued: 11:30 Data 10/08/22 05:46 10/08/22 05:46 Micro: Microbiology 10/06/22 10:21 MRSA Culture - Final Nose 10/05/22 20:51 Urine Culture - Preliminary Urine,Clean Catch Gram Negative Rods A&P Assessment and plan (1) Oxygen dependent: (2) Pneumonia: (3) Cystitis: (4) Heart failure: (5) Intractable nausea and vomiting: (6) Hip hematoma, left: (7) Atrial fibrillation: Qualifiers: Atrial fibrillation type: unspecified chronic Qualified Code(s): I48.20 - Chronic atrial fibrillation, unspecified Plan Pneumonia secondary to MRSA Continue doxycycline Hypertonic saline and chest vest We have successfully weaned off oxygen to room air Hemoglobin stable, gluteal hematoma resolving A-fib without RVR Continue flecainide Coreg Anticoagulation due to risk of GI bleed due to her history UTI consistent with gram-negative tim Her antibiotics have been de-escalated since 10/07 Full code senior living placement As per PT good potential for rehab Attestations Medical Necessity Statement*: Awaiting placement Diagnoses Oxygen dependent Z99.81 Pneumonia J18.9 Cystitis N30.90 Heart failure I50.9 Intractable nausea and vomiting R11.2 Hip hematoma, left S70.02XA Atrial fibrillation I48.20 Atrial fibrillation type: unspecified chronic
[2022-10-08] MEDS: ondansetron 2 mg/ML SDV 2 mL 4 MG IVP (17:29)
[2022-10-08] MEDS: atorvastatin 40 mg Tablet 20 MG PO (21:31)
[2022-10-09 04:00] VITALS: BP 174/85; PULSE 90; RESP 15; TEMP 37; O2SAT 90
[2022-10-09] MEDS: acetaminophen 325 mg Tablet 650 MG PO (04:11)
[2022-10-09 04:47] LABS: Basophils % 0.2 %; Eosinophils % 0.2 %; Hematocrit 35.6 % (37.0-47.0); Hemoglobin 10.9 g/dL (11.5-15.3); Lymphocytes # 0.6 10^3/uL (0.8-4.8); Lymphocytes % 6.6 %; Mean Corpuscular HGB Conc 30.6 g/dL (30.0-36.0); Mean Corpuscular Hemoglobin 29.1 pg (28.0-34.0); Mean Corpuscular Volume 95.2 fl (81-99); Mean Platelet Volume 9.5 fL (7.4-10.4); Monocytes # 0.5 10^3/uL (0.2-0.9); Monocytes % 6.3 %; Neutrophils # 6.83 10^3/uL (1.8-7.7); Neutrophils % 81.8 %; Nucleated Red Blood Cells % 0 %; Platelet Count 353 10^3/cmm (130-400); Red Blood Count 3.74 10^6/uL (4.1-5.3); Red Cell Distribution Width 16.7 % (12.1-15.1); White Blood Count 8.4 10^3/uL (4.0-10.0)
[2022-10-09 05:16] LABS: Alanine Aminotransferase 41 U/L (0-33); Albumin Level 2.3 g/dL (3.5-5.2); Alkaline Phosphatase 154 U/L (35-105); Aspartate Amino Transferase 26 U/L (0-32); Blood Urea Nitrogen 12 mg/dL (8-23); Calcium 8.2 mg/dL (8.5-10.5); Carbon Dioxide 20 mmol/L (22-29); Chloride 99 mmol/L (98-107); Globulin 3.2 g/dL (1.3-4.6); Glucose 94 mg/dL (65-115); Osmolality Calculated 274 mOsm/kg (285-295); Sodium 132 mmol/L (136-145); Total Bilirubin 0.5 mg/dL (0.15-1.2); Total Protein 5.5 g/dL (6.6-8.7)
[2022-10-09 05:17] LABS: Anion Gap 16.8 (5-19); Potassium 3.8 mmol/L (3.5-5.1)
[2022-10-09 05:23] LABS: Slide Review Slide Review Perform
[2022-10-09 05:59] VITALS: PULSE 80
[2022-10-09] MEDS: sodium chloride 3.5% neb 4 mL Neb INHALATION (07:18)
[2022-10-09] MEDS: ipratropium-albuterol 3 mL Neb INHALATION ×2 (07:18→11:00)
[2022-10-09] MEDS: acetylcysteine 200 mg/mL SDV 4 mL INHALATION ×2 (07:19→11:00)
[2022-10-09 07:24] VITALS: PULSE 78; RESP 16; O2SAT 92
[2022-10-09 07:28] VITALS: BP 152/83; PULSE 83; RESP 16; TEMP 36.6; O2SAT 91
[2022-10-09] MEDS: isosorbide mononitrate ER 60 mg Tablet PO (08:48)
[2022-10-09] MEDS: flecainide 100 mg Tablet 50 MG PO (08:48)
[2022-10-09] MEDS: doxycycline 100 mg Tablet PO (08:48)
[2022-10-09] MEDS: aspirin 81 mg Chew Tablet PO (08:49)
[2022-10-09] MEDS: guaiFENesin 600 mg Tablet 1200 MG PO (08:49)
[2022-10-09] MEDS: carvedilol 3.125 mg Tablet PO (08:49)
[2022-10-09] MEDS: sertraline 50 mg Tablet 25 MG PO (08:49)
[2022-10-09] MEDS: folic acid 1 mg Tablet PO (08:50)
[2022-10-09] MEDS: pantoprazole DR 40 mg Tablet PO (08:50)
[2022-10-09] MEDS: cholecalciferol (vitamin D3) 5,000 unit Tablet 5000 UNIT PO (08:50)
[2022-10-09 10:58] VITALS: PULSE 63; RESP 16; O2SAT 93
[2022-10-09 11:15] VITALS: BP 142/83; PULSE 63; RESP 18; TEMP 36.7; O2SAT 93
[2022-10-09 11:51] LABS: SARS Covid-2 Antigen negative (Negative)
--- NOTE | 2022-10-09 12:18 | PM.DCS ---
Discharge Providers Date of Admission: 10/05/22 21:46 Date of Discharge: October 09, 2022 Attending Provider at Admission: Bethany Martines MD Attending Provider at Discharge: Ruthy Noguera MD Primary Care Provider: Francisco Guzman DO Diagnoses at Discharge Discharge Diagnosis (1) Oxygen dependent: Status: Acute (2) Pneumonia: Status: Acute (3) Cystitis: Status: Acute (4) Heart failure: Status: Acute (5) Intractable nausea and vomiting: Status: Acute (6) Hip hematoma, left: Status: Acute (7) Atrial fibrillation: Status: Acute Qualifiers: Atrial fibrillation type: unspecified chronic Qualified Code(s): I48.20 - Chronic atrial fibrillation, unspecified Reason for Visit Reason for Visit: N/V Hospital Course Hospital Course 87-year female who was at [facility] for her rehab because she was being managed medically for her left tibial fracture, she was recently diagnosed with UTI, since her UTI she has been feeling extremely weak lethargic came to the hospital for worsening of productive cough she was diagnosed with pneumonia, CT scan showed mucous plug, with chest vest therapy, antibiotics and DuoNeb hypertonic saline inhalation her symptoms improved we were able to wean off 3 L of oxygen to room air. Patient remained hemodynamically stable, no leukocytosis. Cultures remain negative. Did peer to peer with her insurance who did not approve her daily physical therapy at the [facility] but they would approve and continue her Friday, Friday, Friday physical therapy. market asset protection manager notified me about co-pay that family is agreeable to bear At this point Urine culture showed Hafnia and staph hemolyticus, sputum culture showed MRSA, she will get ciprofloxacin and doxycycline 5-day regimen Please note she has history of A-fib not a candidate of anticoagulation due to history of GI bleed. Physical Exam Narrative: Currently on room air Hemodynamically stable GCS 15 Nonfocal neuro exam Pleasant and cooperative Urinary Catheter Management: Olivia: Cath Placed During This Visit: yes, but has since been removed by the nurse Reason for Continuing Indwelling Catheter: Decision to DC Catheter Urinary Catheter Date of Insertion: 10/06/22 Urinary Catheter Time of Insertion: 00:56 Date Urinary Catheter Removed: 10/07/22 Time Urinary Catheter Discontinued: 11:30 Discharge Data Studies Completed and Pending Completed Studies During Hospitalization Category Date Time Status CT chest abdpel w/*[id number] Stat Cat Scan 10/05/22 19:35 Completed XR acute abdomen series [id number] Stat Exams 10/05/22 18:20 Completed Pending at discharge Category Date Time Status Blood Culture Routine Lab 10/05/22 23:05 Results Sputum Culture and Gram Stain Stat Lab 10/08/22 08:35 Results Radiology Impressions Chest/Abdomen X-ray 10/05/22 18:20 IMPRESSION: 1. Nonspecific bowel gas pattern. 2. There is some subtle increased density in the lateral right lung base concerning for atelectasis or early pneumonic infiltrate. 3. Unchanged nodular density/mass right lung apex and enlargement of the right hilum. 4. Old proximal right humerus fracture deformity. Chest/Abdomen/Pelvis CT 10/05/22 19:35 IMPRESSION: 1. Scattered areas of ground-glass opacification in the periphery of both lungs. Reticulonodular interstitial thickening in the right and left lower lobes and to a lesser extent the left upper lobe. Mucous plugging with more focal alveolar airspace disease in the left lower lobe. Findings are suspicious for pneumonia, including atypical organisms. Recommend followup chest imaging to insure resolution of these findings. 2. 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 3. Enlarged thyroid lobes with substernal extension, more pronounced on the right. Multiple complex thyroid nodules, the largest in the right lobe measures 1.8 x 2.0 cm (series 3, image 16). Findings are stable compared with 03/27/2019. Follow-up non-emergent thyroid ultrasound is recommended. IMPRESSION: 1. Diffuse, mild wall thickening of the bladder. In the correct clinical setting, this may suggest cystitis. Recommend correlation with laboratory findings. Alternatively, this may be secondary to chronic outlet obstruction. 2. Findings suggestive of pelvic congestion syndrome. Recommend clinical correlation. 3. Findings suggesting a resolving left gluteal subcutaneous hematoma with decreasing subcutaneous contusion. 4. Incidental/nonacute findings are listed in the report. COMMENTS: Consistent with the [employer]'s Incidental Findings Committee white paper (J Am Megan Radiol 2018): Any incidental renal lesion less than 1 cm or classified as too small to characterize, or any incidental cystic renal lesion characterized as simple-appearing, is likely benign. No follow-up imaging is recommended for these lesions per consensus recommendations based on imaging criteria. Laboratory Results WBC 8.4 10^3/uL (4.0-10.0) 10/09/22 04:24 RBC 3.74 10^6/uL (4.1-5.3) L 10/09/22 04:24 Hgb 10.9 g/dL (11.5-15.3) L 10/09/22 04:24 Hct 35.6 % (37.0-47.0) L 10/09/22 04:24 MCV 95.2 fl (81-99) 10/09/22 04:24 MCH 29.1 pg (28.0-34.0) 10/09/22 04:24 MCHC 30.6 g/dL (30.0-36.0) 10/09/22 04:24 RDW 16.7 % (12.1-15.1) H 10/09/22 04:24 Plt Count 353 10^3/cmm (130-400) 10/09/22 04:24 MPV 9.5 fL (7.4-10.4) 10/09/22 04:24 Neut % (Auto) 81.8 % 10/09/22 04:24 Lymph % (Auto) 6.6 % 10/09/22 04:24 [place] % (Auto) 6.3 % 10/09/22 04:24 Eos % (Auto) 0.2 % 10/09/22 04:24 Baso % (Auto) 0.2 % 10/09/22 04:24 Neut # (Auto) 6.83 10^3/uL (1.8-7.7) 10/09/22 04:24 Lymph # (Auto) 0.6 10^3/uL (0.8-4.8) L 10/09/22 04:24 [place] # (Auto) 0.5 10^3/uL (0.2-0.9) 10/09/22 04:24 Eos # (Auto) 0.0 10^3/uL (0.0-0.8) 10/09/22 04:24 Baso # (Auto) 0.0 10^3/uL (0.0-0.1) 10/09/22 04:24 Nucleated RBC % (auto) 0 % 10/09/22 04:24 Total Counted 100 (0-100) 10/08/22 05:46 Atypical Lymphs % 0.0 % (0-5) 10/08/22 05:46 Absolute Neutrophils 5.8 10^3/cmm (1.4-6.5) 10/08/22 05:46 Segmented Neutrophils 88 % 10/08/22 05:46 Abs Segm Neuts (Man) 5.7 10/cmm (1.6-7.1) 10/08/22 05:46 Band Neutrophils 1.0 % 10/08/22 05:46 Abs Band Neuts (Man) 0.1 10^3/cmm (0.0-1.2) 10/08/22 05:46 Absolute Lymphocytes 0.3 10^3/cmm (1.2-3.4) L 10/08/22 05:46 Lymphocytes (Manual) 5 % 10/08/22 05:46 Monocytes (Manual) 5.0 % 10/08/22 05:46 Absolute Monocytes 0.3 10^3/cmm (0.1-0.6) 10/08/22 05:46 Eosinophils (Manual) 0 % 10/08/22 05:46 Absolute Eosinophils 0.0 10^3/cmm (0.0-0.7) 10/08/22 05:46 Basophils (Manual) 0.0 % 10/08/22 05:46 Absolute Basophils 0.0 10^3/cmm (0.0-0.2) 10/08/22 05:46 Metamyelocytes 0.0 % 10/08/22 05:46 Myelocytes 1.0 % 10/08/22 05:46 Promyelocytes 0.0 % 10/08/22 05:46 Nucleated RBCs # 0.0 /100WBC 10/09/22 04:24 Toxic Granulation 2+ H 10/05/22 18:55 Dohle Bodies 2+ H 10/05/22 18:55 Platelet Estimate Normal (Normal) 10/08/22 05:46 Polychromasia Trace 10/05/22 18:55 Hypochromasia Trace 10/05/22 18:55 Poikilocytosis 1+ H 10/05/22 18:55 Anisocytosis Trace 10/08/22 05:46 Macrocytosis 1+ H 10/05/22 18:55 Sodium 132 mmol/L (136-145) L 10/09/22 04:24 Potassium 3.8 mmol/L (3.5-5.1) 10/09/22 04:24 Chloride 99 mmol/L (98-107) 10/09/22 04:24 Carbon Dioxide 20 mmol/L (22-29) L 10/09/22 04:24 Anion Gap 16.8 (5-19) 10/09/22 04:24 BUN 12 mg/dL (8-23) 10/09/22 04:24 Creatinine 0.4 mg/dL (0.5-0.9) L 10/09/22 04:24 GFR Calculation Not Reportable 10/09/22 04:24 Glucose 94 mg/dL (65-115) 10/09/22 04:24 Calculated Osmolality 274 mOsm/kg (285-295) L 10/09/22 04:24 Lactic Acid 1.0 mmol/L (0.5-2.2) 10/05/22 23:10 Calcium 8.2 mg/dL (8.5-10.5) L 10/09/22 04:24 Magnesium 2.1 mg/dL (1.7-2.3) 10/06/22 01:00 Total Bilirubin 0.5 mg/dL (0.15-1.2) 10/09/22 04:24 AST 26 U/L (0-32) 10/09/22 04:24 ALT 41 U/L (0-33) H 10/09/22 04:24 Alkaline Phosphatase 154 U/L (35-105) H 10/09/22 04:24 Troponin T Baseline 14 ng/L (0-10) H 10/05/22 18:55 Troponin T 120 Minute 13.12 ng/L (0-10) H 10/05/22 20:50 Delta Troponin T -0.88 ABS# (0-10) L 10/05/22 20:50 Troponin T Hi Sens 6Hr 11.93 ng/L (0-10) H 10/06/22 01:00 Troponin T Hi Sens 6Hr Delta -2.07 ng/L (0-12) L 10/06/22 01:00 C-Reactive Protein 203.9 mg/L (0.0-4.9) H 10/05/22 18:55 NT-Pro-B Natriuret Pep 2829 pg/mL (0-450) H 10/05/22 18:55 Total Protein 5.5 g/dL (6.6-8.7) L 10/09/22 04:24 Albumin 2.3 g/dL (3.5-5.2) L 10/09/22 04:24 Globulin 3.2 g/dL (1.3-4.6) 10/09/22 04:24 Procalcitonin 0.21 ng/mL (0-0.5) 10/05/22 23:10 TSH 0.50 uIU/mL (0.27-4.20) 10/05/22 23:10 Urine Color Yellow (Yellow) 10/05/22 20:51 Urine Appearance Hazy (CLEAR) A 10/05/22 20:51 Urine pH 5 (5-7) 10/05/22 20:51 Ur Specific [place] 1.010 (1.005-1.030) 10/05/22 20:51 Urine Protein 1+ (Negative) H 10/05/22 20:51 Urine Glucose (UA) Norm (Normal) 10/05/22 20:51 Urine Ketones Negative (Negative) 10/05/22 20:51 Urine Blood 3+ (Negative) H 10/05/22 20:51 Urine Nitrate Positive (Negative) H 10/05/22 20:51 Urine Bilirubin Neg (Negative) 10/05/22 20:51 Urine Urobilinogen 4 mg/dL (Negative) H 10/05/22 20:51 Ur Leukocyte Esterase 1+ (Negative) H 10/05/22 20:51 Urine RBC 5-10 /hpf (0-2) H 10/05/22 20:51 Urine WBC 40-55 /hpf (0-5) H 10/05/22 20:51 Ur Squamous Epith Cells 0-4 /hpf (0-5) H 10/05/22 20:51 Amorphous Sediment Not Reportable 10/05/22 20:51 Urine Bacteria 3+ /hpf (NONE) H 10/05/22 20:51 SARS-CoV-2 Ag (Rapid) negative (Negative) 10/09/22 10:47 Vitals Last Vital Signs Temp 98.0 F 10/09/22 11:15 Pulse 63 10/09/22 11:15 Resp 18 10/09/22 11:15 BP 142/83 10/09/22 11:15 Pulse Ox 93 10/09/22 11:15 O2 Del Method Room Air 10/09/22 11:15 O2 Flow Rate 3 10/07/22 08:00 Discharge Plan Discharge Patient Disposition: Xfer SNF Condition: Stable Prescriptions: New doxycycline monohydrate 100 mg Tablet 100 mg PO BID Qty: 10 0RF dextromethorphan-guaifenesin [Mucosa DM] 20-400 mg tablet 1 tab PO Q8H PRN (Reason: cough) Qty: 20 0RF ciprofloxacin HCl 500 mg tablet 250 mg PO BID Qty: 10 0RF Continued carvedilol 3.125 mg tablet 3.125 mg PO BID nitroglycerin [Nitrostat] 0.4 mg tablet, sublingual 0.4 mg SUBLINGUAL Q5M PRN (Reason: Chest Pain) pantoprazole 40 mg tablet,delayed release (DR/EC) 40 mg PO QAM furosemide 20 mg tablet 20 mg PO QAM Hold Instructions: Resume on 08/05/22. Rx Instructions: order states daily, but mar from long term shows it being given every other day flecainide 50 mg tablet 50 mg PO Q12H folic acid 1 mg tablet 1 mg PO DAILY Qty: 90 3RF isosorbide mononitrate 60 mg tablet extended release 24 hr 60 mg PO DAILY Qty: 90 3RF aspirin 81 mg tablet,chewable 81 mg PO DAILY ondansetron HCl 4 mg tablet 4 mg PO Q6H PRN (Reason: Nausea) acetaminophen [Tylenol] 325 mg tablet 650 mg PO Q4H PRN (Reason: Mild Pain (Scale Score 1-4)) polyethylene glycol 3350 [Miralax] 17 gram/dose powder 17 g PO DAILY hydrocodone-acetaminophen 5-325 mg tablet 1 - 2 tab PO Q4H PRN (Reason: Pain) methotrexate sodium 2.5 mg tablet See Rx Instructions PO .Q7days Qty: 20 3RF Rx Instructions: take 4 tabs once a week on same day. 2 tabs in am and 2 tabs in pm on fridays sertraline 25 mg tablet 25 mg PO DAILY Qty: 90 3RF exemestane 25 mg tablet 25 mg PO DAILY Qty: 30 4RF Rx Instructions: must administer after a meal Fleet Enema 19-7 gram/118 mL Enema 118 ml CA DAILY PRN (Reason: Constipation) cholecalciferol (vitamin D3) [Vitamin D3] 125 mcg (5,000 unit) Tablet 125 mcg PO DAILY lidocaine-prilocaine 2.5-2.5 % Cream 1 applic topical DAILY PRN (Reason: Port/Catheter Care) Qty: 30 2RF Rx Instructions: apply to injection site prior to port access Artificial Tears(glycerin-peg) 1-0.3 % Drops 1 drp OPHTHALMIC (EYE) DAILY PRN (Reason: redness) PreserVision AREDS-2 250-90-40-1 mg Capsule 1 tab PO BID Vyzulta 0.024 % drops 1 drp ophthalmic (eye) BEDTIME Rx Instructions: both eyes Culturelle 10 billion cell Capsule 1 cap PO DAILY albuterol sulfate 2.5 mg /3 mL (0.083 %) Solution For Nebulization 2.5 mg INHALATION Q4H PRN (Reason: Shortness Of Breath) Zofran 4 mg Tablet 4 mg PO DAILY Milk of Magnesia 400 mg/5 mL Suspension 400 mg PO DAILY PRN (Reason: Constipation) pravastatin 20 mg tablet 20 mg PO BEDTIME Changed potassium chloride 20 mEq tablet extended release 20 meq PO DAILY Qty: 60 11RF Discontinued prednisone 10 mg tablet See Rx Instructions PO .COMPLEX PRN (Reason: joint pain) Qty: 30 1RF Rx Instructions: Take 4 tabs po daily for 3-5 days as needed for arthritis flare up Discharge Orders: Discharge Order (Routine); Ordered 10/09/22 Ordered By: Ruthy Noguera Referrals: Francisco Guzman DO [Primary Care Provider] - Discharge Diet: Cardiac Discharge Activity: Limit activity as instructed Patient Instructions: Opioid Safety Discharge Attestations Time Spent in Discharge Care*: greater than 30 min Quality Metrics Clinical Quality Measures [ No reported AMI, CVA or VTE this stay] Coding Level of Care Code Acute Code for Chg Fwd Diagnoses Oxygen dependent Z99.81 Pneumonia J18.9 Cystitis N30.90 Heart failure I50.9 Intractable nausea and vomiting R11.2 Hip hematoma, left S70.02XA Atrial fibrillation I48.20 Atrial fibrillation type: unspecified chronic
== END 2022-10-09 14:50 | disposition skilled nursing facility (03) | DRG 689 ==
LOC: ER 21:46 → MEDSURG 22:09
PROVIDERS: Internal Medicine; Admitting Provider Internal Medicine; Emergency Provider Emergency Medicine; PCP Internal Medicine; Visit Provider Internal Medicine
DX: N30.90 Cystitis, unspecified without hematuria (principal); J15.212 Pneumonia due to Methicillin resistant Staphylococcus aureus; D84.821 Immunodeficiency due to drugs; I48.20 Chronic atrial fibrillation, unspecified; S42.294 Other nondisplaced fracture of upper end of right humerus; Z87.440 Personal history of urinary (tract) infections; Z79.82 Long term (current) use of aspirin; Z79.891 Long term (current) use of opiate analgesic; Z79.811 Long term (current) use of aromatase inhibitors; Z79.51 Long term (current) use of inhaled steroids; E78.2 Mixed hyperlipidemia; M10.9 Gout, unspecified; E03.9 Hypothyroidism, unspecified; M81.0 Age-related osteoporosis without current pathological fracture; E55.9 Vitamin D deficiency, unspecified; C50.411 Malignant neoplasm of upper-outer quadrant of right female breast; M17.0 Bilateral primary osteoarthritis of knee; L89.222 Pressure ulcer of left hip, stage 2; Z75.1 Person awaiting admission to adequate facility elsewhere; W19.XXXD Unspecified fall, subsequent encounter
CPT/HCPCS: 36415; 51702; 71260; 74022; 74177; 80053; 81001; 83605; 83735; 83880; 84145; 84443; 84484; 85007; 85025; 86140; 86403; 87040; 87070; 87077; 87086; 87186; 87205; 87426; 87449; 87641; 93005; 94640; 94669; 96365; 96375; 97110; 97162; 97165; 97530; 99285; J0456; J0696; J1100; J2405; J2543; J3370; J7030; J7050; J7608; Q9967; S0156

== ENCOUNTER → 2022-10-16 13:46 | Outpatient (BNVA) | payer MEDICARE, SELFPAY | PROVIDERS: PCP Internal Medicine; Visit Provider Orthopaedic Surgery | DX: S82.145D Nondisplaced bicondylar fracture of left tibia, subsequent encounter for closed fracture with routine healing (principal); X58.XXXD Exposure to other specified factors, subsequent encounter | CPT/HCPCS: 73560; 99212 ==

== ENCOUNTER → 2022-11-13 12:59 | Outpatient (BNVA) | payer MEDICARE, SELFPAY | PROVIDERS: PCP Family Medicine; Visit Provider Orthopaedic Surgery | DX: S82.145D Nondisplaced bicondylar fracture of left tibia, subsequent encounter for closed fracture with routine healing (principal); X58.XXXD Exposure to other specified factors, subsequent encounter | CPT/HCPCS: 73560; 99212 ==

== ENCOUNTER → 2022-12-03 09:20 | Outpatient (BNVA) | payer MEDICARE, SELFPAY | PROVIDERS: PCP Family Medicine; Visit Provider Internal Medicine Rheumatology | DX: M12.80 Other specific arthropathies, not elsewhere classified, unspecified site (principal); Z79.899 Other long term (current) drug therapy; Z71.89 Other specified counseling; Z86.19 Personal history of other infectious and parasitic diseases; M80.062 Age-related osteoporosis with current pathological fracture, left lower leg; X58.XXXD Exposure to other specified factors, subsequent encounter | CPT/HCPCS: 36415; 80076; 82565; 85025; 86140; 99214 ==

== ENCOUNTER 2022-12-13 12:49 | Outpatient (CLI) | payer MEDICARE, SELFPAY ==
--- NOTE | 2022-12-13 12:45 | USCV_ITS ---
JaimeAlyson Age: 87 Gender: F : 1935 Exam Date: 12/13/2022 13:15 Ordering Phys: Daniel Frazier MD Technologist: Exam Location: [facility] [place]_ Indication: lt leg edma PROCEDURES: Venous duplex imaging was performed in only the left lower extremity. The following venous structures were evaluated: common femoral vein, profunda vein, proximal portion of the greater saphenous vein, superficial femoral vein, and the popliteal vein. In addition, the posterior tibial and peroneal trunk were evaluated. FINDINGS: Normal 2-D Doppler and augmentation and compressibility throughout the lower extremity venous structures. Additional imaging through the proximal calf veins also reveals no thrombus. Limited evaluation of the greater saphenous vein is patent with no thrombus. CONCLUSIONS No DVT left lower extremity. Dr. Vanita Redd DO (Electronically Signed) Final Date: 13 December 2022 13:48 S
== END 2022-12-13 12:50 | disposition home or self-care (01) ==
PROVIDERS: PCP Family Medicine; Visit Provider Internal Medicine Rheumatology
DX: I82.402 Acute embolism and thrombosis of unspecified deep veins of left lower extremity (principal)
CPT/HCPCS: 93971

== ENCOUNTER 2022-12-17 13:45 | Oncology outpatient (recurring) (ONCR) | payer MEDICARE, SELFPAY ==
[2022-12-17 14:23] VITALS: BP 136/74; PULSE 89; RESP 18; TEMP 37; O2SAT 96
[2022-12-17] MEDS: alteplase 1 mg/mL SDV 2 mL 2 MG INTRACATH (14:45)
== END 2022-12-23 23:59 | disposition home or self-care (01) ==
LOC: ONCMED 13:45
PROVIDERS: PCP Family Medicine; Visit Provider Internal Medicine Medical Oncology
DX: Z45.2 Encounter for adjustment and management of vascular access device (principal)
CPT/HCPCS: 96523; J2997

== ENCOUNTER → 2022-12-25 13:01 | Outpatient (BNVA) | payer MEDICARE, SELFPAY | PROVIDERS: PCP Family Medicine; Visit Provider Nurse Practitioner Family | DX: S82.142D Displaced bicondylar fracture of left tibia, subsequent encounter for closed fracture with routine healing; X58.XXXD Exposure to other specified factors, subsequent encounter | CPT/HCPCS: 73560; 73565; 99214 ==

== ENCOUNTER 2023-01-22 13:25 | Oncology outpatient (recurring) (ONCR) | payer MEDICARE, SELFPAY ==
[2023-01-22 13:33] VITALS: BP 111/65; PULSE 77; RESP 16; TEMP 37; O2SAT 98
== END 2023-01-23 23:59 | disposition home or self-care (01) ==
PROVIDERS: PCP Family Medicine; Visit Provider Internal Medicine Medical Oncology
DX: Z45.2 Encounter for adjustment and management of vascular access device (principal)
CPT/HCPCS: 96523; J1642

== ENCOUNTER 2023-02-20 13:18 | Oncology outpatient (recurring) (ONCR) | payer MEDICARE, SELFPAY ==
[2023-02-20 13:30] VITALS: BP 123/74; PULSE 66; RESP 16; TEMP 37; O2SAT 97
== END 2023-02-22 23:59 | disposition home or self-care (01) ==
LOC: ONCMED 13:19
PROVIDERS: PCP Family Medicine; Visit Provider Internal Medicine Medical Oncology
DX: Z45.2 Encounter for adjustment and management of vascular access device (principal)
CPT/HCPCS: 96523; J1642

== ENCOUNTER → 2023-03-11 13:55 | Outpatient (BNVA) | payer MEDICARE, SELFPAY | PROVIDERS: PCP Family Medicine; Visit Provider Internal Medicine Cardiovascular Disease | DX: I48.0 Paroxysmal atrial fibrillation (principal); E78.5 Hyperlipidemia, unspecified; I11.0 Hypertensive heart disease with heart failure; I50.30 Unspecified diastolic (congestive) heart failure | CPT/HCPCS: 99214 ==

== ENCOUNTER 2023-03-24 13:45 | Oncology outpatient (recurring) (ONCR) | payer MEDICARE, SELFPAY ==
[2023-03-24 16:08] LABS: Basophils # 0.1 10^3/uL (0.0-0.1); Basophils % 1.2 %; Eosinophils # 0.2 10^3/uL (0.0-0.8); Eosinophils % 5.6 %; Hematocrit 36.5 % (36-47); Lymphocytes # 0.8 10^3/uL (0.8-4.8); Lymphocytes % 19.4 %; Mean Corpuscular HGB Conc 32.1 g/dL (30-55); Mean Corpuscular Hemoglobin 30.5 pg (27-33); Mean Corpuscular Volume 95.1 fl (85-98); Mean Platelet Volume 9.5 fL (7.4-10.4); Monocytes # 0.4 10^3/uL (0.2-0.9); Monocytes % 9.6 %; Neutrophils # 2.61 10^3/uL (1.8-7.7); Nucleated Red Blood Cells % 0 %; Platelet Count 147 10^3/cmm (157-399); Red Blood Count 3.84 10^6/uL (3.85-5.65); Red Cell Distribution Width 15.9 % (12.1-15.1); White Blood Count 4.08 10^3/uL (3.29-11.43)
[2023-03-24 16:42] LABS: Alanine Aminotransferase 7 U/L (0-33); Alkaline Phosphatase 114 U/L (35-105); Anion Gap 13.2 (5-19); Aspartate Amino Transferase 14 U/L (0-32); Blood Urea Nitrogen 16 mg/dL (8-23); Carbon Dioxide 27 mmol/L (22-29); Chloride 105 mmol/L (98-107); Globulin 2.7 g/dL (1.3-4.6); Glucose 104 mg/dL (65-115); Osmolality Calculated 293 mOsm/kg (285-295); Potassium 4.2 mmol/L (3.5-5.1); Sodium 141 mmol/L (136-145); Total Protein 6.7 g/dL (6.6-8.7)
== END 2023-03-25 23:59 | disposition home or self-care (01) ==
PROVIDERS: Nurse Practitioner Family; PCP Family Medicine; Visit Provider Internal Medicine Medical Oncology
DX: Z45.2 Encounter for adjustment and management of vascular access device (principal); C50.411 Malignant neoplasm of upper-outer quadrant of right female breast; Z17.0 Estrogen receptor positive status [ER+]; Z95.828 Presence of other vascular implants and grafts; Z79.899 Other long term (current) drug therapy
CPT/HCPCS: 36591; 80053; 85025; 99214; J1642

== ENCOUNTER → 2023-04-01 10:11 | Outpatient (BNVA) | payer MEDICARE, SELFPAY | PROVIDERS: PCP Family Medicine; Visit Provider Internal Medicine Rheumatology | DX: Z79.899 Other long term (current) drug therapy; M19.90 Unspecified osteoarthritis, unspecified site; Z71.89 Other specified counseling | CPT/HCPCS: 99214 ==

== ENCOUNTER 2023-04-16 10:24 | Outpatient (CLI) | payer MEDICARE, SELFPAY ==
--- NOTE | 2023-04-16 10:30 | MM_ITS ---
WS: [id number] DIAGNOSTIC BILATERAL DIGITAL BREAST TOMOSYNTHESIS MAMMOGRAPHY WITH CAD HISTORY: right breast cancer COMPARISON: 02/18/2022, 08/20/2018 TECHNIQUE: Bilateral craniocaudad, mediolateral oblique, and mediolateral views are submitted with to mosbeatriz and SM. Computer aided detection utilized. Breast composition: There are scattered areas of fibroglandular density. Volume loss and posttreatmen t changes RIGHT breast. Diffuse skin thickening and increased trabecular pattern. No recurrent mass. Benign calcification in the medial breast. Partially obscured mass present within the inferior later al LEFT breast was not present on prior studies. This needs additional evaluation. IMPRESSION: MM/[place] [id number] BI-RADS: 0-Incomplete: Need additional imaging evaluation FOLLOW UP: Need Additional Imaging LEFT breast: Spot compression views (CC and MLO). True ML. Ultrasound to follow if abnormality persists.
== END 2023-04-16 10:25 | disposition home or self-care (01) ==
LOC: RAD 10:24
PROVIDERS: PCP Family Medicine; Visit Provider Nurse Practitioner Family
DX: C50.911 Malignant neoplasm of unspecified site of right female breast (principal); R92.8 Other abnormal and inconclusive findings on diagnostic imaging of breast
CPT/HCPCS: 77062; G0279

== ENCOUNTER 2023-04-23 14:16 | Oncology outpatient (recurring) (ONCR) | payer MEDICARE, SELFPAY ==
[2023-04-23 14:30] VITALS: BP 113/60; PULSE 62; RESP 16; TEMP 36.6; O2SAT 95
== END 2023-04-24 23:59 | disposition home or self-care (01) ==
LOC: ONCMED 14:17
PROVIDERS: PCP Family Medicine; Visit Provider Internal Medicine Medical Oncology
DX: Z45.2 Encounter for adjustment and management of vascular access device (principal)
CPT/HCPCS: 96523; J1642

== ENCOUNTER 2023-05-13 08:24 | Outpatient (CLI) | payer MEDICARE, SELFPAY ==
--- NOTE | 2023-05-13 08:51 | MM_ITS ---
WS: [email or web address] ADDITIONAL VIEWS LEFT MAMMOGRAM with tomosynthesis. LEFT BREAST ULTRASOUND HISTORY: ABNORMAL MAMMO COMPARISON: 04/16/2023 LEFT MAMMOGRAM: Spot compression views and true ML with tomosynthesis and sympathetic mammography. Indeterminate for possible mass in the fibroglandular density of the lateral LEFT breast near 3-4 o'c lock. No calcifications. Ultrasound to follow. LEFT BREAST ULTRASOUND 2-D and color Doppler imaging submitted. No mass identified in the lateral LEFT breast. There is dense fibroglandular tissue which corresponds to the mammographic abnormality. IMPRESSION: MM/[place] [id number] BI-RADS: 2-Benign FOLLOW UP: 1 Year Follow-up
--- NOTE | 2023-05-13 08:56 | US_ITS ---
WS: [email or web address] ADDITIONAL VIEWS LEFT MAMMOGRAM with tomosynthesis. LEFT BREAST ULTRASOUND HISTORY: ABNORMAL MAMMO COMPARISON: 04/16/2023 LEFT MAMMOGRAM: Spot compression views and true ML with tomosynthesis and sympathetic mammography. Indeterminate for possible mass in the fibroglandular density of the lateral LEFT breast near 3-4 o'c lock. No calcifications. Ultrasound to follow. LEFT BREAST ULTRASOUND 2-D and color Doppler imaging submitted. No mass identified in the lateral LEFT breast. There is dense fibroglandular tissue which corresponds to the mammographic abnormality. IMPRESSION: US/US breast LT limited* [id number] BI-RADS: 2-Benign FOLLOW UP: 1 Year Follow-up
== END 2023-05-13 08:25 | disposition home or self-care (01) ==
LOC: RAD 08:24
PROVIDERS: PCP Family Medicine; Visit Provider Family Medicine
DX: R92.8 Other abnormal and inconclusive findings on diagnostic imaging of breast (principal)
CPT/HCPCS: 76642; 77061; G0279

== ENCOUNTER 2023-05-21 14:17 | Oncology outpatient (recurring) (ONCR) | payer MEDICARE, SELFPAY ==
[2023-05-21 14:32] VITALS: BP 132/71; PULSE 83; RESP 16; TEMP 37; O2SAT 98
== END 2023-05-25 23:59 | disposition home or self-care (01) ==
LOC: ONCMED 14:17
PROVIDERS: PCP Family Medicine; Visit Provider Internal Medicine Medical Oncology
DX: Z45.2 Encounter for adjustment and management of vascular access device (principal)
CPT/HCPCS: J1642

== ENCOUNTER 2023-06-25 14:25 | Oncology outpatient (recurring) (ONCR) | payer MEDICARE, SELFPAY | END 2023-06-25 23:59 | disposition home or self-care (01) | LOC: ONCMED 14:26 | PROVIDERS: PCP Family Medicine; Visit Provider Internal Medicine Medical Oncology | DX: Z45.2 Encounter for adjustment and management of vascular access device (principal) | CPT/HCPCS: 96523 ==

== ENCOUNTER 2023-07-23 14:18 | Oncology outpatient (recurring) (ONCR) | payer MEDICARE, SELFPAY | END 2023-07-24 23:59 | disposition home or self-care (01) | LOC: ONCMED 14:19 | PROVIDERS: PCP Family Medicine; Visit Provider Internal Medicine Medical Oncology | DX: Z45.2 Encounter for adjustment and management of vascular access device (principal) | CPT/HCPCS: 96523; J1642 ==

== ENCOUNTER → 2023-07-29 09:59 | Outpatient (BNVA) | payer MEDICARE, SELFPAY | PROVIDERS: PCP Family Medicine; Visit Provider Internal Medicine Rheumatology | DX: Z79.899 Other long term (current) drug therapy; Z71.89 Other specified counseling; M12.80 Other specific arthropathies, not elsewhere classified, unspecified site | CPT/HCPCS: 99214 ==

== ENCOUNTER 2023-08-20 14:20 | Oncology outpatient (recurring) (ONCR) | payer MEDICARE, SELFPAY | END 2023-08-24 23:59 | disposition home or self-care (01) | PROVIDERS: PCP Family Medicine; Visit Provider Internal Medicine Medical Oncology | DX: Z45.2 Encounter for adjustment and management of vascular access device (principal) | CPT/HCPCS: 96523; J1642 ==

== ENCOUNTER 2023-09-17 12:49 | Oncology outpatient (recurring) (ONCR) | payer MEDICARE, SELFPAY ==
[2023-09-17 13:07] LABS: Basophils # 0.1 10^3/uL (0.0-0.1); Eosinophils # 0.1 10^3/uL (0.0-0.8); Eosinophils % 2.6 %; Lymphocytes # 0.8 10^3/uL (0.8-4.8); Lymphocytes % 16.4 %; Mean Corpuscular HGB Conc 31.8 g/dL (30-55); Mean Corpuscular Hemoglobin 30.3 pg (27-33); Mean Corpuscular Volume 95.4 fl (85-98); Mean Platelet Volume 9.1 fL (7.4-10.4); Monocytes # 0.5 10^3/uL (0.2-0.9); Monocytes % 9.1 %; Neutrophils % 70.7 %; Nucleated Red Blood Cells % 0 %; Platelet Count 156 10^3/cmm (157-399); Red Blood Count 4.09 10^6/uL (3.85-5.65); Red Cell Distribution Width 15.7 % (12.1-15.1); White Blood Count 4.95 10^3/uL (3.29-11.43)
[2023-09-17 13:30] LABS: Alanine Aminotransferase 7 U/L (0-33); Albumin Level 4.1 g/dL (3.5-5.2); Alkaline Phosphatase 112 U/L (35-105); Anion Gap 14.2 (5-19); Aspartate Amino Transferase 13 U/L (0-32); Blood Urea Nitrogen 18 mg/dL (8-23); Carbon Dioxide 26 mmol/L (22-29); Chloride 106 mmol/L (98-107); Glucose 105 mg/dL (65-115); Osmolality Calculated 296 mOsm/kg (285-295); Potassium 4.2 mmol/L (3.5-5.1); Sodium 142 mmol/L (136-145); Total Bilirubin 0.9 mg/dL (0.15-1.2); Total Protein 7.1 g/dL (6.6-8.7)
== END 2023-09-23 23:59 | disposition home or self-care (01) ==
PROVIDERS: Nurse Practitioner Family; PCP Family Medicine; Visit Provider Internal Medicine Medical Oncology
DX: C50.411 Malignant neoplasm of upper-outer quadrant of right female breast; Z17.0 Estrogen receptor positive status [ER+]; Z95.828 Presence of other vascular implants and grafts
CPT/HCPCS: 36591; 80053; 85025; 99214

== ENCOUNTER → 2023-10-06 15:11 | Outpatient (BNVA) | payer MEDICARE, SELFPAY | PROVIDERS: PCP Family Medicine; Visit Provider Internal Medicine Cardiovascular Disease | DX: I11.0 Hypertensive heart disease with heart failure (principal); I50.32 Chronic diastolic (congestive) heart failure; I48.0 Paroxysmal atrial fibrillation; E78.5 Hyperlipidemia, unspecified | CPT/HCPCS: 99214 ==

== ENCOUNTER 2023-10-07 09:44 | Oncology outpatient (recurring) (ONCR) | payer MEDICARE, SELFPAY | END 2023-10-24 23:59 | disposition home or self-care (01) | PROVIDERS: PCP Family Medicine; Visit Provider Internal Medicine Medical Oncology | DX: Z45.2 Encounter for adjustment and management of vascular access device (principal) ==

== ENCOUNTER 2023-11-04 10:15 | Oncology outpatient (recurring) (ONCR) | payer MEDICARE, SELFPAY ==
--- NOTE | 2023-10-27 10:00 | MM_ITS ---
WS: [email or web address] ADDITIONAL VIEWS RIGHT MAMMOGRAM WITH DIGITAL BREAST TOMOSYNTHESIS. RIGHT BREAST ULTRASOUND HISTORY: right breast pain COMPARISON: 04/16/2023, 02/18/2022, 08/20/2018 RIGHT MAMMOGRAM: Spot compression views and true ML with digital breast tomosynthesis and SM. This study is significantly compromised by motion. Patient was unable to remain still for this examin ation. Moderate fibroglandular densities. No obvious change since the prior study. There is no distor tion but there is significant motion artifact. There is skin thickening from prior treatment. RIGHT BREAST ULTRASOUND 2-D and color Doppler imaging submitted. Ultrasound RIGHT breast limited to the area of pain at 12:00. There is no abnormality identified. MM/[place] [id number] IMPRESSION: BI-RADS: 2-Benign FOLLOW UP: 1 Year Follow-up
--- NOTE | 2023-10-27 10:45 | US_ITS ---
WS: [email or web address] ADDITIONAL VIEWS RIGHT MAMMOGRAM WITH DIGITAL BREAST TOMOSYNTHESIS. RIGHT BREAST ULTRASOUND HISTORY: right breast pain COMPARISON: 04/16/2023, 02/18/2022, 08/20/2018 RIGHT MAMMOGRAM: Spot compression views and true ML with digital breast tomosynthesis and SM. This study is significantly compromised by motion. Patient was unable to remain still for this examin ation. Moderate fibroglandular densities. No obvious change since the prior study. There is no distor tion but there is significant motion artifact. There is skin thickening from prior treatment. RIGHT BREAST ULTRASOUND 2-D and color Doppler imaging submitted. Ultrasound RIGHT breast limited to the area of pain at 12:00. There is no abnormality identified. US/US breast RT limited* [id number] IMPRESSION: BI-RADS: 2-Benign FOLLOW UP: 1 Year Follow-up
== END 2023-11-23 23:59 | disposition home or self-care (01) ==
PROVIDERS: PCP Family Medicine; Visit Provider Nurse Practitioner Family
DX: Z53.9 Procedure and treatment not carried out, unspecified reason (principal); Z45.2 Encounter for adjustment and management of vascular access device
CPT/HCPCS: 76642; 77061; G0279

== ENCOUNTER 2023-12-09 09:43 | Oncology outpatient (recurring) (ONCR) | payer MEDICARE, SELFPAY | END 2023-12-24 23:59 | disposition home or self-care (01) | LOC: ONCMED 09:43 | PROVIDERS: PCP Family Medicine; Visit Provider Nurse Practitioner Family | DX: Z45.2 Encounter for adjustment and management of vascular access device | CPT/HCPCS: 96523 ==

== ENCOUNTER → 2023-12-31 10:46 | Outpatient (BNVA) | payer MEDICARE, SELFPAY | PROVIDERS: PCP Family Medicine; Visit Provider Internal Medicine Rheumatology | DX: M12.80 Other specific arthropathies, not elsewhere classified, unspecified site (principal); Z79.899 Other long term (current) drug therapy; Z71.85 Encounter for immunization safety counseling; M80.00XK Age-related osteoporosis with current pathological fracture, unspecified site, subsequent encounter for fracture with nonunion; C50.911 Malignant neoplasm of unspecified site of right female breast; Z17.0 Estrogen receptor positive status [ER+] | CPT/HCPCS: 99214 ==

== ENCOUNTER 2024-01-06 09:51 | Oncology outpatient (recurring) (ONCR) | payer MEDICARE, SELFPAY | END 2024-01-24 23:55 | disposition home or self-care (01) | LOC: ONCMED 09:51 | PROVIDERS: PCP Family Medicine; Visit Provider Nurse Practitioner Family | DX: Z45.2 Encounter for adjustment and management of vascular access device (principal) ==

== ENCOUNTER 2024-02-03 09:45 | Oncology outpatient (recurring) (ONCR) | payer MEDICARE, SELFPAY | END 2024-02-23 23:59 | disposition home or self-care (01) | LOC: ONCMED 09:45 | PROVIDERS: PCP Family Medicine; Visit Provider Nurse Practitioner Family | DX: Z45.2 Encounter for adjustment and management of vascular access device (principal) | CPT/HCPCS: 96523 ==

== ENCOUNTER 2024-03-02 09:29 | Oncology outpatient (recurring) (ONCR) | payer MEDICARE, SELFPAY | END 2024-03-25 23:59 | disposition home or self-care (01) | PROVIDERS: PCP Family Medicine; Visit Provider Nurse Practitioner Family | DX: Z45.2 Encounter for adjustment and management of vascular access device (principal) | CPT/HCPCS: 96523 ==

== ENCOUNTER 2024-03-30 13:39 | Oncology outpatient (recurring) (ONCR) | payer MEDICARE, SELFPAY ==
[2024-03-30 14:12] LABS: Basophils # 0.1 10^3/uL (0.0-0.1); Basophils % 0.8 %; Eosinophils # 0.2 10^3/uL (0.0-0.8); Eosinophils % 2.5 %; Hematocrit 38.2 % (36-47); Lymphocytes # 0.8 10^3/uL (0.8-4.8); Lymphocytes % 13.7 %; Mean Corpuscular HGB Conc 31.4 g/dL (30-55); Mean Corpuscular Hemoglobin 30.2 pg (27-33); Mean Platelet Volume 9.2 fL (7.4-10.4); Monocytes # 0.5 10^3/uL (0.2-0.9); Monocytes % 8.4 %; Neutrophils # 4.43 10^3/uL (1.8-7.7); Neutrophils % 74.3 %; Nucleated Red Blood Cells % 0 %; Platelet Count 145 10^3/cmm (157-399); Red Blood Count 3.98 10^6/uL (3.85-5.65); Red Cell Distribution Width 15.1 % (12.1-15.1); White Blood Count 5.97 10^3/uL (3.29-11.43)
[2024-03-30 14:15] LABS: Erythrocyte Sedimentation Rate 13 mm/hr (0-15)
[2024-03-30 14:29] LABS: Alanine Aminotransferase 8 U/L (0-33); Alkaline Phosphatase 116 U/L (35-105); Aspartate Amino Transferase 12 U/L (0-32); C Reactive Protein 3.5 mg/L (0.0-4.9); Creatinine Clr Calc Pharmacy 50.2723; Total Bilirubin 0.6 mg/dL (0.15-1.2)
== END 2024-04-24 23:59 | disposition home or self-care (01) ==
PROVIDERS: Internal Medicine Rheumatology; PCP Family Medicine; Visit Provider Nurse Practitioner Family
DX: Z45.2 Encounter for adjustment and management of vascular access device (principal); C50.411 Malignant neoplasm of upper-outer quadrant of right female breast; M12.80 Other specific arthropathies, not elsewhere classified, unspecified site; Z79.899 Other long term (current) drug therapy
CPT/HCPCS: 36591; 80076; 82565; 85025; 85651; 86140; 99214

== ENCOUNTER → 2024-04-15 11:40 | Outpatient (BNVA) | payer MEDICARE, SELFPAY | PROVIDERS: PCP Family Medicine; Visit Provider Internal Medicine Cardiovascular Disease | DX: I48.0 Paroxysmal atrial fibrillation (principal); I11.0 Hypertensive heart disease with heart failure; I50.32 Chronic diastolic (congestive) heart failure; E78.5 Hyperlipidemia, unspecified | CPT/HCPCS: 99214 ==

== ENCOUNTER 2024-04-26 10:13 | Oncology outpatient (recurring) (ONCR) | payer MEDICARE, SELFPAY | END 2024-05-25 23:59 | disposition home or self-care (01) | PROVIDERS: PCP Family Medicine; Visit Provider Nurse Practitioner Family | DX: Z45.2 Encounter for adjustment and management of vascular access device (principal) ==

== ENCOUNTER 2024-06-01 09:43 | Oncology outpatient (recurring) (ONCR) | payer MEDICARE, SELFPAY | END 2024-06-25 23:59 | disposition home or self-care (01) | LOC: ONCMED 09:43 | PROVIDERS: PCP Family Medicine; Visit Provider Nurse Practitioner Family | DX: Z45.2 Encounter for adjustment and management of vascular access device (principal) | CPT/HCPCS: 96523 ==

== ENCOUNTER 2024-06-29 09:50 | Oncology outpatient (recurring) (ONCR) | payer MEDICARE, SELFPAY | END 2024-07-23 23:59 | disposition home or self-care (01) | PROVIDERS: PCP Family Medicine; Visit Provider Nurse Practitioner Family | DX: Z45.2 Encounter for adjustment and management of vascular access device (principal) | CPT/HCPCS: 96523 ==

== ENCOUNTER → 2024-06-30 10:45 | Outpatient (BNVA) | payer MEDICARE, SELFPAY | PROVIDERS: PCP Family Medicine; Visit Provider Internal Medicine Rheumatology | DX: M12.80 Other specific arthropathies, not elsewhere classified, unspecified site (principal); Z79.899 Other long term (current) drug therapy; Z71.89 Other specified counseling; M80.021 Age-related osteoporosis with current pathological fracture, right humerus | CPT/HCPCS: 99214 ==

== ENCOUNTER 2024-07-10 12:30 | Emergency (ER) | payer MEDICARE, SELFPAY ==
--- NOTE | 2024-07-10 12:31 | XRR_ITS ---
PROCEDURE INFORMATION: Exam: XR Right Shoulder Exam date and time: 07/10/2024 12:37 PM Age: 89 years old Clinical indication: Pain; Shoulder; Right; H/o of RT humeral FX; Additional info: Shoulder pain TECHNIQUE: Imaging protocol: Radiologic exam of the right shoulder. Views: 2 or more views. COMPARISON: CR XR shoulder RT min 2V* [id number] 07/22/2019 1:25 PM FINDINGS: Bones/joints: Chronic displaced proximal humeral fracture. There is to be chronic osteolysis/resorption of the humeral head/neck and proximal shaft, which may represent atrophic nonunion. The acromioclavicular articulation is grossly intact. Soft tissues: No gross soft tissue abnormality. XR/XR shoulder RT min 2V* [id number] IMPRESSION: 1. 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
[2024-07-10 12:32] VITALS: BP 160/95; PULSE 78; RESP 16; TEMP 36.6; O2SAT 94; BMI 23.3
--- NOTE | 2024-07-10 12:46 | W.ED.EXTPRO ---
HPI - Extremity Problem General: Chief complaint: Extremity Problem,Nontraumatic Stated complaint: right shoulder pain Time Seen by Provider: 07/10/24 12:31 Source: patient and EMS Mode of arrival: EMS Limitations: no limitations History of Present Illness: 89-year-old female states that she had fractured her right proximal humerus 2 years ago with the fall. She states they were unable to do surgery due to her osteopenia. He states that she started having pain again for 5 days ago and that right shoulder denies any known new injuries. States she been taking pain medicines at assisted living but is continue to have pain she rates a 6 out of 10. She denies any chest pain Associated symptoms: Deny chest pain, fever(s) or rash Related Data Home Medications ?Medication ?Instructions ?Recorded ?Confirmed furosemide 20 mg tablet 20 mg PO QAM 05/31/19 06/30/24 cholecalciferol (vitamin D3) 125 125 mcg PO DAILY 12/11/19 06/30/24 mcg (5,000 unit) tablet (Vitamin D3) sodium phosphates 19 gram-7 118 ml NM DAILY PRN Constipation 12/11/19 06/30/24 gram/118 mL enema (Fleet Enema) flecainide 50 mg tablet 50 mg PO Q12H 04/23/22 06/30/24 Lactobacillus rhamnosus GG 10 1 cap PO DAILY 07/30/22 06/30/24 billion cell capsule (Culturelle) propylene glycol 1 %-glycerin 0.3 1 drp ophthalmic (eye) DAILY PRN 07/30/22 06/30/24 % eye drops (Artificial Tears redness (glycerin-peg)) vit C 250 mg-vit E 90 mg-zinc 40 1 tab PO BID 07/30/22 06/30/24 mg-copper 1 [id number] capsule (PreserVision AREDS-2) acetaminophen 325 mg tablet 650 mg PO Q4H PRN Mild Pain (Scale 09/17/22 06/30/24 (Tylenol) Score 1-4) aspirin 81 mg chewable tablet 81 mg PO DAILY 09/17/22 06/30/24 polyethylene glycol 3350 17 17 g PO DAILY 09/17/22 06/30/24 gram/dose oral powder (Miralax) magnesium hydroxide 400 mg/5 mL 400 mg PO DAILY PRN Constipation 10/06/22 06/30/24 oral suspension (Milk of Ange) ondansetron HCl 4 mg tablet 4 mg PO DAILY 10/06/22 06/30/24 prednisone 10 mg tablet 10 mg PO DIRECTED 03/11/23 06/30/24 carvedilol 3.125 mg tablet mg PO 03/30/24 06/30/24 latanoprost 0.005 % eye drops drp ophthalmic (eye) 03/30/24 06/30/24 pravastatin 20 mg tablet mg PO 03/30/24 06/30/24 Previous Rx's ?Medication ?Instructions ?Recorded isosorbide mononitrate 60 mg 60 mg PO DAILY #90 tabs 04/23/22 tablet,extended release 24 hr exemestane 25 mg tablet 25 mg PO DAILY #30 tabs 07/19/22 potassium chloride 20 mEq 20 meq PO DAILY #60 tabs 10/09/22 tablet,extended release nitroglycerin 0.4 mg sublingual 0.4 mg sublingual Q5M PRN Chest 10/06/23 tablet (Nitrostat) Pain #30 tabs diclofenac sodium 1 % topical gel See Rx Instructions .Route 12/31/23 .COMPLEX #200 grams lidocaine 5 % topical patch 1 patch topical DAILY #30 ea 01/13/24 (Lidoderm) lidocaine-prilocaine 2.5 %-2.5 % 1 applic topical DAILY PRN 03/02/24 topical cream Port/Catheter Care #30 grams hydrocodone 5 mg-acetaminophen 325 1 tab PO QID Pain 1 month #120 tabs 06/22/24 mg tablet folic acid 1 mg tablet 1 mg PO DAILY #90 tabs 06/30/24 methotrexate sodium 2.5 mg tablet See Rx Instructions PO .Q7days #60 06/30/24 tabs Allergies Allergy/AdvReac Type Severity Reaction Status Date / Time No Known Allergies Allergy Verified 06/30/24 11:01 Review of Systems Const: Denies: fever(s), chills, body aches or change in appetite ENMT: Denies: throat pain or dental pain Card: Denies: chest pain Resp: Denies: dyspnea GI: Denies: abdominal pain, nausea, vomiting or diarrhea Musc: Reports: extremity pain; Denies: neck pain or back pain Skin/Breast: Denies: rash Neuro: Denies: headache(s) PFSH ED PFSH: Medical History Oxygen dependent Intractable nausea and vomiting Heart failure Cystitis Pneumonia Lumbar transverse process fracture Hip hematoma, left Closed fracture of tibial plateau History of peptic ulcer disease History of Clostridioides difficile infection Age-related osteoporosis without current pathological fracture (~12/10/17) Secondary and unspecified malignant neoplasm of axilla and upper limb lymph nodes (~05/30/18) Malignant neoplasm of upper-outer quadrant of right female breast Inflammatory arthritis Osteoarthritis of knees, bilateral High risk medications (not anticoagulants) long-term use Dyslipidemia Osteoporosis 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 Atrial fibrillation Vitamin D deficiency Sinus bradycardia Chest pain Osteoarthritis Gout Essential hypertension Hypothyroidism SVT (supraventricular tachycardia) Mixed hyperlipidemia Surgical History History of lumpectomy of right breast (09/17/17) Right breast lumpectomy with axillary sentinel lymph node biopsy H/O bilateral cataract extraction History of abdominal surgery History of parathyroidectomy Family History Family/Other Hypertension Mother Stroke Cancer Diabetes Father Stroke Son Stroke Daughter Cancer Sister Cancer Brother Chronic kidney disease (CKD) Other CAD (coronary artery disease) Hyperlipidemia Rheumatoid arthritis Denies family history of Lupus Clotting disorder Dementia Suicide Anesthesia complication Bleeding disorder Lung disease Social History Smoking and tobacco/nicotine status: unknown if used tobacco/nicotine Alcohol intake: never Substance/Drug Use: never Marital status: / Physical Exam Const: COMMON NORMALS: no acute distress, patient oriented x3 and healthy appearing HENMT: COMMON NORMALS: normocephalic and atraumatic HEAD & SCALP: normocephalic and atraumatic Eye: COMMON NORMALS: conjunctivae normal CONJUNCTIVA: Yes conjunctivae normal Neck/C-Spine: COMMON NORMALS: full ROM and supple Chest: COMMONS NORMALS: normal inspection of the chest Resp: COMMON NORMALS: normal respiratory effort, No retractions, No use of accessory muscles and clear to auscultation bilaterally AUSCULTATION: clear to auscultation bilaterally Cardio: COMMON NORMALS: regular rate, regular rhythm and No murmurs present (Cardio) RATE: regular rate RHYTHM: regular rhythm Extremity: NARRATIVE EXTREMITY EXAM: Tenderness over right proximal humerus distal pulses sensation intact Neuro: COMMON NORMALS: patient oriented x3, moves all extremities and no focal motor deficits Psych: COMMON NORMALS: mental status grossly normal, Normal thought process present and cooperative THOUGHT PROCESS: Normal thought process present Skin: COMMON NORMALS: no rashes or lesions noted and no wounds GENERAL SKIN EXAM: no rashes or lesions noted Course Vital Signs: Vital signs: Vital Signs Temperature 97.8 F 07/10/24 12:32 Pulse Rate 77 07/10/24 12:52 Respiratory Rate 16 07/10/24 12:32 Blood Pressure 160/95 07/10/24 12:52 Pulse Oximetry 93 07/10/24 12:52 MDM - Extremity (Nontraumatic) Medical Decision Making Patient presents here with right arm pain has a history of fracture of humerus 2 years ago with malunion. Exam is benign we will place her sling will get her follow-up with orthopedics no new abnormality seen on x-ray she is stable for discharge Medical Records I reviewed the patient's medical records. Lab Data Radiology Impressions Shoulder X-Ray 07/10/24 12:31 IMPRESSION: 1. 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 All radiology interpretation(s) finalized by discharge Discharge Plan Discharge Patient Disposition: Home Clinical Impression: Fracture of humerus, proximal, right, closed Qualifiers: Encounter type: subsequent encounter Fracture healing: with nonunion Condition: Stable Prescriptions: No Action furosemide 20 mg tablet 20 mg PO QAM Rx Instructions: order states daily, but mar from [facility] shows it being given every other day flecainide 50 mg tablet 50 mg PO Q12H isosorbide mononitrate 60 mg tablet extended release 24 hr 60 mg PO DAILY Qty: 90 3RF aspirin 81 mg tablet,chewable 81 mg PO DAILY acetaminophen [Tylenol] 325 mg tablet 650 mg PO Q4H PRN (Reason: Mild Pain (Scale Score 1-4)) polyethylene glycol 3350 [Miralax] 17 gram/dose powder 17 g PO DAILY prednisone 10 mg tablet 10 mg PO DIRECTED Rx Instructions: see taper instructions diclofenac sodium 1 % gel See Rx Instructions .ROUTE .COMPLEX Qty: 200 2RF Dose Instruction: APPLY 2 GRAMS TOPICALLY TO AFFECTED AREA(S) FOUR TIMES A DAY NEEDED Rx Instructions: APPLY 2 GRAMS TOPICALLY TO AFFECTED AREA(S) FOUR TIMES A DAY NEEDED latanoprost 0.005 % drops ophthalmic (eye) pravastatin 20 mg tablet PO carvedilol 3.125 mg tablet PO lidocaine [Lidoderm] 5 % adhesive patch,medicated 1 patch topical DAILY Qty: 30 11RF Rx Instructions: leave on most painful area for up to 12 hrs then take off folic acid 1 mg tablet 1 mg PO DAILY Qty: 90 3RF methotrexate sodium 2.5 mg tablet See Rx Instructions PO .Q7days Qty: 60 1RF Rx Instructions: take 4 tabs once a week on same day. 2 tabs in am and 2 tabs in pm on fridays nitroglycerin [Nitrostat] 0.4 mg tablet, sublingual 0.4 mg SUBLINGUAL Q5M PRN (Reason: Chest Pain) Qty: 30 3RF exemestane 25 mg tablet 25 mg PO DAILY Qty: 30 4RF Rx Instructions: must administer after a meal lidocaine-prilocaine 2.5-2.5 % cream 1 applic topical DAILY PRN (Reason: Port/Catheter Care) Qty: 30 2RF Rx Instructions: apply to injection site prior to port access hydrocodone-acetaminophen 5-325 mg tablet 1 tab PO QID 30 Days Qty: 120 0RF Fleet Enema 19-7 gram/118 mL Enema 118 ml NM DAILY PRN (Reason: Constipation) cholecalciferol (vitamin D3) [Vitamin D3] 125 mcg (5,000 unit) Tablet 125 mcg PO DAILY Artificial Tears(glycerin-peg) 1-0.3 % Drops 1 drp OPHTHALMIC (EYE) DAILY PRN (Reason: redness) PreserVision AREDS-2 250-90-40-1 mg Capsule 1 tab PO BID Culturelle 10 billion cell Capsule 1 cap PO DAILY ondansetron HCl 4 mg Tablet 4 mg PO DAILY Milk of Magnesia 400 mg/5 mL Suspension 400 mg PO DAILY PRN (Reason: Constipation) potassium chloride 20 mEq tablet extended release 20 meq PO DAILY Qty: 60 11RF Discharge Orders: Discharge ED (Routine); Ordered 07/10/24 Ordered By: Lesley Jones Referrals: Lolly Mckeon MD [Physician] - 4-7 days Spurling,Sung K, MD [Primary Care Provider] - 4-7 days Discharge Diet: Advance as tolerated Discharge Activity: Resume usual activity Patient Instructions: Arm Fracture in Children (DC), Pain Management Print Language: Citizen Of [place] Coding Level of Care Code ED [employer] for Jacob Arreola
[2024-07-10 12:52] VITALS: BP 160/95; PULSE 77; O2SAT 93
[2024-07-10 13:32] VITALS: BP 160/95; PULSE 70; O2SAT 95
[2024-07-10] MEDS: morphine 4 mg/mL SDV 1 mL 2 MG IM (14:01)
--- NOTE | 2024-07-13 08:15 | DCPLANNER ---
Message sent to Ortho for follow up-Patient presents here with right arm pain has a history of fracture of humerus 2 years ago with malunion. Exam is benign we will place her sling will get her follow-up with orthopedics no new abnormality seen on x-ray she is stable for discharge
== END 2024-07-10 14:55 | disposition home or self-care (01) ==
PROVIDERS: Emergency Provider Emergency Medicine; PCP Family Medicine
DX: S42.201P Unspecified fracture of upper end of right humerus, subsequent encounter for fracture with malunion (principal); X58.XXXD Exposure to other specified factors, subsequent encounter; E78.2 Mixed hyperlipidemia; Z85.3 Personal history of malignant neoplasm of breast; I10 Essential (primary) hypertension
CPT/HCPCS: 73030; 96372; 99284; J2270

== ENCOUNTER → 2024-07-13 09:45 | Outpatient (BNVA) | payer MEDICARE, SELFPAY | PROVIDERS: PCP Family Medicine; Visit Provider Family Medicine | DX: R58 Hemorrhage, not elsewhere classified (principal); I48.0 Paroxysmal atrial fibrillation; M54.9 Dorsalgia, unspecified; I50.32 Chronic diastolic (congestive) heart failure; D64.9 Anemia, unspecified | CPT/HCPCS: 80053; 85025; 85610 ==

== ENCOUNTER 2024-07-27 09:51 | Oncology outpatient (recurring) (ONCR) | payer MEDICARE, SELFPAY | END 2024-08-23 23:59 | disposition home or self-care (01) | PROVIDERS: PCP Family Medicine; Visit Provider Nurse Practitioner Family | DX: Z45.2 Encounter for adjustment and management of vascular access device (principal) | CPT/HCPCS: 96523 ==

== ENCOUNTER → 2024-08-02 10:49 | Outpatient (BNVA) | payer MEDICARE, SELFPAY | PROVIDERS: PCP Family Medicine; Visit Provider Nurse Practitioner | DX: S82.142A Displaced bicondylar fracture of left tibia, initial encounter for closed fracture (principal); M19.111 Post-traumatic osteoarthritis, right shoulder; S42.291K Other displaced fracture of upper end of right humerus, subsequent encounter for fracture with nonunion; X58.XXXA Exposure to other specified factors, initial encounter | CPT/HCPCS: 20610; 73030; 99204; J1100; J2795; J3301; J9999 ==

== ENCOUNTER → 2024-08-19 11:03 | Outpatient (BNVA) | payer MEDICARE, SELFPAY | PROVIDERS: PCP Family Medicine; Visit Provider Family Medicine | DX: R11.10 Vomiting, unspecified (principal) | CPT/HCPCS: 80053; 85025; 86140 ==

== ENCOUNTER 2024-08-24 09:46 | Oncology outpatient (recurring) (ONCR) | payer MEDICARE, SELFPAY | END 2024-09-22 23:59 | disposition home or self-care (01) | PROVIDERS: PCP Family Medicine; Visit Provider Nurse Practitioner Family | DX: Z45.2 Encounter for adjustment and management of vascular access device (principal) | CPT/HCPCS: 96523 ==

== ENCOUNTER → 2024-09-24 09:46 | Outpatient (BNVA) | payer MEDICARE, SELFPAY | PROVIDERS: PCP Family Medicine; Visit Provider Nurse Practitioner | DX: M19.111 Post-traumatic osteoarthritis, right shoulder (principal); S42.291K Other displaced fracture of upper end of right humerus, subsequent encounter for fracture with nonunion; X58.XXXD Exposure to other specified factors, subsequent encounter | CPT/HCPCS: 99213 ==

== ENCOUNTER 2024-09-28 09:50 | Oncology outpatient (recurring) (ONCR) | payer MEDICARE, SELFPAY ==
[2024-09-28 10:09] LABS: Basophils # 0.1 10^3/uL (0.0-0.1); Eosinophils # 0.1 10^3/uL (0.0-0.8); Eosinophils % 1.3 %; Hematocrit 33.4 % (36-47); Lymphocytes # 0.7 10^3/uL (0.8-4.8); Lymphocytes % 9.8 %; Mean Corpuscular HGB Conc 31.7 g/dL (30-55); Mean Corpuscular Hemoglobin 29.7 pg (27-33); Mean Corpuscular Volume 93.6 fl (85-98); Mean Platelet Volume 8.7 fL (7.4-10.4); Monocytes # 0.5 10^3/uL (0.2-0.9); Monocytes % 6.8 %; Neutrophils % 80.5 %; Nucleated Red Blood Cells % 0 %; Platelet Count 262 10^3/cmm (157-399); Red Blood Count 3.57 10^6/uL (3.85-5.65); Red Cell Distribution Width 17.3 % (12.1-15.1); White Blood Count 6.95 10^3/uL (3.29-11.43)
[2024-09-28 10:31] LABS: Alanine Aminotransferase < 5 U/L (0-33); Albumin Level 3.4 g/dL (3.5-5.2); Alkaline Phosphatase 111 U/L (35-105); Anion Gap 12.5 (5-19); Aspartate Amino Transferase 10 U/L (0-32); Blood Urea Nitrogen 10 mg/dL (8-23); Calcium 8.8 mg/dL (8.5-10.5); Carbon Dioxide 29 mmol/L (22-29); Chloride 99 mmol/L (98-107); Creatinine Clr Calc Pharmacy 46.8429; Globulin 3.2 g/dL (1.3-4.6); Glucose 108 mg/dL (65-115); Osmolality Calculated 282 mOsm/kg (285-295); Potassium 4.5 mmol/L (3.5-5.1); Sodium 136 mmol/L (136-145); Total Protein 6.6 g/dL (6.6-8.7)
== END 2024-10-23 23:59 | disposition home or self-care (01) ==
PROVIDERS: PCP Family Medicine; Visit Provider Nurse Practitioner Family
DX: Z53.9 Procedure and treatment not carried out, unspecified reason; C50.411 Malignant neoplasm of upper-outer quadrant of right female breast; Z17.0 Estrogen receptor positive status [ER+]; R03.0 Elevated blood-pressure reading, without diagnosis of hypertension; D64.9 Anemia, unspecified; Z92.3 Personal history of irradiation; Z92.21 Personal history of antineoplastic chemotherapy; R58 Hemorrhage, not elsewhere classified; Z79.811 Long term (current) use of aromatase inhibitors
CPT/HCPCS: 80053; 85025; 99214

== ENCOUNTER → 2024-10-14 11:04 | Outpatient (BNVA) | payer MEDICARE, SELFPAY | PROVIDERS: PCP Family Medicine; Visit Provider Dermatology | DX: D48.5 Neoplasm of uncertain behavior of skin (principal); I89.0 Lymphedema, not elsewhere classified; L57.8 Other skin changes due to chronic exposure to nonionizing radiation; Z92.3 Personal history of irradiation | CPT/HCPCS: 11104; 11105; 99204 ==

== ENCOUNTER → 2024-10-20 15:02 | Outpatient (BNVA) | payer MEDICARE, SELFPAY | PROVIDERS: PCP Family Medicine; Visit Provider Dermatology | DX: R23.3 Spontaneous ecchymoses (principal); Z92.3 Personal history of irradiation | CPT/HCPCS: 99213 ==

== ENCOUNTER 2024-10-26 11:56 | Oncology outpatient (recurring) (ONCR) | payer MEDICARE, SELFPAY ==
[2024-10-26 12:24] LABS: Basophils # 0.1 10^3/uL (0.0-0.1); Basophils % 0.9 %; Eosinophils # 0.1 10^3/uL (0.0-0.8); Eosinophils % 1.8 %; Hematocrit 34.7 % (36-47); Lymphocytes # 0.8 10^3/uL (0.8-4.8); Lymphocytes % 11.2 %; Mean Corpuscular HGB Conc 31.1 g/dL (30-55); Mean Corpuscular Hemoglobin 29.8 pg (27-33); Mean Corpuscular Volume 95.6 fl (85-98); Monocytes # 0.4 10^3/uL (0.2-0.9); Neutrophils # 5.33 10^3/uL (1.8-7.7); Neutrophils % 79.7 %; Nucleated Red Blood Cells % 0 %; Platelet Count 223 10^3/cmm (157-399); Red Blood Count 3.63 10^6/uL (3.85-5.65); Red Cell Distribution Width 17.2 % (12.1-15.1); White Blood Count 6.69 10^3/uL (3.29-11.43)
[2024-10-26 13:10] LABS: Alanine Aminotransferase < 5 U/L (0-33); Albumin Level 3.4 g/dL (3.5-5.2); Alkaline Phosphatase 102 U/L (35-105); Anion Gap 14.2 (5-19); Aspartate Amino Transferase 10 U/L (0-32); Blood Urea Nitrogen 11 mg/dL (8-23); Calcium 8.8 mg/dL (8.5-10.5); Carbon Dioxide 26 mmol/L (22-29); Chloride 100 mmol/L (98-107); Ferritin 341 ng/mL (15-150); Globulin 2.8 g/dL (1.3-4.6); Glucose 132 mg/dL (65-115); Iron 37 ug/dL (37-145); Osmolality Calculated 283 mOsm/kg (285-295); Percent Saturation 16.3 % (20-50); Potassium 4.2 mmol/L (3.5-5.1); Sodium 136 mmol/L (136-145); Total Bilirubin 0.7 mg/dL (0.15-1.2); Total Iron Binding Capacity 226 mcg/dl; Total Protein 6.2 g/dL (6.6-8.7); Unsaturated Iron Binding 189 ug/dL (112-347); Vitamin B12 411 pg/mL (232-1245)
[2024-10-26 13:51] LABS: Folate Level > 20.0 ng/mL (4.8-37.3)
== END 2024-11-22 23:59 | disposition home or self-care (01) ==
PROVIDERS: Internal Medicine Medical Oncology; PCP Family Medicine; Visit Provider Nurse Practitioner Family
DX: C50.411 Malignant neoplasm of upper-outer quadrant of right female breast (principal); Z17.0 Estrogen receptor positive status [ER+]; R03.0 Elevated blood-pressure reading, without diagnosis of hypertension; D64.9 Anemia, unspecified; Z92.3 Personal history of irradiation; Z92.21 Personal history of antineoplastic chemotherapy; R58 Hemorrhage, not elsewhere classified; Z79.899 Other long term (current) drug therapy
CPT/HCPCS: 80053; 82607; 82728; 82746; 83540; 83550; 85025; 99214

== ENCOUNTER 2024-11-08 10:46 | Outpatient (CLI) | payer MEDICARE, SELFPAY ==
--- NOTE | 2024-11-08 10:00 | MM_ITS ---
WS: [email or web address] BILATERAL 3D TOMOSYNTHESIS DIGITAL SCREENING MAMMOGRAPHY WITH CAD CLINICAL INFORMATION: surveillance HISTORY: Screening mammogram. No current complaints. COMPARISON: 2023 TECHNIQUE: Bilateral CC and MLO views. FINDINGS: The breasts are composed of heterogeneous fibroglandular density tissue, which can limit the detection of small underlying mass lesions. No suspicious mass, asymmetry, calcifications, or architectural distortion. No evidence of malignancy. Incidental benign punctate calcifications. Treatment-related changes RIGHT breast with skin thickening. MM/MM diag tomosynthesis [id number] IMPRESSION: DENSITY: The breasts are heterogeneously dense, which may obscure small masses. BI-RADS: 2 - Benign FOLLOW UP: 1 Year Follow-up Recommend return to annual screening mammography.
== END 2024-11-08 10:47 | disposition home or self-care (01) ==
PROVIDERS: PCP Family Medicine; Visit Provider Nurse Practitioner Family
DX: Z08 Encounter for follow-up examination after completed treatment for malignant neoplasm (principal); Z85.3 Personal history of malignant neoplasm of breast
CPT/HCPCS: 77062; G0279

== ENCOUNTER → 2024-11-15 13:39 | Outpatient (BNVA) | payer MEDICARE, SELFPAY | PROVIDERS: PCP Family Medicine; Visit Provider Nurse Practitioner | DX: M19.111 Post-traumatic osteoarthritis, right shoulder (principal); S42.291K Other displaced fracture of upper end of right humerus, subsequent encounter for fracture with nonunion; X58.XXXS Exposure to other specified factors, sequela | CPT/HCPCS: 20610; 99213; J1100; J2795; J3301; J9999 ==

== ENCOUNTER → 2024-11-19 09:20 | Outpatient (BNVA) | payer MEDICARE, SELFPAY | PROVIDERS: PCP Family Medicine; Visit Provider Nurse Practitioner Family | DX: I11.0 Hypertensive heart disease with heart failure (principal); I50.32 Chronic diastolic (congestive) heart failure; I48.0 Paroxysmal atrial fibrillation; E78.5 Hyperlipidemia, unspecified; R00.2 Palpitations | CPT/HCPCS: 99214 ==

== ENCOUNTER 2024-11-30 11:26 | Oncology outpatient (recurring) (ONCR) | payer MEDICARE, SELFPAY ==
[2024-11-30 12:05] LABS: Hematocrit 35.2 % (36-47); Hemoglobin 10.80 g/dL (11.27-16.99); Mean Corpuscular HGB Conc 30.7 g/dL (30-55); Mean Corpuscular Hemoglobin 29.4 pg (27-33); Mean Corpuscular Volume 95.9 fl (85-98); Nucleated Red Blood Cells % 0 %; Platelet Count 189 10^3/cmm (157-399); Red Blood Count 3.67 10^6/uL (3.85-5.65); White Blood Count 6.83 10^3/uL (3.29-11.43)
[2024-11-30 12:21] LABS: Ferritin 275 ng/mL (15-150); Iron 34 ug/dL (37-145); Total Iron Binding Capacity 243 mcg/dl; Unsaturated Iron Binding 209 ug/dL (112-347)
[2024-11-30 14:07] LABS: Free T4 Free Thyroxine 1.00 ng/dL (0.82-1.77); Thyroid Stimulating Hormone 1.07 uIU/mL (0.27-4.20)
== END 2024-12-23 23:59 | disposition home or self-care (01) ==
PROVIDERS: Nurse Practitioner; PCP Family Medicine; Visit Provider Nurse Practitioner Family
DX: Z53.9 Procedure and treatment not carried out, unspecified reason; C50.411 Malignant neoplasm of upper-outer quadrant of right female breast; Z17.0 Estrogen receptor positive status [ER+]; C77.3 Secondary and unspecified malignant neoplasm of axilla and upper limb lymph nodes; M12.80 Other specific arthropathies, not elsewhere classified, unspecified site; L65.9 Nonscarring hair loss, unspecified; R03.0 Elevated blood-pressure reading, without diagnosis of hypertension; D64.9 Anemia, unspecified; R58 Hemorrhage, not elsewhere classified; M81.0 Age-related osteoporosis without current pathological fracture; Z79.899 Other long term (current) drug therapy; Z92.21 Personal history of antineoplastic chemotherapy; Z92.3 Personal history of irradiation; Z95.828 Presence of other vascular implants and grafts
CPT/HCPCS: 36591; 81263; 82232; 82728; 82746; 83540; 83550; 84439; 84443; 85025; 88185; 88264; 88271; 88367; 88374; 99215

== ENCOUNTER 2024-12-09 12:59 | Outpatient (CLI) | payer MEDICARE, SELFPAY ==
--- NOTE | 2024-12-09 13:30 | XR_ITS ---
WS: [email or web address] SCREENING DEXA SCAN [facility] CLINICAL INFORMATION: osteroporosis COMPARISON: 2019 FINDINGS: The L1-L4 bone mineral density measures 0.827 g/cm2. This corresponds to a T score score of -2.9 and Z score of -0.7. Left femoral neck bone mineral density measures 0.486 g/cm2. This corresponds to a T score of -4.1 and Z score of -1.5. Right femoral neck bone mineral density measures 0.511 g/cm2. This corresponds to a T score -3.9of and Z score of -1.3. Mean femoral neck bone mineral density measures 0.498 g/cm2. This corresponds to a T score of -4.0 and Z score of -1.4. XR/XR DEXA axial skeleton* [id number] IMPRESSION: Osteoporosis lumbar spine. Osteoporosis femoral necks. Patient's FRAX calculated 10 year probability for major osteoporotic fracture i s 52.9% and osteoporotic hip fracture is 42.4%. Lumbar spine bone density decreased -0.2% Femoral neck bone mineral density decreased -20.2%
== END 2024-12-09 13:00 | disposition home or self-care (01) ==
LOC: RAD 13:00
PROVIDERS: PCP Family Medicine; Visit Provider Nurse Practitioner
DX: Z13.820 Encounter for screening for osteoporosis (principal); Z78.0 Asymptomatic menopausal state; M81.0 Age-related osteoporosis without current pathological fracture
CPT/HCPCS: 77080

== ENCOUNTER 2024-12-28 12:39 | Oncology outpatient (recurring) (ONCR) | payer MEDICARE, SELFPAY ==
[2024-12-28 13:02] LABS: Hematocrit 36.0 % (36-47); Hemoglobin 11.20 g/dL (11.27-16.99); Mean Corpuscular HGB Conc 31.1 g/dL (30-55); Mean Corpuscular Hemoglobin 29.8 pg (27-33); Mean Corpuscular Volume 95.7 fl (85-98); Nucleated Red Blood Cells % 0 %; Platelet Count 194 10^3/cmm (157-399); Red Blood Count 3.76 10^6/uL (3.85-5.65); White Blood Count 5.73 10^3/uL (3.29-11.43)
[2024-12-28 13:30] LABS: Alanine Aminotransferase < 5 U/L (0-33); Albumin Level 3.7 g/dL (3.5-5.2); Alkaline Phosphatase 109 U/L (35-105); Anion Gap 12.5 (5-19); Aspartate Amino Transferase 13 U/L (0-32); Blood Urea Nitrogen 12 mg/dL (8-23); Calcium 8.9 mg/dL (8.5-10.5); Carbon Dioxide 28 mmol/L (22-29); Chloride 105 mmol/L (98-107); Creatinine Clr Calc Pharmacy 45.7079; Globulin 2.8 g/dL (1.3-4.6); Glucose 146 mg/dL (65-115); Osmolality Calculated 294 mOsm/kg (285-295); Potassium 4.5 mmol/L (3.5-5.1); Sodium 141 mmol/L (136-145); Total Protein 6.5 g/dL (6.6-8.7)
== END 2025-01-23 23:59 | disposition home or self-care (01) ==
PROVIDERS: Nurse Practitioner; PCP Family Medicine; Visit Provider Nurse Practitioner Family
DX: C50.411 Malignant neoplasm of upper-outer quadrant of right female breast (principal); Z17.0 Estrogen receptor positive status [ER+]; C77.3 Secondary and unspecified malignant neoplasm of axilla and upper limb lymph nodes; M12.80 Other specific arthropathies, not elsewhere classified, unspecified site; L65.9 Nonscarring hair loss, unspecified; R03.0 Elevated blood-pressure reading, without diagnosis of hypertension; D64.9 Anemia, unspecified; R58 Hemorrhage, not elsewhere classified; M81.0 Age-related osteoporosis without current pathological fracture; Z79.899 Other long term (current) drug therapy; Z92.21 Personal history of antineoplastic chemotherapy; Z92.3 Personal history of irradiation; Z95.828 Presence of other vascular implants and grafts
CPT/HCPCS: 80053; 82306; 85025; 96365; 99214; J3489; J9999

== ENCOUNTER → 2025-01-05 10:31 | Outpatient (BNVA) | payer MEDICARE, SELFPAY | PROVIDERS: PCP Family Medicine; Visit Provider Internal Medicine Rheumatology | DX: M12.80 Other specific arthropathies, not elsewhere classified, unspecified site (principal); Z79.899 Other long term (current) drug therapy; Z71.85 Encounter for immunization safety counseling; M80.00XK Age-related osteoporosis with current pathological fracture, unspecified site, subsequent encounter for fracture with nonunion | CPT/HCPCS: 99214 ==

== ENCOUNTER → 2025-01-10 14:17 | Outpatient (BNVA) | payer MEDICARE, SELFPAY | PROVIDERS: PCP Family Medicine; Visit Provider Nurse Practitioner | DX: M19.111 Post-traumatic osteoarthritis, right shoulder (principal); S42.291K Other displaced fracture of upper end of right humerus, subsequent encounter for fracture with nonunion; X58.XXXD Exposure to other specified factors, subsequent encounter | CPT/HCPCS: 99214 ==

== ENCOUNTER 2025-01-26 10:43 | Oncology outpatient (recurring) (ONCR) | payer MEDICARE, SELFPAY | END 2025-02-22 23:59 | disposition home or self-care (01) | LOC: ONCMED 10:44 | PROVIDERS: PCP Family Medicine; Visit Provider Nurse Practitioner Family | DX: Z45.2 Encounter for adjustment and management of vascular access device (principal); Z95.828 Presence of other vascular implants and grafts | CPT/HCPCS: 96523 ==

== ENCOUNTER 2025-03-02 12:21 | Emergency (ER) | payer MEDICARE, SELFPAY ==
[2025-03-02 12:23] VITALS: BP 174/102; PULSE 90; RESP 14; TEMP 36.9; O2SAT 94
--- NOTE | 2025-03-02 12:30 | CT_ITS ---
WS: [email or web address] CT HEAD TECHNIQUE: Noncontrast CT of the head obtained from the skullbase to the vertex. CLINICAL INFORMATION: fall, head injury COMPARISON: 2019 DLP: 1097.[address] scans at [facility] use at least one of these dose optimization techniques: automated exposure control; mA and/or kV adjustment per patient size (includes targeted exams where dose is matched to clinical indication); or iterative reconstruction. FINDINGS: No evidence of intracranial hemorrhage or mass effect. Ventricular system and basal cisterns are patent. Moderate small vessel changes with moderate parenchymal volume loss. No extra-axial fluid collections. No evidence of mass or mass effect. Vascular calcification. Paranasal sinuses and mastoid air cells are well aerated. .Normal visualized soft tissues. CT/CT head wo con* [id number] IMPRESSION: 1. No evidence of intracranial hemorrhage or mass effect. 2. No acute intracranial findings.
--- NOTE | 2025-03-02 12:30 | CT_ITS ---
WS: [email or web address] CT CERVICAL TRAUMA TECHNIQUE: Noncontrast CT of the cervical spine with coronal and sagittal reformatted images. CLINICAL INFORMATION: fall, neck pain COMPARISON: None. DLP: 1097.[address] scans at [facility] use at least one of these dose optimization techniques: automated exposure control; mA and/or kV adjustment per patient size (includes targeted exams where dose is matched to clinical indication); or iterative reconstruction. FINDINGS: Marked kyphosis. Osteopenia. Mild spondylitic changes. Normal craniocervical junction. Normal C1-C2 articulation. Dens is normal in appearance. Normal occipital condyles. No high-grade spinal canal narrowing. Normal C1 ring. No evidence of acute fracture or dislocation. Normal prevertebral soft tissues. Multinodular thyroid. Bronchiectasis and fibrosis in the lung apices RIGHT greater than LEFT. Mastoids air cells are well aerated. CT/CT cervical spin wo con* [id number] IMPRESSION: No evidence of acute fracture or dislocation.
--- NOTE | 2025-03-02 12:31 | CT_ITS ---
WS: [email or web address] CT LUMBAR SPINE TECHNIQUE: Noncontrast CT of the lumbar spine with coronal and sagittal reformatted images. CLINICAL INFORMATION: low back pain DLP: 721.[address] scans at [facility] use at least one of these dose optimization techniques: automated exposure control; mA and/or kV adjustment per patient size (includes targeted exams where dose is matched to clinical indication); or iterative reconstruction. FINDINGS: Osteopenia. Lumbar curve convex LEFT. No acute appearing compression fractures. Grade 1 anterolisthesis L4 on L5. Advanced facet arthropathy lower lumbar spine. Degenerative arthritis sacroiliac joints. Bilateral renal cysts. Suggestion of tiny nondisplaced LEFT L2 and L3 transverse process fractures. CT/CT lumbar spine wo con* [id number] IMPRESSION: Suggestion of tiny nondisplaced LEFT L2 and L3 transverse process fractures.
--- NOTE | 2025-03-02 12:31 | CT_ITS ---
WS: [email or web address] CT THORACIC SPINE TECHNIQUE: Noncontrast CT of the thoracic spine with coronal and sagittal reformatted images. CLINICAL INFORMATION: Traumatic upper back pain COMPARISON: None. DLP: 721.[address] scans at [facility] use at least one of these dose optimization techniques: automated exposure control; mA and/or kV adjustment per patient size (includes targeted exams where dose is matched to clinical indication); or iterative reconstruction. FINDINGS: Acute nondisplaced Mild thoracic curve. Advanced thoracic kyphosis. No acute appearing compression fractures. Anterior hypertrophic changes thoracic spine. No high-grade central canal stenosis. Moderate facet arthropathy lower thoracic spine. Multinodular thyroid. Aortic calcification. Coronary calcification. Bronchiectasis in the RIGHT greater than LEFT upper lobes with fibrosis in the lung apices. Chronic emphysematous changes. CT/CT thoracic spin wo con* [id number] IMPRESSION: 1. Advanced thoracic kyphosis which somewhat limits evaluation due to position ing 2. Acute nondisplaced fractures of the LEFT T10 and T9 transverse processes.
--- NOTE | 2025-03-02 12:31 | W.ED.FALL ---
HPI - Fall General: Chief Complaint: Fall Stated Complaint: Fall, Back Pain Time Seen by Provider: 03/02/25 12:21 History of Present Illness: 89-year-old female with a history of chronic right shoulder fracture, chronic hypoxemic respiratory failure on 2 L nasal cannula, congestive heart failure, osteoporosis, hyperlipidemia, breast cancer, A-fib, hypertension, gout and SVT who presents emergency room by ambulance from home after she fell in the bathroom trying to swat a bug. She fell onto her backside. She did not hit her head. She says her entire spine and her neck are sore. No loss of consciousness. No altered mental status. No fever. No chest pain. No abdominal pain. No vomiting. Related Data Home Medications ?Medication ?Instructions ?Recorded ?Confirmed furosemide 20 mg tablet 20 mg PO QAM 05/31/19 03/02/25 cholecalciferol (vitamin D3) 125 125 mcg PO DAILY 12/11/19 03/02/25 mcg (5,000 unit) tablet (Vitamin D3) sodium phosphates 19 gram-7 118 ml MA DAILY PRN Constipation 12/11/19 03/02/25 gram/118 mL enema (Fleet Enema) Lactobacillus rhamnosus GG 10 1 cap PO DAILY 07/30/22 03/02/25 billion cell capsule (Culturelle) propylene glycol 1 %-glycerin 0.3 1 drp ophthalmic (eye) DAILY PRN 07/30/22 03/02/25 % eye drops (Artificial Tears redness (glycerin-peg)) vit C 250 mg-vit E 90 mg-zinc 40 1 tab PO BID 07/30/22 03/02/25 mg-copper 1 [id number] capsule (PreserVision AREDS-2) acetaminophen 325 mg tablet 650 mg PO Q4H PRN Mild Pain (Scale 09/17/22 03/02/25 (Tylenol) Score 1-4) polyethylene glycol 3350 17 17 g PO DAILY 09/17/22 03/02/25 gram/dose oral powder (Miralax) magnesium hydroxide 400 mg/5 mL 400 mg PO DAILY PRN Constipation 10/06/22 03/02/25 oral suspension (Milk of Magnesia) ondansetron HCl 4 mg tablet 4 - 8 mg PO Q8H PRN Nausea 10/06/22 03/02/25 latanoprost 0.005 % eye drops 1 drp ophthalmic (eye) BEDTIME 03/30/24 03/02/25 carvedilol 3.125 mg tablet 3.125 mg PO BID 11/19/24 03/02/25 ferrous gluconate 324 mg (38 mg 324 mg PO DAILY 11/19/24 03/02/25 iron) tablet prednisone 10 mg tablet 40 mg PO DAILY PRN arthritis flare 11/19/24 03/02/25 pravastatin 20 mg tablet 20 mg PO BEDTIME 12/28/24 03/02/25 flecainide 100 mg tablet 50 mg PO BID 03/02/25 03/02/25 Previous Rx's ?Medication ?Instructions ?Recorded isosorbide mononitrate 60 mg 60 mg PO DAILY #90 tabs 04/23/22 tablet,extended release 24 hr exemestane 25 mg tablet 25 mg PO DAILY #30 tabs 07/19/22 potassium chloride 20 mEq 20 meq PO DAILY #60 tabs 10/09/22 tablet,extended release nitroglycerin 0.4 mg sublingual 0.4 mg sublingual Q5M PRN Chest 10/06/23 tablet (Nitrostat) Pain #30 tabs lidocaine 5 % topical patch 1 patch topical DAILY #30 ea 01/13/24 (Lidoderm) lidocaine-prilocaine 2.5 %-2.5 % 1 applic topical DAILY PRN 03/02/24 topical cream Port/Catheter Care #30 grams folic acid 1 mg tablet 1 mg PO DAILY #90 tabs 06/30/24 cetirizine 10 mg capsule (Zyrtec) 10 mg PO DAILY PRN allergy 11/09/24 symptoms #30 caps escitalopram oxalate 5 mg tablet 5 mg PO DAILY #30 tabs 11/10/24 (Lexapro) diclofenac sodium 1 % topical gel See Rx Instructions .Route 01/05/25 .COMPLEX #200 grams methotrexate sodium 2.5 mg tablet See Rx Instructions PO .Q7days #60 01/05/25 tabs hydrocodone 5 mg-acetaminophen 325 1 tab PO QID Pain 1 month #120 tabs 02/04/25 mg tablet ketorolac 30 mg/mL injection 15 mg (0.5 mL) IM .Q 2 days PRN 02/16/25 solution pain 6 months #10 mL Allergies Allergy/AdvReac Type Severity Reaction Status Date / Time No Known Allergies Allergy Verified 01/10/25 14:23 Review of Systems Narrative: Constitutional symptoms: Negative except as documented in HPI. Skin symptoms: Negative except as documented in HPI. Eye symptoms: Negative except as documented in HPI. ENMT symptoms: Negative except as documented in HPI. Respiratory symptoms: Negative except as documented in HPI. Cardiovascular symptoms: Negative except as documented in HPI. Gastrointestinal symptoms: Negative except as documented in HPI. Genitourinary symptoms: Negative except as documented in HPI. Musculoskeletal symptoms: Negative except as documented in HPI. Neurologic symptoms: Negative except as documented in HPI. Psychiatric symptoms: Negative except as documented in HPI. Endocrine symptoms: Negative except as documented in HPI. PFSH ED PFSH: Medical History (Updated 03/02/25 @ 14:16 by Jenny Hawkins MD) History of broken leg Post-traumatic osteoarthritis, right shoulder Oxygen dependent Intractable nausea and vomiting Heart failure Cystitis Pneumonia Lumbar transverse process fracture Hip hematoma, left Closed fracture of tibial plateau History of peptic ulcer disease History of Clostridioides difficile infection Age-related osteoporosis without current pathological fracture (~12/10/17) Secondary and unspecified malignant neoplasm of axilla and upper limb lymph nodes (~05/30/18) Malignant neoplasm of upper-outer quadrant of right female breast Inflammatory arthritis Osteoarthritis of knees, bilateral High risk medications (not anticoagulants) long-term use Dyslipidemia Osteoporosis 12/09/24 mean femoral neck bone mineral density score equal T-score of -4.0 and Z-score of -1.4. 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 Atrial fibrillation Vitamin D deficiency Sinus bradycardia Chest pain Osteoarthritis Gout Essential hypertension Hypothyroidism SVT (supraventricular tachycardia) Mixed hyperlipidemia Surgical History History of lumpectomy of right breast (09/17/17) Right breast lumpectomy with axillary sentinel lymph node biopsy H/O bilateral cataract extraction History of abdominal surgery History of parathyroidectomy Family History Family/Other Hypertension Mother Stroke Cancer Diabetes Father Stroke Son Stroke Daughter Cancer Sister Cancer Brother Chronic kidney disease (CKD) Other CAD (coronary artery disease) Hyperlipidemia Rheumatoid arthritis Denies family history of Lupus Clotting disorder Dementia Suicide Anesthesia complication Bleeding disorder Lung disease Social History Smoking and tobacco/nicotine status: never used tobacco/nicotine Alcohol intake: never Substance/Drug Use: never Marital status: / Physical Exam Narrative: EXAM NARRATIVE: General: Alert, no acute distress. Head: Normocephalic Neck: Trachea midline Eye: Extraocular movements are intact. Ears, nose, mouth and throat: Oral mucosa moist Respiratory: Respirations are non-labored Musculoskeletal: Normal ROM Back: no step off, no focal tenderness, diffuse left-sided back tenderness Neurological: Alert and oriented, No focal neurological deficit observed. Psychiatric: Cooperative, appropriate mood & affect. Course Vital Signs: Vital signs: Vital Signs Temperature 98.4 F 03/02/25 12:23 Pulse Rate 90 03/02/25 12:23 Respiratory Rate 14 03/02/25 12:23 Blood Pressure 174/102 03/02/25 12:23 Pulse Oximetry 94 03/02/25 12:23 Oxygen Delivery Me thod Room Air 03/02/25 12:23 MDM - Fall Medical Decision Making Medical decision making: Differential diagnosis including but not limited to and based on the above HPI, review of systems and physical exam: patient with fall and traumatic back and neck pain. Subdural hematoma, subarachnoid hemorrhage, concussion, skull fracture. Also concern for spinal fracture versus spinal strain. Orders placed to evaluate differential diagnosis based on the above differential, HPI and physical exam CT scan of the head and neck were ordered. CT head: No acute intracranial process. No intracranial hemorrhage, no evidence of infarct. No evidence of acute fracture. This was reviewed and interpreted by myself the emergency room physician. I also reviewed the radiology report. CT of the cervical spine: No fracture. Good alignment. No step-offs. This was reviewed and interpreted by myself the emergency room physician. I also reviewed the radiologist report. CT of the thoracic spine: Transverse process fractures at left T9 and 10. This was reviewed and interpreted by myself the emergency room physician. I also reviewed the radiology report. CT of the lumbar spine: Possible 2 more transverse process fractures. Left L2 and L3. This was reviewed and interpreted by myself the emergency room physician. I also reviewed the radiology report. Prescription monitoring reviewed: Patient receives monthly prescriptions for hydrocodone. Most recent was 120 tablets. She says she has options of going up and she will talk with her pain doctor about that if she does not have adequate pain control with these new injuries. Assessment and plan: Thoracic transverse process fractures Fall Osteoporosis Chronic pain syndrome on chronic narcotic therapy ?IM Dilaudid prior to discharge - Discharged home - Discussed plan with patient. Answered any questions. - Evaluation and treatment of this problem were appropriate in the emergency setting. Lab Data Radiology Impressions Cervical Spine CT 03/02/25 12:30 IMPRESSION: No evidence of acute fracture or dislocation. Head CT 03/02/25 12:30 IMPRESSION: 1. No evidence of intracranial hemorrhage or mass effect. 2. No acute intracranial findings. Lumbar Spine CT 03/02/25 12:31 IMPRESSION: Suggestion of tiny nondisplaced LEFT L2 and L3 transverse process fractures. Thoracic Spine CT 03/02/25 12:31 IMPRESSION: 1. Advanced thoracic kyphosis which somewhat limits evaluation due to positioning 2. Acute nondisplaced fractures of the LEFT T10 and T9 transverse processes. All radiology interpretation(s) finalized by discharge Discharge Plan Discharge Patient Disposition: Home Clinical Impression: Fracture of thoracic transverse process, Fall, Cervical strain, Closed fracture of transverse process of lumbar vertebra Condition: Stable Prescriptions: No Action furosemide 20 mg tablet 20 mg PO QAM isosorbide mononitrate 60 mg tablet extended release 24 hr 60 mg PO DAILY Qty: 90 3RF acetaminophen [Tylenol] 325 mg tablet 650 mg PO Q4H PRN (Reason: Mild Pain (Scale Score 1-4)) polyethylene glycol 3350 [Miralax] 17 gram/dose powder 17 g PO DAILY prednisone 10 mg tablet 40 mg PO DAILY MDD 3-5days PRN (Reason: arthritis flare) latanoprost 0.005 % drops 1 drp ophthalmic (eye) BEDTIME carvedilol 3.125 mg tablet 3.125 mg PO BID lidocaine [Lidoderm] 5 % adhesive patch,medicated 1 patch topical DAILY Qty: 30 11RF Rx Instructions: Apply 1 patch in the morning, leave on most painful area for up to 12 hrs then take off in the evening. folic acid 1 mg tablet 1 mg PO DAILY Qty: 90 3RF diclofenac sodium 1 % gel See Rx Instructions .ROUTE .COMPLEX Qty: 200 2RF Dose Instruction: APPLY 2 GRAMS TOPICALLY TO AFFECTED AREA(S) FOUR TIMES A DAY NEEDED Rx Instructions: APPLY 2 GRAMS TOPICALLY TO AFFECTED AREA(S) FOUR TIMES A DAY NEEDED methotrexate sodium 2.5 mg tablet See Rx Instructions PO .Q7days Qty: 60 1RF Rx Instructions: Take 2 tablets in am and 2 tablets in pm on Fridays. pravastatin 20 mg tablet 20 mg PO BEDTIME nitroglycerin [Nitrostat] 0.4 mg tablet, sublingual 0.4 mg SUBLINGUAL Q5M PRN (Reason: Chest Pain) Qty: 30 3RF ferrous gluconate 324 mg (38 mg iron) tablet 324 mg PO DAILY escitalopram oxalate [Lexapro] 5 mg tablet 5 mg PO DAILY Qty: 30 11RF ketorolac 30 mg/mL solution 15 mg IM .Q 2 days PRN (Reason: pain) 180 Days Qty: 10 5RF exemestane 25 mg tablet 25 mg PO DAILY Qty: 30 4RF Rx Instructions: must administer after a meal lidocaine-prilocaine 2.5-2.5 % cream 1 applic topical DAILY PRN (Reason: Port/Catheter Care) Qty: 30 2RF Rx Instructions: apply to injection site prior to port access Zyrtec 10 mg capsule 10 mg PO DAILY PRN (Reason: allergy symptoms) Qty: 30 11RF hydrocodone-acetaminophen 5-325 mg tablet 1 tab PO QID 30 Days Qty: 120 0RF Fleet Enema 19-7 gram/118 mL Enema 118 ml MA DAILY PRN (Reason: Constipation) cholecalciferol (vitamin D3) [Vitamin D3] 125 mcg (5,000 unit) Tablet 125 mcg PO DAILY Artificial Tears(glycerin-peg) 1-0.3 % Drops 1 drp OPHTHALMIC (EYE) DAILY PRN (Reason: redness) PreserVision AREDS-2 250-90-40-1 mg Capsule 1 tab PO BID Culturelle 10 billion cell Capsule 1 cap PO DAILY ondansetron HCl 4 mg Tablet 4 - 8 mg PO Q8H PRN (Reason: Nausea) magnesium hydroxide [Milk of Magnesia] 400 mg/5 mL Suspension 400 mg PO DAILY PRN (Reason: Constipation) potassium chloride 20 mEq tablet extended release 20 meq PO DAILY Qty: 60 11RF flecainide 100 mg Tablet 50 mg PO BID Discharge Orders: Discharge ED (Routine); Ordered 03/02/25 Ordered By: Jenny Hawkins Referrals: Mihai Schmuacher DO [Physician, Orthopedics] - 4-7 days Referral Note: Please call for a follow-up appointment with Dr. Schumacher if your pain persists Sung Buckley MD [Primary Care Provider, Family Practice] Patient Instructions: Transverse Process Fracture (ED), Opioid Safety, Pain Management, Patient Portal & Lois Instructions Activity Restrictions/Additional Instructions: Thank you for choosing [facility] for your healthcare needs today. You have been screened and evaluated and felt safe for discharge. Health conditions do change or evolve sometimes and as such it is important that you follow up with your Primary Doctor to be re checked, 3-5 days is a general good time frame for follow up. You are always welcome to return to the ED for re assessment if your symptoms are worsening or you have new concerns Print Language: Korean Coding Level of Care Code ED Dictaphone Typist for Jacob Arreola
--- NOTE | 2025-03-02 12:50 | PC.PHAR ---
Pt is from [facility]
[2025-03-02 14:28] VITALS: BP 161/86; PULSE 100; O2SAT 95
[2025-03-02] MEDS: HYDROmorphone 0.5 MG/0.5 ML INJ 1 MG IM (14:28)
[2025-03-02 15:38] VITALS: BP 160/58; PULSE 78; O2SAT 95
== END 2025-03-02 15:40 | disposition home or self-care (01) ==
PROVIDERS: Emergency Provider Emergency Medicine; PCP Family Medicine
DX: S22.071A Stable burst fracture of T9-T10 vertebra, initial encounter for closed fracture (principal); S16.1XXA Strain of muscle, fascia and tendon at neck level, initial encounter; S32.028A Other fracture of second lumbar vertebra, initial encounter for closed fracture; S32.038A Other fracture of third lumbar vertebra, initial encounter for closed fracture; Z85.3 Personal history of malignant neoplasm of breast; Z85.89 Personal history of malignant neoplasm of other organs and systems; E78.5 Hyperlipidemia, unspecified; I11.0 Hypertensive heart disease with heart failure; I50.30 Unspecified diastolic (congestive) heart failure; E78.2 Mixed hyperlipidemia; W19.XXXA Unspecified fall, initial encounter
CPT/HCPCS: 70450; 72125; 72128; 72131; 96372; 99284; J1171

== ENCOUNTER 2025-03-29 10:58 | Oncology outpatient (recurring) (ONCR) | payer MEDICARE, SELFPAY ==
[2025-03-29 11:25] LABS: Hematocrit 37.2 % (36-47); Hemoglobin 11.60 g/dL (11.27-16.99); Mean Corpuscular HGB Conc 31.2 g/dL (30-55); Mean Corpuscular Hemoglobin 29.6 pg (27-33); Mean Corpuscular Volume 94.9 fl (85-98); Nucleated Red Blood Cells % 0 %; Platelet Count 158 10^3/cmm (157-399); Red Blood Count 3.92 10^6/uL (3.85-5.65); White Blood Count 5.84 10^3/uL (3.29-11.43)
[2025-03-29 11:42] LABS: Alanine Aminotransferase < 5 U/L (0-33); Albumin Level 3.8 g/dL (3.5-5.2); Alkaline Phosphatase 124 U/L (35-105); Anion Gap 13.4 (5-19); Aspartate Amino Transferase 13 U/L (0-32); Blood Urea Nitrogen 10 mg/dL (8-23); Calcium 9.0 mg/dL (8.5-10.5); Carbon Dioxide 28 mmol/L (22-29); Chloride 103 mmol/L (98-107); Creatinine Clr Calc Pharmacy 46.2754; Globulin 2.4 g/dL (1.3-4.6); Glucose 122 mg/dL (65-115); Osmolality Calculated 290 mOsm/kg (285-295); Potassium 4.4 mmol/L (3.5-5.1); Sodium 140 mmol/L (136-145); Total Protein 6.2 g/dL (6.6-8.7)
[2025-03-29 16:43] LABS: Thyroid Stimulating Hormone 1.63 uIU/mL (0.27-4.20)
== END 2025-04-24 23:59 | disposition home or self-care (01) ==
PROVIDERS: Internal Medicine Medical Oncology; Nurse Practitioner; PCP Family Medicine; Visit Provider Nurse Practitioner Family
DX: C50.411 Malignant neoplasm of upper-outer quadrant of right female breast; Z17.0 Estrogen receptor positive status [ER+]; D64.9 Anemia, unspecified; R58 Hemorrhage, not elsewhere classified; M81.0 Age-related osteoporosis without current pathological fracture; R03.0 Elevated blood-pressure reading, without diagnosis of hypertension; Z92.21 Personal history of antineoplastic chemotherapy; Z92.3 Personal history of irradiation; Z95.828 Presence of other vascular implants and grafts; L65.9 Nonscarring hair loss, unspecified; E78.5 Hyperlipidemia, unspecified; Z53.9 Procedure and treatment not carried out, unspecified reason
CPT/HCPCS: 36591; 80053; 84443; 85025; 99214

== ENCOUNTER → 2025-05-09 10:33 | Outpatient (BNVA) | payer MEDICARE, SELFPAY | PROVIDERS: PCP Family Medicine; Visit Provider Internal Medicine Cardiovascular Disease | DX: I48.0 Paroxysmal atrial fibrillation (principal); I11.0 Hypertensive heart disease with heart failure; I50.30 Unspecified diastolic (congestive) heart failure; E78.5 Hyperlipidemia, unspecified | CPT/HCPCS: 99214 ==